=== PATIENT | male | born 1975 | race Two or more races ===

== ENCOUNTER 2023-08-28 14:52 | Outpatient (AMB) | payer OTHER, SELFPAY ==
--- NOTE | 2023-08-28 15:01 | A.OFFVIS_ITS ---
Vital Signs 08/28/23 15:02 Height 6 ft 1 in Weight 285 lb BMI 37.6 BP 130/88 Blood Pressure Location Rt brachial Position Sitting Pulse 82 Pulse Source Pulse Oximeter Pulse Oximetry (%) 99 Oxygen Delivery Method Room Air Intake Visit Reasons: ENP-Tremor upper extremity-CONF Intake Note: Patient presents for tremors of upper extremities. Patient states he has upper and lower extremity tremors Allergies No Known Allergies Allergy (Verified 08/28/23 15:11) Medication List - Last Reconciled 08/28/23 by REGIS Vargas amlodipine 10 mg PO DAILY gabapentin 300 mg PO BEDTIME naproxen 500 mg PO BID sildenafil 100 mg PO DAILY PRN HPI Comments Details: 48- yr-old male presents for new pt evaluation of movement disorder, specifically: tremor. PMH: lower back pain and osteoarthritis. Left knee pain. H/o BUE CTR (approx 5 yrs ago). HTN, HLD, prediabetes, ED, headache, nephrolithiasis, positive RENETTA- previously not felt to be clinically significant [facility], Alopecia. Pt is concerned about BLE tremor which started about 1.5 years- when sitting, standing. He also has BLE L > R tingling, which is more bothersome at night. Gabapentin has helped with the tingling and sleep, and initially helped w/ the tremor but not as much now. Then he started noticing intermittent LUE tremor about 6 months ago- that comes and goes- can occur at rest or with activity such as typing but not with pouring. He is hesitant to start additional medications- notes a few years ago, was seeing neurology in [place], and addition of 2 medications (does not recall which) caused tremor and speech changes. Endorses: Radiating lower back pain w/ shooting pain down into toes. Has had back injections by [facility] and tried PT but this made him worse. Left knee swelling. Some intermittent tingling in left 4th and 5th fingers. Denies usual neck pain, swelling, h/o CVA, h/o pedersen's palsy. States his last lumbar spine imaging was in 2020, Last BUE EMG/NCS was > 5 yrs ago before the CTR repair. Denies h/o c-spine imaging, BLE EMG/NCS. Pt is right handed. ADL status: Ind but slow in the morning. Sits in a chair to put on his socks. IADL status: Ind Fine-motor skills: Ind Micrographia: Writing used to be better. Vision changes: deneis recent changes. wears glasses Hypophonia: Denies Hyposmia: Denies Dysphagia: Denies Drooling: Denies Orthostatic lightheadedness: If squats for a while, but just briefly. GI: Denies. Denies Constipation. : No issues Slowness: Feels overall slower and stiffer Cramps: Occasional left calf nocturnal cramps. Freezing episodes: Denies Tremor: as above Involuntary movements: Denies Dyskinesia: Denies Paresthesias: just the BLE Gait changes: No issues when typically walking. However, if he walks for long periods or walks on inclines, will have LLE tingling, warmth. Sleep difficulty: Sleeps well w/ his CPAP machine- states his ELDON severity fluctuates w/ his weight. If he sleeps 2 nights w/o his CPAP, his Uvula becomes swollen. Parasomnias: He has been told he talks in his sleep. Memory impairment: Not as good as it used to be- but not that bad- says normal. Hallucinations: Denies Usual exercise: Takes walks. Does some weight lifting at home. 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 History of concussion/head injury? denies History of neuroleptic (metoclopramide/antipsychotics) use? denies History of psychiatric hospitalizations? denies History of occupational chemical exposures? 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 Family history of movement disorders? His mother has tremor and low back pain, sciatica, and neuropathy- f/b [facility] neurosurgery. Family history of mood disorder or suicide? denies [facility] Surgical History History of carpal tunnel release Hx laparoscopic cholecystectomy H/O circumcision Family History Mother Arthritis Hypercholesteremia HTN (hypertension) Diabetes Maternal Grandmother HTN (hypertension) Diabetes Father Liver cancer Social History Alcohol intake: current Patient Tobacco Use Status: Former Tobacco user Review of Systems Const All systems reviewed & are unremarkable except as noted in HPI and below Physical Exam Vital Signs: Last Vital Signs Pulse 82 08/28/23 15:02 BP 130/88 08/28/23 15:02 Pulse Ox 99 08/28/23 15:02 Oxygen Delivery Method Room Air 08/28/23 15:02 BMI result Body Mass Index 37.6 Const General: cooperative and no acute distress HEENT Face and sinus: Yes other (Decreased expression and blink) Resp Effort & Inspection: normal respiratory effort and able to speak in complete sentences Cardio Rate: regular rate Rhythm: regular rhythm Neuro Other: General: A&O's 3. Asymmetric palpabrel fissure, L > R. Left lower eyelid does not close as tightly on eye closure. Expression: Intact Voice: Intact Tremor: Mild lingual tremor on protrusion. Very mild LUE postural tremor during pronator drift. Writing sample: Bilateral archimede's spiral- legible w/o tremor. Sentence- mildly poor handwriting w/o micrographia. MS: LLE hip flexor 5-/5, otherwise 5/5 Tone: BUE tone Dyskinesia: None FFM: Ok BUE BHARAT: intact Foot taps: Decreased heel taps on left, left foot taps better than heel taps Cervical ROM: Very mildly limited cervical ROM. Negative Spurling exams. Sensation: BLE light touch sensation intact. Gait: Able to stand slowly w/o arms, slight decreased right arm swing, good stride, steady gait. Psych: Pleasant affect Deep tendon reflexes (DTR's): Right triceps reflex intensity grade: 2+, Left triceps reflex intensity grade: 3+, Rt Biceps (C5, C6): 2+, Left biceps reflex intensity grade: 2+, Right brachioradialis reflex intensity grade: 2+, Left brachioradialis reflex intensity grade: 2+, Right patellar reflex intensity grade: 2+, Left patellar reflex intensity grade: 2+, Right ankle reflex intensity grade: 2+ and Left ankle reflex intensity grade: 2+ Psych Appearance: grossly normal Mental Status: mental status grossly normal Speech and movement: Clear speech present Affect: normal affect Attitude: cooperative Thought process: Normal thought process present Results Reviewed Results Reviewed: 09/20/2020, RESULT: MRI Lumbar Spine W/O Contrast [facility] VISIT NUMBER :[id number] Patient Name: Luc Fontaine Date of : 1975 Date of Exam: 09-20-2020 Referring Physician: Xavier Sandoval [facility] [address] [place] [address] Exam: MR Lumbar Spine (C-) CPT 12258 Room Description: [place] [address] 1.5 INDICATION: Low back pain. Failed conservative therapy. COMPARISON: None. FINDINGS: The vertebral bodies are normal in height and sagittal alignment. Moderate type I degenerative endplate marrow signal changes are noted at the L3- L4 and L4-L5 levels. There is disc desiccation and mild loss of intervertebral disc height at L3-L4 and L4-L5 as well as subtle disc desiccation without height loss at L2-L3. Remaining intervertebral discs are preserved. The visualized distal spinal cord and conus medullaris are normal. The conus medullaris terminates at L1. The paraspinal and prevertebral soft tissues are unremarkable. There is a T2 hyperintense lesion in the lower pole of the right kidney seen on the localizer images which probably reflects a small renal cyst. At T12-L1, there is no spinal canal or neural foraminal stenosis. At L1-L2, there is no spinal canal or neural foraminal stenosis. At L2-L3, there is a subtle disc bulge causing no significant narrowing of the spinal canal though there is mild bilateral neural foraminal narrowing. At L3-L4, there is a diffuse disc bulge and subtle facet arthropathy. There is no significant narrowing of the spinal canal. There is mild left and mild to moderate right neural foraminal narrowing. At L4-L5, there is a diffuse disc bulge with minimal central protrusion component and mild facet arthropathy. Disc material abuts the traversing right L5 nerve roots without displacement or compression. There is no significant narrowing of the spinal canal. There is mild bilateral neural foraminal narrowing. At L5-S1, there is mild facet arthropathy but there is no spinal canal or neural foraminal stenosis. IMPRESSION: Degenerative changes of the lumbar spine as described above. No definite evidence of nerve root impingement. Assessment & Plan Assessment & Plan (1) Hyperreflexia: Code(s): R29.2 - Abnormal reflex Category: Medical (2) Tremor: Code(s): R25.1 - Tremor, unspecified Category: Medical (3) Osteoarthritis: Code(s): M19.90 - Unspecified osteoarthritis, unspecified site Category: Medical (4) Paresthesia of left lower extremity: Code(s): R20.2 - Paresthesia of skin Category: Medical (5) Lumbar degenerative disc disease: Code(s): M51.36 - Other intervertebral disc degeneration, lumbar region Category: Medical Plan Continue Gabapentin 300mg qhs. Continue Naproxen 500mg bid prn. Offered pt to trial OTC Nervive/alpha-lipoic acid, however pt would like to wait for additional work-up to be completed 1st. Will request recent labs from - ceruloplasmin, TSH, etc. Pt advised to undergo: XR c-spine Brain MRI and C-spine MRI w/wo to assess for central secondary/inflammatory et iologies of eye flutter, lingual tremor, asymmetric tremor, Lt tricep hyperreflexia. L-spine mRI w/o- to assess for etiologies of LLE tremor, radicular back pain, LLE weakness. BUE and BLE EMG/NCS. Case discussed w/ Dr Karen Mondragon. Orders: Orders MR cervical spine wo/w con 08/28/23 R20.2 - Paresthesia of skin, R25.1 - Tremor, unspecified, R29.2 - Abnormal reflex, R29.898 - Other symptoms and signs involving the musculoskeletal system XR cervical spine w flex/ext 08/28/23 M54.2 - Cervicalgia NE electromyogram (EMG) 08/28/23 M51.36 - Other intervertebral disc degeneration, lumbar region, R20.2 - Paresthesia of skin, R25.1 - Tremor, unspecified, R29.898 - Other symptoms and signs involving the musculoskeletal system NE nerve conduction velocity 08/28/23 M51.36 - Other intervertebral disc degeneration, lumbar region, R20.2 - Paresthesia of skin, R25.1 - Tremor, unspecified, R29.898 - Other symptoms and signs involving the musculoskeletal system MR head/brain wo/w con 08/28/23 G51.4 - Facial myokymia, I10 - Essential (primary) hypertension, R25.1 - Tremor, unspecified, R29.2 - Abnormal reflex MR lumbar spine wo con 08/28/23 M51.36 - Other intervertebral disc degeneration, lumbar region, R20.2 - Paresthesia of skin, R25.1 - Tremor, unspecified, R29.898 - Other symptoms and signs involving the musculoskeletal system Coding Level of Care Code New Pt Level 4 (37728) Diagnoses Hyperreflexia R29.2 Tremor R25.1 Osteoarthritis M19.90 Paresthesia of left lower extremity R20.2 Lumbar degenerative disc disease M51.36
[2023-08-28 15:02] VITALS: BP 130/88; PULSE 82; O2SAT 99; BMI 37.6
== END 2023-08-28 16:27 | disposition home or self-care (01) ==
PROVIDERS: PCP Family Medicine; Visit Provider Nurse Practitioner Family
DX: R29.2 Abnormal reflex (principal); R25.1 Tremor, unspecified; M19.90 Unspecified osteoarthritis, unspecified site; R20.2 Paresthesia of skin; M51.36 Other intervertebral disc degeneration, lumbar region
CPT/HCPCS: 99204

== ENCOUNTER → 2023-08-28 14:52 | Outpatient (BNVA) | payer OTHER, SELFPAY | PROVIDERS: PCP Family Medicine; Visit Provider Nurse Practitioner Family ==

== ENCOUNTER 2023-09-19 09:52 | Outpatient (REF) | payer OTHER, SELFPAY ==
--- NOTE | 2023-09-19 09:55 | EMG_ITS ---
Bilateral tibial and peroneal motor studies were performed. Bilateral superficial peroneal, sural, and median and lateral plantar studies were performed. Tibial H reflexes were obtained, and paraspinal muscles were tested with a needle. IMPRESSION: Mild to moderate axonal sensory motor peripheral neuropathy, more so in feet than legs. MD BELKYS Fallon/ENE / [id number]
== END 2023-09-19 09:53 | disposition home or self-care (01) ==
LOC: HO.NEURO 09:52
PROVIDERS: Visit Provider Nurse Practitioner Family
DX: R20.2 Paresthesia of skin (principal); R29.898 Other symptoms and signs involving the musculoskeletal system; M51.36 Other intervertebral disc degeneration, lumbar region; R25.1 Tremor, unspecified
CPT/HCPCS: 95886; 95913

== ENCOUNTER 2023-10-09 16:30 | Outpatient (REF) | payer OTHER, SELFPAY ==
--- NOTE | ~2023-10-09 | MR_ITS ---
EXAMINATION: MR LUMBAR SPINE WITHOUT CONTRAST CLINICAL INFORMATION: Intervertebral disc degeneration of the lumbar spine. Left lower extremity numbness. COMPARISON: No relevant prior imaging. TECHNIQUE: MRI of the lumbar spine was obtained using routine sequences without contrast. FINDINGS: Alignment is normal. Vertebral body heights are preserved. No acute bone marrow signal changes. There are mixed degenerative endplate changes at L3-L4 and L4-L5. Slight loss of the intervertebral disc height and signal intensity at multiple levels related to disc degeneration. The tip of the conus medullaris is located at L1. No mass effect on the conus. Visualized distal cord signal intensity is normal. At L1-L2 the annular contour is normal. No canal stenosis. No mass effect on the traversing or foraminal nerve roots. At L2-L3. There is a right foraminal annular fissure associated with a bulging disc. Bilateral facet degenerative changes. No canal stenosis. No mass effect on the traversing or foraminal nerve roots. At L3-L4 there is a bulging disc. Bilateral facet degenerative change. No canal stenosis. Mild compression of the right L3 foraminal nerve root. At L4-L5 there is a bulging disc. Bilateral facet degenerative change. No canal stenosis. Moderate compression of the left L4 foraminal nerve root. At L5-S1 there is a slightly bulging disc. Bilateral facet degenerative change. No canal stenosis. Partial effacement of the perineural fat with minimal to mild mass effect on both L5 foraminal nerve roots. Limited visualization of the retroperitoneal anatomy reveals no abnormal finding. Psoas and paraspinal muscle groups are symmetric. MR/MR lumbar spine wo con IMPRESSION: There is multilevel degenerative spondylosis of the lumbar spine. No canal stenosis. There is moderate compression of the left L4 foraminal nerve root related to degenerative changes at L4-L5. There is also mild mass effect on the right L3 and both L5 foraminal nerve roots related to degenerative changes at L3-L4 and L5-S1 respectively. Electronically signed by: Shady Torres MD 10/26/2023 05:00 PM EDT
== END 2023-10-09 16:31 | disposition home or self-care (01) ==
LOC: HO.MRI 16:30
PROVIDERS: Visit Provider Nurse Practitioner Family
DX: M51.36 Other intervertebral disc degeneration, lumbar region (principal); R25.1 Tremor, unspecified; R20.2 Paresthesia of skin; R29.898 Other symptoms and signs involving the musculoskeletal system
CPT/HCPCS: 72148

== ENCOUNTER 2023-11-03 08:31 | Outpatient (REF) | payer OTHER, SELFPAY ==
--- NOTE | ~2023-11-03 | MR_ITS ---
EXAMINATION: MR BRAIN WITHOUT AND WITH CONTRAST MR CERVICAL SPINE WITHOUT AND WITH CONTRAST CLINICAL INFORMATION: Facial myokymia. Abnormal reflexes. COMPARISON: None available. TECHNIQUE: MRI of the brain and cervical spine was obtained using routine sequences without and following the administration of 10 mL of Gadavist intravenous contrast. FINDINGS: Head: No focal restricted diffusion is demonstrated to suggest acute or subacute cerebral ischemia. No evidence of acute or chronic hemorrhagic products on heme-sensitive imaging. Few nonspecific foci of T2 FLAIR hyperintensity in the periventricular and deep white matter of the anterior frontal lobes bilaterally. No additional parenchymal signal abnormalities. The ventricles are normal in morphology and size. No abnormal mass effect. No midline shift. Normal appearance of the pituitary gland. Normal positioning of the cerebellar tonsils. Normal arterial and venous vascular flow voids are present. No abnormal contrast enhancement. Normal, homogeneous marrow signal. Mild mucosal thickening of the paranasal sinuses. No signal abnormalities within the mastoids. Cervical Spine: Normal anatomic alignment. Normal, homogeneous marrow signal throughout. The vertebral body heights are maintained. Moderate degenerative disc disease at C3-C4 and T3-T4. Mild degenerative disc disease from C4-T1. No demonstrated spinal cord signal abnormalities. No abnormal contrast enhancement. Limited evaluation of the soft tissues of the neck without demonstrated abnormalities. The flow voids of the major cervical vessels are maintained. Normal appearance of the cervicomedullary junction and visualized posterior fossa. SPINAL LEVELS: C2-C3: Minimal disc-osteophyte complex. There is mild left and no right uncovertebral joint arthropathy. There is mild bilateral facet joint arthropathy. There is mild left and no right neural foraminal stenosis. There is no spinal canal stenosis. C3-C4: Mild disc-osteophyte complex. There is moderate left and mild right uncovertebral joint arthropathy. There is moderate left and mild right facet joint arthropathy. There is mild left and no right neural foraminal stenosis. There is mild spinal canal stenosis. C4-C5: Mild disc-osteophyte complex. There is moderate left and mild right uncovertebral joint arthropathy. There is moderate bilateral facet joint arthropathy. There is moderate left and mild right neural foraminal stenosis. There is mild to moderate spinal canal stenosis. C5-C6: Mild disc-osteophyte complex. There is moderate left and mild right uncovertebral joint arthropathy. There is mild to moderate bilateral facet joint arthropathy. There is moderate left and mild right neural foraminal stenosis. There is mild to moderate spinal canal stenosis. C6-C7: Mild disc-osteophyte complex. There is moderate right and mild left uncovertebral joint arthropathy. There is mild bilateral facet joint arthropathy. There is moderate right and mild left neural foraminal stenosis. There is mild spinal canal stenosis. C7-T1: Mild disc-osteophyte complex. There is moderate left and mild right uncovertebral joint arthropathy. There is mild bilateral facet joint arthropathy. There is mild left and no right neural foraminal stenosis. There is no spinal canal stenosis. MR/MR cervical spine wo/w con IMPRESSION: 1. No acute intracranial abnormalities. No abnormal intracranial enhancement. Minimal nonspecific white matter changes. 2. Mild to moderate multilevel degenerative spondyloarthropathy of the cervical spine as described in detail above. Most notably, there are mild to moderate spinal canal stenoses from C3-C7. Moderate neural foraminal stenoses from C4-C7. 3. No demonstrated cervical spinal cord signal abnormalities. No abnormal enhancement of the cervical spine. Electronically signed by: Александр Swanson DO 11/24/2023 11:10 PM EDT
[2023-11-03] MEDS: gadobutroL 10 ML VIAL IVPUSH (10:12)
== END 2023-11-03 08:32 | disposition home or self-care (01) ==
LOC: HO.MRI 08:31
PROVIDERS: Visit Provider Nurse Practitioner Family
DX: R29.2 Abnormal reflex (principal); R25.1 Tremor, unspecified; R29.898 Other symptoms and signs involving the musculoskeletal system; R20.2 Paresthesia of skin; G51.4 Facial myokymia; I10 Essential (primary) hypertension
CPT/HCPCS: 70553; 72156; A9585

== ENCOUNTER 2023-11-06 12:47 | Outpatient (AMB) | payer OTHER, SELFPAY ==
--- NOTE | 2023-11-06 13:06 | A.SPINEOV_ITS ---
Intake Visit Reasons: Back pain Intake Note: Mr. Mccall is here today c/o low back pain. [place] done @ [facility] [place]. 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 Mondragon, Thank you for referring Luc to our office today. He is a pleasant 48-year-old male who comes in today with a chief complaint of low back pain and shooting pain into his left lower extremity. He reports that has been ongoing for the past 4 years, and has gradually worsened in intensity since onset. He denies any known inciting incident. When describing his radicular pain he states it travels over his left anterior thigh over his left knee down the anterior tibialis to the top of his foot near the big toe. He reports some numbness/tingling as well predominantly in the left thigh and left foot. He reports that bending seems to exacerbate his pain, but denies any other positional changes that worsen his pain. He denies any issues with prolonged ambulation. He has tried going to physical therapy for this issue however found it only worsened his pain and was not helpful. He has been to [facility] and had a series of injections which he reports provided complete relief of his symptoms for a few weeks after each set of injections. He has tried [id number] medications such as Tylenol/ibuprofen/naproxen in addition to this he has utilized prescription medications such as gabapentin and muscle relaxers. Unfortunately he feels these medications only provide temporary modest relief. PMH: Hypertension, sleep apnea, erectile dysfunction, hyperlipidemia, nephrolithiasis. Social hx: Patient does not smoke, reports no substance use. Medications: Truvada, sildenafil, gabapentin, naproxen, amlodipine. Allergies: NKDA. Physical exam: The patient has 5/5 strength in his upper and lower extremities. He does report some sensational deficits to light touch over his anterior left thigh and left foot. His reflexes are 1+ hypoactive diffusely. He has to engage a Valsalva maneuver in order to elicit patellar reflex bilaterally. He is able to ambulate well and rises from a seated position without difficulty. (-) bilateral straight leg raise, (-) clonus, (-) Squires's. Imaging review: MRI of the lumbar spine completed here at [facility] shows bilateral moderate foraminal stenosis at L3-4, worse on the right. There is also bilateral moderate foraminal stenosis at L4-5, also worse on the right. Impression: Luc is a pleasant 48-year-old male who comes in today with a chief complaint of low back pain & intermittent shooting pains into his left lower extremity. His clinical picture is most consistent with lumbar radiculopathy as a result of foraminal stenosis. His primary concerns/complaint is pain in both his low back in his left leg. He denies mobility restrictions. We may be able to treat this with a simple decompression surgery, however I would like to obtain his records from [facility] to see what injections he had that reportedly provide him with temporary but complete relief of his low back pain and radicular pain. I will follow up with him after we obtain his records. Thank you for allowing us to care for your patient. The total time spent with this visit with this patient was 45 minutes reviewing history, physical exam, MRI imaging review, and implementation of treatment plan or further diagnostic testing Dalton Handley MD,PhD [facility] Coding Level of Care Code Global (81634) Diagnoses Lumbar radiculopathy M54.16
== END 2023-11-06 13:47 | disposition home or self-care (01) ==
PROVIDERS: Referring Provider Nurse Practitioner Family; Visit Provider Physician Assistant
DX: M54.16 Radiculopathy, lumbar region (principal)
CPT/HCPCS: 99204

== ENCOUNTER → 2023-11-06 12:47 | Outpatient (BNVA) | payer OTHER, SELFPAY | PROVIDERS: Visit Provider Physician Assistant ==

== ENCOUNTER 2023-11-22 13:57 | Outpatient (AMB) | payer OTHER, SELFPAY ==
--- NOTE | 2023-11-22 13:59 | A.OFFVIS_ITS ---
Vital Signs 11/22/23 14:08 Height 6 ft 1 in Weight 296 lb BMI 39.0 BP 153/86 H Blood Pressure Location Lt brachial Position Sitting Respiration 16 Pulse 88 Pulse Source Palpation Pulse Oximetry (%) 96 Oxygen Delivery Method Room Air Intake Visit Reasons: Lumbar Radiculopathy Intake Note: Patient comes in for initial visit was referred by [facility] [place] [place] spine center. Reports 7- 8. Allergies No Known Allergies Allergy (Verified 11/22/23 14:06) HPI Comments Details: Arian is very pleasant 48 years old gentleman who was referred to my office by Dr. Handley and associates. He reports severe pain in the lower back with radiation to the right lower extremity sensation of pins and needles as well as burning sensation in the left lower extremity. He reported that this pain started 2-3 years ago. He relates this problem to the age. He reports that he can not sleep normally because of his pain can not do activities of daily living he can take care of himself and he can function normally. He reports that he is working full-time and his job is very physical he performs multiple times during the daytime climbing up and down stairs and heavy lifting. He reports that he is self mobile, weather changes in movements aggravate his pain and oral medications make his pain better. In terms of tissue damage he reports his pain as pulsing, throbbing, pounding, pinching, cramping, crushing, hot burning, scalding, searing, tingling, stinging, tiring, exhausting, tight, squeezing, tearing. He had an MRI of the lumbar spine results of which dictated as below. He had physical therapy 3-1/2 years ago with [facility] he went to 5-6 sessions and he reported severe pain exacerbation with physical therapy. He refused to consider physical therapy. He in the past received 1 transforaminal epidural steroid injection L3-L4 L4-5 in the past which he reports made him significantly better. Past medical history is for kidney stones history of gout arthritis and history of sexual dysfunction, surgical history call patellar release on both hands 2 years ago and gallbladder surgery 4 years ago. Social history full-time working admits vaping nicotine, drinks 3 drinks a week of cocktail drinks denies recreational drugs and denies being addicted to drugs. [facility] Surgical History History of carpal tunnel release Hx laparoscopic cholecystectomy H/O circumcision Family History Mother Arthritis Hypercholesteremia HTN (hypertension) Diabetes Maternal Grandmother HTN (hypertension) Diabetes Father Liver cancer Social History Alcohol intake: current Patient Tobacco Use Status: Former Tobacco user Review of Systems Const All systems reviewed & are unremarkable except as noted in HPI and below ENT Reports Normal hearing present Card Reports no additional complaints Resp Reports no additional complaints GI Reports no additional complaints Reports no additional complaints Musc Reports as per HPI Neuro Reports no additional complaints, Reports Normal hearing present, Denies Abnormal speech present and Denies Sensory deficit (Neuro) Psych Reports no additional complaints Physical Exam Vital Signs: Last Vital Signs Pulse 88 11/22/23 14:08 Resp 16 11/22/23 14:08 BP 153/86 H 11/22/23 14:08 Pulse Ox 96 11/22/23 14:08 Oxygen Delivery Method Room Air 11/22/23 14:08 BMI result Body Mass Index 39.0 Const General: no acute distress Nutritional Appearance: obese (Trivial obesity) Orientation/consciousness: patient oriented x3 Eyes General: appearance normal, both eyes and all related structures Pupils: Equal, round and reactive pupils present EOM: EOMs intact bilaterally Neck Neck: Yes full ROM Chest Chest palpation & inspection: normal inspection of the chest Resp Effort & Inspection: normal respiratory effort, able to speak in complete sentences, normal respiratory pattern, no audible wheezes and no cough Cardio Jugular venous distension: no JVD GI Inspection: Yes normal to inspection Neuro General: patient oriented x3 and gait normal Cranial nerves: Yes CN's II-XII intact bilaterally, Yes Equal, round and reactive pupils present, Yes Normal hearing present and Yes Ability to bilaterally elevate shoulders present Speech: No Abnormal speech present Gait exam (Neuro): Normal gait present Motor exam (neuro): 5/5 motor strength present throughout Sensory Exam: No Sensory deficit (Neuro) Extrem General: No pedal edema Psych Speech and movement: Normal speech and movement present Affect: normal affect Attitude: cooperative Thought process: Normal thought process present Thought content: Normal thought content present Insight: Good insight present (Psych) Judgement: Good judgement present (Psych) Results Reviewed Results Reviewed: MR LUMBAR SPINE WITHOUT CONTRAST CLINICAL INFORMATION: Intervertebral disc degeneration of the lumbar spine. Left lower extremity numbness. COMPARISON: No relevant prior imaging. TECHNIQUE: MRI of the lumbar spine was obtained using routine sequences without contrast. FINDINGS: Alignment is normal. Vertebral body heights are preserved. No acute bone marrow signal changes. There are mixed degenerative endplate changes at L3-L4 and L4-L5. Slight loss of the intervertebral disc height and signal intensity at multiple levels related to disc degeneration. The tip of the conus medullaris is located at L1. No mass effect on the conus. Visualized distal cord signal intensity is normal. At L1-L2 the annular contour is normal. No canal stenosis. No mass effect on the traversing or foraminal nerve roots. At L2-L3. There is a right foraminal annular fissure associated with a bulging disc. Bilateral facet degenerative changes. No canal stenosis. No mass effect on the traversing or foraminal nerve roots. At L3-L4 there is a bulging disc. Bilateral facet degenerative change. No canal stenosis. Mild compression of the right L3 foraminal nerve root. At L4-L5 there is a bulging disc. Bilateral facet degenerative change. No canal stenosis. Moderate compression of the left L4 foraminal nerve root. At L5-S1 there is a slightly bulging disc. Bilateral facet degenerative change. No canal stenosis. Partial effacement of the perineural fat with minimal to mild mass effect on both L5 foraminal nerve roots. Limited visualization of the retroperitoneal anatomy reveals no abnormal finding. Psoas and paraspinal muscle groups are symmetric. MR/MR lumbar spine wo con IMPRESSION: There is multilevel degenerative spondylosis of the lumbar spine. No canal stenosis. There is moderate compression of the left L4 foraminal nerve root related to degenerative changes at L4-L5. There is also mild mass effect on the right L3 and both L5 foraminal nerve roots related to degenerative changes at L3-L4 and L5-S1 respectively. Assessment & Plan Assessment & Plan (1) Lumbar radiculopathy: Code(s): M54.16 - Radiculopathy, lumbar region Category: Medical (2) Spinal stenosis: Code(s): M48.00 - Spinal stenosis, site unspecified Category: Medical (3) Osteoarthritis: Code(s): M19.90 - Unspecified osteoarthritis, unspecified site Category: Medical (4) Gout: Code(s): M10.9 - Gout, unspecified Category: Medical (5) Spondylosis, lumbar, with myelopathy: Code(s): M47.16 - Other spondylosis with myelopathy, lumbar region Category: Medical (6) Vertebrogenic low back pain: Code(s): M54.51 - Vertebrogenic low back pain Category: Medical Plan 1. I will schedule this patient for transforaminal L3-L4 L4-5 epidural steroid injection on the right. 2. I will do the follow-up of this patient in about amounts after the procedure. 3. The radiculopathy pain might be alleviated by the transforaminal epidural steroid injection however patient is axial back pain might be related to the discogenic changes I discovered today in his lumbar spine at L3-L4 and L5 vertebra. Intercept procedure could be offered to the patient if axial low back pain remains after the TFESI. 4. He was diagnose with gout in the past and I recommended him to speak about gout with primary care physician. It would be good if he will take the allopurinol or other medications for his condition. 5. I also offered him to prescribe him gabapentin 600 mg t.i.d. to help his pain. Told him if gabapentin make him drowsy or sleepy he can not take 2 medications at night and 1 during the daytime. Medications: New gabapentin 600 mg PO TID 30 days 90 tabs 4RF Patient Instructions: I here by testify that I spent 45 minutes in conversation with this patient as well as evaluating this patient's MRI and MRI report as well as planning his care and organizing this note. Coding Level of Care Code New Pt Level 4 (66201) Diagnoses Lumbar radiculopathy M54.16 Spinal stenosis M48.00 Osteoarthritis M19.90 Gout M10.9 Spondylosis, lumbar, with myelopathy M47.16 Vertebrogenic low back pain M54.51
[2023-11-22 14:08] VITALS: BP 153/86; PULSE 88; RESP 16; O2SAT 96; BMI 39.0
== END 2023-11-22 14:17 | disposition home or self-care (01) ==
PROVIDERS: Referring Provider Physician Assistant; Visit Provider Anesthesiology
DX: M54.16 Radiculopathy, lumbar region (principal); M48.00 Spinal stenosis, site unspecified; M19.90 Unspecified osteoarthritis, unspecified site; M10.9 Gout, unspecified; M47.16 Other spondylosis with myelopathy, lumbar region; M54.51 Vertebrogenic low back pain
CPT/HCPCS: 99204

== ENCOUNTER → 2023-11-22 13:57 | Outpatient (BNVA) | payer OTHER, SELFPAY | PROVIDERS: Referring Provider Physician Assistant; Visit Provider Anesthesiology ==

== ENCOUNTER 2023-12-05 13:29 | Outpatient (AMB) | payer OTHER, SELFPAY ==
[2023-12-05 13:32] VITALS: BP 148/100; PULSE 83; O2SAT 98; BMI 39.6
--- NOTE | 2023-12-05 13:32 | A.OFFPC_ITS ---
Vital Signs 12/05/23 13:32 Height 6 ft 1 in Weight 300 lb 0.4 oz BMI 39.6 BP 148/100 H Blood Pressure Location Lt brachial Position Sitting Pulse 83 Pulse Source Pulse Oximeter Pulse Oximetry (%) 98 Oxygen Delivery Method Room Air Intake Visit Reasons: Establish Care Allergies No Known Allergies Allergy (Verified 12/05/23 13:47) Medication List - Last Reconciled 12/05/23 by Alexandra Aguilar PA-C amlodipine 10 mg PO DAILY emtricitabine-tenofovir (TDF) 200-300 mg 1 tab PO DAILY gabapentin 600 mg PO TID 30 days naproxen 500 mg PO BID sildenafil 100 mg PO DAILY PRN Tobacco use date assessed: 12/05/23 Dental Screening Dental Screen Date: 12/05/23 Did you have a dental visit in the last 12 months?: No Did you have a dental problem in the last 6 months where you did not have access to dental care?: No Was dental information given to patient?: Patient has dentist HPI Establish Care HPI Details 48 year old male coming to the office fo r the first time. In review of the notes, patient was seen by Neurology for tremors and was sent for MRI of the brain, C spine and lumbar spine. Patient was referred to the spine center due to lumbar and cervical spine degenerative disease, seen by spine center October 2023 and recommend series of injections for lumbar pain. Patient saw pain management 11/22/2023 and scheduled for steroid injections and recommended possible allopurinol for management of gout and given gabapentin for back pain.? Patient was seen at [facility] previously in [place] for his PCP left. He sees [facility] in [place] for prep prescription. Blood pressure is consistently high at home and also mentions he has been gaining weight. He had a colonoscopy last year with repeat in 10 years. Falls with [facility] for regular eye exams. [facility] Surgical History History of carpal tunnel release Hx laparoscopic cholecystectomy H/O circumcision Family History Mother Arthritis Hypercholesteremia HTN (hypertension) Diabetes Maternal Grandmother HTN (hypertension) Diabetes Father Liver cancer Social History Housing: House Alcohol intake: current Patient Tobacco Use Status: Former Tobacco user e-Cigarette/Vaping Use: Currently Using service: No Current occupational status: employed Cognitive needs: No Hearing needs: No Vision needs: No Questionnaire PHQ-9 Over the last 2 weeks, how often have you been bothered by any of the following problems? 1. Little interest or pleasure in doing things: more than half the days 2. Feeling down, depressed, or hopeless: more than half the days 3. Trouble falling or staying asleep, or sleeping too much: nearly every day 4. Feeling tired or having little energy: more than half the days 5. Poor appetite or overeating: more than half the days 6. Feeling bad about yourself - or that you are a failure or have let yourself or your family down: not at all 7. Trouble concentrating on things, such as reading the newspaper or watching television: not at all 8. Moving or speaking so slowly that other people could have noticed. Or the opposite - being so fidgety or restless that you have been moving around a lot more than usual: more than half the days 9. Thoughts that you would be better off or of hurting yourself in some way: not at all Total score: 13 Depression Screening Interpretation: Positive Depression Screening Follow-up: Declines treatment Depression Screening Done: Yes 38561 - PHQ-9 Billing: Yes Source: Developed by Drs. Shady Gutierrez, Dayna Mckeon, Shane Matias and colleagues, with an educational cristel from [employer]. Thrive Questionnaire I am a: Patient What is your living situation today?: I have a steady place to live Within the past 12 months, did the food you bought not last and you didn't have the money to get more?: Often true Within the past 12 months, did you worry whether your food would run out before you got money to buy more?: Often true Do you have trouble paying for medicines?: No Do you have trouble getting transportation to medical appointments?: No Do you have trouble paying your heating and electricity bill?: Yes Do you have trouble taking care of your child, family member or friend?: No Do you have trouble with day-to-day activities such as bathing, preparing meals, shopping, managing finances, etc.?: Yes Are you currently unemployed and looking for a job?: No Are you interested in more education?: I choose not to answer this question Please select the resources that you would like help with: Food and Utilities Currently or been in a relationship where the following occur: No concerns reported THRIVE Score: 3 AUDIT C Alcohol Use Questionnaire (AUDIT-C) 1. How often do you have a drink containing alcohol?: 2-4 times a month 2. How many drinks containing alcohol do you have on a typical day when you are drinking?: 3 or 4 3. How often do you have six or more drinks on one occasion?: Never Total Score: 3 DARIELA-7 AMB Questionnaire DARIELA-7 Date DARIELA - 7 assessed: 12/05/23 Feeling nervous, anxious, or on edge: 1 = Several days Not being able to stop or control worryin = More than half the days Worrying too much about different things: 2 = More than half the days Trouble relaxin = More than half the days Being so restless that it is hard to sit still: 2 = More than half the days Becoming easily annoyed or irritable: 2 = More than half the days Feeling afraid as if something awful might happen: 1 = Several days Total DARIELA-7 score (0-4 normal; 5-9 mild; 10-14 moderate; 15-21 severe): 12 Source: Developed by Drs. Shady Gutierrez, Dayna Mckeon, Shane Matias and colleagues, with an educational cristel from [employer]. DARIELA-7 Assessment Billing DARIELA-7 Assessment Tool: DARIELA-7 Assessment 14195 Review of Systems Const Denies body aches, Denies fatigue, Denies fever(s), Denies frequent falls, Reports headache(s) and Denies weakness Eyes Reports no additional complaints and Denies change in vision ENT Denies dysphagia, Denies dizziness, Denies facial pain, Reports headache(s) and Denies odynophagia Card Denies chest pain, Denies syncope, Denies irregular heart rhythm, Denies leg edema, Denies lightheadedness and Denies dyspnea Resp Denies cough and Denies dyspnea GI Denies abdominal pain, Denies constipation, Denies dysphagia, Denies dyspepsia, Denies diarrhea, Denies nausea, Denies odynophagia and Denies vomiting Denies dysuria, Denies urinary frequency, Denies urinary hesitancy and Denies urinary urgency Musc Reports back pain and Denies myalgias Skin/Breast Reports system reviewed and no additional complaints, except as documented Neuro Denies dizziness, Denies syncope, Denies frequent falls, Reports headache(s) and Denies weakness Psych Reports no additional complaints Endo Denies fatigue Physical exam (Primary Care) Vital Signs: Last Vital Signs Pulse 83 12/05/23 13:32 BP 148/100 H 12/05/23 13:32 Pulse Ox 98 12/05/23 13:32 Oxygen Delivery Method Room Air 12/05/23 13:32 BMI result Body Mass Index 39.6 Tobacco/Smoking Status: Tobacco use Status Tobacco use date assessed 12/05/23 12/05/23 13:36 Patient Tobacco Use Status Former Tobacco user 12/05/23 13:33 e-Cigarette/Vaping Use Currently Using 12/05/23 13:36 PHQ-9: PHQ-9 Score PHQ-9: Total score 13 12/05/23 16:11 Depression Screening Interpretation: Positive Depression Screening Follow-up: Declines treatment Currently or been in a relationship where the following occur: No concerns reported Const General: cooperative, healthy appearing, comfortable and no acute distress Orientation/consciousness: patient oriented x3 HENMT Head: Yes normocephalic Ears: hearing grossly normal bilaterally General nose exam: Normal external nose present Eyes General: appearance normal, both eyes and all related structures Conjunctivae: conjunctivae normal Neck Neck: Yes full ROM and Yes no lymphadenopathy Resp Effort & Inspection: normal respiratory effort Auscultation: clear to auscultation bilaterally, no crackles, no rales, no rhonchi and no wheezes Cardio Rate: regular rate Rhythm: regular rhythm Skin General skin exam: no rashes or lesions noted Neuro General: patient oriented x3 Gait exam (Neuro): Normal gait present Extrem General: Yes normal to inspection, Yes full ROM and No edema Psych Affect: normal affect Attitude: cooperative Insight: Good insight present (Psych) Judgement: Good judgement present (Psych) Coding Level of Care Code New Pt Level 4 (53286) Diagnoses Vertebrogenic low back pain M54.51 Gout M10.9 Fatty liver K76.0 Erectile dysfunction N52.9 HLD (hyperlipidemia) E78.5 HTN (hypertension) I10 Obesity (BMI 30.0-34.9) E66.811 Additional Codes DARIELA-7 Assessment Billing - DARIELA-7 Assessment Tool: DARIELA-7 Assessment 46089 ([id number]) Assessment & Plan Assessment & Plan (1) Vertebrogenic low back pain: Code(s): M54.51 - Vertebrogenic low back pain Category: Medical Plan: Continue to follow with spine clinic and pain management. Scheduled for back injections. (2) Gout: Code(s): M10.9 - Gout, unspecified Category: Medical Plan: Patient had 1 isolated attack no indication for maintenance therapy with allopurinol at this time. Ordered for uric acid level and continue to avoid high purine foods. (3) Fatty liver: Code(s): K76.0 - Fatty (change of) liver, not elsewhere classified Category: Medical Plan: Healthy diet and regular exercise is encouraged. Continue to monitor liver function testing. (4) Erectile dysfunction: Code(s): N52.9 - Male erectile dysfunction, unspecified Category: Medical Plan: Continue on current medication. (5) HLD (hyperlipidemia): Code(s): E78.5 - Hyperlipidemia, unspecified Category: Medical Plan: Avoid foods that are high in cholesterol such as red meat, fried foods, eggs and baked goods. Triglyceride goal of less than 150 and LDL goal of less than 130. Ordered for updated blood work. (6) HTN (hypertension): Code(s): I10 - Essential (primary) hypertension Category: Medical Plan: Blood pressure elevated today and continues to be elevated at home. We will add lisinopril 2 medication management at this time. Avoid salt intake and encourage healthy diet and regular exercise. (7) Obesity (BMI 30.0-34.9): Code(s): E66.811 - Obesity, class 1 Category: Medical Plan: Healthy diet and regular exercise is encouraged. Plan This note was constructed using voice recognition software. While every effort has been made to ensure accuracy and director safety council, still areas may have been included sometimes these areas may affect the content or meeting of the given symptoms. Total time spent caring for the patient today was 30 minutes. This includes time spent before the visit reviewing the chart, time spent during the visit, and time spent after the visit and documentation. Orders: Orders Comprehensive Met. Panel Today Z00.00 - Encounter for general adult medical examination without abnormal findings Lipid Panel Today Z00.00 - Encounter for general adult medical examination without abnormal findings TSH reflex Free T4 Today Z00.00 - Encounter for general adult medical examination without abnormal findings Vitamin B12 and Folate Today Z00.00 - Encounter for general adult medical examination without abnormal findings Vitamin D 25-OH (D2 and D3) Today Z00.00 - Encounter for general adult medical examination without abnormal findings PSA, Ultra Sensitive Today Z00.00 - Encounter for general adult medical examination without abnormal findings Hemoglobin A1c Today Z00.00 - Encounter for general adult medical examination without abnormal findings Uric Acid Today M10.9 - Gout, unspecified Complete Blood Count Auto Diff Today Z00.00 - Encounter for general adult medical examination without abnormal findings Free T4 (Free Thyroxine) Today Z00.00 - Encounter for general adult medical examination without abnormal findings Referrals Medical Weight Management Referral E66.811 - Obesity, class 1 Medications: New sildenafil administer 30 minutes to 4 hours before activity 100 mg PO DAILY PRN 20 tabs 1RF sexual activity nicotine (polacrilex) 2 mg buccal Q2H 40 ea 0RF lisinopril 10 mg PO DAILY 30 tabs 1RF
== END 2023-12-05 14:13 | disposition home or self-care (01) ==
DX: M54.51 Vertebrogenic low back pain (principal); M10.9 Gout, unspecified; E66.811 Obesity, class 1; Z68.39 Body mass index [BMI] 39.0-39.9, adult; K76.0 Fatty (change of) liver, not elsewhere classified; E78.5 Hyperlipidemia, unspecified; N52.9 Male erectile dysfunction, unspecified; I10 Essential (primary) hypertension

== ENCOUNTER → 2023-12-05 13:29 | Outpatient (BNVA) | payer OTHER, SELFPAY | DX: M54.51 Vertebrogenic low back pain (principal); M10.9 Gout, unspecified; K76.0 Fatty (change of) liver, not elsewhere classified; N52.9 Male erectile dysfunction, unspecified; E78.5 Hyperlipidemia, unspecified; I10 Essential (primary) hypertension; E66.811 Obesity, class 1; Z68.39 Body mass index [BMI] 39.0-39.9, adult | CPT/HCPCS: 96127 ==

== ENCOUNTER 2023-12-06 10:27 | Outpatient (REF) | payer OTHER, SELFPAY ==
[2023-12-06 14:30] LABS: MANUAL DIFF FLAG NO
[2023-12-06 14:33] LABS: Basophils Percent Auto 0.4 % (0-2); Eosinophils Percent Auto 0.7 % (0-4); Hematocrit 47.5 % (42.0-52.0); Hemoglobin 15.5 g/dl (14.0-18.0); Imm Gran Abs Auto 0.06 X10*3/uL (0.00-0.03); Imm Gran Pct Auto 1.1 % (0.0-0.4); Lymphocytes Absolute Auto 1.9 X10*3/uL (1.2-4.9); Lymphocytes Percent Auto 33.7 % (20-40); Mean Corpuscular HGB Conc 32.6 g/dl (31.0-36.0); Mean Corpuscular Hemoglobin 28.9 pg (27.0-33.0); Mean Corpuscular Volume 88.6 fL (80.0-98.0); Mean Platelet Volume 11.3 fL (9.4-12.4); Monocytes Absolute Auto 0.4 X10*3/uL (0.1-1.2); Monocytes Percent Auto 6.7 % (2-11); Neutrophils Absolute Auto 3.3 x10*3/uL (2.0-8.3); Neutrophils Percent Auto 57.4 % (45-73); Platelet Count 211 X10*3/uL (160-400); Red Blood Count 5.36 X10*6/uL (4.60-5.80); White Blood Count 5.7 X10*3/uL (4.8-10.8)
[2023-12-06 14:41] LABS: Estimated Average Glucose 103 mg/dL; Hemoglobin A1C 123.4609 umol/L; Hemoglobin A1c % 5.2 % (<6.0); Total Hemoglobin (HGBA1C) 3673.8835 umol/L
[2023-12-06 15:01] LABS: Alanine Aminotransferase 88 U/L (0-40); Albumin Level 4.4 g/dL (3.5-5.0); Alkaline Phosphatase 84 U/L (39-117); Anion Gap 13 (12-20); Aspartate Amino Transferase 46 U/L (5-37); Bilirubin Total 0.5 mg/dL (0.0-1.0); Blood Urea Nitrogen 11 mg/dL (9-16); Calcium 9.9 mg/dL (8.4-10.2); Carbon Dioxide 26 mmol/L (22-29); Chloride 107 mmol/L (96-108); Cholesterol 142 mg/dL (<200); Estimated Glomerular Filt Rate > 60; Glucose Random 89 mg/dL (60-115); HDL Cholesterol 39 mg/dL (>40); LDL Cholesterol Calculated 93 mg/dL (<100); Potassium 4.6 mmol/L (3.3-5.1); Sodium 141 mmol/L (135-145); Total Protein 7.7 g/dL (6.5-8.0); Triglycerides 50 mg/dL (<150); Uric Acid 8.3 mg/dL (3.4-7.0)
[2023-12-06 15:09] LABS: Free T4 (Free Thyroxine) 1.16 ng/dL (0.71-1.85); TSH reflex Free T4 1.54 uIU/mL (0.32-4.0)
[2023-12-06 15:19] LABS: Folate 7.1 ng/mL (> or = 4.0); Vitamin B12 338 pg/mL (200-900)
[2023-12-12 14:33] LABS: Vitamin D 25-OH, D2 <4 ng/mL; Vitamin D 25-OH, D3 22 ng/mL; Vitamin D 25-OH, Total 22 ng/mL (30-100)
== END 2023-12-06 10:28 | disposition home or self-care (01) ==
LOC: HO.CHCLDS 10:27
DX: Z00.00 Encounter for general adult medical examination without abnormal findings (principal); M10.9 Gout, unspecified; Z12.5 Encounter for screening for malignant neoplasm of prostate; Z13.1 Encounter for screening for diabetes mellitus; Z13.89 Encounter for screening for other disorder
CPT/HCPCS: 36415; 80053; 80061; 82306; 82607; 82746; 83036; 84153; 84439; 84443; 84550; 85025

== ENCOUNTER → 2023-12-12 14:26 | Outpatient (BNVA) | payer OTHER, SELFPAY | PROVIDERS: Visit Provider Physician Assistant Surgical ==

== ENCOUNTER 2024-02-20 06:18 | Outpatient (REF) | payer OTHER, SELFPAY ==
--- NOTE | ~2024-02-20 | FL_ITS ---
EXAMINATION: FLUOROSCOPY GUIDANCE FOR NEEDLE PLACEMENT CLINICAL INFORMATION: M54.16 - Radiculopathy, lumbar region COMPARISON: None available. TECHNIQUE: Intraoperative fluoroscopy guidance in the lumbar region. Patient positioning prone. Physician present. FINDINGS: Intraoperative fluoroscopy guidance and lumbar region on the right side of the lumbar spine. FLUOROSCOPY TIME: 0.6 minutes. DOSE AREA PRODUCT: 0.6 uGy-m2 (microgray-meter squared) FL/FL guidance in treatment room IMPRESSION: Intraoperative fluoroscopy guidance for a lumbar procedure. Electronically signed by: Jose R Ward MD 02/28/2024 02:53 PM [facility] VAZQUE[facility]
== END 2024-02-20 06:19 | disposition home or self-care (01) ==
LOC: CF 06:18
PROVIDERS: Visit Provider Anesthesiology
DX: M54.16 Radiculopathy, lumbar region (principal)
CPT/HCPCS: 64483; 64484; J3301; Q9967

== ENCOUNTER 2024-02-20 08:31 | Outpatient (AMB) | payer OTHER, SELFPAY ==
[2024-02-20 08:44] VITALS: BP 104/69; PULSE 76; O2SAT 98
--- NOTE | 2024-02-20 08:44 | A.OFFVIS_ITS ---
Vital Signs 02/20/24 08:44 02/20/24 09:20 BP 104/69 102/70 Blood Pressure Location Lt brachial Lt brachial Position Sitting Sitting Pulse 76 76 Pulse Source Pulse Oximeter Pulse Oximeter Pulse Oximetry (%) 98 98 Oxygen Delivery Method Room Air Room Air Comment Pre Procedure Post Procedure Intake Visit Reasons: RIGHT L3, L4 AND L4, L5 TFESI Allergies No Known Allergies Allergy (Verified 12/12/23 14:57) PFSH Surgical History History of carpal tunnel release Hx laparoscopic cholecystectomy H/O circumcision Family History Mother Arthritis Hypercholesteremia HTN (hypertension) Diabetes Maternal Grandmother HTN (hypertension) Diabetes Father Liver cancer Social History (Updated 12/12/23 @ 15:01 by Misty Wagner CMA) Housing: House Alcohol intake: current Alcohol intake frequency: a few times a week Patient Tobacco Use Status: Former Tobacco user e-Cigarette/Vaping Use: Currently Using service: No Current occupational status: employed Cognitive needs: No Hearing needs: No Vision needs: No Physical Exam Vital Signs: Last Vital Signs Pulse 76 02/20/24 09:20 BP 102/70 02/20/24 09:20 Pulse Ox 98 02/20/24 09:20 Oxygen Delivery Method Room Air 02/20/24 09:20 Assessment & Plan Assessment & Plan (1) Lumbar radiculopathy: Code(s): M54.16 - Radiculopathy, lumbar region Category: Medical Plan Transforaminal right L3-L4 and L4-5 epidural steroid injection . Informed consent was thoroughly explained to the patient before the procedure.? The patient came to the operating room.? He was positioned prone on operating table with a pillow under his abdomen.? Time-out was performed delineating correct site and side of the procedure, nature of the injection, name and date of of the patient. The lower back of the patient was prepped with ChloraPrep and draped with sterile utility towels.? C-arm was brought over the operating field and sq picture of L3 was demonstrated on the screen.? The right side was chosen as the side of the injection.? Tilting machine ipsilateral to the right at the level of L3 1st the most prominent picture of the right pedicle was obtained on the screen.? 3 mm below the level of the lowest point of the pedicle projection to the skin small amount of lidocaine 1% 3-4 cc was injected to anesthetize the skin.? After that 5 in 22 gauge Quincke point needle was inserted through the skin wheal and was advanced toward the L3-L4 foramina on anterior posterior , lateral and oblique views intermittently.? When needle reached appropriate positioned injection of the contrast was performed delineating epidural and perineural spread of the contrast. No intravascular no intra neuro and no intrathecal spread of the contrast was noted. After that injection of the 3 cc of lidocaine 1% mixed with Kenalog 40 mg was performed into the needle. After that procedure was repeated at L4-5 on the right in the similar fashion as above. Upon completion of the procedure the needle was withdrawn sterile Band- Aid was applied. The patient tolerated the procedure well. Orders: Orders FL guidance in treatment room Today M54.16 - Radiculopathy, lumbar region Coding Level of Care Code Procedure Only Diagnoses Lumbar radiculopathy M54.16
[2024-02-20 09:20] VITALS: BP 102/70; PULSE 76; O2SAT 98
== END 2024-02-20 09:22 | disposition home or self-care (01) ==
LOC: HO.PMCPRC 08:31
PROVIDERS: Visit Provider Anesthesiology
DX: M54.16 Radiculopathy, lumbar region (principal)
CPT/HCPCS: 64483; 64484

== ENCOUNTER 2024-03-11 08:47 | Outpatient (REF) | payer OTHER, SELFPAY ==
--- NOTE | ~2024-03-11 | XR_ITS ---
CLINICAL HISTORY: M43.16 - Spondylolisthesis, lumbar region 4 views lumbar spine Comparison: MR/SR - MR LUMBAR SPINE WO CON - 10/09/23 16:43 EDT Findings: Normal vertebral body alignment. No instability throughout limited range of motion. No acute fractures or dislocation. Multilevel disc space narrowing and endplate osteophyte formation, as well as facet hypertrophy. IMPRESSION: No acute findings. This document has been electronically signed by: Binta Charles MD on 03/11/2024 14:50:50
--- OUTSIDE RECORDS SUMMARY | 2024-03-11 13:32 | XMS_ITS | Clinical Summary ---
Author Organization [email or web address] [facility] ity Address [address] [place] [address] Care Team Providers Care Suction Worker Name Role Phone Gayla Hagen MD Primary Care Provider [phone] Surgical History Surgery Date Site/Laterality Comments CHOLECYSTECTOMY [...] age to complete this topic Care Teams Suction Worker Relationship Specialty Start Date End Date Gayla Hagen MD [address] [place] [address] PCP - General 04/23/21
--- OUTSIDE RECORDS SUMMARY | 2024-03-11 13:33 | XMS_ITS | Encounter Summary ---
Author Organization [facility] Address [address] [place] [address] Care Team Providers Care Bread Icer Name Role Phone Clark Oliveira MD Primary Care Provider Unavail able Gayla Hagen MD Primary Care Provider Gabo gonzales Reason for Visit * Reason Onset Date Comments Faxed Refill 12/02/2019 Encounter Details Date Type Department Care Team Description 12/02/2019 Refill Adult Medicine [address] [address] Clark Oliveira MD Faxed Refill Social History Tobacco Use Types Packs/Day Years Used Date Smoking Tobacco: Former Cigarettes 20 Q uit: 03/31/2016 Smokeless Tobacco: Never Comments:once, twice a week Alcohol Use Standard Drinks/Week Comments Yes 0 (1 standard drink = 0.6 oz pur e alcohol) rare, not much when drinks Sex Assigned at Date Recorded Male 04/21/2021 7:[address] Job Start Date Occupation Industry Not on file Not on file Not on file documented as of this encounter Miscellaneous Notes * Telephone Encounter - Jerri Collazo M.A. - 12/02/2019 4:13 PM EDT [id number] Lab Results Component Value Date NA 143 12/11/2017 K 4.3 12/11/2017 CO2 27.5 12/11/2017 CL 103 12/11/2017 BUN 13 12/11/2017 CREAT 1.0 12/11/2017 CA 9.6 12/11/2017 GFR > 60 12/11/2017 * Telephone Encounter - Konstantinmonica Tootie - 12/02/2019 4:12 PM EDT Patient would like script to be: E-PRESCRIBED/FAXED TO PHARMACY WHEN WAS THE PATIENT'S LAST APPOINTMENT IN ADULT MEDICINE? 05/20/19 WHEN WAS THE LAST TIME THE PATIENT SAW THEIR PCP? Same as above Does patient have an upcoming appointment? no (THE MEDICATION REQUESTED IS ON THE MED LIST ABOVE) All of the medications requested were on the CURRENT MEDS list Did you check the Pharmacy information above?: YES Patient wants: 30 -day supply Is this a mail order prescription request ? NO If the refill is from a FAXED refill request what is the RX # listed on the fax? N/A Patients current insurance carrier is: Payor: [facility] / Plan: PPO $30 WIDEMAN [id number] / Product Type: PPO [id number] documented in this encounter Plan of Treatment Not on file documented as of this encounter Visit Diagnoses Not on filedocumented in this encounter Care Teams Bread Icer Relationship Specialty Start Date End Date Clark Oliveira MD PCP - General Internal Medicine 05/16/13 04/22/21 Gayla Hagen MD PCP - General Family Practice 04/23/21 documented as of this encounter
--- OUTSIDE RECORDS SUMMARY | 2024-03-11 13:33 | XMS_ITS | Encounter Summary ---
Author Organization [facility] Address [address] [place] [address] Care Team Providers Care Precision Honer Name Role Phone Gayla Hagen MD Primary Care Provider Gabo gonzales Reason for Visit * Reason Onset Date Comments Prior Authorization 08/23/2022 Encounter Details Date Type Department Care Team Description 08/23/2022 Telephone Medicine/Pediatrics - [address] [phone] Gayla Hagen MD Prior Authorization Social History Tobacco Use Types Packs/Day Years Used Date Smoking Tobacco: Former Cigarettes 1 22 1 995 - 03/31/2016 Smokeless Tobacco: Never Alcohol Use Standard Drinks/Week Comments Yes 0 (1 standard drink = 0.6 oz pur e alcohol) rare, not much when drinks Sex Assigned at Date Recorded Male 04/21/2021 7:[address] Job Start Date Occupation Industry Not on file Not on file Not on file COVID-19 Exposure Response Date Recorded In the last 10 days, have yo u been in contact with someone who was confirmed or suspected to have Coronavirus/COVID-19? No / Unsure 08/22/2022 3:44 PM EDT documented as of this encounter Miscellaneous Notes * Telephone Encounter - Kathia Lindsey M.A. - 08/25/2022 11:45 AM EDT Prior authorization for the sildenafil was approved ( 10 per month) ? Approved from 08/24/22 until 08/24/23 ? Prior authorization case approval number # [id number] ? Approval faxed to [facility] Mala Meyer at [phone] * Telephone Encounter - Kathia Lindsey M.A. - 08/23/2022 11:42 AM EDT Barney code does not work for this pt. Must call [employer] [facility] to do this p.a. over the phone. Prior authorization was done over the phone with Serena at [facility] Pt does have dx of hypertension and prediabetes. Continuation of therapy Case # [id number] . * Telephone Encounter - Malika Burns - 08/23/2022 10:58 AM EDT Prior Authorization for Medication-do not complete and send this encounter unless you have the fax from the pharmacy. Is this a Cover My Meds request: Yes -- Barney Code [id number] Name of Medication sildenafil (VIAGRA) 100 MG tablet Dose of Medication 100 MG What is the RX # from the faxed refill? How does patient take this med? TAKE 1 TABLET 1 HOUR PRIOR TO INTERCOURSE NEEDED What Pharmacy did the fax come from: [facility] fax #: [phone] documented in this encounter Plan of Treatment Not on file documented as of this encounter Visit Diagnoses Not on filedocumented in this encounter Care Teams Precision Honer Relationship Specialty Start Date End Date Gayla Hagen MD PCP - General Family Practice 04/23/21 documented as of this encounter
--- OUTSIDE RECORDS SUMMARY | 2024-03-11 13:33 | XMS_ITS | Encounter Summary ---
Author Organization [facility] Address [address] [place] [address] Care Team Providers Care Commercial Engineer Name Role Phone Clark Oliveira MD Primary Care Provider Unavail able Gayla Hagen MD Primary Care Provider Gabo gonzales Encounter Details Date Type Department Care Team Description 01/30/2018 Low Pressure Firer Report Medical Records [address] [place] [address] Pa Monaco MD Social History Tobacco Use Types Packs/Day Years Used Date Smoking Tobacco: Some Days Cigarettes 20 Last attempted to quit: 03/31/2016 Smokeless Tobacco: Never Comments:once, twice a week Alcohol Use Standard Drinks/Week Comments Yes 0 (1 standard drink = 0.6 oz pur e alcohol) rare, not much when drinks Sex Assigned at Date Recorded Male 04/21/2021 7:[address] Job Start Date Occupation Industry Not on file Not on file Not on file documented as of this encounter Plan of Treatment Not on file documented as of this encounter Visit Diagnoses Not on filedocumented in this encounter Care Teams Commercial Engineer Relationship Specialty Start Date End Date Clark Oliveira MD PCP - General Internal Medicine 05/16/13 04/22/21 Gayla Hagen MD PCP - General Family Practice 04/23/21 documented as of this encounter
--- OUTSIDE RECORDS SUMMARY | 2024-03-11 13:33 | XMS_ITS | Encounter Summary ---
Author Organization [facility] Address [address] [place] [address] Care Team Providers Care Custodial Foreman Name Role Phone Clark Olvieira MD Primary Care Provider Unavail able Gayla Hagen MD Primary Care Provider Gabo gonzales Encounter Details Date Type Department Care Team Description 06/15/2018 Orders Only Medical Records [address] [place] [address] Clark Oliveira MD Social History Tobacco Use Types Packs/Day [...] on file documented as of this encounter Procedures Procedure Name Priority Date/Time Associated Diagnosis Comments OUTSIDE SLEEP STUDY Routine 06/11/2018 documented in this encounter Results * OUTSIDE SLEEP STUDY (06/11/2018) Clark Oliveira MD PULMONOLOGY documented in this encounter Visit Diagnoses Not on filedocumented in this encounter Care Teams Custodial Foreman Relationship Specialty Start Date End Date Clark Oliveira MD PCP - General Internal Medicine 05/16/13 04/22/21 Gayla Hagen MD PCP - General Family Practice 04/23/21 documented as of this encounter
--- OUTSIDE RECORDS SUMMARY | 2024-03-11 13:33 | XMS_ITS | Encounter Summary ---
Author Organization [employer] [facility] Address [address] [place] [address] Care Team Providers Care Skoog Machine Operator Name Role Phone Gayla Hagen MD Primary Care Provider Gabo gonzales Encounter Details Date Type Department Care Team Description 02/27/2023 Orders Only Medical Records [address] [place], [place] [phone] [place] [address] Social History Tobacco Use Types Packs/Day Years Used Date Smoking Tobacco: Former Cigarettes - 03/31/2016 Smokeless Tobacco: Never Alcohol Use Standard Drinks/Week Comments Yes 10 (1 standard drink = 0.6 oz pu re alcohol) rare, not much when drinks Sex Assigned at Date Recorded Male 04/21/2021 7:[address] Job Start Date Occupation Industry Not on file Not on file Not on file documented as of this encounter Plan of Treatment Not on file documented as of this encounter Procedures Procedure Name Priority Date/Time Associated Diagnosis Comments OUTSIDE VASCULAR STUDY Routine 02/25/2023 OUTSIDE PLAIN FILM Routine 02/25/2023 documented in this encounter Results * OUTSIDE PLAIN FILM (02/25/2023) [facility] RADIOLOGY * OUTSIDE VASCULAR STUDY (02/25/2023) [facility] CARDIOLOGY documented in this encounter Visit Diagnoses Not on filedocumented in this encounter Care Teams Skoog Machine Operator Relationship Specialty Start Date End Date Gayla Hagen MD PCP - General Family Practice 04/23/21 documented as of this encounter
--- OUTSIDE RECORDS SUMMARY | 2024-03-11 13:33 | XMS_ITS | Encounter Summary ---
Author Organization [facility] Address [address] [place] [address] Care Team Providers Care Sas Administrator Name Role Phone Gayla Hagen MD Primary Care Provider Gabo gonzales Encounter Details Date Type Department Care Team Description 06/28/2023 Pt. Non Urgent Medical Question INFECTIOUS DISEASE [facility] [address], [address] [place] [address] Kristina Patel MD [address] [place] [phone] Social History Tobacco Use Types Packs/Day Years Used Date Smoking Tobacco: Former Cigarettes 1 22 995 - 03/31/2016 Passive Smoke Exposure: Never Smokeless Tobacco: Never Alcohol Use Standard Drinks/Week [...] on filedocumented in this encounter Care Teams Sas Administrator Relationship Specialty Start Date End Date Gayla Hagen MD PCP - General Family Practice 04/23/21 documented as of this encounter
--- OUTSIDE RECORDS SUMMARY | 2024-03-11 13:33 | XMS_ITS | Encounter Summary ---
Author Organization [facility] Address [address] [place] [address] Care Team Providers Care Sewer Pipe Press Operator Name Role Phone Gayla Hagen MD Primary Care Provider Gabo gonzales Reason for Visit * Reason Comments E-prescribe Rx Request Encounter Details Date Type Department Care Team Description 07/09/2023 Refill Medicine/Pediatrics - [address] [phone] Gayla Hagen MD E-prescribe Rx Request Social History Tobacco Use Types Packs/Day Years Used Date Smoking Tobacco: Former Cigarettes 1 06 03 995 - 03/31/2016 Passive Smoke Exposure: Never [...] encounter Miscellaneous Notes * Telephone Encounter - Gayla Hagen MD - 07/11/2023 10:53 AM EDT noted * Telephone Encounter - Sunita Ugarte - 07/11/2023 10:36 AM EDT Pt stated that he is aware of kidney damage with both meds still have some naproxen left and he will disscuss alternatives on 07/25/23 with you. * Telephone Encounter - Gayla Hagen MD - 07/11/2023 10:03 AM EDT Need to review continued use of this with patient. Can cause kidney damage if used long-term in conjunction with Truvada. * Telephone Encounter - Harika Richardson M.A. - 07/11/2023 10:00 AM EDT Date of last office visit was 03/07/23. Pended appt for 07/25/23 Lab Results Component Value Date NA 140 06/14/2023 K 4.3 06/14/2023 CO2 24 06/14/2023 CL 109 06/14/2023 BUN 16 06/14/2023 CREAT 0.84 06/14/2023 GLU 94 06/14/2023 CA 9.4 06/14/2023 GFR 108 06/14/2023 Lab Results Component Value Date WBC 9.3 03/07/2023 HGB 15.2 03/07/2023 HCT 45.7 03/07/2023 MCV 89.1 03/07/2023 PLTCT 246 03/07/2023 * Telephone Encounter - Marie Lozoya - 07/09/2023 5:05 PM EDT Patient would like script to be: E-PRESCRIBED/FAXED TO PHARMACY WHEN WAS THE PATIENT'S LAST APPOINTMENT IN ADULT MEDICINE? 03-07-23 WHEN WAS THE LAST TIME THE PATIENT SAW THEIR PCP? 08-22-22 Does patient have an upcoming appointment? Yes 07-25-23 (THE MEDICATION REQUESTED IS ON THE MED [...] N/A Patients current insurance carrier is: Payor: [employer] / Plan: [employer] $15 [id number] / Product Type: PPO [id number] documented in this encounter Plan of Treatment Not on file documented as of this encounter Visit Diagnoses Not on filedocumented in this encounter Care Teams Sewer Pipe Press Operator Relationship Specialty Start Date End Date Gayla Hagen MD PCP - General Family Practice 04/23/21 documented as of this encounter
--- OUTSIDE RECORDS SUMMARY | 2024-03-11 13:33 | XMS_ITS | Encounter Summary ---
Author Organization [facility] Address [address] [place] [address] Care Team Providers Care Transition Assistant Name Role Phone Clark Oliveira MD Primary Care Provider Unavail able Gayla Hagen MD Primary Care Provider Gabo gonzales Encounter Details Date Type Department Care Team Description 06/06/2013 Transfer Records Medical Records [address] [place] [address] Abstract, Provider Social History Tobacco Use Types Packs/Day Years Used Date Smoking Tobacco: Every Day Smokeless Tobacco: Never Alcohol Use Standard Drinks/Week Comments Yes 0 (1 standard drink = 0.6 oz pur e alcohol) socially Sex Assigned at Date Recorded Male 04/21/2021 7:[address] Job Start Date Occupation Industry Not on file Not on file Not on file documented as of this encounter Plan of Treatment Not on file documented as of this encounter Visit Diagnoses Not on filedocumented in this encounter Care Teams Transition Assistant Relationship Specialty Start Date End Date Clark Oliveira MD PCP - General Internal Medicine 05/16/13 04/22/21 Gayla Hagen MD PCP - General Family Practice 04/23/21 documented as of this encounter
--- OUTSIDE RECORDS SUMMARY | 2024-03-11 13:33 | XMS_ITS | Encounter Summary ---
Author Organization [facility] Address [address] [place] [address] Care Team Providers Care Oracle Fusion Consultant Name Role Phone Clark Oliveira MD Primary Care Provider Unavail able Gayla Hagen MD Primary Care Provider Gabo gonzales Encounter Details Date Type Department Care Team Description 06/22/2020 Locomotive Repairer Diesel Report Medical Records [address] [place] [address] Xavier Sandoval Social History Tobacco Use Types Packs/Day Years [...] on filedocumented in this encounter Care Teams Oracle Fusion Consultant Relationship Specialty Start Date End Date Clark Oliveira MD PCP - General Internal Medicine 05/16/13 04/22/21 Gayla Hagen MD PCP - General Family Practice 04/23/21 documented as of this encounter
--- OUTSIDE RECORDS SUMMARY | 2024-03-11 13:33 | XMS_ITS | Encounter Summary ---
Author Organization [facility] Address [address] [place] [address] Care Team Providers Care Dedicated Regional Driver Name Role Phone Gayla Hagen MD Primary Care Provider Gabo gonzales Reason for Referral * INTERNAL (Routine) - Authorized/Booked Specialty Diagnoses / Procedures Referred By Jenny johnson Referred To Contact Infectious Disease Procedures REFERRAL TO INFECTIOUS DISEASE aGyla Hagen MD [address] [place] [address] Kristina Patel MD [address] [place] [phone] Referral ID Status Reason Start Date Expiration Date V isits Requested Visits Authorized [id number] Authorized/B ooked 04/25/2023 04/23/2024 1 1 Reason for Visit * Reason Onset Date Comments refill request 04/20/2023 Encounter Details Date Type Department Care Team Description 04/20/2023 Refill Medicine/Pediatrics - [address] [address] Israel Hernandez PA-C [address] [place] [address] refill request Social History Tobacco Use Types Packs/Day Years Used Date Smoking Tobacco: Former Cigarettes 1 22 1 995 - 03/31/2016 Passive Smoke Exposure: Never [...] Telephone Encounter - Gayla Hagen MD - 04/25/2023 4:32 PM EDT Referral placed. Last rx for truvada still has refill * Telephone Encounter - Sunita Ugarte - 04/25/2023 4:29 PM EDT Spoke with pt and he agreed to see ID .please place referral * Telephone Encounter - Denny Schneider M.A. - 04/21/2023 12:33 PM EST Left message to call back. Please put to [phone] or re-message to MED/PEDS side * Telephone Encounter - Gayla Hagen MD - 04/21/2023 12:30 PM EST PrEP rx (truvada) is with ID. I can refer him there if he would like * Telephone Encounter - Harika Richardson M.A. - 04/20/2023 4:58 PM EST Date of last office visit was 03/07/23. Pended appt for 07/25/23 Lab Results Component Value Date NA 139 01/23/2023 K 4.0 01/23/2023 CO2 28 01/23/2023 CL 104 01/23/2023 BUN 12 01/23/2023 CREAT 1.01 01/23/2023 GLU 74 01/23/2023 ALB 4.3 03/07/2023 SGOT 27 03/07/2023 SGPT UNABLE TO REPORT 03/07/2023 TBILI 0.4 03/07/2023 ALKPHOS 112 03/07/2023 TP 7.8 03/07/2023 CA 9.2 01/23/2023 GFR 93 01/23/2023 documented in this encounter Plan of Treatment Not on file documented as of this encounter Visit Diagnoses Diagnosis Erectile dysfunction, unspecified erectile dysfunction type documented in this encounter Care Teams Dedicated Regional Driver Relationship Specialty Start Date End Date Gayla Hagen MD PCP - General Family Practice 04/23/21 documented as of this encounter
--- OUTSIDE RECORDS SUMMARY | 2024-03-11 13:33 | XMS_ITS | Encounter Summary ---
Author Organization [facility] Address [address] [place] [address] Care Team Providers Care Ophthalmic Nurse Name Role Phone Clark Oliveira MD Primary Care Provider Unavail able Gayla Hagen MD Primary Care Provider Gabo gonzales Encounter Details Date Type Department Care Team Description 04/16/2020 Old Medical Records Medical Records [address] [place] [address] Abstract, Provider Social History Tobacco Use Types [...] on filedocumented in this encounter Care Teams Ophthalmic Nurse Relationship Specialty Start Date End Date Clark Oliveira MD PCP - General Internal Medicine 05/16/13 04/22/21 Gayla Hagen MD PCP - General Family Practice 04/23/21 documented as of this encounter
--- OUTSIDE RECORDS SUMMARY | 2024-03-11 13:33 | XMS_ITS | Encounter Summary ---
Author Organization [facility] Address [address] [place] [address] Care Team Providers Care Case Manager Specialist Name Role Phone Gayla Hagen MD Primary Care Provider Gabo gonzales Reason for Visit * Reason Onset Date Comments medication problems 08/23/2022 Encounter Details Date Type Department Care Team Description 08/23/2022 Telephone Adult Medicine [address] [address] Gayla Hagen MD medication problems Social History Tobacco Use Types Packs/Day Years [...] Encounter - Kathia Lindsey M.A. - 08/23/2022 2:51 PM EDT This is a triplacet request from today. See other open encounters. * Telephone Encounter - Bianca Wagner - 08/23/2022 2:43 PM EDT Who is calling? The patient Name of the medication sildenafil (VIAGRA) 100 MG tablet What is the specific problem or interaction? Pt needs prior auth on medication for insurance to cover If the patient is having a problem with taking the med - how long has the problem been going on? N/A documented in this encounter Plan of Treatment Not on file documented as of this encounter Visit Diagnoses Not on filedocumented in this encounter Care Teams Case Manager Specialist Relationship Specialty Start Date End Date Gayla Hagen MD PCP - General Family Practice 04/23/21 documented as of this encounter
--- OUTSIDE RECORDS SUMMARY | 2024-03-11 13:33 | XMS_ITS | Encounter Summary ---
Author Organization [facility] Address [address] [place] [address] Care Team Providers Care Telegraphic Typewriter Operator Chief Name Role Phone Clark Oliveira MD Primary Care Provider Unavail able Gayla Hagne MD Primary Care Provider Gabo gonzales Encounter Details Date Type Department Care Team Description 06/12/2018 It Systems Analyst Consultant Report Medical Records [address] [place] [address] Abstract, Provider Social History Tobacco Use Types [...] on filedocumented in this encounter Care Teams Telegraphic Typewriter Operator Chief Relationship Specialty Start Date End Date Clark Oliveira MD PCP - General Internal Medicine 05/16/13 04/22/21 Gayla Hagen MD PCP - General Family Practice 04/23/21 documented as of this encounter
--- OUTSIDE RECORDS SUMMARY | 2024-03-11 13:33 | XMS_ITS | Encounter Summary ---
Author Organization [facility] Address [address] [place] [address] Care Team Providers Care Improvement Lead Name Role Phone Gayla Hagen MD Primary Care Provider Gabo gonzales Reason for Referral * EXTERNAL (Routine) - Authorized/Booked Specialty Diagnoses / Procedures Referred By Contchidi t Referred To Contact Neurology Procedures REFERRAL TO NEUROLOGY Israel Hernandez PA-C [address] [place] [address] Karen Mondragon MD [address] [facility] [address] [place] [address] Referral ID Status Reason Start Date Expiration Date V isits Requested Visits Authorized [id number] Authorized/B ooked 03/08/2023 03/07/2024 1 1 Encounter Details Date Type Department Care Team Description 03/08/2023 Orders Only Medicine/Pediatrics - [address] [phone] Israel Hernandez PA-C [address] [place], [place] [id number] Social History Tobacco Use Types Packs/Day Years [...] on filedocumented in this encounter Care Teams Improvement Lead Relationship Specialty Start Date End Date Gayla Hagen MD PCP - General Family Practice 04/23/21 documented as of this encounter
--- OUTSIDE RECORDS SUMMARY | 2024-03-11 13:34 | XMS_ITS | Encounter Summary ---
Author Organization [facility] Address [address] [place] [address] Care Team Providers Care Upholstery Technician Name Role Phone Clark Oliveira MD Primary Care Provider Unavail able Gayla Hagen MD Primary Care Provider Gabo gonzales Encounter Details Date Type Department Care Team Description 10/26/2016 Tray Delivery Aide Report Medical Records [address] [place] [address] Xavier Sandoval Social History Tobacco Use Types [...] on filedocumented in this encounter Care Teams Upholstery Technician Relationship Specialty Start Date End Date Clark Oliveira MD PCP - General Internal Medicine 05/16/13 04/22/21 Gayla Hagen MD PCP - General Family Practice 04/23/21 documented as of this encounter
--- OUTSIDE RECORDS SUMMARY | 2024-03-11 13:34 | XMS_ITS | Encounter Summary ---
Author Organization [facility] Address [address] [place] [address] Care Team Providers Care Body Hanger Name Role Phone Gayla Hagen MD Primary Care Provider Gabo gonzales Encounter Details Date Type Department Care Team Description 05/17/2021 Boiling Off Winder Report Medical Records [address] [place] [address] Fabiana [place] PA-C Social History Tobacco Use Types Packs/Day Years Used Date Smoking Tobacco: Former Cigarettes 1 - 03/31/2016 Smokeless Tobacco: Never Alcohol Use [...] suspected to have Coronavirus/COVID-19? No / Unsure 05/17/2021 7:33 AM EDT documented as of this encounter Plan of Treatment Not on file documented as of this encounter Visit Diagnoses Not on filedocumented in this encounter Care Teams Body Hanger Relationship Specialty Start Date End Date Gayla Hagen MD PCP - General Family Practice 04/23/21 documented as of this encounter
--- OUTSIDE RECORDS SUMMARY | 2024-03-11 13:34 | XMS_ITS | Encounter Summary ---
Author Organization [facility] Address [address] [place] [address] Care Team Providers Care Accounting Consultant Name Role Phone Gayla Hagen MD Primary Care Provider Gabo gonzales Reason for Visit * Reason Onset Date Comments Prior Authorization 05/24/2022 Encounter Details Date Type Department Care Team Description 05/24/2022 Telephone Adult Medicine [address] [address] Gayla Hagen MD Prior Authorization Social History [...] Encounter - Kathia Lindsey M.A. - 08/25/2022 11:35 AM EDT Prior authorization for the sildenafil was approved ( 10 per month) Approved from 08/24/22 until 08/24/23 Prior authorization case approval number # [id number] Approval faxed to [facility] at [phone] * Telephone Encounter - Kathia Lindsey M.A. - 05/24/2022 4:11 PM EDT Prior authorization for the silfenafil completed on cover my meds today Dx code N52.9 Erectile dysfunction Continuation of therapy * Telephone Encounter - Ludwig Rendon - 05/24/2022 10:23 AM EDT Prior Authorization for Medication-do not complete and send this encounter unless you have the fax from the pharmacy. Is this a Cover My Meds request: Yes -- Barney Code [id number] Name of Medication sildenafil (VIAGRA) 100 MG tablet Dose of Medication 100MG What is the RX # from the faxed refill? ? How does patient take this med? TAKE 1 TABLET 1 HOUR PRIOR TO INTERCOURSE NEEDED What Pharmacy did the fax come from: [facility] Pharmacy fax #: [phone] [employer] Information from fax: What Prescription Plan does the patient have? BIN/PCN if applicable: Cardholder ID:[id number] Person Code: 01 Relationship Code: SELF Help desk phone: [phone] documented in this encounter Plan of Treatment Not on file documented as of this encounter Visit Diagnoses Not on filedocumented in this encounter Care Teams Accounting Consultant Relationship Specialty Start Date End Date Gayla Hagen MD PCP - General Family Practice 04/23/21 documented as of this encounter
--- OUTSIDE RECORDS SUMMARY | 2024-03-11 13:34 | XMS_ITS | Encounter Summary ---
Author Organization [facility] Address [address] [place] [address] Care Team Providers Care Machined Parts Metal Sprayer Name Role Phone Clark Oliveira MD Primary Care Provider Unavail able Gayla Hagen MD Primary Care Provider Gabo gonzales Encounter Details Date Type Department Care Team Description 12/13/2017 Fuller Brush Man Report Medical Records [address] [place] [address] Xavier Sandoval Social History Tobacco Use Types [...] on filedocumented in this encounter Care Teams Machined Parts Metal Sprayer Relationship Specialty Start Date End Date Clark Oliveira MD PCP - General Internal Medicine 05/16/13 04/22/21 Gayla Hagen MD PCP - General Family Practice 04/23/21 documented as of this encounter
--- OUTSIDE RECORDS SUMMARY | 2024-03-11 13:34 | XMS_ITS | Encounter Summary ---
Author Organization [facility] Address [address] [place] [address] Care Team Providers Care House Steward/Stewardess Name Role Phone Clark Oliveira MD Primary Care Provider Unavail able Gayla Hagen MD Primary Care Provider Gabo gonzales Encounter Details Date Type Department Care Team Description 10/06/2020 Cutting Department Supervisor Report Medical Records [address] [place] [address] Xavier Sandoval Social History Tobacco Use Types [...] on filedocumented in this encounter Care Teams House Steward/Stewardess Relationship Specialty Start Date End Date Clark Oliveira MD PCP - General Internal Medicine 05/16/13 04/22/21 Gayla Hagen MD PCP - General Family Practice 04/23/21 documented as of this encounter
--- OUTSIDE RECORDS SUMMARY | 2024-03-11 13:34 | XMS_ITS | Encounter Summary ---
Author Organization [facility] Address [address] [place] [address] Care Team Providers Care Turner Off Name Role Phone Gayla Hagen MD Primary Care Provider Gabo gonzales Encounter Details Date Type Department Care Team Description 04/07/2022 Refill Gastroenterology - [address] [place] [address] Viri Cortez DScPAS Social History Tobacco Use Types Packs/Day Years [...] suspected to have Coronavirus/COVID-19? No / Unsure 03/31/2022 2:26 PM EST documented as of this encounter Plan of Treatment Not on file documented as of this encounter Visit Diagnoses Not on filedocumented in this encounter Care Teams Turner Off Relationship Specialty Start Date End Date Gayla Hagen MD PCP - General Family Practice 04/23/21 documented as of this encounter
--- OUTSIDE RECORDS SUMMARY | 2024-03-11 13:34 | XMS_ITS | Encounter Summary ---
Author Organization [facility] Address [address] [place] [address] Care Team Providers Care Assignment Clerk Name Role Phone Clark Oliveira MD Primary Care Provider Unavail able Gayla Hagen MD Primary Care Provider Gabo gonzales Encounter Details Date Type Department Care Team Description 07/23/2020 Hot Header Operator Report Medical Records [address] [place] [address] Xavier Sandoval Social History Tobacco Use Types [...] Exposure Response Date Recorded In the last month, have you been in contact with someone who was confirmed or suspected to have Coronavirus / COVID-19? No / Unsure 07/24/2020 3:55 PM EDT documented as of this encounter Plan of Treatment Not on file documented as of this encounter Visit Diagnoses Not on filedocumented in this encounter Care Teams Assignment Clerk Relationship Specialty Start Date End Date Clark Oliveira MD PCP - General Internal Medicine 05/16/13 04/22/21 Gayla Hagen MD PCP - General Family Practice 04/23/21 documented as of this encounter
--- OUTSIDE RECORDS SUMMARY | 2024-03-11 13:34 | XMS_ITS | Encounter Summary ---
Author Organization [email or web address] [facility] Address [address] [place] [address] Care Team Providers Care Reflesher Name Role Phone Gayla Hagen MD Primary Care Provider Gabo gonzales Reason for Visit * Reason Onset Date Comments Medication 03/31/2022 Encounter Details Date Type Department Care Team Description 03/31/2022 Refill Gastroenterology - [place] [address] [facility] [address] [place] [address] Marty Montgomery MD [address] [facility] [address] [place] [address] Medication Social History Tobacco Use Types Packs/Day Years Used Date Smoking Tobacco: Former Cigarettes 1 1 995 - 03/31/2016 Smokeless Tobacco: Never [...] on filedocumented in this encounter Care Teams Reflesher Relationship Specialty Start Date End Date Gayla Hagen MD PCP - General Family Practice 04/23/21 documented as of this encounter
--- OUTSIDE RECORDS SUMMARY | 2024-03-11 13:34 | XMS_ITS | Encounter Summary ---
Author Organization [facility] Address [address] [place] [address] Care Team Providers Care Charge Master Analyst Name Role Phone Clark Oliveira MD Primary Care Provider Unavail able Gayla Hagen MD Primary Care Provider Gabo gonzales Encounter Details Date Type Department Care Team Description 04/26/2017 Process Worker Report Medical Records [address] [place] [address] Abstract, Provider Social History Tobacco Use Types [...] on filedocumented in this encounter Care Teams Charge Master Analyst Relationship Specialty Start Date End Date Clark Oliveira MD PCP - General Internal Medicine 05/16/13 04/22/21 Gayla Hagen MD PCP - General Family Practice 04/23/21 documented as of this encounter
--- OUTSIDE RECORDS SUMMARY | 2024-03-11 13:35 | XMS_ITS | Encounter Summary ---
Author Organization [facility] Address [address] [place] [address] Care Team Providers Care Real Estate Clerk Name Role Phone Gayla Hagen MD Primary Care Provider Gabo gonzales Reason for Visit * Reason Onset Date Comments Prior Authorization 10/15/2021 Encounter Details Date Type Department Care Team Description 10/15/2021 Telephone Gastroenterology - [place] [address] [facility] [address] [place] [id number] Marty Montgomery MD [address] [facility] [address] [place] [address] Prior Authorization Social History Tobacco Use Types [...] encounter Miscellaneous Notes * Telephone Encounter - Shelbie Zavaleta - 10/15/2021 11:35 AM EDT Prior auth request sent thru staff message documented in this encounter Plan of Treatment Not on file documented as of this encounter Visit Diagnoses Not on filedocumented in this encounter Care Teams Real Estate Clerk Relationship Specialty Start Date End Date Gayla Hagen MD PCP - General Family Practice 04/23/21 documented as of this encounter
--- OUTSIDE RECORDS SUMMARY | 2024-03-11 13:35 | XMS_ITS | Encounter Summary ---
Author Organization [facility] Address [address] [place] [address] Care Team Providers Care Tar Heater Name Role Phone Gayla Hagen MD Primary Care Provider Gabo gonzales Reason for Visit * Reason Onset Date Comments Prior Authorization 03/03/2022 gastro Encounter Details Date Type Department Care Team Description 03/03/2022 Telephone Adult Medicine - [place] [address] [place] [address] Marty Montgomery MD [address] [facility] [address] [place] [address] Prior Authorization (gastro) Social History Tobacco Use Types Packs/Day Years [...] suspected to have Coronavirus/COVID-19? No / Unsure 02/22/2022 3:47 PM EST documented as of this encounter Miscellaneous Notes * Telephone Encounter - Kay Tran - 03/17/2022 3:[address] [facility] auth [id number] Valid 04/14/22-07/13/22 [facility] * Telephone Encounter - Kay Tran - 03/03/2022 9:25 AM EST Auth pending with [facility] # [id number]. * Telephone Encounter - Kathy Joseph - 03/03/2022 7:10 AM EST Images from the original note were not included. Shelbie Rendon Diagnostic PA & External surgeon [place] pre-op pool Pre-auth needed Patient is scheduled for an colonoscopy on 04/14/22 Diagnosis screening Patients insurance: [facility] Appointment is with Marty Montgomery MD Code to process pre-auth for: [id number] Location of procedure: [facility] documented in this encounter Plan of Treatment Not on file documented as of this encounter Visit Diagnoses Not on filedocumented in this encounter Care Teams Tar Heater Relationship Specialty Start Date End Date Gayla Hagen MD PCP - General Family Practice 04/23/21 documented as of this encounter
--- OUTSIDE RECORDS SUMMARY | 2024-03-11 13:35 | XMS_ITS | Encounter Summary ---
Author Organization [facility] Address [address] [place] [address] Care Team Providers Care Parlor Maid Name Role Phone Gayla Hagen MD Primary Care Provider Gabo gonzales Reason for Visit * Reason Onset Date Comments Medication 10/08/2021 Encounter Details Date Type Department Care Team Description 10/08/2021 Refill Gastroenterology - [place] [address] [facility] [address] [place] [address] Marty Montgomery MD [address] [facility] [address] [place] [address] Medication Social History Tobacco Use Types Packs/Day Years Used Date Smoking Tobacco: Former Cigarettes 1 06 03 995 - 03/31/2016 Smokeless Tobacco: Never Alcohol [...] on filedocumented in this encounter Care Teams Parlor Maid Relationship Specialty Start Date End Date Gayla Hagen MD PCP - General Family Practice 04/23/21 documented as of this encounter
--- OUTSIDE RECORDS SUMMARY | 2024-03-11 13:35 | XMS_ITS | Encounter Summary ---
Author Organization [facility] Address [address] [place] [address] Care Team Providers Care Testing And Regulating Technician Name Role Phone Clark Oliveira MD Primary Care Provider Gayla Mac MD Primary Care Provider Gabo gonzales Reason for Visit * Reason Onset Date Comments APPOINTMENT 04/21/2021 Encounter Details Date Type Department Care Team Description 04/21/2021 Telephone Adult Medicine [address] [address] Clark Oliveira MD APPOINTMENT Social History Tobacco Use Types Packs/Day Years [...] have Coronavirus / COVID-19? No / Unsure 04/23/2021 3:35 PM EST documented as of this encounter Miscellaneous Notes * Telephone Encounter - Donna Mororw - 04/21/2021 11:55 AM EST Symptoms patient is presenting: looking for appt for medication that he was prescribed in [facility] appt. His insurance requires the rx come from his pcp office: [place] For ALL patients calling to schedule any appointment (routine, sick visit, follow up, consult, etc.) in the outpatient setting please ask the following questions: ?? Do you have fever of higher than 101, sore throat with difficulty swallowing or severe shortnessof breath? NO If YES to any of these above symptoms, send a message to triage and do not book. Red dot. If no, an audio or video visit should be booked. ?? Have you had close contact with someone with Coronavirus in the last 14 days? NO ?? Have you traveled abroad? NO ?? Have you traveled recently to another state outside of [place], [place], [place], [place], [place], [place], [place]? NO o If yes, did you quarantine for 14 days or have a negative covid test? NO If yes to any of the above, patient is not to be scheduled in office until after 14 day quarantine or negative covid test. If pain or injury related was it due to an accident at work or from a motor vehicle accident? NO If yes, gather 3rd alliance party insurance information Date of accident/Injury: How long has patient had these symptoms?: PCP: Clark Oliveira Payor: [facility] / Plan: PPO $15 [place] [id number] / Product Type: PPO [id number] documented in this encounter Plan of Treatment Not on file documented as of this encounter Visit Diagnoses Not on filedocumented in this encounter Care Teams Testing And Regulating Technician Relationship Specialty Start Date End Date Clark Oliveira MD PCP - General Internal Medicine 05/16/13 04/22/21 Gayla Hagen MD PCP - General Family Practice 04/23/21 documented as of this encounter
--- OUTSIDE RECORDS SUMMARY | 2024-03-11 13:35 | XMS_ITS | Encounter Summary ---
Author Organization [facility] Address [address] [place] [address] Care Team Providers Care Wind Technician Name Role Phone Clark Oliveira MD Primary Care Provider Unavail able Gayla Hagen MD Primary Care Provider Gabo gonzales Encounter Details Date Type Department Care Team Description 02/25/2016 Newspaper Vendor Report Medical Records [address] [place] [address] Xavier Sandoval Social History Tobacco Use Types Packs/Day Years Used Date Smoking Tobacco: Light Smoker Cigarettes 20 Smokeless Tobacco: Never Comments:1 cigarettes every other day Alcohol Use Standard Drinks/Week Comments Yes 0 [...] on filedocumented in this encounter Care Teams Wind Technician Relationship Specialty Start Date End Date Clark Oliveira MD PCP - General Internal Medicine 05/16/13 04/22/21 Gayla Hagen MD PCP - General Family Practice 04/23/21 documented as of this encounter
--- OUTSIDE RECORDS SUMMARY | 2024-03-11 13:35 | XMS_ITS | Encounter Summary ---
Author Organization [facility] Address [address] [place] [address] Care Team Providers Care Ship Surveyor Name Role Phone Clark Oliveira MD Primary Care Provider Unavail able Gayla Hagen MD Primary Care Provider Gabo gonzales Encounter Details Date Type Department Care Team Description 10/21/2020 Paper Mill Superintendent Report Medical Records [address] [place] [address] Jenna Jay NP Social History Tobacco Use Types Packs/Day Years [...] on filedocumented in this encounter Care Teams Ship Surveyor Relationship Specialty Start Date End Date Clark Oliveira MD PCP - General Internal Medicine 05/16/13 04/22/21 Gayla Hagen MD PCP - General Family Practice 04/23/21 documented as of this encounter
== END 2024-03-11 08:48 | disposition home or self-care (01) ==
LOC: HO.XRAY 08:47
PROVIDERS: Visit Provider Anesthesiology
DX: M43.16 Spondylolisthesis, lumbar region (principal)
CPT/HCPCS: 72120

== ENCOUNTER 2024-03-11 08:47 | Outpatient (AMB) | payer OTHER, SELFPAY ==
--- NOTE | 2024-03-11 08:49 | MHC.OFFVIS ---
Vital Signs 03/11/24 08:50 Height 6 ft 1 in Weight 285 lb BMI 37.6 BP 132/90 H Blood Pressure Location Lt brachial Position Sitting Respiration 16 Pulse 108 H Pulse Source Pulse Oximeter Pulse Oximetry (%) 98 Oxygen Delivery Method Room Air Intake Visit Reasons: RIGHT L3, L4 AND L4, L5 TFESI Forensic Science Examiner Required: No Allergies No Known Allergies Allergy (Verified 03/11/24 08:51) Medication List - Last Reconciled 03/11/24 by Rochelle Peck LPN amlodipine 10 mg PO DAILY emtricitabine-tenofovir (TDF) 200-300 mg 1 tab PO DAILY gabapentin 600 mg PO TID 30 days lisinopril 10 mg PO DAILY naproxen 500 mg PO BID nicotine (polacrilex) 2 mg buccal Q2H sildenafil 100 mg PO DAILY PRN HPI Comments Details: Luc is back in my in my office after the transforaminal epidural steroid injection L3-L4 and L4-5 on the right. The injection was performed on recommendation of the office of neurosurgery. He reports no pain improvement after the injection. On top of that he reported that a week after the injection he experienced weakness of the left lower extremity, that his left leg gave in under him while he was walking. I will send him for the x-ray of the lumbar spine bending only to rule out possible spondylolisthesis. I will see him in 1 week. Prior: is very pleasant 48 years old gentleman who was referred to my office by Dr. Handley and associates. He reports severe pain in the lower back with radiation to the right lower extremity sensation of pins and needles as well as burning sensation in the left lower extremity. He reported that this pain started 2-3 years ago. He relates this problem to the age. He reports that he can not sleep normally because of his pain can not do activities of daily living he can take care of himself and he can function normally. He reports that he is working full-time and his job is very physical he performs multiple times during the daytime climbing up and down stairs and heavy lifting. He had physical therapy 3-1/2 years ago with [facility] he went to 5-6 sessions and he reported severe pain exacerbation with physical therapy. He refused to consider physical therapy. He in the past received 1 transforaminal epidural steroid injection L3-L4 L4-5 in the past which he reports made him significantly better. [facility] Surgical History History of carpal tunnel release Hx laparoscopic cholecystectomy H/O circumcision Family History Mother Arthritis Hypercholesteremia HTN (hypertension) Diabetes Maternal Grandmother HTN (hypertension) Diabetes Father Liver cancer Social History (Updated 12/12/23 @ 15:01 by Misty Wagner CMA) Housing: House Alcohol intake: current Alcohol intake frequency: a few times a week Patient Tobacco Use Status: Former Tobacco user e-Cigarette/Vaping Use: Currently Using service: No Current occupational status: employed Cognitive needs: No Hearing needs: No Vision needs: No Review of Systems Const All systems reviewed & are unremarkable except as noted in HPI and below ENT Reports Normal hearing present Neuro Reports Normal hearing present, Denies Abnormal speech present and Denies Sensory deficit (Neuro) Physical Exam Vital Signs: Last Vital Signs Pulse 108 H 03/11/24 08:50 Resp 16 03/11/24 08:50 BP 132/90 H 03/11/24 08:50 Pulse Ox 98 03/11/24 08:50 Oxygen Delivery Method Room Air 03/11/24 08:50 BMI result Body Mass Index 37.6 Const General: no acute distress Nutritional Appearance: obese (Trivial obesity) Orientation/consciousness: patient oriented x3 Eyes General: appearance normal, both eyes and all related structures Pupils: Equal, round and reactive pupils present EOM: EOMs intact bilaterally Neck Neck: Yes full ROM Chest Chest palpation & inspection: normal inspection of the chest Resp Effort & Inspection: normal respiratory effort, able to speak in complete sentences, normal respiratory pattern, no audible wheezes and no cough Cardio Jugular venous distension: no JVD GI Inspection: Yes normal to inspection Neuro General: patient oriented x3 and gait normal Cranial nerves: Yes CN's II-XII intact bilaterally, Yes Equal, round and reactive pupils present, Yes Normal hearing present and Yes Ability to bilaterally elevate shoulders present Speech: No Abnormal speech present Gait exam (Neuro): Normal gait present Motor exam (neuro): 5/5 motor strength present throughout Sensory Exam: No Sensory deficit (Neuro) Extrem General: No pedal edema Psych Speech and movement: Normal speech and movement present Affect: normal affect Attitude: cooperative Thought process: Normal thought process present Thought content: Normal thought content present Insight: Good insight present (Psych) Judgement: Good judgement present (Psych) Assessment & Plan Assessment & Plan (1) Lumbar radiculopathy: Code(s): M54.16 - Radiculopathy, lumbar region Category: Medical (2) Spinal stenosis: Code(s): M48.00 - Spinal stenosis, site unspecified Category: Medical (3) Osteoarthritis: Code(s): M19.90 - Unspecified osteoarthritis, unspecified site Category: Medical (4) Gout: Code(s): M10.9 - Gout, unspecified Category: Medical (5) Spondylosis, lumbar, with myelopathy: Code(s): M47.16 - Other spondylosis with myelopathy, lumbar region Category: Medical (6) Vertebrogenic low back pain: Code(s): M54.51 - Vertebrogenic low back pain Category: Medical (7) Spondylolisthesis, lumbar region: Code(s): M43.16 - Spondylolisthesis, lumbar region Category: Medical Plan On the recommendation of neurosurgery office I performed transforaminal L3-L4 L4-5 epidural steroid injection on the right. Unfortunately this did not result in pain improvement, overall condition became worse, a week after injection patient felt weakness in the left lower extremity and fell on the ground. I sent him for x-ray of the lumbar spine to rule out spondylolisthesis, such a intermittent and abrupt numbness could be resulted from the abrupt change of the anatomy secondary to spondylolisthesis. If there is no spondylolisthesis on his x-rays, the only thing I can offer to him at this moment is diagnostic medial branch block to rule out possibility of his pain is coming from the facet joints. I also can offer him intercept procedure since he has Modic type changes in the lumbar spine. Those changes are at L3-L4 and L5 vertebra. I will see him in 1 week. Orders: Orders XR lumbar spine bending only Today M43.16 - Spondylolisthesis, lumbar region Patient Instructions: I here by testify that I spent 32 minutes in conversation with this patient as well as planning his care, evaluating his prior records and diagnostic images as well as organizing this note. Coding Level of Care Code Est Pt Level 4 (60451) Diagnoses Lumbar radiculopathy M54.16 Spinal stenosis M48.00 Osteoarthritis M19.90 Gout M10.9 Spondylosis, lumbar, with myelopathy M47.16 Vertebrogenic low back pain M54.51 Spondylolisthesis, lumbar region M43.16
[2024-03-11 08:50] VITALS: BP 132/90; PULSE 108; RESP 16; O2SAT 98; BMI 37.6
--- OUTSIDE RECORDS SUMMARY | 2024-03-11 12:57 | XMS_ITS | Patient Health Record ---
Author Organization [facility] Address [address] [id number] Care Team Providers Care Spinner Tender Name Role Phone WAYNE SIN Unavailable [phone] SMILEY MACHADO Unavailable [phone] Allergies No Known Allergies Results Component Value Reference Range Notes Creatinine-[id number] Reviewed date:10/02/2023 11:46:00 AM Interpretation:Cr 0.87, eCrCl 148ml/min Performing Lab:[facility], [address] [place] [address], Phone - [phone], Director - Juan Notes/Report: Clinical Information:SRC:urine Creatinine 0.87 0.76-1.27 mg/dL eGFR 107 >59 mL/min/1.73 HBsAg Screen-[id number] Reviewed date:10/02/2023 11:41:37 AM Interpretation:Negative Performing Lab:[facility], [address] [facility]formerly [facility] [address] [employer], [place], Phone - [phone], [facility] Notes/Report: Clinical Information:SRC:urine HBsAg Screen Negative Negative Hepatitis B Surf Ab Quant-[id number] Reviewed date:09/29/2023 03:39:16 PM Interpretation:Not Immune Performing Lab:[facility], [address], [address], [place], Phone - [phone], Director - [facility] Notes/Report: Clinical Information:SRC:urine Hepatitis B Surf Ab Quant <3.5 Immunity>10 mIU /mL Status of Immunity Anti-HBs Level Inconsistent with Immunity 0.0 - 10.0 Consistent with Immunity >10.0 T pallidum Screening [place] -[id number] Reviewed date:10/03/2023 11:48:41 AM Interpretation:RPR 1:2, After Treatment Performing Lab:[facility] [place], [address] [place] [address], Phone - [phone], Director - Juan Notes/Report: Clinical Information:SRC:urine Clinical Information:SRC:urine Clinical Information:SRC:urine T pallidum Antibodies Reactive Non Reactive RPR Reactive Non Reactive RPR, Quant 1:2 NonRea<1:1 titer HIV Ab/p24 Ag with Reflex-[id number] Reviewed date:10/02/2023 11:46:10 AM Interpretation:Non-reactive Performing Lab:[facility], [address], [address], [facility], Phone - [phone], Director - [facility] Notes/Report: Clinical Information:SRC:urine HIV Ab/p24 Ag Screen Non Reactive Non Reactive HIV-1/HIV-2 antibodies and HIV-1 p24 antigen were NOT detected. There is no laboratory evidence of HIV infection. HIV Negative Chlamydia/GC Amplification-[id number] Reviewed date:10/02/2023 11:41:45 AM Interpretation:Negative Performing Lab:[facility], [address], [address], [facility], Phone - [phone], Director - [facility] Notes/Report: Clinical Information:SRC:urine Chlamydia trachomatis, SURESH Negative Negative Neisseria gonorrhoeae, SURESH Negative Negative Trich vag by SURESH-[id number] Reviewed date:10/02/2023 11:46:36 AM Interpretation:Negative Performing Lab:[facility], [address], [facility], Phone - [phone], Director - [facility] Notes/Report: Clinical Information:SRC:urine Trich vag by SURESH Negative Negative Ct/GC SURESH, Pharyngeal-[id number] Reviewed date:10/02/2023 11:46:18 AM Interpretation:Negative Performing Lab:[facility] [place], [address], [address], [facility], Phone - [phone], Director - [facility] Notes/Report: Clinical Information:SRC:urine C. trachomatis, SURESH, Pharyn Negative Negative N. gonorrhoeae, SURESH, Pharyn Negative Negative HCV Antibody-[id number] Reviewed date:10/02/2023 11:46:27 AM Interpretation:Non-reactive Performing Lab:[facility], [address], [address], [place], Phone - [phone], Director - [facility] Notes/Report: Clinical Information:SRC:urine Hep C Virus Ab Non Reactive Non Reactive HCV antibody alone does not differentiate between previously resolved infection and active infection. Equivocal and Reactive HCV antibody results should be followed up with an HCV RNA test to support the diagnosis of active HCV infection. Lipid Panel-[id number] Reviewed date:12/06/2023 09:06:05 AM Interpretation:Normal Performing Lab:[facility], [address] [place] [address], Phone - [phone], Director - Juan Notes/Report: Clinical Information:PHARYNGEAL SRC: ORAL Cholesterol, Total 155 100-199 mg/dL Triglycerides 83 0-149 mg/dL HDL Cholesterol 42 >39 mg/dL VLDL Cholesterol Ananth 16 5-40 mg/dL LDL Chol Calc ([facility]) 97 0-99 mg/dL Ct/GC SURESH, Pharyngeal-[id number] Reviewed date:12/07/2023 09:44:15 AM Interpretation:Negative Performing Lab:[facility], [address], [address], [facility], Phone - [phone], Director - [facility] Notes/Report: Clinical Information:PHARYNGEAL SRC: ORAL C. trachomatis, SURESH, Pharyn Negative Negative N. gonorrhoeae, SURESH, Pharyn Negative Negative Ct, Ng, Trich vag by SURESH-[id number] Reviewed date:12/07/2023 09:46:35 AM Interpretation:Negative Performing Lab:[facility], [address], [address], [place], Phone - [phone], Director - [facility] Notes/Report: Clinical Information:PHARYNGEAL SRC: ORAL Chlamydia by SURESH Negative Negative Gonococcus by SURESH Negative Negative Trich vag by SURESH Negative Negative HIV Ab/p24 Ag with Reflex-[id number] Reviewed date:12/06/2023 11:15:54 AM Interpretation:Negative Performing Lab:[facility], [address], [address], [facility], Phone - [phone], Director - [facility] Notes/Report: Clinical Information:PHARYNGEAL SRC: ORAL HIV Ab/p24 Ag Screen Non Reactive Non Reactive HIV-1/HIV-2 antibodies and HIV-1 p24 antigen were NOT detected. There is no laboratory evidence of HIV infection. HIV Negative T pallidum Screening [place] -[id number] Reviewed date:12/07/2023 09:46:23 AM Interpretation:RPR 1:2 Performing Lab:[facility] [place], [address] [place] [address], Phone - [phone], Director - [facility] Notes/Report: Clinical Information:PHARYNGEAL SRC: ORAL Clinical Information:PHARYNGEAL SRC: ORAL Clinical Information:PHARYNGEAL SRC: ORAL T pallidum Antibodies Reactive Non Reactive RPR Reactive Non Reactive RPR, Quant 1:2 NonRea<1:1 titer Creatinine-[id number] Reviewed date:12/06/2023 11:45:29 AM Interpretation:Creatinine 1.0/CrCl 131 ml/min Performing Lab:[facility] [place], [address] [place] [address], [place], Phone - [phone], Director - [facility] Notes/Report: Clinical Information:PHARYNGEAL SRC: ORAL Creatinine 1.00 0.76-1.27 mg/dL eGFR 93 >59 mL/min/1.73 Ct/GC SURESH, Pharyngeal-[id number] Reviewed date:07/03/2023 03:54:34 PM Interpretation:Negative Performing Lab:[facility], [address], [place], Phone - [phone], Director - [facility] Notes/Report: Clinical Information:SRC:oral N. gonorrhoeae, SURESH, Pharyn was developed and its performance characteristics determined by [facility]. It has not been cleared or approved by the Food and Drug Administration. C. trachomatis, SURESH, Pharyn Negative Negative N. gonorrhoeae, SURESH, Pharyn Negative Negative Reason For Referral No Information Medications Medication SIG (Take, Route, Frequency, Duration) Notes Start Date End Date Status Descovy 200-25 MG 1 tablet Orally Once a day for 90 days 12/05/2023 Not-Taking Truvada Active Doxycycline Monohydrate 100 MG 2 tablet Orally Taken as soon as possible after sex, ideally within 24 hours and no later than 72 hours after sex. No more than 200 mg should be taken within a 24-hour period. for 15 days 12/05/2023 Active amLODIPine Benzoate Active Naproxen Active Gabapentin Active Social History Sex Assigned At : Social History Observation Description Sex Assigned At Male Vital Signs Blood pressure diastolic 80 mm Hg 12/05/2023 Height 6'1 in 12/05/2023 Blood pressure systolic 138 mm Hg 12/05/2023 Weight 294.6 lbs 12/05/2023 BMI 38.86 kg/m2 12/05/2023 Encounters Encounter Location Date Provider Diagnosis [facility] [address] [place], [place] [id number] 06/27/2023 WAYNE GABAI Encounter for screen ing for infections with a predominantly sexual mode of transmission Z11.3 ; Syphilis, unspecified A53.9 and Counseling, unspecified Z71.9 [facility] [address] [place], [place] [id number] 09/28/2023 SMILEY MACHADO Encounter for screen ing for infections with a predominantly sexual mode of transmission Z11.3 ; Counseling, unspecified Z71.9 ; Other problems related to lifestyle Z72.89 ; Encounter for screening for human immunodeficiency virus [HIV] Z11.4 ; Other fpc (current) drug therapy Z79.899 ; Encounter for screening for other viral diseases Z11.59 and Encounter for HIV pre-exposure prophylaxis Z29.81 [facility] [address] [place], [place] [id number] 12/05/2023 WAYNE GABAI Other buttermaker helper (current) drug therapy Z79.899 ; Contact with and (suspected) exposure to other viral communicable diseases Z20.828 ; Encounter for screening for human immunodeficiency virus [HIV] Z11.4 ; Encounter for HIV pre-exposure prophylaxis Z29.81 and Encounter for screening for infections with a predominantly sexual mode of transmission Z11.3 [place] [facility] [address] [place], [place] [id number] 06/27/2023 [facility] [address] [id number] 09/28/2023 SMILEY MACHADO [place] [address] [place], [place] [id number] 12/05/2023 [facility] [address] [id number] 03/06/2024 WAYNE GABAI Contact with and (suspected) exposure to other viral communicable diseases Z20.828 Assessments Encounter Date Diagnosis (ICD Code) Assessment Notes Treatment Notes Treatment Clinical Notes Section Notes 06/27/2023 Syphilis, unspecified (ICD-10 - A53.9) Clt interviewed by CHRISTINE, field director of global marketing Syl over the phone prior to this appt. Clt is not experiencing signs and symptoms that indicate neurosyphilis or ophthalmic involvement Patient warned about flu like symptoms from Jarisch-Herxheime r reaction, and pain at the injection site(s). Advised Tylenol or Ibuprofen as needed. A fourfold decline in the nontreponemal titer, equivalent to a change of two dilutions (eg, from 1:16 to 1:4 or from 1:32 to 1:8), is considered an adequate response to syphilis therapy. The duration of time it takes to achieve this is depends on the stage of disease. Advised early syphilis, serologic repeat testing should be performed 6 and 12 months following treatment and at any time if clinical symptoms recur. In general, such patients should experience an adequate response by 12 months Patient was treated today with Bicillin L-A, 2.4 million units IM (gluteal), administered in divided dose. Patient was observed for 30mins following injection and tolerated procedure well. Advised patient to follow up for retest in 6 and 12 months. Advised no sex for 7 days after treatment. Advised no sex with previous partners who may have been exposed until they receive testing and/or treatment d/t risk of reexposure and re-infection. Spent ___ minutes doing the following: Chart Prep Obtaining/revie wing history Performing medically necessary exam Counseling/Coor dination of Care Documenting the visit Educating the patient Ordering medication/test /procedures Communication with other providers Interpretation of test performed by others Communication of test results New Patient: [id number] 30 Minutes 06/27/2023 Encounter for screening for infections with a predominantly sexual mode of transmission (ICD-10 - Z11.3) Spent ___ minutes doing the following: Chart Prep Obtaining/revie wing history Performing medically necessary exam Counseling/Coor dination of Care Documenting the visit Educating the patient Ordering medication/test /procedures Communication with other providers Interpretation of test performed by others Communication of test results New Patient: [id number] 30 Minutes 09/28/2023 Encounter for screening for infections with a predominantly sexual mode of transmission (ICD-10 - Z11.3) Discussed STI risks, screenings that are available through [facility] and safe sex. For Hep B and C screening today. Clt aware of lab processing times and how to view results on portal and how positive results will be communicated Reviewed syphilis (RPR) monitoring and would expect to see it decreasing. Will call with any concerns Need 2 out of 3 Sections from A-C Section A) Problems (only need one from below) One acute or uncomplicated illness/injury Section B) Data (at least one of the following categories in this section) Category 1: (Choose 2 of the following): Order unique tests Section C) Risk Document low risk of morbidity/morta lity 09/28/2023 Counseling, unspecified (ICD-10 - Z71.9) Need 2 out of 3 Sections from A-C Section A) Problems (only need one from below) One acute or uncomplicated illness/injury Section B) Data (at least one of the following categories in this section) Category 1: (Choose 2 of the following): Order unique tests Section C) Risk Document low risk of morbidity/morta lity 12/05/2023 Other fpc (current) drug therapy (ICD-10 - Z79.899) Need 2 out of 3 Sections from A-C Section A) Problems (only need one from below) Two or more self-limited or minor programs Section B) Data (at least one of the following categories in this section) Category 1: (Choose 2 of the following): Order unique tests Review test results (each unique test counts as one) Category 2: Assessment requiring an independent historian Section C) Risk Document low risk of morbidity/morta lity 03/06/2024 Contact with and (suspected) exposure to other viral communicable diseases (ICD-10 - Z20.828) 12/05/2023 Contact with and (suspected) exposure to other viral communicable diseases (ICD-10 - Z20.828) Discussed effectiveness, benefits, and risks of Doxy-PEP, as well as other options available to prevent STIs. Reviewed full spectrum of prevention options available to clt, including alternatives to Doxy-PEP (e.g., condom use), STI testing and treatment, HIV pre-exposure prophylaxis (PrEP) and emergency post-exposure prophylaxis (PEP), HIV testing, HIV treatment for people with HIV, and STI vaccines (e.g., human papillomavirus, hepatitis A, hepatitis B, and Mpox vaccines Doxy-PEP has been shown in studies to reduce the incidence of syphilis, chlamydia, and gonorrhea among cisgender men who have sex with men (MSM) and transgender women with a recent history of these infections. Reductions of 87% for syphilis, 88% for chlamydia, and 55% for gonorrhea among people taking HIV PrEP, and reductions of 77% for syphilis, 74% for chlamydia, and 57% for gonorrhea among people with HIV. Doxy-PEP for bacterial STI prevention consists of 200 mg of doxycycline taken ideally within 24 hours, but no later than 72 hours, after condomless oral, anal, or vaginal/front whole sex. Doxycycline can be taken as often as every day, depending on frequency of condomless sexual exposure, but no more than 200 mg should be taken within a 24-hour period. It should be taken at least 1 hour before or 2 hours after antacids, calcium, or iron-containing products. Studies are needed on the potential long-term effects of Doxy-PEP on individual and population health. Side effects include: microbiome changes and antibiotic resistance Need 2 out of 3 Sections from A-C Section A) Problems (only need one from below) Two or more self-limited or minor programs Section B) Data (at least one of the following categories in this section) Category 1: (Choose 2 of the following): Order unique tests Review test results (each unique test counts as one) Category 2: Assessment requiring an independent historian Section C) Risk Document low risk of morbidity/morta lity 09/28/2023 Other problems related to lifestyle (ICD-10 - Z72.89) Need 2 out of 3 Sections from A-C Section A) Problems (only need one from below) One acute or uncomplicated illness/injury Section B) Data (at least one of the following categories in this section) Category 1: (Choose 2 of the following): Order unique tests Section C) Risk Document low risk of morbidity/morta lity 06/27/2023 Counseling, unspecified (ICD-10 - Z71.9) Reviewed STI screening recommendations and available testing through [facility]. Testing ordered as noted per patient risks and preference. Encouraged safe sex practices. Advised to call for evaluation if any symptoms arise. Reviewed method of communicating results to patient. Spent ___ minutes doing the following: Chart Prep Obtaining/revie wing history Performing medically necessary exam Counseling/Coor dination of Care Documenting the visit Educating the patient Ordering medication/test /procedures Communication with other providers Interpretation of test performed by others Communication of test results New Patient: [id number] 30 Minutes 09/28/2023 Encounter for screening for human immunodeficiency virus [HIV] (ICD-10 - Z11.4) Need 2 out of 3 Sections from A-C Section A) Problems (only need one from below) One acute or uncomplicated illness/injury Section B) Data (at least one of the following categories in this section) Category 1: (Choose 2 of the following): Order unique tests Section C) Risk Document low risk of morbidity/morta lity 12/05/2023 Encounter for screening for human immunodeficiency virus [HIV] (ICD-10 - Z11.4) Need 2 out of 3 Sections from A-C Section A) Problems (only need one from below) Two or more self-limited or minor programs Section B) Data (at least one of the following categories in this section) Category 1: (Choose 2 of the following): Order unique tests Review test results (each unique test counts as one) Category 2: Assessment requiring an independent historian Section C) Risk Document low risk of morbidity/morta lity 12/05/2023 Encounter for HIV pre-exposure prophylaxis (ICD-10 - Z29.81) PrEP reduces the risk of getting HIV from sex by about 99% when taken as prescribed. Among people who inject drugs, it reduces the risk by at least 74% when taken as prescribed. Once you start PrEP, you will need to take PrEP every day. PrEP is much less effective when it is not taken every day. Continue to use condoms while taking PrEP. Even though daily PrEP can greatly reduce your risk of HIV, it does not protect against other STDs, such as gonorrhea, chlamydia, or syphilis. Combining condom use with PrEP will further reduce your risk of HIV, as well as protect you from other STDs. You must also take an HIV test every 3 months while taking PrEP, so you will have regular follow-up visits prior to refill authorizations. Advised clt to follow up if having trouble taking PrEP every day or if clt wants to stop taking PrEP. PrEP is safe, but some people experience side effects like diarrhea, nausea, headache, fatigue, and stomach pain. These side effects usually go away over time within 4-8 weeks after starting medication. Reviewed resources if clt is uninsured or needs co-pay assistance to help lower the cost of PrEP medication: The Ready, Set, PrEP program and [place] HIV Drug Assistance Program (HDAP) which makes PrEP available at no cost to those who qualify. [employer] offers a program to help patients pay for PrEP shots. Need 2 out of 3 Sections from A-C Section A) Problems (only need one from below) Two or more self-limited or minor programs Section B) Data (at least one of the following categories in this section) Category 1: (Choose 2 of the following): Order unique tests Review test results (each unique test counts as one) Category 2: Assessment requiring an independent historian Section C) Risk Document low risk of morbidity/morta lity 09/28/2023 Other buttermaker helper (current) drug therapy (ICD-10 - Z79.899) Need 2 out of 3 Sections from A-C Section A) Problems (only need one from below) One acute or uncomplicated illness/injury Section B) Data (at least one of the following categories in this section) Category 1: (Choose 2 of the following): Order unique tests Section C) Risk Document low risk of morbidity/morta lity 12/05/2023 Encounter for screening for infections with a predominantly sexual mode of transmission (ICD-10 - Z11.3) Reviewed routine screening, safe sex and condom use. Aware of window period for testing and testing options. Discussed symptoms that would warrant further evaluation and follow-up care Need 2 out of 3 Sections from A-C Section A) Problems (only need one from below) Two or more self-limited or minor programs Section B) Data (at least one of the following categories in this section) Category 1: (Choose 2 of the following): Order unique tests Review test results (each unique test counts as one) Category 2: Assessment requiring an independent historian Section C) Risk Document low risk of morbidity/morta lity 09/28/2023 Encounter for screening for other viral diseases (ICD-10 - Z11.59) Need 2 out of 3 Sections from A-C Section A) Problems (only need one from below) One acute or uncomplicated illness/injury Section B) Data (at least one of the following categories in this section) Category 1: (Choose 2 of the following): Order unique tests Section C) Risk Document low risk of morbidity/morta lity 09/28/2023 Encounter for HIV pre-exposure prophylaxis (ICD-10 - Z29.81) Reviewed transfer of PrEP care. Will do labs today. No Rx's needed. Reviewed clt's concerns for longer renal function concerns with concurrent use of Naproxen. Will check Cr level today. Reviewed potential options of monitor renal function more closely such as every 3 months. If any renal impairment then can submit PA for Descovy approval. Clt can also look into Apretude as no renal concerns with that medication. Apretude provider list provided. Can also consider PrEPDAP for Descovy if unable to get it approved by insurance and feel that it is needed Will keep clt in PrEP fu and plan for revisit in 2 months Need 2 out of 3 Sections from A-C Section A) Problems (only need one from below) One acute or uncomplicated illness/injury Section B) Data (at least one of the following categories in this section) Category 1: (Choose 2 of the following): Order unique tests Section C) Risk Document low risk of morbidity/morta lity 12/05/2023 Other Will try to get Descovy covered d/t daily Naproxen use. Clt has enough Truvada to continue taking while PA approval process is underway. Will call either way to review results and follow up plan regarding Descovy coverage Need 2 out of 3 Sections from A-C Section A) Problems (only need one from below) Two or more self-limited or minor programs Section B) Data (at least one of the following categories in this section) Category 1: (Choose 2 of the following): Order unique tests Review test results (each unique test counts as one) Category 2: Assessment requiring an independent historian Section C) Risk Document low risk of morbidity/morta lity Plan Of Treatment Next Appt Details Provider Name:WAYNE SIN , 03/18/2024 04:00:00 PM, [address] [place] [address], [address], [place], [place], [phone], Insurance Providers Payer Name Payer Address Payer Phone Subscriber Number Group Number Insured Name Patient Relationship to Insured Coverage Start Date Coverage End Date [facility] [address] [place], [place] [id number] Luc Mathew Self - patient is the insured Medications Administered Medication Instructions Date of Administration Dosage Notes Bicillin 06/27/2023 Bicillin 06/27/2023 Medical (General) History Medical History History ICD Code Weight concerns Syphilis RPR 1:256 06/2023, treated High blood pressure Osteoarthritis arthritis in lower back, on naproxen nnamdi ly smoker Surgical History Surgery Date(Month/Year) gall bladder removal 2018 double carpal tunnel release 2019 circumcison 2020
--- OUTSIDE RECORDS SUMMARY | 2024-03-11 12:57 | XMS_ITS | Clinical Summary ---
Author Organization [employer] [facility] ity Address [address] [place] [address] Care Team Providers Care Cushion Filler Name Role Phone Gayla Hagen MD Primary Care Provider [phone] Surgical History Surgery Date Site/Laterality Comments CHOLECYSTECTOMY PROCEDURE: LAPAROSCOPIC CHOLECYSTECT CIRCUMCISION, PRIMARY 02/20/2018 PROCEDURE: HISTORICAL CIRCUMCISION CARPAL TUNNEL RELEASE Bilateral PROCEDURE: HISTORICAL CARPAL TUNNEL REL Medical History Medical History Date Comments HTN (hypertension) DX:HTN (hyper tension) Family History Medical History Relation Name Comments Other cancer Aunt uncertain type; ?breast; ?colon Liver cancer Father alcoholic Breast cancer Maternal Grandmother Diabetes Maternal Grandmother Hypertension Maternal Grandmother Diabetes Mother Hyperlipidemia Mother Hypertension Mother Rheum arthritis Mother Alcohol/Drug Paternal Grandmother Hypertension Sister 1 Coronary artery disease Neg Hx Relation Name Status Comments Aunt Father Maternal Grandmother Mother Alive Paternal Grandmother Sister 1 Sister 2 Alive Social History Tobacco Use Types Packs/Day Years Used Date Smoking Tobacco: Former Cigarettes 1 22.1 0 02/13/1994 - 03/31/2016 Smokeless Tobacco: Never Alcohol Use Standard Drinks/Week Comments Yes 10 (1 standard drink = 0.6 oz pu re alcohol) Sex and Gender Information Value Date Recorded Sex Assigned at Not on file Gender Identity Not on file Sexual Orientation Not on file Obstetrics History Last Filed Vital Signs Vital Sign Reading Time Taken Comments Blood Pressure 131/85 09/12/2023 12:58 PM EDT Pulse 98 09/12/2023 12:58 PM EDT Temperature - - Respiratory Rate - - Oxygen Saturation - - Inhaled Oxygen Concentration - - Weight 130 kg (286 lb) 09/12/2023 12:58 PM EDT Height 185.4 cm (6' 1 ) 09/05/2023 2:17 PM EDT Body Mass Index 37.73 09/05/2023 2:17 PM EDT Plan of Treatment Health Maintenance Due Date Last Done Comments Hepatitis A Vaccines (1 of 2 - Risk 2-dose series) 02/16/1995 Hepatitis B Vaccines (1 of 3 - 19+ 3-dose series) 02/16/1995 Cholesterol Screening (Lipid Panel) 01/22/2022 Colorectal Cancer Screening: Colonoscopy 01/22/2022 Depression Screening 01/22/2022 Hepatitis C Screening 01/22/2022 Social Influencers of Health Screening 01/22/2022 COVID-19 Vaccine ( season) 2024 11/09/2023, 02/15/2021, 06/16/2020, Additional history exists Hypertension/CHF/CAD Annual BMP Blood Test 06/13/2024 06/14/2023 DTaP,Tdap,and Td Vaccines (3 - Td or Tdap) 01/07/2031 01/07/2021, 08/07/2013 Pneumococcal Vaccine: Pediatrics (0 to 5 Years) and At-Risk Patients (6 to 64 Years) Aged Out 04/09/2015 No longer eligible based on patient's age to complete this topic HIV Screening Completed 06/14/2023 Influenza Vaccine Completed 11/09/2023, , 12/13/2021, Additional history exists HIB Vaccines Aged Out No longer eligi ble based on patient's age to complete this topic HPV Vaccines Aged Out No longer eligi ble based on patient's age to complete this topic IPV Vaccines Aged Out No longer eligi ble based on patient's age to complete this topic MMR Vaccines Aged Out No longer eligi ble based on patient's age to complete this topic Meningococcal ACWY Vaccine Aged Out N o longer eligible based on patient's age to complete this topic RSV Immunization Patients Under 20 months Aged Out No longer eligible based on patient's age to complete this topic Varicella Vaccines Aged Out No longer eligible based on patient's age to complete this topic Care Teams Cushion Filler Relationship Specialty Start Date End Date Gayla Hagen MD [address] [place] [address] PCP - General 04/23/21
--- OUTSIDE RECORDS SUMMARY | 2024-03-11 12:57 | XMS_ITS ---
Author Organization [facility] Address [address] [place] [phone] Care Team Providers Care Environmental Compliance Manager Name Role Phone HAILY ENGEL [phone] REASON FOR VISIT PrEP F/U Social History Sex Assigned At : Social History Observation Description Sex Assigned At Male Encounters Encounter Location Date Provider Diagnosis [address] [place] [phone] 03/05/2024 HAILY ENGEL Plan Of Treatment Next Appt Details Provider Name:HAILY ENGEL , 03/18/2024 04:00:00 PM, [address] [place] [address], [address], [place], [place], [phone], Progress Notes * Zana MATHEWOB:[birth year] (49 yo M)Acc No.[id number]:03/05/2024 Progress Notes Patient:?Luc MATHEW Provider:?Haily Engel NP :1975???Age:49 Y???Sex:Male Otilio e:03/05/2024 Address:[address] [place] [id number] Subjective: * Chief Complaints: * ???1. PrEP F/U. * Medical History:? Objective: * Vitals:? Assessment: Plan: * Treatment: * Billing Information: * Visit Code:? * Procedure Codes:? * Electronic signature of CARMEN ENGEL NP on 03/11/2024 at 12:57 PM EST Sign off status: Pending * Provider:?Haily Engel NP Date:? 025 Generated for Marlin mancia/Sean/Diane on:?03/11/2024 12:57 PM EST
--- OUTSIDE RECORDS SUMMARY | 2024-03-11 12:57 | XMS_ITS ---
Author Organization [facility] Address [address] [place] [phone] Care Team Providers Care Supply Chain Technician Name Role Phone SHIRAZGisele WAYNE Mcdonald [phone] REASON FOR VISIT PrEP labs and rx Medications Medication SIG (Take, Route, Fr equency, Duration) Notes Start Date End Date Status Descovy 200-25 MG 1 tablet Orally Once a day for 90 days 01/18/2024 Active Social History Sex Assigned At : Social History Observation Description Sex Assigned At Male Encounters Encounter Location Date Provider Diagnosis [address] [place], [place] [phone] 12/05/2023 WAYNE SIN Plan Of Treatment Medication Medication Name Sig Start Date Stop Date Notes Descovy 200-25 MG 1 tablet Orally Once a day for 90 days 1 03/20/2023 Next Appt Details Provider Name:WAYNE SIN , 03/18/2024 04:00:00 PM, [address] [place] [address], [facility], [place], [place], [phone], Progress Notes * Zana MATHEWOB:[birth year] (48 yo M)Acc No.[id number]:12/05/2023 Patient:?Luc MATHEW :1975???Age:48 Y???Sex:Male Address:[address] [place] [address], [phone] * Refills? Start Descovy Tablet, 200-25 MG, Orally, 90 Tablet, 1 tablet, Once a day, 90 days, Refills=0 Subjective: * Chief Complaints: * ???PrEP labs and rx * Medical History:? * Surgical History:? * Hospitalization/Major Diagno stic Procedure:? * Medications:? * Allergies:?no[Allergies Veri fied] Objective: * Vitals:? * Physical Examination:? Assessment: Plan: * Treatment: * Procedure Codes:? * true * Date:? Generated for Marlin mancia/Sean/eTradhasmdanielito on:?03/11/2024 12:56 PM EST
--- OUTSIDE RECORDS SUMMARY | 2024-03-11 12:57 | XMS_ITS ---
Author Organization [facility] Address [address] [place] [phone] Care Team Providers Care Hide Spreader Name Role Phone SHIRAZEULALIA JaquezWAYNE Unavailable [phone] Allergies No Known Allergies REASON FOR VISIT Pep refill Medications Medication SIG (Take, Route, Frequency, Duration) Notes Start Date End Date Status Descovy 200-25 MG 1 tablet Orally Once a day for 90 days 12/05/2023 Not-Taking Truvada Active amLODIPine Benzoate Active Naproxen Active Gabapentin Active Doxycycline Monohydrate 100 MG 2 tablet Orally Taken as soon as possible after sex, ideally within 24 hours and no later than 72 hours after sex. No more than 200 mg should be taken within a 24-hour period. for 15 days 12/05/2023 Active Social History Sex Assigned At : Social History Observation Description Sex Assigned At Male Encounters Encounter Location Date Provider Diagnosis [address] [phone] 03/06/2024 WAYNE SIN Contact with and (suspected) exposure to other viral communicable diseases Z20.828 Assessments Encounter Date Diagnosis (ICD Code) Assessment Notes Treatment Notes Treatment Clinical Notes Section Notes 03/06/2024 Contact with and (suspected) exposure to other viral communicable diseases (ICD-10 - Z20.828) Plan Of Treatment Medication Medication Name Sig Start Date Stop Date Notes Doxycycline Monohydrate 100 MG 2 tablet Orally Taken as soon as possible after sex, ideally within 24 hours and no later than 72 hours after sex. No more than 200 mg should be taken within a 24-hour period. for 15 days 12/05/2023 Next Appt Details Provider Name:WAYNE SIN , 03/18/2024 04:00:00 PM, [address] [place] [address], [address], [place], [place], [phone], Progress Notes * Zana MATHEWOB:[birth year] (49 yo M)Acc No.[id number]:03/06/2024 Patient:?Luc MATHEW :1975???Age:49 Y???Sex:Male Address:[address] [place] [address], [phone] * Refills? Continue Doxycycline Monohydrate Tablet, 100 MG, Orally, 30, 2 tablet, Taken as soon as possible after sex, ideally within 24 hours and no later than 72 hours after sex. No more than 200 mg should be taken within a 24-hour period., 15 days, Refills=1 Subjective: * Chief Complaints: * ???Pep refill * Medical History:? * Surgical History:? * Hospitalization/Major Diagno stic Procedure:? * Medications:?TakingDoxycycli ne Monohydrate 100 MG Tablet 2 tablet Orally Taken as soon as possible after sex, ideally within 24 hours and no later than 72 hours after sex. No more than 200 mg should be taken within a 24-hour period. Truvada Gabapentin Naproxen amLODIPine Benzoate Taking Doxycycline Monohydrate 100 MG Tablet 2 tablet Orally Taken as soon as possible after sex, ideally within 24 hours and no later than 72 hours after sex. No more than 200 mg should be taken within a 24-hour period. Taking Truvada Taking Gabapentin Taking Naproxen Taking amLODIPine Benzoate Not-Taking/PRNDescovy 200-25 MG Tablet 1 tablet Orally Once a day Not-Taking/PRN Descovy 200-25 MG Tablet 1 tablet Orally Once a day DiscontinuedDescovy 200-25 MG Tablet 1 tablet Orally Once a day Medication List reviewed and reconciled with the patientDiscontinued Descovy 200-25 MG Tablet 1 tablet Orally Once a day Medication List reviewed and reconciled with the patient * Allergies:?N.K.D.A.no[Allerg ies Verified] Objective: * Vitals:? * Physical Examination:? Assessment: * Assessment: 1.?Contact with and (suspect ed) exposure to other viral communicable diseases - Z20.828??? Plan: * Treatment: * Procedure Codes:? * true * Date:? Generated for Marlin mancia/Sean/Diane on:?03/11/2024 12:57 PM EST
== END 2024-03-11 09:09 | disposition home or self-care (01) ==
PROVIDERS: Visit Provider Anesthesiology
DX: M54.16 Radiculopathy, lumbar region (principal); M48.00 Spinal stenosis, site unspecified; M19.90 Unspecified osteoarthritis, unspecified site; M10.9 Gout, unspecified; M47.16 Other spondylosis with myelopathy, lumbar region; M54.51 Vertebrogenic low back pain; M43.16 Spondylolisthesis, lumbar region
CPT/HCPCS: 99214

== ENCOUNTER → 2024-03-11 09:16 | Outpatient (BNV) | payer OTHER, SELFPAY | PROVIDERS: Visit Provider Radiology Diagnostic Radiology | DX: M43.16 Spondylolisthesis, lumbar region (principal) | CPT/HCPCS: 72120 ==

== ENCOUNTER 2024-03-12 15:18 | Outpatient (AMB) | payer OTHER, SELFPAY ==
--- NOTE | 2024-03-12 15:21 | MHC.OFFVIS ---
Vital Signs 03/12/24 15:22 Height 6 ft 1 in Weight 285 lb BMI 37.6 Intake Visit Reasons: Follow Up Intake Note: Patient presents for follow up Allergies No Known Allergies Allergy (Verified 03/12/24 15:23) Medication List - Last Reconciled 03/12/24 by Karen Mondragon MD amlodipine 10 mg PO DAILY emtricitabine-tenofovir (TDF) 200-300 mg 1 tab PO DAILY gabapentin 600 mg PO TID 30 days lisinopril 10 mg PO DAILY naproxen 500 mg PO BID nicotine (polacrilex) 2 mg buccal Q2H sildenafil 100 mg PO DAILY PRN HPI Comments Details: 48- yr-old male comes for f/u left upper extremity tremors and rober LE tremors which has resolved . He was seen at [facility] . He did not respond to epidural steroid injection at L3-4 L4-5 to the right and scheduled for follow up. His tremors are less now. He also reports left hand numbness and tingling . He reports h/o carpal tunnel and surgery many years ago. His C spine MRI showed spinal stenosis C3-7 without cord compression . [facility] Medical History Obstructive sleep apnea Numbness of right hand Surgical History History of carpal tunnel release Hx laparoscopic cholecystectomy H/O circumcision Family History Mother Arthritis Hypercholesteremia HTN (hypertension) Diabetes Maternal Grandmother HTN (hypertension) Diabetes Father Liver cancer Social History Housing: House Alcohol intake: current Alcohol intake frequency: a few times a week Patient Tobacco Use Status: Former Tobacco user e-Cigarette/Vaping Use: Currently Using service: No Current occupational status: employed Cognitive needs: No Hearing needs: No Vision needs: No Review of Systems ENT Reports Normal hearing present Neuro Reports Normal hearing present, Denies Abnormal speech present and Denies Sensory deficit (Neuro) Physical Exam Vital Signs: BMI result Body Mass Index 37.6 Const General: no acute distress Nutritional Appearance: obese (Trivial obesity) Orientation/consciousness: patient oriented x3 Neuro Other: No tremors noted today No extrapyramidal symptoms General: patient oriented x3, tone normal and moves all extremities Cranial nerves: Yes CN's II-XII intact bilaterally, Yes Normal hearing present and Yes Ability to bilaterally elevate shoulders present Speech: No Abnormal speech present Gait exam (Neuro): Antalgic gait present Motor exam (neuro): 5/5 motor strength present throughout Sensory Exam: No Sensory deficit (Neuro) Deep tendon reflexes (DTR's): Right triceps reflex intensity grade: 0, Left triceps reflex intensity grade: 0, Rt Biceps (C5, C6): 0, Left biceps reflex intensity grade: 0, Right brachioradialis reflex intensity grade: 0, Left brachioradialis reflex intensity grade: 0, Right patellar reflex intensity grade: 0 and Left patellar reflex intensity grade: 0 Psych Appearance: grossly normal Mental Status: mental status grossly normal Speech and movement: Normal speech and movement present Affect: normal affect Attitude: cooperative Thought process: Normal thought process present Assessment & Plan Assessment & Plan (1) Tremor: Comment: related to weakness ? carpal tunnel - no tremors seen on todays visit Code(s): R25.1 - Tremor, unspecified Category: Medical (2) Spinal stenosis: Code(s): M48.00 - Spinal stenosis, site unspecified Category: Medical Qualifiers: Spinal region: cervical Qualified Code(s): M48.02 - Spinal stenosis, cervical region (3) Numbness of right hand: Code(s): R20.0 - Anesthesia of skin Category: Medical (4) Lumbar degenerative disc disease: Code(s): M51.36 - Other intervertebral disc degeneration, lumbar region Category: Medical Qualifiers: Disc-related pain type: discogenic back pain and lower extremity pain Qualified Code(s): M51.362 - Other intervertebral disc degeneration, lumbar region with discogenic back pain and lower extremity pain Plan Continue Gabapentin 600mg qhs. Continue Naproxen 500mg bid prn. EMG left UE to r/o Carpal tunnel F/u Neurospine [facility] pain management Medications: Changed From gabapentin 600 mg PO TID 30 days 90 tabs 4RF To gabapentin 600 mg PO .qhs 30 days 30 tabs 4RF Coding Level of Care Code Est Pt Level 4 (30285) Diagnoses Tremor R25.1 Spinal stenosis of cervical region M48.02 Spinal region: cervical Numbness of right hand R20.0 Degeneration of intervertebral disc of lumbar region with discogenic back pain and lower extremity pain M51.362 Disc-related pain type: discogenic back pain and lower extremity pain
[2024-03-12 15:22] VITALS: BMI 37.6
--- OUTSIDE RECORDS SUMMARY | 2024-03-12 16:13 | XMS_ITS | Encounter Summary ---
Author Organization [facility] Address [address] [place] [address] Care Team Providers Care Adjunct Instructor Of Women'S Studies Name Role Phone Clark Lim MD Primary Care Provider Gayla Mac MD Primary Care Provider Gabo gonzales Reason for Visit * Reason Onset Date Comments Call-returning From Provider 12/04/2018 RET URNING A CALL FROM DR LIM Encounter Details Date Type Department Care Team Description 12/04/2018 Telephone Adult Medicine - [address] [address] Clark Lim MD Call-returning From Provider (RETURNING A CALL FROM DR LIM) Social History Tobacco Use Types Packs/Day Years [...] encounter Miscellaneous Notes * Telephone Encounter - Annie Rees - 12/04/2018 9:54 AM EDT Caller requesting call back from provider:Dr Lim Is the caller the patient? YES If caller is not the patient, what is the callers name? N/A Callers relationship to patient? N/A If person calling is not the patient themselves, is there a verbal release in FYI or permanent comments for this person: NO Reason for call back: Patient calling back in response to a voicemail from Dr Lim Caller offered to speak with the nurse for assistance: YES Response: Patient offered to speak with nurse for assistance and patient agreed. Message forwarded to nurse. documented in this encounter Plan of Treatment Not on file documented as of this encounter Visit Diagnoses Not on filedocumented in this encounter Care Teams Adjunct Instructor Of Women'S Studies Relationship Specialty Start Date End Date Clark Lim MD PCP - General Internal Medicine 05/16/13 04/22/21 Gayla Hagen MD PCP - General Family Practice 04/23/21 documented as of this encounter
--- OUTSIDE RECORDS SUMMARY | 2024-03-12 16:13 | XMS_ITS | Encounter Summary ---
Author Organization [facility] Address [address] [place] [address] Care Team Providers Care Skip Hoist Operator Name Role Phone Clark Oliveira MD Primary Care Provider Unavail able Gayla Hagen MD Primary Care Provider Gabo gonzales Encounter Details Date Type Department Care Team Description 08/11/2016 Housekeeping And Laundry Team Leader Report Medical Records [address] [place] [address] Choco Jose Social History Tobacco Use Types Packs/Day Years [...] on filedocumented in this encounter Care Teams Skip Hoist Operator Relationship Specialty Start Date End Date Clark Oliveira MD PCP - General Internal Medicine 05/16/13 04/22/21 Gayla Hagen MD PCP - General Family Practice 04/23/21 documented as of this encounter
--- OUTSIDE RECORDS SUMMARY | 2024-03-12 16:13 | XMS_ITS | Encounter Summary ---
Author Organization [facility] Address [address] [place] [address] Care Team Providers Care Honeycomb Decapper Name Role Phone Clark Oliveira MD Primary Care Provider Unavail able Gayla Hagen MD Primary Care Provider Gabo gonzales Reason for Visit * Reason Onset Date Comments Faxed Refill 12/02/2019 Encounter Details Date Type Department Care Team Description 12/02/2019 Refill Adult Medicine [address] [address] Clark Oliveira MD Faxed Refill Social History [...] N/A Patients current insurance carrier is: Payor: [facility] / Plan: PPO $30 [place] [id number] / Product Type: PPO [id number] documented in this encounter Plan of Treatment Not on file documented as of this encounter Visit Diagnoses Not on filedocumented in this encounter Care Teams Honeycomb Decapper Relationship Specialty Start Date End Date Clark Oliveira MD PCP - General Internal Medicine 05/16/13 04/22/21 Gayla Hagen MD PCP - General Family Practice 04/23/21 documented as of this encounter
--- OUTSIDE RECORDS SUMMARY | 2024-03-12 16:13 | XMS_ITS | Encounter Summary ---
Author Organization [facility] Address [address] [place] [address] Care Team Providers Care Slip Maker Name Role Phone Gayla Hagen MD Primary Care Provider Gabo gonzales Encounter Details Date Type Department Care Team Description 04/11/2022 Telephone Gastroenterology - [place] [address] [facility] [address] [place] [phone] Marty Montgomery MD [address] [facility] [address] [place] [address] Social History Tobacco Use Types Packs/Day Years [...] encounter Miscellaneous Notes * Telephone Encounter - Lucia Manley M.A. - 04/11/2022 2:19 PM EST Stefany Almanza JrLuc Date: 04/14/2022 Status: [facility] Appt Time: 12:00 PM Length: 30 Visit Type: PROCEDURE [] Provider: TOBY CENTENO Patient confired 04/11 DM documented in this encounter Plan of Treatment Not on file documented as of this encounter Visit Diagnoses Not on filedocumented in this encounter Care Teams Slip Maker Relationship Specialty Start Date End Date Gayla Hagen MD PCP - General Family Practice 04/23/21 documented as of this encounter
--- OUTSIDE RECORDS SUMMARY | 2024-03-12 16:13 | XMS_ITS | Encounter Summary ---
Author Organization [facility] Address [address] [place] [address] Care Team Providers Care Generation Manager Name Role Phone Gayla Hagen MD Primary Care Provider Gabo gonzales Encounter Details Date Type Department Care Team Description 06/14/2022 Refill Medicine/Pediatrics - [address] [phone] Gayla Hagen MD Social History Tobacco Use Types Packs/Day [...] type documented in this encounter Care Teams Generation Manager Relationship Specialty Start Date End Date Gayla Hagen MD PCP - General Family Practice 04/23/21 documented as of this encounter
--- OUTSIDE RECORDS SUMMARY | 2024-03-12 16:13 | XMS_ITS | Encounter Summary ---
Author Organization [facility] Address [address] [place] [address] Care Team Providers Care Warehouse Delivery Driver Name Role Phone Gayla Hagen MD Primary Care Provider Gabo gonzales Encounter Details Date Type Department Care Team Description 01/24/2023 Orders Only Medicine/Pediatrics - [address] [phone] Israel Hernandez PA-C [address] [place] [address] Elevated PSA (Primary Dx) Social History Tobacco Use Types Packs/Day Years [...] on file documented as of this encounter Results * PROSTATE SPEC AG, DIAGNOSTIC (03/07/2023 2:37 PM EST) PROSTATIC SPECIFIC ANTIGEN DX 2.4 0.0 - 4.0 ng/mL 03/07/2023 7:01 PM EST [facility] Comment: The Siemens Advia Centaur Chemiluminescent Immunoassay is used. Results obtained with different assay methods or kits cannot be used interchangeably. Results cannot be interpreted as absolute evidence of the presence or absence of malignant disease 03/07/2023 2:37 PM EST 03/07/2023 2:37 PM EST Narrative DIOGENES WOMACK - 03/07/2023 7:01 PM EST Release to patient->Immediate Israel Hernandez PA-C LAB [facility] documented in this encounter Visit Diagnoses Diagnosis Elevated PSA- Primary Elevated prostate specific antigen (PSA) Resting tremor Abnormal involuntary movements Chronic pain of left knee Pain in joint, lower leg Elevated PSA Elevated prostate specific antigen (PSA) documented in this encounter Care Teams Warehouse Delivery Driver Relationship Specialty Start Date End Date Gayla Hagen MD PCP - General Family Practice 04/23/21 documented as of this encounter
--- OUTSIDE RECORDS SUMMARY | 2024-03-12 16:13 | XMS_ITS | Encounter Summary ---
Author Organization [facility] Address [address] [place] [address] Care Team Providers Care Cop Examiner Name Role Phone Gayla Hagen MD Primary Care Provider Gabo gonzales Encounter Details Date Type Department Care Team Description 04/07/2022 Refill Gastroenterology - [address] [place] [address] Viri Cortez DScPAS Social History [...] on filedocumented in this encounter Care Teams Cop Examiner Relationship Specialty Start Date End Date Gayla Hagen MD PCP - General Family Practice 04/23/21 documented as of this encounter
--- OUTSIDE RECORDS SUMMARY | 2024-03-12 16:13 | XMS_ITS | Encounter Summary ---
Author Organization [facility] Address [address] [place] [address] Care Team Providers Care Metal Base Blocker Name Role Phone Clark Oliveira MD Primary Care Provider Unavail able Gayla Hagen MD Primary Care Provider Gabo gonzales Encounter Details Date Type Department Care Team Description 02/19/2018 Transfer Records Medical Records [address] [place] [address] Abstract, Provider Social History Tobacco Use Types [...] on filedocumented in this encounter Care Teams Metal Base Blocker Relationship Specialty Start Date End Date Clark Oliveira MD PCP - General Internal Medicine 05/16/13 04/22/21 Gayla Hagen MD PCP - General Family Practice 04/23/21 documented as of this encounter
--- OUTSIDE RECORDS SUMMARY | 2024-03-12 16:13 | XMS_ITS | Encounter Summary ---
Author Organization [facility] Address [address] [place] [address] Care Team Providers Care Freight Breaker Name Role Phone Clark Oliveira MD Primary Care Provider Unavail able Gayla Hagen MD Primary Care Provider Gabo gonzales Encounter Details Date Type Department Care Team Description 04/03/2019 Rattling Machine Tender Report Medical Records [address] [place] [address] Xavier Sandoval Social History Tobacco Use Types [...] on filedocumented in this encounter Care Teams Freight Breaker Relationship Specialty Start Date End Date Clark Oliveira MD PCP - General Internal Medicine 05/16/13 04/22/21 Gayla Hagen MD PCP - General Family Practice 04/23/21 documented as of this encounter
--- OUTSIDE RECORDS SUMMARY | 2024-03-12 16:13 | XMS_ITS | Encounter Summary ---
Author Organization [facility] Address [address] [place] [address] Care Team Providers Care Upward Bound Director Name Role Phone Clark Oliveira MD Primary Care Provider Unavail able Gayla Hagen MD Primary Care Provider Gabo gonzales Encounter Details Date Type Department Care Team Description 11/13/2019 Compensation Programs Manager Report Medical Records [address] [place] [address] Sebastian Bell MD Social History Tobacco Use Types Packs/Day [...] on filedocumented in this encounter Care Teams Upward Bound Director Relationship Specialty Start Date End Date Clark Oliveira MD PCP - General Internal Medicine 05/16/13 04/22/21 Gayla Hagen MD PCP - General Family Practice 04/23/21 documented as of this encounter
--- OUTSIDE RECORDS SUMMARY | 2024-03-12 16:13 | XMS_ITS | Encounter Summary ---
Author Organization [facility] Address [address] [place] [address] Care Team Providers Care Creative Services Writer Name Role Phone Gayla Hagen MD Primary Care Provider Gabo gonzales Reason for Visit * Reason Onset Date Comments medication problems 08/23/2022 Encounter Details Date Type Department Care Team Description 08/23/2022 Telephone Adult Medicine [address] [address] Gayla Hagen MD medication problems Social History [...] on filedocumented in this encounter Care Teams Creative Services Writer Relationship Specialty Start Date End Date Gayla Hagen MD PCP - General Family Practice 04/23/21 documented as of this encounter
--- OUTSIDE RECORDS SUMMARY | 2024-03-12 16:13 | XMS_ITS | Encounter Summary ---
Author Organization [facility] Address [address] [place] [address] Care Team Providers Care Offset Lithographic Press Setter Name Role Phone Clark Oliveira MD Primary Care Provider Unavail able Gayla Hagen MD Primary Care Provider Gabo gonzales Encounter Details Date Type Department Care Team Description 12/13/2017 Paper Sealer Report Medical Records [address] [place] [address] Xavier Sandoval Social History Tobacco Use Types [...] on filedocumented in this encounter Care Teams Offset Lithographic Press Setter Relationship Specialty Start Date End Date Clark Oliveira MD PCP - General Internal Medicine 05/16/13 04/22/21 Gayla Hagen MD PCP - General Family Practice 04/23/21 documented as of this encounter
--- OUTSIDE RECORDS SUMMARY | 2024-03-12 16:13 | XMS_ITS | Encounter Summary ---
Author Organization [facility] Address [address] [place] [address] Care Team Providers Care Settlement Technician Name Role Phone Clark Oliveira MD Primary Care Provider Unavail able Gayla Hagen MD Primary Care Provider Gabo gonzales Encounter Details Date Type Department Care Team Description 12/15/2018 Release of Information Medical Records [address] [place] [address] Abstract, Provider Social History Tobacco Use Types [...] on filedocumented in this encounter Care Teams Settlement Technician Relationship Specialty Start Date End Date Clark Oliveira MD PCP - General Internal Medicine 05/16/13 04/22/21 Gayla Hagen MD PCP - General Family Practice 04/23/21 documented as of this encounter
--- OUTSIDE RECORDS SUMMARY | 2024-03-12 16:13 | XMS_ITS | Encounter Summary ---
Author Organization [facility] Address [address] [place] [address] Care Team Providers Care Complaint Investigator Name Role Phone Clark Oliveira MD Primary Care Provider Unavail able Gayla Hagen MD Primary Care Provider Gabo gonzales Encounter Details Date Type Department Care Team Description 10/26/2016 Network Associate Report Medical Records [address] [place] [address] Xavier Sandoval Social History Tobacco Use Types [...] on filedocumented in this encounter Care Teams Complaint Investigator Relationship Specialty Start Date End Date Clark Oliveira MD PCP - General Internal Medicine 05/16/13 04/22/21 Gayla Hagen MD PCP - General Family Practice 04/23/21 documented as of this encounter
--- OUTSIDE RECORDS SUMMARY | 2024-03-12 16:13 | XMS_ITS | Encounter Summary ---
Author Organization [facility] Address [address] [place] [address] Care Team Providers Care Metal Filer Name Role Phone Clark Oliveira MD Primary Care Provider Unavail able Gayla Hagen MD Primary Care Provider Gabo gonzales Encounter Details Date Type Department Care Team Description 06/15/2018 Orders Only Medical Records [address] [place] [address] Clark Oliveira MD Social History Tobacco Use [...] filedocumented in this encounter Care Teams Metal Filer Relationship Specialty Start Date End Date Clark Oliveira MD PCP - General Internal Medicine 05/16/13 04/22/21 Gayla aHgen MD PCP - General Family Practice 04/23/21 documented as of this encounter
--- OUTSIDE RECORDS SUMMARY | 2024-03-12 16:13 | XMS_ITS ---
Author Organization [facility] Address [address] [place] [phone] Care Team Providers Care Heel Cementer Name Role Phone HAILY ENGEL [phone] REASON FOR VISIT PrEP F/U Social History Sex Assigned At : Social History Observation Description Sex Assigned At Male Encounters Encounter Location Date Provider Diagnosis [address] [place], [place] [phone] 03/05/2024 HAILY EGNEL Plan Of Treatment Next Appt Details Provider Name:HAILY ENGEL , 03/18/2024 04:00:00 PM, [address] [place] [address], [address], [place], [place], [phone], Progress Notes * Zana MATHEWOB:[birth year] (49 yo M)Acc No.[id number]:03/05/2024 Progress Notes Patient:?Luc MATHEW Provider:?Haily Engel NP :1975???Age:49 Y???Sex:Male Otilio e:03/05/2024 Address:[address] [place] [id number] Subjective: * Chief Complaints: * ???1. PrEP F/U. * Medical History:? Objective: * Vitals:? Assessment: Plan: * Treatment: * Billing Information: * Visit Code:? * Procedure Codes:? * Electronic signature of CARMEN ENGEL NP on 03/12/2024 at 04:13 PM EST Sign off status: Pending * Provider:?Haily Engel NP Date:? 025 Generated for Marlin mancia/Sean/Diane on:?03/12/2024 04:13 PM EST
--- OUTSIDE RECORDS SUMMARY | 2024-03-12 16:13 | XMS_ITS | Clinical Summary ---
Author Organization [facility] Address [address] [place] [address] Care Team Providers Care Field Service Engineer Name Role Phone Gayla Hagen MD Primary Care Provider [phone] Surgical History Surgery Date Site/Laterality Comments CHOLECYSTECTOMY [...] age to complete this topic Care Teams Field Service Engineer Relationship Specialty Start Date End Date Gayla Hagen MD [address] [place] [address] PCP - General 04/23/21
--- OUTSIDE RECORDS SUMMARY | 2024-03-12 16:13 | XMS_ITS | Patient Health Record ---
Author Organization [facility] Address [address] [phone] Care Team Providers Care Coordinate Measuring Machine Operator Name Role Phone WAYNE SIN Unavailable [phone] SMILEY MACHADO Unavailable [phone] Allergies No Known Allergies Results Component Value Reference Range Notes Creatinine-[id number] Reviewed date:12/06/2023 11:45:29 AM Interpretation:Creatinine 1.0/CrCl 131 ml/min Performing Lab:[facility] [place], [address] [facility], Phone - [phone], Director - Juan Notes/Report: Clinical Information:PHARYNGEAL SRC: ORAL Creatinine 1.00 0.76-1.27 mg/dL eGFR 93 >59 mL/min/1.73 T pallidum Screening [place] -[id number] Reviewed date:12/07/2023 09:46:23 AM Interpretation:RPR 1:2 Performing Lab:[facility] [place], [address] [facility], Phone - [phone], Director - Juan Notes/Report: Clinical Information:PHARYNGEAL SRC: ORAL Clinical Information:PHARYNGEAL SRC: ORAL Clinical Information:PHARYNGEAL SRC: ORAL T pallidum Antibodies Reactive Non Reactive RPR Reactive Non Reactive RPR, Quant 1:2 NonRea<1:1 titer HIV Ab/p24 Ag with Reflex-[id number] Reviewed date:12/06/2023 11:15:54 AM Interpretation:Negative Performing Lab:[facility] [place], [address], [address], [place], Phone - [phone], Director - Johanne Notes/Report: Clinical Information:PHARYNGEAL SRC: ORAL HIV Ab/p24 Ag Screen Non Reactive Non Reactive HIV-1/HIV-2 antibodies and HIV-1 p24 antigen were NOT detected. There is no laboratory evidence of HIV infection. HIV Negative Ct, Ng, Trich vag by SURESH-183 160 Reviewed date:12/07/2023 09:46:35 AM Interpretation:Negative Performing Lab:[facility] [place], [address], [address], [place], Phone - [phone], Director - [facility] Notes/Report: Clinical Information:PHARYNGEAL SRC: ORAL Chlamydia by SURESH Negative Negative Gonococcus by SURESH Negative Negative Trich vag by SURESH Negative Negative Ct/GC SURESH, Pharyngeal-[id number] Reviewed date:12/07/2023 09:44:15 AM Interpretation:Negative Performing Lab:[facility] [place], [address], [address], [place], Phone - [phone], Director - [facility] Notes/Report: Clinical Information:PHARYNGEAL SRC: ORAL C. trachomatis, SURESH, Pharyn Negative Negative N. gonorrhoeae, SURESH, Pharyn Negative Negative Lipid Panel-[id number] Reviewed date:12/06/2023 09:06:05 AM Interpretation:Normal Performing Lab:[facility] [place], [address] [place] [address], Phone - [phone], Director - Juan Notes/Report: Clinical Information:PHARYNGEAL SRC: ORAL Cholesterol, Total 155 100-199 mg/dL Triglycerides 83 0-149 mg/dL HDL Cholesterol 42 >39 mg/dL VLDL Cholesterol Ananth 16 5-40 mg/dL LDL Chol Calc ([facility]) 97 0-99 mg/dL Ct/GC SURESH, Pharyngeal-[id number] Reviewed date:07/03/2023 03:54:34 PM Interpretation:Negative Performing Lab:[facility] [place], [address], [address], [place], Phone - [phone], Director - [facility] Notes/Report: Clinical Information:SRC:oral N. gonorrhoeae, SURESH, Pharyn was developed and its performance characteristics determined by [facility] It has not been cleared or approved by the Food and Drug Administration. C. trachomatis, SURESH, Pharyn Negative Negative N. gonorrhoeae, SURESH, Pharyn Negative Negative Creatinine-[id number] Reviewed date:10/02/2023 11:46:00 AM Interpretation:Cr 0.87, eCrCl 148ml/min Performing Lab:[facility] [place], [address] [facility], Phone - [phone], Director - Juan Notes/Report: Clinical Information:SRC:urine Creatinine 0.87 0.76-1.27 mg/dL eGFR 107 >59 mL/min/1.73 HBsAg Screen-[id number] Reviewed date:10/02/2023 11:41:37 AM Interpretation:Negative Performing Lab:[facility] [place], [address], [address], [place], Phone - [phone], Director - [facility] Notes/Report: Clinical Information:SRC:urine HBsAg Screen Negative Negative Hepatitis B Surf Ab Quant-00 6530 Reviewed date:09/29/2023 03:39:16 PM Interpretation:Not Immune Performing Lab:[facility] [place], [address], [address], [place], Phone - [phone], Director - [facility] Notes/Report: Clinical Information:SRC:urine Hepatitis B Surf Ab Quant <3.5 Immunity>10 mIU /mL Status of Immunity Anti-HBs Level Inconsistent with Immunity 0.0 - 10.0 Consistent with Immunity >10.0 T pallidum Screening [place] -[id number] Reviewed date:10/03/2023 11:48:41 AM Interpretation:RPR 1:2, After Treatment Performing Lab:[facility] [place], [address] [facility], Phone - [phone], Director - Juan Notes/Report: Clinical Information:SRC:urine Clinical Information:SRC:urine Clinical Information:SRC:urine T pallidum Antibodies Reactive Non Reactive RPR Reactive Non Reactive RPR, Quant 1:2 NonRea<1:1 titer HIV Ab/p24 Ag with Reflex-08 [id number] Reviewed date:10/02/2023 11:46:10 AM Interpretation:Non-reactive Performing Lab:[facility] [place], [address], [address], [place], Phone - [phone], Director - [facility] Notes/Report: Clinical Information:SRC:urine HIV Ab/p24 Ag Screen Non Reactive Non Reactive HIV-1/HIV-2 antibodies and HIV-1 p24 antigen were NOT detected. There is no laboratory evidence of HIV infection. HIV Negative Chlamydia/GC Amplification-1 75944 Reviewed date:10/02/2023 11:41:45 AM Interpretation:Negative Performing Lab:[facility] [place], [address], [address], [place], Phone - [phone], Director - [facility] Notes/Report: Clinical Information:SRC:urine Chlamydia trachomatis, SURESH Negative Negative Neisseria gonorrhoeae, SURESH Negative Negative Trich vag by SURESH-[id number] Reviewed date:10/02/2023 11:46:36 AM Interpretation:Negative Performing Lab:[facility] [place], [address], [address], [place], Phone - [phone], Director - [facility] Notes/Report: Clinical Information:SRC:urine Trich vag by SURESH Negative Negative Ct/GC SURESH, Pharyngeal-[id number] Reviewed date:10/02/2023 11:46:18 AM Interpretation:Negative Performing Lab:[facility] [place], [address], [address], [place], Phone - [phone], Director - [facility] Notes/Report: Clinical Information:SRC:urine C. trachomatis, SURESH, Pharyn Negative Negative N. gonorrhoeae, SURESH, Pharyn Negative Negative HCV Antibody-[id number] Reviewed date:10/02/2023 11:46:27 AM Interpretation:Non-reactive Performing Lab:[facility] [place], [address], [address], [place], Phone - [phone], Director - [facility] Notes/Report: Clinical Information:SRC:urine Hep C Virus Ab Non Reactive Non Reactive HCV antibody alone does not differentiate between previously resolved infection and active infection. Equivocal and Reactive HCV antibody results should be followed up with an HCV RNA test to support the diagnosis of active HCV infection. Reason For Referral No Information Medications Medication [...] 12/05/2023 Encounters Encounter Location Date Provider Diagnosis [facility] [address] [place], [place] [phone] 06/27/2023 WAYNE GABAI Encounter for screen ing for infections with a predominantly sexual mode of transmission Z11.3 ; Syphilis, unspecified A53.9 and Counseling, unspecified Z71.9 [facility] [address] [place], [place] [phone] 09/28/2023 SMILEY MACHADO Encounter for screen ing for infections with a predominantly sexual mode of transmission Z11.3 ; Counseling, unspecified Z71.9 ; Other problems related to lifestyle Z72.89 ; Encounter for screening for human immunodeficiency virus [HIV] Z11.4 ; Other assisted (current) drug therapy Z79.899 ; Encounter for screening for other viral diseases Z11.59 and Encounter for HIV pre-exposure prophylaxis Z29.81 [facility] [address] [place], [place] [phone] 12/05/2023 WAYNE GABAI Other exterminator helper termite (current) drug therapy Z79.899 ; Contact with and (suspected) exposure to other viral communicable diseases Z20.828 ; Encounter for screening for human immunodeficiency virus [HIV] Z11.4 ; Encounter for HIV pre-exposure prophylaxis Z29.81 and Encounter for screening for infections with a predominantly sexual mode of transmission Z11.3 [facility] [address] [place], [place] [phone] 06/27/2023 [facility] [address] [id number] 09/28/2023 SMILEY MACHADO [facility] [address] [place], [place] [phone] 12/05/2023 WAY[facility]ABAI [facility] [address] [phone] 03/06/2024 WAYNE GABAI Contact with and (suspected) exposure to other viral communicable diseases Z20.828 Assessments Encounter Date Diagnosis (ICD Code) Assessment Notes Treatment Notes Treatment Clinical Notes Section Notes 06/27/2023 Syphilis, unspecified (ICD-10 - A53.9) Clt interviewed by CHRISTINE, field ortho assistant Syl over the phone prior to this [...] others Communication of test results New Patient: 80808 30 Minutes 06/27/2023 Encounter for screening for infections with a predominantly sexual mode of transmission (ICD-10 - Z11.3) Spent ___ minutes doing the following: Chart Prep Obtaining/revie wing history Performing medically necessary exam Counseling/Coor dination of Care Documenting the visit Educating the patient Ordering medication/test /procedures Communication with other providers Interpretation of test performed by others Communication of test results New Patient: 74234 30 Minutes 09/28/2023 Encounter for screening for [...] low risk of morbidity/morta lity 12/05/2023 Other assisted (current) drug therapy (ICD-10 - Z79.899) Need [...] STI screening recommendations and available testing through [facility]. Testing ordered as noted per patient risks [...] others Communication of test results New Patient: 14978 30 Minutes 09/28/2023 Encounter for screening for [...] medication: The Ready, Set, PrEP program and [place] HIV Drug Assistance Program (HDAP) which makes PrEP available at no cost to those who qualify. [employer] offers a program to help patients pay [...] low risk of morbidity/morta lity 09/28/2023 Other exterminator helper termite (current) drug therapy (ICD-10 - Z79.899) Need [...] Provider Name:WAYNE SIN , 03/18/2024 04:00:00 PM, [address] [place] [address], [address], [place], [place], [phone], Insurance Providers Payer Name Payer Address Payer Phone Subscriber Number Group Number Insured Name Patient Relationship to Insured Coverage Start Date Coverage End Date [facility] [address] [place], [place] [id number] Luc Mathew Self - patient is the [...]
--- OUTSIDE RECORDS SUMMARY | 2024-03-12 16:13 | XMS_ITS | Encounter Summary ---
Author Organization [facility] Address [address] [place] [address] Care Team Providers Care Etl Analyst Name Role Phone Clark Oliveira MD Primary Care Provider Unavail able Gayla Hagen MD Primary Care Provider Gabo gonzales Encounter Details Date Type Department Care Team Description 12/13/2018 Paradi Tender Report Medical Records [address] [place] [address] Noemy Limon MD Social History Tobacco Use Types Packs/Day [...] on filedocumented in this encounter Care Teams Etl Analyst Relationship Specialty Start Date End Date Clark Oliveira MD PCP - General Internal Medicine 05/16/13 04/22/21 Gayla Hagen MD PCP - General Family Practice 04/23/21 documented as of this encounter
--- OUTSIDE RECORDS SUMMARY | 2024-03-12 16:13 | XMS_ITS | Encounter Summary ---
Author Organization [facility] Address [address] [place] [address] Care Team Providers Care Cop Breaker Name Role Phone Clark Oliveira MD Primary Care Provider Unavail able Gayla Hagen MD Primary Care Provider Gabo gonzales Encounter Details Date Type Department Care Team Description 06/12/2018 Orthopaedic General Report Medical Records [address] [place] [address] Abstract, Provider Social History Tobacco Use Types [...] filedocumented in this encounter Care Teams Cop Breaker Relationship Specialty Start Date End Date Clark Oliveira MD PCP - General Internal Medicine 05/16/13 04/22/21 Gayla Hagen MD PCP - General Family Practice 04/23/21 documented as of this encounter
--- OUTSIDE RECORDS SUMMARY | 2024-03-12 16:13 | XMS_ITS | Encounter Summary ---
Author Organization [facility] Address [address] [place] [address] Care Team Providers Care Net Sql Developer Name Role Phone Clark Oliveira MD Primary Care Provider Unavail able Gayla Hagen MD Primary Care Provider Gabo gonzales Encounter Details Date Type Department Care Team Description 04/26/2017 Control Cabinet Assembler Report Medical Records [address] [place] [address] Abstract, Provider Social History Tobacco Use Types [...] on filedocumented in this encounter Care Teams Net Sql Developer Relationship Specialty Start Date End Date Clark Oliveira MD PCP - General Internal Medicine 05/16/13 04/22/21 Gayla Hagen MD PCP - General Family Practice 04/23/21 documented as of this encounter
--- OUTSIDE RECORDS SUMMARY | 2024-03-12 16:13 | XMS_ITS ---
Author Organization [facility] Address [address] [place] [phone] Care Team Providers Care Coremaker Helper Name Role Phone SHIRAZGisele WAYNE Unavailable [phone] Allergies No Known Allergies REASON FOR VISIT [...] Male Encounters Encounter Location Date Provider Diagnosis [address] [phone] 03/06/2024 WAYNE SIN Contact with and (suspected) [...] Provider Name:WAYNE SIN , 03/18/2024 04:00:00 PM, [address] [place] [address], [address], [place], [place], [phone], Progress Notes * Zana MATHEWOB:[birth year] (49 yo M)Acc No.[id number]:03/06/2024 Patient:?Luc MATHEW :1975???Age:49 Y???Sex:Male Address:[address] [place] [address], [phone] * Refills? Continue Doxycycline Monohydrate Tablet, 100 [...] true * Date:? Generated for Marlin mancia/Sean/Diane on:?03/12/2024 04:13 PM EST
--- OUTSIDE RECORDS SUMMARY | 2024-03-12 16:13 | XMS_ITS | Encounter Summary ---
Author Organization [facility] Address [address] [place] [address] Care Team Providers Care Grease Machine Worker Name Role Phone Clark Oliveira MD Primary Care Provider Unavail able Gayla Hagen MD Primary Care Provider Gabo gonzales Reason for Visit * Reason Onset Date Comments APPOINTMENT 05/15/2019 Change Private S lot Encounter Details Date Type Department Care Team Description 05/15/2019 Telephone Adult Medicine [address] [address] Clark Oliveira MD APPOINTMENT (Change Private Slot) Social History Tobacco Use Types Packs/Day Years [...] encounter Miscellaneous Notes * Telephone Encounter - Ad Joiner - 05/15/2019 2:25 PM EDT Pt was contacted to change appt to audio visit. BSR unable to make the change since appt is booked in private slot. Nurse: please change appt to audio visit from in-office f/u. documented in this encounter Plan of Treatment Not on file documented as of this encounter Visit Diagnoses Not on filedocumented in this encounter Care Teams Grease Machine Worker Relationship Specialty Start Date End Date Clark Oliveira MD PCP - General Internal Medicine 05/16/13 04/22/21 Gayla Hagen MD PCP - General Family Practice 04/23/21 documented as of this encounter
--- OUTSIDE RECORDS SUMMARY | 2024-03-12 16:13 | XMS_ITS | Encounter Summary ---
Author Organization [facility] Address [address] [place] [address] Care Team Providers Care Aircraft Steel Fabricator Name Role Phone Gayla Hagen MD Primary Care Provider Gabo gonzales Encounter Details Date Type Department Care Team Description 08/22/2022 Telephone Medicine/Pediatrics - [address] [phone] Gayla Hagen MD Social History Tobacco Use [...] Encounter - Kathia Lindsey M.A. - 08/23/2022 11:39 AM EDT This is not a proper prior authorization message. Prior authorizations come from the pharmacy with the information of medication and insurance neededto do the prior authorization. Please do not forward mychart messages. Pts can be told to contact their pharmacy about sending the prior authorization to the office. Thank you There is another prior authorization request for this pt on 08/23/22 that came from the pharmacy. * Telephone Encounter - Gayla Hagen MD - 08/22/2022 4:53 PM EDT Forward to prior auth team. New rx was sent today * Telephone Encounter - Sunita Ugarte - 08/22/2022 4:32 PM EDT Spoke with pt pharmacist and they stated that he received 4 viagra in february and 10 in March but insurance is rejecting it now needs a new prior auth.. documented in this encounter Plan of Treatment Not on file documented as of this encounter Visit Diagnoses Not on filedocumented in this encounter Care Teams Aircraft Steel Fabricator Relationship Specialty Start Date End Date Gayla Hagen MD PCP - General Family Practice 04/23/21 documented as of this encounter
--- OUTSIDE RECORDS SUMMARY | 2024-03-12 16:13 | XMS_ITS | Encounter Summary ---
Author Organization [facility] Address [address] [place] [address] Care Team Providers Care Banking Attorney Name Role Phone Clark Oliveira MD Primary Care Provider Unavail able Gayla Hagen MD Primary Care Provider Gabo gonzales Encounter Details Date Type Department Care Team Description 06/07/2016 Revenue Accountant Report Medical Records [address] [place] [address] Xavier Sandoval Social History Tobacco Use Types Packs/Day Years Used Date Smoking Tobacco: Former Cigarettes 20 Q uit: 03/31/2016 Smokeless Tobacco: Never Alcohol Use Standard [...] on filedocumented in this encounter Care Teams Banking Attorney Relationship Specialty Start Date End Date Clark Oliveira MD PCP - General Internal Medicine 05/16/13 04/22/21 Gayla Hagen MD PCP - General Family Practice 04/23/21 documented as of this encounter
--- OUTSIDE RECORDS SUMMARY | 2024-03-12 16:13 | XMS_ITS | Encounter Summary ---
Author Organization [facility] Address [address] [place] [address] Care Team Providers Care Can Carrier Name Role Phone Gayla Hagen MD Primary Care Provider Gabo gonzales Reason for Visit * Reason Onset Date Comments Prior Authorization 05/24/2022 Encounter Details Date Type Department Care Team Description 05/24/2022 Telephone Adult Medicine [address] [address] Gayla Hagen MD Prior Authorization Social History [...] 08/24/23 Prior authorization case approval number # [id number] Approval faxed to [facility] at [phone] * Telephone Encounter - Kathia Lindsey M.A. [...] My Meds request: Yes -- Barney Code [id number] Name of Medication sildenafil (VIAGRA) 100 MG tablet Dose of Medication 100MG What is the RX # from the faxed refill? ? How does patient take this med? TAKE 1 TABLET 1 HOUR PRIOR TO INTERCOURSE NEEDED What Pharmacy did the fax come from: [facility] Pharmacy fax #: [phone] [employer] Party Information from fax: What Prescription Plan does the patient have? BIN/PCN if applicable: Cardholder ID:[id number] Person Code: 01 Relationship Code: SELF Help desk phone: [phone] documented in this encounter Plan of Treatment Not on file documented as of this encounter Visit Diagnoses Not on filedocumented in this encounter Care Teams Can Carrier Relationship Specialty Start Date End Date Gayla Hagen MD PCP - General Family Practice 04/23/21 documented as of this encounter
--- OUTSIDE RECORDS SUMMARY | 2024-03-12 16:13 | XMS_ITS ---
Author Organization [facility] Address [address] [place] [id number] Care Team Providers Care Ski Lift Operator Name Role Phone SHIRAZGisele WAYNE Mcdonald [phone] REASON FOR VISIT PrEP labs and rx Medications Medication SIG (Take, Route, Fr equency, Duration) Notes Start Date End Date Status Descovy 200-25 MG 1 tablet Orally Once a day for 90 days 01/18/2024 Active Social History Sex Assigned At : Social History Observation Description Sex Assigned At Male Encounters Encounter Location Date Provider Diagnosis [address] [place] [phone] 12/05/2023 WAYNE SIN Plan Of Treatment Medication Medication Name Sig Start Date Stop Date Notes Descovy 200-25 MG 1 tablet Orally Once a day for 90 days 1 03/20/2023 Next Appt Details Provider Name:WAYNE SIN , 03/18/2024 04:00:00 PM, [address] [place] [address], [facility] I, [place], [place], [phone], Progress Notes * Zana MATHEWOB:[birth year] (48 yo M)Acc No.[id number]:12/05/2023 Patient:?Luc MATHEW :1975???Age:48 Y???Sex:Male Address:[address] [place] [address], [phone] * Refills? Start Descovy Tablet, 200-25 MG, [...] * true * Date:? Generated for Marlin mancia/Sean/Brendasmdanielito on:?03/12/2024 04:13 PM EST
--- OUTSIDE RECORDS SUMMARY | 2024-03-12 16:13 | XMS_ITS | Encounter Summary ---
Author Organization [facility] Address [address] [place] [address] Care Team Providers Care Triage Licensed Practical Nurse Name Role Phone Clark Oliveira MD Primary Care Provider Unavail able Gayla Hagen MD Primary Care Provider Gabo gonzales Encounter Details Date Type Department Care Team Description 06/06/2013 Transfer Records Medical Records [address] [place] [address] Abstract, Provider Social History Tobacco Use Types [...] on filedocumented in this encounter Care Teams Triage Licensed Practical Nurse Relationship Specialty Start Date End Date Clark Oliveira MD PCP - General Internal Medicine 05/16/13 04/22/21 Gayla Hagen MD PCP - General Family Practice 04/23/21 documented as of this encounter
--- OUTSIDE RECORDS SUMMARY | 2024-03-12 16:14 | XMS_ITS | Encounter Summary ---
Author Organization [facility] Address [address] [place] [address] Care Team Providers Care Flag Signaler Name Role Phone Clark Oliveira MD Primary Care Provider Gayla Mac MD Primary Care Provider Gabo gonzales Reason for Visit * Reason Onset Date Comments APPOINTMENT 04/21/2021 Encounter Details Date Type Department Care Team Description 04/21/2021 Telephone Adult Medicine [address] [address] Clark Oliveira MD APPOINTMENT Social History Tobacco [...] Miscellaneous Notes * Telephone Encounter - Donna Morrow - 04/21/2021 11:55 AM EST Symptoms patient is presenting: looking for appt for medication that he was prescribed in [facility] appt. His insurance requires the rx come from his pcp office: [facility] For ALL patients calling to schedule any [...] traveled recently to another state outside of [place], [place], [place], [place], [place], [place], [place]? NO o If yes, did you quarantine [...] vehicle accident? NO If yes, gather 3rd constitution party insurance information Date of accident/Injury: How long has patient had these symptoms?: PCP: Clark Oliveira Payor: [facility] / Plan: PPO $15 [id number] / Product Type: PPO [id number] documented in this encounter Plan of Treatment Not on file documented as of this encounter Visit Diagnoses Not on filedocumented in this encounter Care Teams Flag Signaler Relationship Specialty Start Date End Date Clark Oliveira MD PCP - General Internal Medicine 05/16/13 04/22/21 Gayla Hagen MD PCP - General Family Practice 04/23/21 documented as of this encounter
--- OUTSIDE RECORDS SUMMARY | 2024-03-12 16:14 | XMS_ITS | Encounter Summary ---
Author Organization [facility] Address [address] [place] [address] Care Team Providers Care Case Monitor Name Role Phone Gayla Hagen MD Primary Care Provider Gabo gonzales Reason for Visit * Reason Onset Date Comments Prior Authorization 04/23/2021 Encounter Details Date Type Department Care Team Description 04/23/2021 Telephone Adult Medicine [address] [address] Gayla Hagen MD Prior Authorization Social History [...] Telephone Encounter - Kathia Lindsey M.A. - 04/28/2021 8:57 AM EDT Prior authorization for the sildenafil was approved Approved from 04/26/21 until 04/21/22 Prior authorization approval number # [id number] Approval faxed to [facility] at [phone] * Telephone Encounter - Kathia Lindsey M.A. - 04/26/2021 12:24 PM EDT Prior authorization for the sildenafil was completed on cover my meds was unable to locate pt. Called [facility] and did the prior authorization over the phone with Peri. ( she stated pt has two profiles that is why cover my meds cant find them. ) Prior auth completed. Case number [id number] Dx code N52.9 Erectile dysfunction, unspecified erectile dysfunction type * Telephone Encounter - Harika Richardson M.A. - 04/26/2021 12:16 PM EDT Pt needs a PA for viagra. Will forward to the PA brandy. Thank you * Telephone Encounter - Karly Goel - 04/26/2021 9:28 AM EDT Pt states he called his ins and requested that his provider has to call his insurance * Telephone Encounter - Karly Goel - 04/23/2021 4:33 PM EST Who is calling? The patient Name of the medication sildenafil (VIAGRA) 50 MG tablet What is the specific problem or interaction? Requesting PA If the patient is having a problem with taking the med - how long has the problem been going on? N/A documented in this encounter Plan of Treatment Not on file documented as of this encounter Visit Diagnoses Not on filedocumented in this encounter Care Teams Case Monitor Relationship Specialty Start Date End Date Gayla Hagen MD PCP - General Family Practice 04/23/21 documented as of this encounter
--- OUTSIDE RECORDS SUMMARY | 2024-03-12 16:14 | XMS_ITS | Encounter Summary ---
Author Organization [facility] Address [address] [place] [address] Care Team Providers Care Fashion Illustrator Name Role Phone Clark Oliveira MD Primary Care Provider Unavail able Gayla Hagen MD Primary Care Provider Gabo gonzales Encounter Details Date Type Department Care Team Description 10/06/2020 Gravity Flow Irrigator Report Medical Records [address] [place] [address] Xavier Sandoval Social History Tobacco Use Types [...] on filedocumented in this encounter Care Teams Fashion Illustrator Relationship Specialty Start Date End Date Clark Oliveira MD PCP - General Internal Medicine 05/16/13 04/22/21 Gayla Hagen MD PCP - General Family Practice 04/23/21 documented as of this encounter
--- OUTSIDE RECORDS SUMMARY | 2024-03-12 16:14 | XMS_ITS | Encounter Summary ---
Author Organization [facility] Address [address] [place] [address] Care Team Providers Care Shrimp Peeling Machine Operator Name Role Phone Gayla Hagen MD Primary Care Provider Gabo gonzales Encounter Details Date Type Department Care Team Description 05/17/2021 Conservator Artifacts Report Medical Records [address] [place] [address] Fabiana Knox PA-C Social History Tobacco Use [...] on filedocumented in this encounter Care Teams Shrimp Peeling Machine Operator Relationship Specialty Start Date End Date Gayla Hagen MD PCP - General Family Practice 04/23/21 documented as of this encounter
--- OUTSIDE RECORDS SUMMARY | 2024-03-12 16:14 | XMS_ITS | Encounter Summary ---
Author Organization [facility] Address [address] [place] [address] Care Team Providers Care Network Operations Specialist Name Role Phone Clark Oliveira MD Primary Care Provider Unavail able Gayla Hagen MD Primary Care Provider Gabo gonzales Encounter Details Date Type Department Care Team Description 02/03/2015 Orders Only Medical Records [address] [place] [address] Clark Oliveira MD Social History Tobacco Use Types Packs/Day Years Used Date Smoking Tobacco: Every Day Cigarettes 0.2 20 Smokeless Tobacco: Never Comments:1 pack per week Alcohol Use Standard Drinks/Week Comments Yes [...] Associated Diagnosis Comments OUTSIDE SLEEP STUDY Routine 01/28/2015 documented in this encounter Results * OUTSIDE SLEEP STUDY (01/28/2015) Clark Oliveira MD PULMONOLOGY documented in this encounter Visit Diagnoses Not on filedocumented in this encounter Care Teams Network Operations Specialist Relationship Specialty Start Date End Date Clark Oliveira MD PCP - General Internal Medicine 05/16/13 04/22/21 Gayla Hagen MD PCP - General Family Practice 04/23/21 documented as of this encounter
--- OUTSIDE RECORDS SUMMARY | 2024-03-12 16:14 | XMS_ITS | Encounter Summary ---
Author Organization [facility] Address [address] [place] [address] Care Team Providers Care Laminating Press Operator Name Role Phone Clark Oliveira MD Primary Care Provider Unavail able Gayla Hagen MD Primary Care Provider Gabo gonzales Encounter Details Date Type Department Care Team Description 12/15/2020 Medical Illustrator Report Medical Records [address] [place] [address] Fabiana Knox PA-C Social History Tobacco Use [...] on filedocumented in this encounter Care Teams Laminating Press Operator Relationship Specialty Start Date End Date Clark Oliveira MD PCP - General Internal Medicine 05/16/13 04/22/21 Gayla Hagen MD PCP - General Family Practice 04/23/21 documented as of this encounter
--- OUTSIDE RECORDS SUMMARY | 2024-03-12 16:14 | XMS_ITS | Encounter Summary ---
Author Organization [facility] Address [address] [place] [address] Care Team Providers Care Icu Manager Name Role Phone Gayla Hagen MD Primary Care Provider Gabo gonzales Reason for Visit * Reason Onset Date Comments Prior Authorization 10/15/2021 Encounter Details Date Type Department Care Team Description 10/15/2021 Telephone Gastroenterology - [place] [address] [facility] [address] [place] [phone] Marty Montgomery MD [address] [facility] [address] [place] [address] Prior Authorization Social History Tobacco Use Types [...] on filedocumented in this encounter Care Teams Icu Manager Relationship Specialty Start Date End Date Gayla Hagen MD PCP - General Family Practice 04/23/21 documented as of this encounter
--- OUTSIDE RECORDS SUMMARY | 2024-03-12 16:14 | XMS_ITS | Encounter Summary ---
Author Organization [facility] Address [address] [place] [address] Care Team Providers Care Bilingual Hr Generalist Name Role Phone Clark Oliveira MD Primary Care Provider Gayla Mac MD Primary Care Provider Gabo gonzales Reason for Visit * Reason Comments other Encounter Details Date Type Department Care Team Description 10/03/2016 Telephone Medicine/Pediatrics [address] [phone] Clark Oliveira MD other Social History Tobacco Use Types Packs/Day Years [...] encounter Miscellaneous Notes * Telephone Encounter - Ifeoma Blakely M.A. - 10/05/2016 1:45 PM EDT Called [facility], they informed me they just received the paperwork on 09/29/2016.. It is being prceesedi will check back on next week * Telephone Encounter - Clark Oliveira MD - 10/03/2016 5:07 PM EDT I find this explanation difficult to believe based on my discussion with the patient today. Please check on this next week. Thanks * Telephone Encounter - Kim Beasley M.A. - 10/03/2016 4:45 PM EDT Called back they answered they just received all paper work its in the working * Telephone Encounter - Kim Beasley M.A. - 10/03/2016 4:38 PM EDT Called was no answer then retried and was closed * Telephone Encounter - Clark Oliveira MD - 10/03/2016 10:26 AM EDT Please contact [employer]: The patient is still without his CPAP machine. Per patient, they apparently were requestion ? [facility] face [facility] , where [facility] had the [facility]. There areno such notes, as I am the ordering provider to the initial study. They certainly can receive my notes from 12/2014 (as they have in the past - refax if necessary). I can't figure out what the holdupis here - Thanks documented in this encounter Plan of Treatment Not on file documented as of this encounter Visit Diagnoses Not on filedocumented in this encounter Care Teams Bilingual Hr Generalist Relationship Specialty Start Date End Date Clark Oliveira MD PCP - General Internal Medicine 05/16/13 04/22/21 Gayla Hagen MD PCP - General Family Practice 04/23/21 documented as of this encounter
--- OUTSIDE RECORDS SUMMARY | 2024-03-12 16:14 | XMS_ITS | Encounter Summary ---
Author Organization [facility] Address [address] [place] [address] Care Team Providers Care Freezer Laboratory Technician Name Role Phone Clark Oliveira MD Primary Care Provider Unavail able Gayla Hagen MD Primary Care Provider Gabo gonzales Encounter Details Date Type Department Care Team Description 11/26/2015 Program Engagement Director Report Medical Records [address] [place] [address] Pa Monaco MD Social History Tobacco Use [...] on filedocumented in this encounter Care Teams Freezer Laboratory Technician Relationship Specialty Start Date End Date Clark Oliveira MD PCP - General Internal Medicine 05/16/13 04/22/21 Gayla Hagen MD PCP - General Family Practice 04/23/21 documented as of this encounter
== END 2024-03-12 15:51 | disposition home or self-care (01) ==
PROVIDERS: Visit Provider Psychiatry & Neurology Neurology
DX: R25.1 Tremor, unspecified (principal); M48.02 Spinal stenosis, cervical region; R20.0 Anesthesia of skin; M51.362 Other intervertebral disc degeneration, lumbar region with discogenic back pain and lower extremity pain
CPT/HCPCS: 99214

== ENCOUNTER 2024-03-15 15:07 | Outpatient (AMB) | payer OTHER, SELFPAY ==
--- OUTSIDE RECORDS SUMMARY | 2024-03-15 15:10 | XMS_ITS | Encounter Summary ---
Author Organization [facility] Address [address] [place] [address] Care Team Providers Care Studio Coordinator Name Role Phone Clark Oliveira MD Primary Care Provider Unavail able Gayla Hagen MD Primary Care Provider Gabo gonzales Encounter Details Date Type Department Care Team Description 06/12/2018 Abrasives Sales Representative Report Medical Records [address] [place] [address] Abstract, Provider Social History Tobacco Use Types [...] on filedocumented in this encounter Care Teams Studio Coordinator Relationship Specialty Start Date End Date Clark Oliveira MD PCP - General Internal Medicine 05/16/13 04/22/21 Gayla Hagen MD PCP - General Family Practice 04/23/21 documented as of this encounter
--- OUTSIDE RECORDS SUMMARY | 2024-03-15 15:10 | XMS_ITS | Encounter Summary ---
Author Organization [facility] Address [address] [place] [address] Care Team Providers Care Web Applications Administrator Name Role Phone Clark Oliveira MD Primary Care Provider Unavail able Gayla Hagen MD Primary Care Provider Gabo gonzales Encounter Details Date Type Department Care Team Description 06/06/2013 Transfer Records Medical Records [address] [place] [address] Abstract, Provider Social History Tobacco Use Types [...] on filedocumented in this encounter Care Teams Web Applications Administrator Relationship Specialty Start Date End Date Clark Oliveira MD PCP - General Internal Medicine 05/16/13 04/22/21 Gayla Hagen MD PCP - General Family Practice 04/23/21 documented as of this encounter
--- OUTSIDE RECORDS SUMMARY | 2024-03-15 15:10 | XMS_ITS | Clinical Summary ---
Author Organization [facility] Address [address] [place] [address] Care Team Providers Care Electric Motor Tester Assembler Name Role Phone Gayla Hagen MD Primary Care Provider [phone] Surgical History Surgery Date Site/Laterality Comments CHOLECYSTECTOMY [...] age to complete this topic Care Teams Electric Motor Tester Assembler Relationship Specialty Start Date End Date Gayla Hagen MD [address] [place] [address] PCP - General 04/23/21
--- OUTSIDE RECORDS SUMMARY | 2024-03-15 15:10 | XMS_ITS | Encounter Summary ---
Author Organization [facility] Address [address] [place] [address] Care Team Providers Care Seed Mill Superintendent Name Role Phone Gayla Hagen MD Primary Care Provider Gabo gonzales Encounter Details Date Type Department Care Team Description 06/28/2023 Pt. Non Urgent Medical Question INFECTIOUS DISEASE [facility] [address], [address] [place] [address] Kristina Patel MD [address] [place] [phone] Social History Tobacco Use Types Packs/Day Years [...] on filedocumented in this encounter Care Teams Seed Mill Superintendent Relationship Specialty Start Date End Date Gayla Hagen MD PCP - General Family Practice 04/23/21 documented as of this encounter
--- OUTSIDE RECORDS SUMMARY | 2024-03-15 15:10 | XMS_ITS | Encounter Summary ---
Author Organization [facility] Address [address] [place] [address] Care Team Providers Care Family Support Worker Name Role Phone Clark Oliveira MD Primary Care Provider Unavail able Gayla Hagen MD Primary Care Provider Gabo gonzales Encounter Details Date Type Department Care Team Description 03/02/2018 Head Gauge Unit Operator Report Medical Records [address] [place] [address] Pa Monaco MD Social History Tobacco Use [...] on filedocumented in this encounter Care Teams Family Support Worker Relationship Specialty Start Date End Date Clark Oliveira MD PCP - General Internal Medicine 05/16/13 04/22/21 Gayla Hagen MD PCP - General Family Practice 04/23/21 documented as of this encounter
--- OUTSIDE RECORDS SUMMARY | 2024-03-15 15:10 | XMS_ITS | Encounter Summary ---
Author Organization [facility] Address [address] [place] [address] Care Team Providers Care Bridge Tender Name Role Phone Clark Oliveira MD Primary Care Provider Unavail able Gayla Hagen MD Primary Care Provider Gabo gonzales Encounter Details Date Type Department Care Team Description 06/22/2020 Sawsmith Report Medical Records [address] [place] [address] Xavier Sandoval Social History Tobacco Use Types [...] on filedocumented in this encounter Care Teams Bridge Tender Relationship Specialty Start Date End Date Clark Oliveira MD PCP - General Internal Medicine 05/16/13 04/22/21 Gayla Hagen MD PCP - General Family Practice 04/23/21 documented as of this encounter
--- OUTSIDE RECORDS SUMMARY | 2024-03-15 15:10 | XMS_ITS | Encounter Summary ---
Author Organization [facility] Address [address] [place] [address] Care Team Providers Care Director Hair Name Role Phone Gayla Hagen MD Primary Care Provider Gabo gonzales Reason for Visit * Reason Comments E-prescribe Rx Request Encounter Details Date Type Department Care Team Description 07/09/2023 Refill Medicine/Pediatrics - [address] [phone] Gayla Hagen MD E-prescribe Rx Request Social History Tobacco Use Types Packs/Day Years Used Date Smoking Tobacco: Former Cigarettes 1 1 995 - 03/31/2016 Passive Smoke Exposure: [...] N/A Patients current insurance carrier is: Payor: [employer] / Plan: [employer] $15 [id number] / Product Type: PPO [id number] documented in this encounter Plan of Treatment Not on file documented as of this encounter Visit Diagnoses Not on filedocumented in this encounter Care Teams Director Hair Relationship Specialty Start Date End Date Gayla Hagen MD PCP - General Family Practice 04/23/21 documented as of this encounter
--- OUTSIDE RECORDS SUMMARY | 2024-03-15 15:10 | XMS_ITS | Encounter Summary ---
Author Organization [facility] Address [address] [place] [address] Care Team Providers Care Elementary School Teacher'S Aide Name Role Phone Clark Oliveira MD Primary Care Provider Unavail able Gayla Hagen MD Primary Care Provider Gabo gonzales Encounter Details Date Type Department Care Team Description 08/07/2013 DOT Physical Forms Medical Records [address] [place] [address] Abstract, Provider Social History Tobacco Use Types Packs/Day Years Used Date Smoking Tobacco: Every Day Cigarettes 0.2 20 Smokeless Tobacco: Never Alcohol Use Standard Drinks/Week [...] on filedocumented in this encounter Care Teams Elementary School Teacher'S Aide Relationship Specialty Start Date End Date Clark Oliveira MD PCP - General Internal Medicine 05/16/13 04/22/21 Gayla Hagen MD PCP - General Family Practice 04/23/21 documented as of this encounter
--- OUTSIDE RECORDS SUMMARY | 2024-03-15 15:10 | XMS_ITS | Encounter Summary ---
Author Organization [facility] Address [address] [place] [address] Care Team Providers Care Dinkey Skinner Name Role Phone Clark Oliveira MD Primary Care Provider Gayla Mac MD Primary Care Provider Gabo gonzales Reason for Visit * Reason Onset Date Comments REFERRAL 05/18/2018 Encounter Details Date Type Department Care Team Description 05/18/2018 Telephone Adult Medicine [address] [address] Clark Oliveira MD REFERRAL Social History Tobacco Use Types Packs/Day Years [...] encounter Miscellaneous Notes * Telephone Encounter - Kathy Joseph - 05/18/2018 9:47 AM EDT Called [facility]- still pending * Telephone Encounter - Marisa La L.P.N. - 05/18/2018 9:36 AM EDT Pt is calling to check on referral for sleep study ordered on 05/08/18. * Telephone Encounter - Jazmín Ricobryantrakesh - 05/18/2018 9:31 AM EDT Caller requesting call back from provider: Is the caller the patient? YES If caller is not the patient, what is the callers name? N/A Callers relationship to patient? N/A If person calling is not the patient themselves, is there a verbal release in FYI or permanent comments for this person: NO Reason for call back: The patient saw 05/08 and was told he was putting in a referral to recheck his sleep apnea (to see if he still has it). The patient hasn't heard anything, and I don't see a referral request in the chart Caller offered to speak with the nurse for assistance: YES Response: Patient offered to speak with nurse for assistance and patient agreed. Message forwarded to nurse. documented in this encounter Plan of Treatment Not on file documented as of this encounter Visit Diagnoses Not on filedocumented in this encounter Care Teams Dinkey Skinner Relationship Specialty Start Date End Date Clark Oliveira MD PCP - General Internal Medicine 05/16/13 04/22/21 Gayla Hagen MD PCP - General Family Practice 04/23/21 documented as of this encounter
--- OUTSIDE RECORDS SUMMARY | 2024-03-15 15:10 | XMS_ITS | Encounter Summary ---
Author Organization [facility] Address [address] [place] [address] Care Team Providers Care Contracts Representative Name Role Phone Gayla Hagen MD Primary Care Provider Gabo gonzales Reason for Referral * INTERNAL (Routine) - Authorized/Booked Specialty Diagnoses / Procedures Referred By Jenny johnson Referred To Contact Infectious Disease Procedures REFERRAL TO INFECTIOUS DISEASE Gayla Hagen MD [address] [place] [address] Kristina Patel MD [address] [place] [phone] Referral ID Status Reason Start Date Expiration Date V isits Requested Visits Authorized [id number] Authorized/B ooked 04/25/2023 04/23/2024 1 1 Reason for Visit * Reason Onset Date Comments refill request 04/20/2023 Encounter Details Date Type Department Care Team Description 04/20/2023 Refill Medicine/Pediatrics - [address] [phone] Israel Hernandez PA-C [address] [place] [address] refill request Social History Tobacco Use Types [...] message to call back. Please put to [phone] or re-message to MED/PEDS side * Telephone [...] type documented in this encounter Care Teams Contracts Representative Relationship Specialty Start Date End Date Gayla Hagen MD PCP - General Family Practice 04/23/21 documented as of this encounter
--- OUTSIDE RECORDS SUMMARY | 2024-03-15 15:11 | XMS_ITS | Clinical Summary ---
Author Organization [facility] Address [address] [place] [address] Care Team Providers Care Director Of Special Events Name Role Phone Gayla Hagen MD Primary Care Provider Gabo gonzales Allergies No known active allergies Medications Medication Sig Dispensed Refills Start Date End Date Status gabapentin (NEURONTIN) 300 MG capsule TAKE 1 CAPSULE BY MOUTH EVERYDAY AT BEDTIME 90 Capsule 1 04/21/2023 Active sildenafil (VIAGRA) 100 MG tabletIndications:E rectile dysfunction, unspecified erectile dysfunction type TAKE 1 TABLET 1 HOUR PRIOR TO INTERCOURSE NEEDED 10 Tablet 5 04/21/2023 Active naproxen (NAPROSYN) 500 MG tablet Take 1 Tablet by mouth 2 times daily as needed for Pain (TAKE WITH FOOD). 60 Tablet 0 06/09/2023 Active amlodipine (NORVASC) 10 MG tabletIndications:H ypertension, unspecified type Take 1 Tablet by mouth daily. 90 Tablet 1 09/05/2023 Active emtricitabine-tenof ovir (TRUVADA) 200-300 MG per tablet TAKE 1 TABLET BY MOUTH EVERY DAY 90 Tablet 2 09/19/2023 Active Active Problems Problem Noted Date Hyperlipidemia 02/24/2022 Erectile dysfunction 05/17/2021 Back pain 12/17/2020 Overview: PSSP Obesity 07/26/2020 Headache 03/04/2019 Overview: Seeing neurology Elevated liver function tests 10/31/2016 Nephrolithiasis 11/20/2015 Fatty liver 11/20/2015 Osteoarthritis 01/30/2015 Overview: RENETTA positivity not felt to be clinically significant; [facility] Alopecia areata 07/17/2013 Hypertension 05/17/2013 Resolved Problems Problem Noted Date Resolved Date Prediabetes 02/24/2022 09/06/2023 Tobacco use disorder 08/24/2017 05/08/2018 Obstructive sleep apnea AHI 7 03/24/2015 Overview: 06/2018 Home Sleep Study did not reveal sleep apnea. ELDON (obstructive sleep apnea) 02/04/2015 Tobacco use disorder 06/25/2013 06/01/2016 Immunizations Name Administration Dates Next Due COVID-19 (Moderna) 02/15/2021,06/16/2020, 021 COVID-19 (Moderna) PT Reported 05/19/2020 COVID-19 (Pfizer) 11/09/2023 Flu Vaccine 3 Yrs> Im 12/22/2015,11/07/2013 Influenza (> 6 Months) 11/09/2023,12/22/2015, Influenza Vaccine-preservati ve Free-quadrivalent 4 Years 01/23/2023,12/13/2021,12/11/2017 Influenza Vaccine-quadrivalent 4 Years Plus 10/14 Pneumoccoccal(Adult) Polysaccharide PPSV23 04/09 Tdap 01/07/2021,08/07/2013 Family History Medical History Relation Name Comments Cancer, Other Aunt uncertain type ; ?breast; ?colon CA Liver Father alcoholic CA Breast Maternal Grandmother Diabetes Maternal Grandmother Hypertension Maternal Grandmother Diabetes Mother Hypercholesterolemia Mother Hypertension Mother Rheumatoid Arthritis Mother Alcohol and Other Drug Abuse Paternal Grandmother Hypertension Sister 2 CAD Negative Hx Relation Name Status Comments Aunt Father Maternal Grandmother Mother Alive Paternal Grandmother Sister 1 Alive Sister 2 Social History Tobacco Use Types Packs/Day Years Used Date Smoking Tobacco: Former Cigarettes 1 22 1 995 - 03/31/2016 Passive Smoke Exposure: Never Smokeless Tobacco: Never Tobacco Cessation:Counseling Given: Not Answered Alcohol Use Standard Drinks/Week Comments Yes 10 (1 standard drink = 0.6 oz pu re alcohol) rare, not much when drinks Sex Assigned at Date Recorded Male 04/21/2021 7:[address] Job Start Date Occupation Industry Not on file Not on file Not on file Last Filed Vital Signs Vital Sign Reading Time Taken Comments Blood Pressure 131/85 09/12/2023 12:58 PM EDT Pulse 98 09/12/2023 12:58 PM EDT Temperature 36.4 ??C (97.6 ??F) 09/12/2023 12:58 PM E DT Respiratory Rate 14 03/15/2023 1:56 PM EST Oxygen Saturation 100% 09/12/2023 12:58 PM EDT Inhaled Oxygen Concentration - - Weight 129.7 kg (286 lb) 09/12/2023 12:58 PM EDT Height 185.4 cm (6' 1 ) 09/05/2023 2:17 PM EDT Body Mass Index 37.73 09/05/2023 2:17 PM EDT Plan of Treatment Health Maintenance Due Date Last Done Comments Covid-19 Vaccine (2022-03 4 season) 2024 11/09/2023, 02/15/2021, 06/16/2020, Additional history exists BMI CHECK/ADVISE 02/14/2024 03/07/2023, 12/2022, 02/22/2022 (Completed), Additional history exists BASELINE HEALTH EXAM 40-64 01/23/202501/23, 01/23/2023, 07/24/2020, Additional history exists CHOLESTEROL SCREENING 01/24/2028 01/23/2023 , 02/22/2022, 12/11/2017, Additional history exists DTAP/TDAP/TD (3 - Td or Tdap) 01/07/2031 01/07/2021, 08/07/2013 PNEUMOCOCCAL VACCINE FOR HIG H RISK PATIENTS (#1) 02/16/2041 04/09/2015 INFLUENZA Completed 11/09/2023, 01/13, 12/13/2021, Additional history exists Care Teams Director Of Special Events Relationship Specialty Start Date End Date Gayla Hagen MD PCP - General Family Practice 04/23/21
--- OUTSIDE RECORDS SUMMARY | 2024-03-15 15:11 | XMS_ITS | Encounter Summary ---
Author Organization [facility] Address [address] [place] [address] Care Team Providers Care Film Processing Supervisor Name Role Phone Clark Oliveira MD Primary Care Provider Unavail able Gayla Hagen MD Primary Care Provider Gabo gonzales Encounter Details Date Type Department Care Team Description 07/23/2020 Insect Control Aide Report Medical Records [address] [place] [address] Xavier Sandoval Social History Tobacco Use Types [...] on filedocumented in this encounter Care Teams Film Processing Supervisor Relationship Specialty Start Date End Date Clark Oliveira MD PCP - General Internal Medicine 05/16/13 04/22/21 Gayla Hagen MD PCP - General Family Practice 04/23/21 documented as of this encounter
--- OUTSIDE RECORDS SUMMARY | 2024-03-15 15:11 | XMS_ITS | Encounter Summary ---
Author Organization [facility] Address [address] [place] [address] Care Team Providers Care Supervisor Rubber Covering Name Role Phone Clark Oliveira MD Primary Care Provider Unavail able Gayla Hagen MD Primary Care Provider Gabo gonzales Encounter Details Date Type Department Care Team Description 04/16/2020 Old Medical Records Medical Records [address] [place] [address] Abstract, Provider Social History Tobacco Use Types [...] on filedocumented in this encounter Care Teams Supervisor Rubber Covering Relationship Specialty Start Date End Date Clark Oliveira MD PCP - General Internal Medicine 05/16/13 04/22/21 Gayla Hagen MD PCP - General Family Practice 04/23/21 documented as of this encounter
--- OUTSIDE RECORDS SUMMARY | 2024-03-15 15:11 | XMS_ITS | Encounter Summary ---
Author Organization [facility] Address [address] [place] [address] Care Team Providers Care Convenience Store Clerk Name Role Phone Gayla Hagen MD Primary Care Provider Gabo gonzales Encounter Details Date Type Department Care Team Description 01/24/2023 Orders Only Medicine/Pediatrics - [address] [phone] Israel Hernandez PA-C [address] [place] [address] Elevated PSA (Primary Dx) Social History Tobacco [...] (PSA) documented in this encounter Care Teams Convenience Store Clerk Relationship Specialty Start Date End Date Gayla Hagen MD PCP - General Family Practice 04/23/21 documented as of this encounter
--- OUTSIDE RECORDS SUMMARY | 2024-03-15 15:11 | XMS_ITS | Encounter Summary ---
Author Organization [facility] Address [address] [place] [address] Care Team Providers Care Managing Partner Name Role Phone Clark Oliveira MD Primary Care Provider Gayla Mac MD Primary Care Provider Gabo gonzales Encounter Details Date Type Department Care Team Description 03/03/2020 Pt. Non Urgent Medical Question Medicine/Pediatrics - [address] [phone] Clark Oliveira MD Social History Tobacco Use [...] on file documented as of this encounter Progress Notes * Mariella Patel M.A. - 03/04/2020 8:19 AM ESTFrom: Luc Almanza Jr To: Clark Oliveira MD Sent: 03/03/2020 6:14 PM EST Subject: Physical Exam Delfina Oliveira, I will like to schedule a physical exam but everytime I call I can get to anyone in your office. I get out on hold and nobody answers the phone. Can someone give me a call tonseg up an appointment. My number is [phone]. Thank you very much Latrice Fritz 1975 documented in this encounter Plan of Treatment Not on file documented as of this encounter Visit Diagnoses Not on filedocumented in this encounter Care Teams Managing Partner Relationship Specialty Start Date End Date Clark Oliveira MD PCP - General Internal Medicine 05/16/13 04/22/21 Gayla Hagen MD PCP - General Family Practice 04/23/21 documented as of this encounter
--- OUTSIDE RECORDS SUMMARY | 2024-03-15 15:11 | XMS_ITS | Encounter Summary ---
Author Organization [facility] Address [address] [place] [address] Care Team Providers Care Blunger Loader Name Role Phone Clark Oliveira MD Primary Care Provider Unavail able Gayla Hagen MD Primary Care Provider Gabo gonzales Encounter Details Date Type Department Care Team Description 10/26/2016 Numerical Control Nesting Operator Report Medical Records [address] [place] [address] Xavier Sandoval Social History Tobacco Use Types [...] on filedocumented in this encounter Care Teams Blunger Loader Relationship Specialty Start Date End Date Clark Oliveira MD PCP - General Internal Medicine 05/16/13 04/22/21 Gayla Hagen MD PCP - General Family Practice 04/23/21 documented as of this encounter
--- OUTSIDE RECORDS SUMMARY | 2024-03-15 15:11 | XMS_ITS | Encounter Summary ---
Author Organization [facility] Address [address] [place] [address] Care Team Providers Care Prn Physical Therapist Name Role Phone Clark Lim MD Primary Care Provider Gayla Mac MD Primary Care Provider Gabo gonzales Reason for Visit * Reason Onset Date Comments Call-returning From Provider 12/04/2018 RET URNING A CALL FROM DR LIM Encounter Details Date Type Department Care Team Description 12/04/2018 Telephone Adult Medicine - [address] [address] Clark Lim MD Call-returning From Provider (RETURNING [...] on filedocumented in this encounter Care Teams Prn Physical Therapist Relationship Specialty Start Date End Date Clark Lim MD PCP - General Internal Medicine 05/16/13 04/22/21 Gayla Hagen MD PCP - General Family Practice 04/23/21 documented as of this encounter
--- OUTSIDE RECORDS SUMMARY | 2024-03-15 15:11 | XMS_ITS | Encounter Summary ---
Author Organization [facility] Address [address] [place] [address] Care Team Providers Care Apartment Leasing Manager Name Role Phone Clark Oliveira MD Primary Care Provider Gayla Mac MD Primary Care Provider Gabo gonzales Reason for Visit * Reason Comments other Encounter Details Date Type Department Care Team Description 10/03/2016 Telephone Medicine/Pediatrics [address] [phone] Clark Oliveira MD other Social History Tobacco [...] on filedocumented in this encounter Care Teams Apartment Leasing Manager Relationship Specialty Start Date End Date Clark Oliveira MD PCP - General Internal Medicine 05/16/13 04/22/21 Gayla Hagen MD PCP - General Family Practice 04/23/21 documented as of this encounter
--- OUTSIDE RECORDS SUMMARY | 2024-03-15 15:11 | XMS_ITS | Encounter Summary ---
Author Organization [facility] Address [address] [place] [address] Care Team Providers Care Roundsman Name Role Phone Gayla Hagen MD Primary Care Provider Gabo gonzales Encounter Details Date Type Department Care Team Description 02/27/2023 Orders Only Medical Records [address] [place], [place] [phone] [place] [address] Social History Tobacco Use Types Packs/Day Years [...] encounter Results * OUTSIDE PLAIN FILM (02/25/2023) [facility] RADIOLOGY * OUTSIDE VASCULAR STUDY (02/25/2023) [facility] CARDIOLOGY documented in this encounter Visit Diagnoses Not on filedocumented in this encounter Care Teams Roundsman Relationship Specialty Start Date End Date Gayla Hagen MD PCP - General Family Practice 04/23/21 documented as of this encounter
--- OUTSIDE RECORDS SUMMARY | 2024-03-15 15:11 | XMS_ITS | Encounter Summary ---
Author Organization [facility] Address [address] [place] [address] Care Team Providers Care Master Hearth Technician Name Role Phone Clark Oliveira MD Primary Care Provider Unavail able Gayla Hagen MD Primary Care Provider Gabo gonzales Encounter Details Date Type Department Care Team Description 12/13/2017 Carpenter Mold Report Medical Records [address] [place] [address] Xavier Sandoval Social History Tobacco Use Types [...] on filedocumented in this encounter Care Teams Master Hearth Technician Relationship Specialty Start Date End Date Clark Oliveira MD PCP - General Internal Medicine 05/16/13 04/22/21 Gayla Hagen MD PCP - General Family Practice 04/23/21 documented as of this encounter
--- OUTSIDE RECORDS SUMMARY | 2024-03-15 15:11 | XMS_ITS | Encounter Summary ---
Author Organization [facility] Address [address] [place] [address] Care Team Providers Care Platen Drier Operator Name Role Phone Clark Oliveira MD Primary Care Provider Unavail able Gayla Hagen MD Primary Care Provider Gabo gonzales Encounter Details Date Type Department Care Team Description 10/06/2020 Vine Pruner Report Medical Records [address] [place] [address] Xavier Sandoval Social History Tobacco Use Types [...] on filedocumented in this encounter Care Teams Platen Drier Operator Relationship Specialty Start Date End Date Clark Oliveira MD PCP - General Internal Medicine 05/16/13 04/22/21 Gayla Hagen MD PCP - General Family Practice 04/23/21 documented as of this encounter
--- OUTSIDE RECORDS SUMMARY | 2024-03-15 15:11 | XMS_ITS | Encounter Summary ---
Author Organization [facility] Address [address] [place] [address] Care Team Providers Care Rand Sewer Name Role Phone Gayla Hagen MD Primary Care Provider Gabo gonzales Reason for Visit * Reason Onset Date Comments Medication 03/31/2022 Encounter Details Date Type Department Care Team Description 03/31/2022 Refill Gastroenterology - [place] [address] [facility] [address] [place] [phone] Marty Montgomery MD [address] [facility] [address] [place] [address] Medication Social History Tobacco Use Types Packs/Day [...] on filedocumented in this encounter Care Teams Rand Sewer Relationship Specialty Start Date End Date Gayla Hagen MD PCP - General Family Practice 04/23/21 documented as of this encounter
--- OUTSIDE RECORDS SUMMARY | 2024-03-15 15:11 | XMS_ITS | Encounter Summary ---
Author Organization [facility] Address [address] [place] [address] Care Team Providers Care Loan Supervisor Name Role Phone Gayla Hagen MD Primary Care Provider Gabo gonzales Reason for Visit * Reason Onset Date Comments Medication 04/07/2022 Encounter Details Date Type Department Care Team Description 04/07/2022 Refill Gastroenterology - [place] [address] [facility] [address] [place] [phone] Marty Montgomery MD [address] [facility] [address] [place] [address] Medication Social History Tobacco Use Types Packs/Day [...] on filedocumented in this encounter Care Teams Loan Supervisor Relationship Specialty Start Date End Date Gayla Hagen MD PCP - General Family Practice 04/23/21 documented as of this encounter
--- OUTSIDE RECORDS SUMMARY | 2024-03-15 15:11 | XMS_ITS | Encounter Summary ---
Author Organization [facility] Address [address] [place] [address] Care Team Providers Care Senior Electronics Technician Name Role Phone Gayla Hagen MD Primary Care Provider Gabo gonzales Reason for Visit * Reason Onset Date Comments Prior Authorization 08/23/2022 Encounter Details Date Type Department Care Team Description 08/23/2022 Telephone Medicine/Pediatrics - [address] [phone] Gayla Hagen MD Prior Authorization Social History [...] ? Prior authorization case approval number # [id number] ? Approval faxed to [facility] Meyer at [phone] * Telephone Encounter - Kathia Lindsey M.A. - 08/23/2022 11:42 AM EDT Barney code does not work for this pt. Must call [facility] rx to do this p.a. over the phone. Prior authorization was done over the phone with Serena at [facility] Pt does have dx of hypertension and prediabetes. Continuation of therapy Case # [id number] . * Telephone Encounter - Malika Burns - 08/23/2022 10:58 AM EDT Prior Authorization for Medication-do not complete and send this encounter unless you have the fax from the pharmacy. Is this a Cover My Meds request: Yes -- Barney Code [id number] Name of Medication sildenafil (VIAGRA) 100 MG tablet Dose of Medication 100 MG What is the RX # from the faxed refill? How does patient take this med? TAKE 1 TABLET 1 HOUR PRIOR TO INTERCOURSE NEEDED What Pharmacy did the fax come from: [facility] fax #: [phone] documented in this encounter Plan of Treatment Not on file documented as of this encounter Visit Diagnoses Not on filedocumented in this encounter Care Teams Senior Electronics Technician Relationship Specialty Start Date End Date Gayla Hagen MD PCP - General Family Practice 04/23/21 documented as of this encounter
--- OUTSIDE RECORDS SUMMARY | 2024-03-15 15:11 | XMS_ITS | Encounter Summary ---
Author Organization [facility] Address [address] [place] [address] Care Team Providers Care Sign Painter Name Role Phone Clark Oliveira MD Primary Care Provider Unavail able Gayla Hagen MD Primary Care Provider Gabo gonzales Encounter Details Date Type Department Care Team Description 06/07/2016 Winch Runner Report Medical Records [address] [place] [address] Xavier Sandoval Social History Tobacco Use Types [...] on filedocumented in this encounter Care Teams Sign Painter Relationship Specialty Start Date End Date Clark Oliveira MD PCP - General Internal Medicine 05/16/13 04/22/21 Gayla Hagen MD PCP - General Family Practice 04/23/21 documented as of this encounter
--- OUTSIDE RECORDS SUMMARY | 2024-03-15 15:11 | XMS_ITS | Encounter Summary ---
Author Organization [facility] Address [address] [place] [address] Care Team Providers Care Cadworx Piping Designer Name Role Phone Clark Oliveira MD Primary Care Provider Unavail able Gayla Hagen MD Primary Care Provider Gabo gonzales Encounter Details Date Type Department Care Team Description 12/13/2018 School Photographer Report Medical Records [address] [place] [address] Noemy Limon MD Social History Tobacco Use [...] on filedocumented in this encounter Care Teams Cadworx Piping Designer Relationship Specialty Start Date End Date Clark Oliveira MD PCP - General Internal Medicine 05/16/13 04/22/21 Gayla Hagen MD PCP - General Family Practice 04/23/21 documented as of this encounter
--- OUTSIDE RECORDS SUMMARY | 2024-03-15 15:11 | XMS_ITS | Encounter Summary ---
Author Organization [facility] Address [address] [place] [address] Care Team Providers Care Drug Coordinator Name Role Phone Clark Oliveira MD Primary Care Provider Unavail able Gayla Hagen MD Primary Care Provider Gabo gonzales Encounter Details Date Type Department Care Team Description 12/15/2020 Rigging Foreman Report Medical Records [address] [place] [address] Fabiana Knox PA-C Social History Tobacco Use [...] on filedocumented in this encounter Care Teams Drug Coordinator Relationship Specialty Start Date End Date Clark Oliveira MD PCP - General Internal Medicine 05/16/13 04/22/21 Gayla Hagen MD PCP - General Family Practice 04/23/21 documented as of this encounter
--- OUTSIDE RECORDS SUMMARY | 2024-03-15 15:11 | XMS_ITS | Encounter Summary ---
Author Organization [facility] Address [address] [place] [address] Care Team Providers Care Biostatistics Director Name Role Phone Gayla Hagen MD Primary Care Provider Gabo gonzales Reason for Visit * Reason Onset Date Comments Prior Authorization 04/23/2021 Encounter Details Date Type Department Care Team Description 04/23/2021 Telephone Adult Medicine [address] [address] Gayla Hagen MD Prior Authorization Social History [...] until 04/21/22 Prior authorization approval number # [id number] Approval faxed to [facility] at [phone] * Telephone Encounter - Kathia Lindsey M.A. [...] ) Prior auth completed. Case number [id number] Dx code N52.9 Erectile dysfunction, unspecified erectile [...] on filedocumented in this encounter Care Teams Biostatistics Director Relationship Specialty Start Date End Date Gayla Hagen MD PCP - General Family Practice 04/23/21 documented as of this encounter
--- OUTSIDE RECORDS SUMMARY | 2024-03-15 15:11 | XMS_ITS | Encounter Summary ---
Author Organization [facility] Address [address] [place] [address] Care Team Providers Care Greenhouse Superintendent Name Role Phone Clark Oliveira MD Primary Care Provider Unavail able Gayla Hagen MD Primary Care Provider Gabo gonzales Encounter Details Date Type Department Care Team Description 11/26/2015 Tire Manager Report Medical Records [address] [place] [address] Pa Monaco MD Social History Tobacco Use [...] on filedocumented in this encounter Care Teams Greenhouse Superintendent Relationship Specialty Start Date End Date Clark Oliveira MD PCP - General Internal Medicine 05/16/13 04/22/21 Gayla Hagen MD PCP - General Family Practice 04/23/21 documented as of this encounter
--- OUTSIDE RECORDS SUMMARY | 2024-03-15 15:11 | XMS_ITS | Encounter Summary ---
Author Organization [facility] Address [address] [place] [address] Care Team Providers Care Continuous Process Machine Operator Name Role Phone Community, Pcp Primary Care Provider UnavailElliot Bonner Primary Care Provider Cy Cabrera MD Primary Care Provider Unavailab Clark Murphy MD Primary Care Provider Unavail able Gayla Hagen MD Primary Care Provider Gabo gonzales Reason for Visit * Reason Comments other LETTER Encounter Details Date Type Department Care Team Description 03/01/2001 Telephone Adult Medicine [address] [phone] Elliot Chang [address] [place] [phone] other (LETTER ) Social History Tobacco Use Types Packs/Day Years Used Date Smoking Tobacco: Never Assessed Sex Assigned at Date Recorded Male 04/21/2021 7:[address] Job Start Date Occupation Industry Not on file Not on file Not on file documented as of this encounter Miscellaneous Notes * Telephone Encounter - 03/01/2001 9:47 AM ESTper copy of work note in chart, 'out of work' not checked off, will refer to dr chang for review. * Telephone Encounter - 03/01/2001 9:38 AM ESTneed chart * Telephone Encounter - 03/01/2001 9:26 AM ESTCALL RECEIVED. Contact: SELF - [phone]-IKER JAUREGUI'S OFFICE BUT ASK FOR PT PT RECEIVED A LETTER TO EXCUSE HIS ABSENCE AT WORK, BUT PT WAS TOLD BY EMPLOYER THAT THEY WILL NOT E XCUSE HIM BECAUSE [employer] DID NOT DEVONTE THE OUT OF WORK PART OF IT, AND NEEDS A NEW ONE SO THEY WILL EXCUSE THAT ABSENCE. PLEASE CALL THE NUMBER ABOVE AND LET PT KNOW YES OR NO. documented in this encounter Plan of Treatment Not on file documented as of this encounter Visit Diagnoses Not on filedocumented in this encounter Care Teams Continuous Process Machine Operator Relationship Specialty Start Date End Date Community, Pcp PCP - General 03/04/06 05/12/13 Elliot Chang [address] [place], [place] [phone] PCP - General 02/27/01 03/03/06 Cy Cabrera MD [address] [place] [address] PCP - General Internal Medicine 05/13/13 05/15/13 Clark Oliveira MD [address] [place] [id number] PCP - General Internal Medicine 05/16/13 04/22/21 Gayla Hagen MD [address] [place] [address] PCP - General Family Practice 04/23/21 documented as of this encounter
--- OUTSIDE RECORDS SUMMARY | 2024-03-15 15:11 | XMS_ITS | Encounter Summary ---
Author Organization [facility] Address [address] [place] [address] Care Team Providers Care First Aid Trainer Name Role Phone Clark Oliveira MD Primary Care Provider Unavail able Gayla Hagen MD Primary Care Provider Gabo gonzales Encounter Details Date Type Department Care Team Description 12/15/2018 Release of Information Medical Records [address] [place] [id number] Abstract, Provider Social History Tobacco Use Types [...] on filedocumented in this encounter Care Teams First Aid Trainer Relationship Specialty Start Date End Date Clark Oliveira MD PCP - General Internal Medicine 05/16/13 04/22/21 Gayla Hagen MD PCP - General Family Practice 04/23/21 documented as of this encounter
--- OUTSIDE RECORDS SUMMARY | 2024-03-15 15:11 | XMS_ITS | Encounter Summary ---
Author Organization [facility] Address [address] [place] [address] Care Team Providers Care Campaign Director Name Role Phone Gayla Hagen MD Primary Care Provider Gabo gonzales Reason for Visit * Reason Onset Date Comments Prior Authorization 05/24/2022 Encounter Details Date Type Department Care Team Description 05/24/2022 Telephone Adult Medicine [address] [address] Gayla Hagen MD Prior Authorization Social History [...] 08/24/23 Prior authorization case approval number # [id number] Approval faxed to [facility] at [phone] * Telephone Encounter - Kathia Lindsey M.A. [...] My Meds request: Yes -- Barney Code [id number] Name of Medication sildenafil (VIAGRA) 100 MG tablet Dose of Medication 100MG What is the RX # from the faxed refill? ? How does patient take this med? TAKE 1 TABLET 1 HOUR PRIOR TO INTERCOURSE NEEDED What Pharmacy did the fax come from: [facility] Pharmacy fax #: [phone] Third Libertarian Information from fax: What Prescription Plan does the patient have? BIN/PCN if applicable: Cardholder ID:[id number] Person Code: 01 Relationship Code: SELF Help desk phone: [phone] documented in this encounter Plan of Treatment Not on file documented as of this encounter Visit Diagnoses Not on filedocumented in this encounter Care Teams Campaign Director Relationship Specialty Start Date End Date Gayla Hagen MD PCP - General Family Practice 04/23/21 documented as of this encounter
--- OUTSIDE RECORDS SUMMARY | 2024-03-15 15:11 | XMS_ITS | Encounter Summary ---
Author Organization [facility] Address [address] [place] [address] Care Team Providers Care Animation Camera Operator Name Role Phone Clark Oliveira MD Primary Care Provider Unavail able Gayla Hagen MD Primary Care Provider Gabo gonzales Encounter Details Date Type Department Care Team Description 02/03/2015 Orders Only Medical Records [address] [place] [address] Clark Oliveira MD Social History Tobacco Use [...] on filedocumented in this encounter Care Teams Animation Camera Operator Relationship Specialty Start Date End Date Clark Oliveira MD PCP - General Internal Medicine 05/16/13 04/22/21 Gayla Hagen MD PCP - General Family Practice 04/23/21 documented as of this encounter
[2024-03-15 15:16] VITALS: BP 132/82; PULSE 104; TEMP 36.6; O2SAT 96; BMI 37.8
--- NOTE | 2024-03-15 15:16 | A.OFFPC_ITS ---
Vital Signs 03/15/24 15:16 Height 6 ft 1 in Weight 286 lb 4 oz BMI 37.8 BP 132/82 Blood Pressure Location Lt brachial Position Sitting Pulse 104 H Pulse Source Pulse Oximeter Temp 97.8 F Temp Source Temporal Artery Scan Pulse Oximetry (%) 96 Oxygen Delivery Method Room Air Intake Visit Reasons: CPE Cost Controller Required: No Accompanied by: Self / Same As Patient Allergies No Known Allergies Allergy (Verified 03/15/24 15:22) Medication List - Last Reconciled 03/15/24 by Alexandra Aguilar PA-C amlodipine 10 mg PO DAILY emtricitabine-tenofovir (TDF) 200-300 mg 1 tab PO DAILY gabapentin 600 mg PO .qhs 30 days lisinopril 10 mg PO DAILY naproxen 500 mg PO BID nicotine (polacrilex) 2 mg buccal Q2H sildenafil 100 mg PO DAILY PRN Tobacco use date assessed: 03/15/24 Dental Screening Dental Screen Date: 03/15/24 Did you have a dental visit in the last 12 months?: Yes Did you have a dental problem in the last 6 months where you did not have access to dental care?: No Was dental information given to patient?: Patient has dentist HPI CPE HPI Details 49-year-old male with past medical histo ry of hypertension, lumbar degenerative disc disease, nephrolithiasis, hyperlipidemia, fatty liver disease, obesity, obstructive sleep apnea last seen 11/2023 coming in for annual exam.? In review of the notes, patient was seen by Neurology 03/12/2024 for spinal stenosis and tremor continued on gabapentin and naproxen and ordered for EMG advised to follow up with neuro spine and pain management.? Patient has also been following with pain management for low back pain. Colonoscopy was com pleted 3 years ago advised that time to repeat in 10 years. Patient states the cortisone injections from pain management have not been helpful and he is seeing them next week for re-evaluation. He continues to have low back pain and occasional left leg weakness. Patient does have 1 concern today he has been gaining weight and is interested in GLP 1 injections for weight loss. He was referred to the weight management clinic at his last visit but states the waiting list for these injections are longer and would like to try and have them approved the primary care office. He recently enrolled himself in a weight loss program through his work and has been working on eating habits as well. [facility] Medical History Obstructive sleep apnea Numbness of right hand Surgical History History of carpal tunnel release Hx laparoscopic cholecystectomy H/O circumcision Family History Mother Arthritis Hypercholesteremia HTN (hypertension) Diabetes Maternal Grandmother HTN (hypertension) Diabetes Father Liver cancer Social History Housing: House Alcohol intake: current Alcohol intake frequency: a few times a week Patient Tobacco Use Status: Former Tobacco user e-Cigarette/Vaping Use: Currently Using service: No Current occupational status: employed Cognitive needs: No Hearing needs: No Vision needs: No Questionnaire PHQ-9 Over the last 2 weeks, how often have you been bothered by any of the following problems? 1. Little interest or pleasure in doing things: not at all 2. Feeling down, depressed, or hopeless: not at all 3. Trouble falling or staying asleep, or sleeping too much: not at all 4. Feeling tired or having little energy: not at all 5. Poor appetite or overeating: not at all 6. Feeling bad about yourself - or that you are a failure or have let yourself or your family down: not at all 7. Trouble concentrating on things, such as reading the newspaper or watching television: not at all 8. Moving or speaking so slowly that other people could have noticed. Or the opposite - being so fidgety or restless that you have been moving around a lot more than usual: not at all 9. Thoughts that you would be better off or of hurting yourself in some way: not at all Total score: 0 Depression Screening Interpretation: Negative Depression Screening Done: Yes 79211 - PHQ-9 Billing: Yes Source: Developed by Drs. Shady Gutierrez, Dayna Mckeon, Shane Matias and colleagues, with an educational cristel from [employer]. Thrive Questionnaire Date Thrive assessed: 03/15/24 I am a: Patient What is your living situation today?: I have a steady place to live Within the past 12 months, did the food you bought not last and you didn't have the money to get more?: Often true Within the past 12 months, did you worry whether your food would run out before you got money to buy more?: Often true Do you have trouble paying for medicines?: No Do you have trouble getting transportation to medical appointments?: No Do you have trouble paying your heating and electricity bill?: Yes Do you have trouble taking care of your child, family member or friend?: No Do you have trouble with day-to-day activities such as bathing, preparing meals, shopping, managing finances, etc.?: Yes Are you currently unemployed and looking for a job?: No Are you interested in more education?: I choose not to answer this question Currently or been in a relationship where the following occur: No concerns reported THRIVE Score: 3 AUDIT C Alcohol Use Questionnaire (AUDIT-C) 1. How often do you have a drink containing alcohol?: Monthly or less 2. How many drinks containing alcohol do you have on a typical day when you are drinking?: 1 or 2 3. How often do you have six or more drinks on one occasion?: Never Total Score: 1 DARIELA-7 AMB Questionnaire DARIELA-7 Date DARIELA - 7 assessed: 03/15/24 Feeling nervous, anxious, or on edge: 0 = Not at all Not being able to stop or control worryin = Not at all Worrying too much about different things: 0 = Not at all Trouble relaxin = Not at all Being so restless that it is hard to sit still: 0 = Not at all Becoming easily annoyed or irritable: 0 = Not at all Feeling afraid as if something awful might happen: 0 = Not at all Total DARIELA-7 score (0-4 normal; 5-9 mild; 10-14 moderate; 15-21 severe): 0 Source: Developed by Drs. Shady Gutierrez, Dayna Mckeon, Shane Matias and colleagues, with an educational cristel from [employer]. DARIELA-7 Assessment Billing DARIELA-7 Assessment Tool: DARIELA-7 Assessment 90001 Review of Systems Const Denies body aches, Denies chills, Denies fever(s), Denies headache(s) and Denies poor appetite Eyes Reports no additional complaints and Reports requires corrective lenses ENT Denies dysphagia, Denies dizziness, Denies headache(s) and Denies odynophagia Card Denies chest pain, Denies syncope, Denies edema, Denies irregular heart rhythm, Denies lightheadedness and Denies dyspnea Resp Denies cough and Denies dyspnea GI Denies abdominal pain, Denies constipation, Denies dysphagia, Denies diarrhea, Denies nausea, Denies odynophagia and Denies vomiting Reports no additional complaints Musc Reports abnormal gait and Reports back pain Skin/Breast Reports system reviewed and no additional complaints, except as documented Neuro Reports abnormal gait, Denies dizziness, Denies syncope and Denies headache(s) Psych Reports no additional complaints Physical exam (Primary Care) Vital Signs: Last Vital Signs Temp 97.8 F 03/15/24 15:16 Pulse 104 H 03/15/24 15:16 BP 132/82 03/15/24 15:16 Pulse Ox 96 03/15/24 15:16 Oxygen Delivery Method Room Air 03/15/24 15:16 BMI result Body Mass Index 37.8 Tobacco/Smoking Status: Tobacco use Status Tobacco use date assessed 03/15/24 03/15/24 15:20 Patient Tobacco Use Status Former Tobacco user 03/15/24 15:20 e-Cigarette/Vaping Use Currently Using 03/15/24 15:20 PHQ-9: PHQ-9 Score PHQ-9: Total score 0 03/15/24 15:22 Depression Screening Interpretation: Negative Thrive Assessment: Date of Thrive Assessment Date Thrive assessed 03/15/24 03/15/24 15:20 Currently or been in a relationship where the following occur: No concerns reported Const General: cooperative, healthy appearing, comfortable and no acute distress Orientation/consciousness: patient oriented x3 HENMT Head: Yes normocephalic Ears: hearing grossly normal bilaterally General nose exam: Normal external nose present Eyes General: appearance normal, both eyes and all related structures Conjunctivae: conjunctivae normal Neck Neck: Yes full ROM and Yes no lymphadenopathy Resp Effort & Inspection: normal respiratory effort Auscultation: clear to auscultation bilaterally, no crackles, no rales, no rhonchi and no wheezes Cardio Rate: regular rate Rhythm: regular rhythm Skin General skin exam: no rashes or lesions noted Neuro General: patient oriented x3 Gait exam (Neuro): Normal gait present Extrem General: Yes normal to inspection, Yes full ROM and No edema Psych Affect: normal affect Attitude: cooperative Insight: Good insight present (Psych) Judgement: Good judgement present (Psych) Coding Level of Care Code Est Pt Prev Care 40-64y(09348) Diagnoses Tremor R25.1 HTN (hypertension) I10 Hyperreflexia R29.2 Degeneration of intervertebral disc of lumbar region with discogenic back pain and lower extremity pain M51.362 Disc-related pain type: discogenic back pain and lower extremity pain HLD (hyperlipidemia) E78.5 Erectile dysfunction N52.9 Fatty liver K76.0 Spinal stenosis of cervical region M48.02 Spinal region: cervical Obesity (BMI 30.0-34.9) E66.811 Obstructive sleep apnea G47.33 Annual physical exam Z00.00 Elevated LFTs R79.89 Additional Codes DARIELA-7 Assessment Billing - DARIELA-7 Assessment Tool: DARIELA-7 Assessment 22913 ([id number]) PHQ-9 - 70916 - PHQ-9 Billing: Yes ([id number]) Assessment & Plan Assessment & Plan (1) Tremor: Comment: related to weakness ? carpal tunnel - no tremors seen on todays visit Code(s): R25.1 - Tremor, unspecified Category: Medical Plan: Currently following with Neurology for this concern. No tremors when is on exam today advised to have EMG completed at recommendation of Neurology (2) HTN (hypertension): Code(s): I10 - Essential (primary) hypertension Category: Medical Plan: Continue on current blood pressure medication. Avoid salt intake and encourage healthy diet and regular exercise. (3) Hyperreflexia: Comment: related to spinal stenosis Code(s): R29.2 - Abnormal reflex Category: Medical Plan: Hyperreflexia as results of spinal stenosis currently following with pain management and Neurology for this concern. (4) Lumbar degenerative disc disease: Code(s): M51.36 - Other intervertebral disc degeneration, lumbar region Category: Medical Qualifiers: Disc-related pain type: discogenic back pain and lower extremity pain Qualified Code(s): M51.362 - Other intervertebral disc degeneration, lumbar region with discogenic back pain and lower extremity pain Plan: Currently following with pain management and receiving cortisone injections. He has a repeat follow up with them next week (5) HLD (hyperlipidemia): Code(s): E78.5 - Hyperlipidemia, unspecified Category: Medical Plan: Avoid foods that are high in cholesterol such as red meat, fried foods, eggs and baked goods. Triglyceride goal of less than 150 and LDL goal of less than 130. Not currently on medical management (6) Erectile dysfunction: Code(s): N52.9 - Male erectile dysfunction, unspecified Category: Medical Plan: Continue on sildenafil as needed (7) Fatty liver: Code(s): K76.0 - Fatty (change of) liver, not elsewhere classified Category: Medical Plan: Patient has a previous diagnosis of fatty liver disease. His LFTs are elevated however he has never had an abdominal ultrasound. Ordered for abdominal ultrasound as well as hepatitis panel for further evaluation (8) Spinal stenosis: Code(s): M48.00 - Spinal stenosis, site unspecified Category: Medical Qualifiers: Spinal region: cervical Qualified Code(s): M48.02 - Spinal stenosis, cervical region Plan: Currently following with Neurology and pain management for this concern. (9) Obesity (BMI 30.0-34.9): Code(s): E66.811 - Obesity, class 1 Category: Medical Plan: Healthy diet and regular exercise is encouraged. Patient would like to try DLP 1 injection for weight loss. I discussed with patient at length the risks and benefits of this medication and also advised it may not be covered by insurance. Prescription sent for Wegovy 0.25 mg and advised to follow up with weight management as well. (10) Obstructive sleep apnea: Code(s): G47.33 - Obstructive sleep apnea (adult) (pediatric) Category: Medical Plan: Uses CPAP faithfully at least 4 hours a night and benefits from this therapy. (11) Annual physical exam: Code(s): Z00.00 - Encounter for general adult medical examination without abnormal findings Category: Medical Plan: Patient is up-to-date on all recommended routine screenings and vaccinations for his age. Blood work is up-to-date and did remind patient about repeat CMP. Healthy diet and regular exercise is encouraged. (12) Elevated LFTs: Code(s): R79.89 - Other specified abnormal findings of blood chemistry Category: Medical Plan: His LFTs are elevated however he has never had an abdominal ultrasound. Ordered for abdominal ultrasound as well as hepatitis panel for further evaluation Plan This note was constructed using voice recognition software. While every effort has been made to ensure accuracy and slime plant operator helper, still areas may have been included sometimes these areas may affect the content or meeting of the given symptoms. Total time spent caring for the patient today was 30 minutes. This includes time spent before the visit reviewing the chart, time spent during the visit, and time spent after the visit and documentation. Orders: Orders 2 US abdomen complete Today R79.89 - Other specified abnormal findings of blood chemistry Hepatitis B,C Profile Today R79.89 - Other specified abnormal findings of blood chemistry Referrals Optometry Referral Z00.00 - Encounter for general adult medical examination without abnormal findings Medications: New semaglutide (weight loss) (Wegovy) administer weeks 1 through 4 of therapy 0.25 mg (0.5 mL) subcut QWEEK 2 mL 0RF Discontinued nicotine (polacrilex) Discontinued Reason: Patient no longer taking 2 mg buccal Q2H 40 ea 0RF
== END 2024-03-15 15:51 | disposition home or self-care (01) ==
DX: Z00.00 Encounter for general adult medical examination without abnormal findings (principal); R25.1 Tremor, unspecified; I10 Essential (primary) hypertension; R29.2 Abnormal reflex; M51.362 Other intervertebral disc degeneration, lumbar region with discogenic back pain and lower extremity pain; E78.5 Hyperlipidemia, unspecified; N52.9 Male erectile dysfunction, unspecified; K76.0 Fatty (change of) liver, not elsewhere classified; M48.02 Spinal stenosis, cervical region; E66.811 Obesity, class 1; G47.33 Obstructive sleep apnea (adult) (pediatric); R79.89 Other specified abnormal findings of blood chemistry

== ENCOUNTER 2024-03-15 15:07 | Outpatient (REF) | payer OTHER, SELFPAY ==
--- OUTSIDE RECORDS SUMMARY | 2024-03-15 15:56 | XMS_ITS | Encounter Summary ---
Author Organization [facility] Address [address] [place] [address] Care Team Providers Care Frame Fixer Name Role Phone Clark Oliveira MD Primary Care Provider Unavail able Gayla Hagen MD Primary Care Provider Gabo gonzales Encounter Details Date Type Department Care Team Description 06/12/2018 Selector Packer Report Medical Records [address] [place] [address] Abstract, Provider Social History Tobacco Use Types [...] on filedocumented in this encounter Care Teams Frame Fixer Relationship Specialty Start Date End Date Clark Oliveira MD PCP - General Internal Medicine 05/16/13 04/22/21 Gayla Hagen MD PCP - General Family Practice 04/23/21 documented as of this encounter
--- OUTSIDE RECORDS SUMMARY | 2024-03-15 15:56 | XMS_ITS | Clinical Summary ---
Author Organization [facility] Address [address] [place] [address] Care Team Providers Care Director Of Informatics Name Role Phone Gayla Hagen MD Primary Care Provider [phone] Surgical History Surgery Date Site/Laterality Comments CHOLECYSTECTOMY [...] age to complete this topic Care Teams Director Of Informatics Relationship Specialty Start Date End Date Gayla Hagen MD [address] [place] [address] PCP - General 04/23/21
--- OUTSIDE RECORDS SUMMARY | 2024-03-15 15:56 | XMS_ITS | Encounter Summary ---
Author Organization [facility] Address [address] [place] [address] Care Team Providers Care Oracle Technical Architect Name Role Phone Clark Oliveira MD Primary Care Provider Unavail able Gayla Hagen MD Primary Care Provider Gabo gonzales Encounter Details Date Type Department Care Team Description 06/15/2018 Orders Only Medical Records [address] [place] [address] Clark Oliveira MD Social History Tobacco Use [...] filedocumented in this encounter Care Teams Oracle Technical Architect Relationship Specialty Start Date End Date Clark Oliveira MD PCP - General Internal Medicine 05/16/13 04/22/21 Gayla Hagen MD PCP - General Family Practice 04/23/21 documented as of this encounter
--- OUTSIDE RECORDS SUMMARY | 2024-03-15 15:57 | XMS_ITS | Encounter Summary ---
Author Organization [facility] Address [address] [place] [address] Care Team Providers Care Inspector Boiler Name Role Phone Clark Oliveira MD Primary Care Provider Unavail able Gayla Hagen MD Primary Care Provider Gabo gonzales Encounter Details Date Type Department Care Team Description 11/13/2019 Shredding Machine Tender Report Medical Records [address] [place] [address] Sebastian Bell MD Social History Tobacco Use [...] on filedocumented in this encounter Care Teams Inspector Boiler Relationship Specialty Start Date End Date Clark Oliveira MD PCP - General Internal Medicine 05/16/13 04/22/21 Gayla Hagen MD PCP - General Family Practice 04/23/21 documented as of this encounter
--- OUTSIDE RECORDS SUMMARY | 2024-03-15 15:57 | XMS_ITS | Encounter Summary ---
Author Organization [facility] Address [address] [place] [address] Care Team Providers Care Director Inpatient Headache Program Name Role Phone Clark Oilveira MD Primary Care Provider Unavail able Gayla Hagen MD Primary Care Provider Gabo gonzales Encounter Details Date Type Department Care Team Description 02/20/2018 Hospital Medical Records [address] [place] [address] Pa Monaco MD Social History Tobacco Use [...] filedocumented in this encounter Care Teams Director Inpatient Headache Program Relationship Specialty Start Date End Date Clark Oliveira MD PCP - General Internal Medicine 05/16/13 04/22/21 Gayla Hagen MD PCP - General Family Practice 04/23/21 documented as of this encounter
--- OUTSIDE RECORDS SUMMARY | 2024-03-15 15:57 | XMS_ITS | Encounter Summary ---
Author Organization [facility] Address [address] [place] [address] Care Team Providers Care Vacuum Cleaner Mechanic Name Role Phone Clark Oliveira MD Primary Care Provider Unavail able Gayla Hagen MD Primary Care Provider Gabo gonzales Encounter Details Date Type Department Care Team Description 06/06/2013 Transfer Records Medical Records [address] [place] [address] Abstract, Provider Social History Tobacco Use Types [...] on filedocumented in this encounter Care Teams Vacuum Cleaner Mechanic Relationship Specialty Start Date End Date Clark Oliveira MD PCP - General Internal Medicine 05/16/13 04/22/21 Gayla Hagen MD PCP - General Family Practice 04/23/21 documented as of this encounter
--- OUTSIDE RECORDS SUMMARY | 2024-03-15 15:57 | XMS_ITS | Encounter Summary ---
[facility] Organization [facility] Address [address] [place] [address] Care Team Providers Care Noc Analyst Name Role Phone Gayla Hagen MD Primary Care Provider Gabo gonzales Encounter Details Date Type Department Care Team Description 01/24/2023 Orders Only Medicine/Pediatrics - [address] [phone] Israel Hernandez PA-C [address] [place] [address] Elevated PSA (Primary Dx) Social History Tobacco [...] (PSA) documented in this encounter Care Teams Noc Analyst Relationship Specialty Start Date End Date Gayla Hagen MD PCP - General Family Practice 04/23/21 documented as of this encounter
--- OUTSIDE RECORDS SUMMARY | 2024-03-15 15:57 | XMS_ITS | Encounter Summary ---
Author Organization [facility] Address [address] [place] [address] Care Team Providers Care White Work Cleaner Name Role Phone Clark Oliveira MD Primary Care Provider Gayla Mac MD Primary Care Provider Gabo gonzales Reason for Visit * Reason Comments other Encounter Details Date Type Department Care Team Description 10/03/2016 Telephone Medicine/Pediatrics [address] [id number] Clark Oliveira MD other Social History Tobacco [...] Miscellaneous Notes * Telephone Encounter - Ifeoma lBakely M.A. - 10/05/2016 1:45 PM EDT Called [...] on filedocumented in this encounter Care Teams White Work Cleaner Relationship Specialty Start Date End Date Clark Oliveira MD PCP - General Internal Medicine 05/16/13 04/22/21 Gayla Hagen MD PCP - General Family Practice 04/23/21 documented as of this encounter
--- OUTSIDE RECORDS SUMMARY | 2024-03-15 15:57 | XMS_ITS | Encounter Summary ---
[facility] Address [address] [place] [address] Care Team Providers Care Specimen Collector Name Role Phone Gayla Hagen MD Primary Care Provider Gabo gonzales Reason for Visit * Reason Onset Date Comments medication problems 08/23/2022 Encounter Details Date Type Department Care Team Description 08/23/2022 Telephone Adult Medicine [address] [address] Gayla Hagen MD medication problems Social History [...] on filedocumented in this encounter Care Teams Specimen Collector Relationship Specialty Start Date End Date Gayla Hagen MD PCP - General Family Practice 04/23/21 documented as of this encounter
--- OUTSIDE RECORDS SUMMARY | 2024-03-15 15:57 | XMS_ITS | Encounter Summary ---
Author Organization [facility] Address [address] [place] [address] Care Team Providers Care Lumber Handler Name Role Phone Clark Oliveira MD Primary Care Provider Unavail able Gayla Hagen MD Primary Care Provider aGbo gonzales Encounter Details Date Type Department Care Team Description 04/03/2019 Roll Hauler Report Medical Records [address] [place] [address] Xavier Sandoval Social History Tobacco Use Types [...] on filedocumented in this encounter Care Teams Lumber Handler Relationship Specialty Start Date End Date Clark Oliveira MD PCP - General Internal Medicine 05/16/13 04/22/21 Gayla Hagen MD PCP - General Family Practice 04/23/21 documented as of this encounter
--- OUTSIDE RECORDS SUMMARY | 2024-03-15 15:57 | XMS_ITS | Encounter Summary ---
Author Organization [facility] Address [address] [place] [address] Care Team Providers Care Poured Pipe Maker Name Role Phone Clark Oliveira MD Primary Care Provider Unavail able Gayla Hagen MD Primary Care Provider Gabo gonzales Encounter Details Date Type Department Care Team Description 04/16/2020 Old Medical Records Medical Records [address] [place] [address] Abstract, Provider Social History Tobacco Use Types [...] on filedocumented in this encounter Care Teams Poured Pipe Maker Relationship Specialty Start Date End Date Clark Oliveira MD PCP - General Internal Medicine 05/16/13 04/22/21 Gayla Hagen MD PCP - General Family Practice 04/23/21 documented as of this encounter
--- OUTSIDE RECORDS SUMMARY | 2024-03-15 15:57 | XMS_ITS | Encounter Summary ---
Author Organization [facility] Address [address] [place] [address] Care Team Providers Care Auto Mechanics Teacher Name Role Phone Clark Oliveira MD Primary Care Provider Unavail able Gayla Hagen MD Primary Care Provider Gabo gonzales Encounter Details Date Type Department Care Team Description 10/21/2020 Tourist Home Keeper Report Medical Records [address] [place] [address] Jenna Jay NP Social History Tobacco Use [...] on filedocumented in this encounter Care Teams Auto Mechanics Teacher Relationship Specialty Start Date End Date Clark Oliveira MD PCP - General Internal Medicine 05/16/13 04/22/21 Gayla Hagen MD PCP - General Family Practice 04/23/21 documented as of this encounter
--- OUTSIDE RECORDS SUMMARY | 2024-03-15 15:57 | XMS_ITS | Encounter Summary ---
Author Organization [facility] Address [address] [place] [address] Care Team Providers Care Film Technician Name Role Phone Clark Oliveira MD Primary Care Provider Gayla Mac MD Primary Care Provider Gabo gonzales Reason for Visit * Reason Onset Date Comments APPOINTMENT 04/21/2021 Encounter Details Date Type Department Care Team Description 04/21/2021 Telephone Adult Medicine [address] [address] Clark Oliveira MD APPOINTMENT Social History Tobacco [...] for medication that he was prescribed [facility]. His insurance requires the rx come from his pcp office: [facility] patients calling to schedule any [...] traveled recently to another state outside of [place], [place], [place], [place], [place], [place], [place]? NO o If yes, did you quarantine [...] vehicle accident? NO If yes, gather 3rd democrat insurance information Date of accident/Injury: How long has patient had these symptoms?: PCP: Clark Oliveira Payor: [facility] / Plan: PPO $15 [place] [id number] / Product Type: PPO [id number] documented in this encounter Plan of Treatment Not on file documented as of this encounter Visit Diagnoses Not on filedocumented in this encounter Care Teams Film Technician Relationship Specialty Start Date End Date Clark Oliveira MD PCP - General Internal Medicine 05/16/13 04/22/21 Gayla Hagen MD PCP - General Family Practice 04/23/21 documented as of this encounter
--- OUTSIDE RECORDS SUMMARY | 2024-03-15 15:57 | XMS_ITS | Encounter Summary ---
Author Organization [facility] Address [address] [place] [address] Care Team Providers Care Special Needs Child Caregiver Name Role Phone Gayla Hagen MD Primary Care Provider Gabo gonzales Reason for Visit * Reason Onset Date Comments medication problems 04/26/2021 Encounter Details Date Type Department Care Team Description 04/26/2021 Telephone Adult Medicine [address] [address] Gayla Hagen MD medication problems Social History [...] Encounter - Kathia Lindsey M.A. - 04/26/2021 2:26 PM EDT The prior authorization for this was completed today with the insurance company. See other encounter. Thank you * Telephone Encounter - Harika Richardson M.A. - 04/26/2021 2:19 PM EDT Was the PA approved for the pt's Viagra? * Telephone Encounter - Jong Salinas - 04/26/2021 2:14 PM EDT Who is calling? The patient Name of the medication sildenafil (VIAGRA) 50 MG tablet What is the specific problem or interaction? Pt calling asking to know status of medication being filled If the patient is having a problem with taking the med - how long has the problem been going on? N/A documented in this encounter Plan of Treatment Not on file documented as of this encounter Visit Diagnoses Not on filedocumented in this encounter Care Teams Special Needs Child Caregiver Relationship Specialty Start Date End Date Gayla Hagen MD PCP - General Family Practice 04/23/21 documented as of this encounter
--- OUTSIDE RECORDS SUMMARY | 2024-03-15 15:57 | XMS_ITS | Encounter Summary ---
Author Organization [facility] Address [address] [place] [address] Care Team Providers Care Pointer Helper Name Role Phone Clark Oliveira MD Primary Care Provider Unavail able Gayla Hagen MD Primary Care Provider Gbao gonzales Encounter Details Date Type Department Care Team Description 12/13/2018 Director Pharmacy Services Report Medical Records [address] [place] [address] Noemy Limon MD Social History Tobacco Use [...] on filedocumented in this encounter Care Teams Pointer Helper Relationship Specialty Start Date End Date Clark Oliveira MD PCP - General Internal Medicine 05/16/13 04/22/21 Gayla Hagen MD PCP - General Family Practice 04/23/21 documented as of this encounter
--- OUTSIDE RECORDS SUMMARY | 2024-03-15 15:57 | XMS_ITS | Encounter Summary ---
Author Organization [facility] Address [address] [place] [address] Care Team Providers Care Physicians Assistant Name Role Phone Clark Oliveira MD Primary Care Provider Unavail able Gayla Hagen MD Primary Care Provider Gabo gonzales Encounter Details Date Type Department Care Team Description 06/22/2020 Gum Machine Filler Report Medical Records [address] [place] [address] Xavier Sandoval Social History Tobacco Use Types [...] on filedocumented in this encounter Care Teams Physicians Assistant Relationship Specialty Start Date End Date Clark Oliveira MD PCP - General Internal Medicine 05/16/13 04/22/21 Gayla Hagen MD PCP - General Family Practice 04/23/21 documented as of this encounter
--- OUTSIDE RECORDS SUMMARY | 2024-03-15 15:57 | XMS_ITS | Encounter Summary ---
[facility] Organization [facility] Address [address] [place] [address] Care Team Providers Care Customer Care Coordinator Name Role Phone Gayla Hagen MD Primary Care Provider Gabo gonzales Reason for Visit * Reason Onset Date Comments Prior Authorization 03/03/2022 gastro Encounter Details Date Type Department Care Team Description 03/03/2022 Telephone Adult Medicine - [place] [address] [place] [address] Marty Montgomery MD [address] [facility] [address] [place] [address] Prior Authorization (gastro) Social History Tobacco Use [...] Kay Tran - 03/17/2022 3:00 PM EST [facility] auth [id number] Valid 04/14/22-07/13/22 [facility] * Telephone Encounter - Kay Tran - 03/03/2022 9:25 AM EST Auth pending with [facility] # [id number]. * Telephone Encounter - Kathy Joseph - 03/03/2022 7:10 AM EST Images from the original note were not included. Shelbie Rendon Diagnostic PA & External surgeon [place] pre-op pool Pre-auth needed Patient is scheduled for an colonoscopy on 04/14/22 Diagnosis screening Patients insurance: [facility] Appointment is with Marty Montgomery MD Code to process pre-auth for: [id number] Location of procedure: [facility] documented in this encounter Plan of Treatment Not on file documented as of this encounter Visit Diagnoses Not on filedocumented in this encounter Care Teams Customer Care Coordinator Relationship Specialty Start Date End Date Gayla Hagen MD PCP - General Family Practice 04/23/21 documented as of this encounter
--- OUTSIDE RECORDS SUMMARY | 2024-03-15 15:57 | XMS_ITS | Encounter Summary ---
Author Organization [facility] Address [address] [place] [address] Care Team Providers Care Independent Contractor Name Role Phone Clark Oliveira MD Primary Care Provider Unavail able Gayla Hagen MD Primary Care Provider Gabo gonzales Encounter Details Date Type Department Care Team Description 06/07/2016 Talent Analyst Report Medical Records [address] [place] [address] Xavier Sandoval Social History Tobacco Use Types [...] on filedocumented in this encounter Care Teams Independent Contractor Relationship Specialty Start Date End Date Clark Oliveira MD PCP - General Internal Medicine 05/16/13 04/22/21 Gayla Hagen MD PCP - General Family Practice 04/23/21 documented as of this encounter
--- OUTSIDE RECORDS SUMMARY | 2024-03-15 15:57 | XMS_ITS | Encounter Summary ---
Author Organization [facility] Address [address] [place] [address] Care Team Providers Care Agronomy Teacher Name Role Phone Clark Oliveira MD Primary Care Provider Gayla Mac MD Primary Care Provider Gabo gonzales Reason for Visit * Reason Onset Date Comments REFERRAL 05/18/2018 Encounter Details Date Type Department Care Team Description 05/18/2018 Telephone Adult Medicine [address] [address] Clark Oliveira MD REFERRAL Social History Tobacco [...] Joseph - 05/18/2018 9:47 AM EDT Called [facility]- still pending * Telephone Encounter - [...] on filedocumented in this encounter Care Teams Agronomy Teacher Relationship Specialty Start Date End Date Clark Oliveira MD PCP - General Internal Medicine 05/16/13 04/22/21 Gayla Hagen MD PCP - General Family Practice 04/23/21 documented as of this encounter
--- OUTSIDE RECORDS SUMMARY | 2024-03-15 15:57 | XMS_ITS | Encounter Summary ---
Author Organization [facility] Address [address] [place] [address] Care Team Providers Care High Lift Mule Operator Name Role Phone Gayla Hagen MD Primary Care Provider Gabo gonzales Encounter Details Date Type Department Care Team Description 06/14/2022 Refill Medicine/Pediatrics - [address] [address] Gayla Hagen MD Social History Tobacco Use [...] type documented in this encounter Care Teams High Lift Mule Operator Relationship Specialty Start Date End Date Gayla Hagen MD PCP - General Family Practice 04/23/21 documented as of this encounter
--- OUTSIDE RECORDS SUMMARY | 2024-03-15 15:57 | XMS_ITS | Encounter Summary ---
Author Organization [facility] Address [address] [place] [address] Care Team Providers Care Roller Skater Name Role Phone Gayla Hagen MD Primary Care Provider Gabo gonzales Reason for Visit * Reason Onset Date Comments Medication 04/07/2022 Encounter Details Date Type Department Care Team Description 04/07/2022 Refill Gastroenterology - [place] [address] [facility] [address] [place] [phone] Marty Montgomery MD [address] [facility] [address] [place] [address] Medication Social History Tobacco Use Types Packs/Day [...] on filedocumented in this encounter Care Teams Roller Skater Relationship Specialty Start Date End Date Gayla Hagen MD PCP - General Family Practice 04/23/21 documented as of this encounter
--- OUTSIDE RECORDS SUMMARY | 2024-03-15 15:57 | XMS_ITS | Encounter Summary ---
Author Organization [facility] Address [address] [place] [address] Care Team Providers Care Site Acquisition Specialist Name Role Phone Gayla Hagen MD Primary Care Provider Gabo gonzales Reason for Visit * Reason Onset Date Comments Prior Authorization 10/15/2021 Encounter Details Date Type Department Care Team Description 10/15/2021 Telephone Gastroenterology - [place] [address] [facility] [address] [place] [phone] Marty Montgomery MD [address] [facility] [address] [place] [address] Prior Authorization Social History Tobacco Use Types [...] on filedocumented in this encounter Care Teams Site Acquisition Specialist Relationship Specialty Start Date End Date Gayla Hagen MD PCP - General Family Practice 04/23/21 documented as of this encounter
--- OUTSIDE RECORDS SUMMARY | 2024-03-15 15:57 | XMS_ITS | Encounter Summary ---
Author Organization [facility] Address [address] [place] [address] Care Team Providers Care Cruller Maker Machine Name Role Phone Community, Pcp Primary Care Provider UnavailElliot Bonner Primary Care Provider [phone] Cy Cabrera MD Primary Care Provider Unavailab Clark Murphy MD Primary Care Provider Unavail able Gayla Hagen MD Primary Care Provider Gabo gonzales Reason for Visit * Reason Comments other LETTER Encounter Details Date Type Department Care Team Description 03/01/2001 Telephone Adult Medicine [address] [phone] Elliot Chang [address] [place] [phone] other (LETTER ) Social History Tobacco Use [...] 9:26 AM ESTCALL RECEIVED. Contact: SELF - [phone]-IKER JAUREGUI'S OFFICE BUT ASK FOR PT PT RECEIVED A LETTER TO EXCUSE HIS ABSENCE AT WORK, BUT PT WAS TOLD BY EMPLOYER THAT THEY WILL NOT E XCUSE HIM BECAUSE [employer] DID NOT DEVONTE THE OUT OF WORK PART OF IT, AND NEEDS A NEW ONE SO THEY WILL EXCUSE THAT ABSENCE. PLEASE CALL THE NUMBER ABOVE AND LET PT KNOW YES OR NO. documented in this encounter Plan of Treatment Not on file documented as of this encounter Visit Diagnoses Not on filedocumented in this encounter Care Teams Cruller Maker Machine Relationship Specialty Start Date End Date Community, Pcp PCP - General 03/04/06 05/12/13 Elliot Chang [address] [place], [place] [id number] PCP - General 02/27/01 03/03/06 Cy Cabrera MD [address] [place] [address] PCP - General Internal Medicine 05/13/13 05/15/13 Clark Oliveira MD [address] [place] [address] PCP - General Internal Medicine 05/16/13 04/22/21 Gayla Hagen MD [address] [place] [address] PCP - General Family Practice 04/23/21 documented as of this encounter
--- OUTSIDE RECORDS SUMMARY | 2024-03-15 15:57 | XMS_ITS | Encounter Summary ---
Author Organization [facility] Address [address] [place] [address] Care Team Providers Care Security Software Engineer Name Role Phone Clark Oliveira MD Primary Care Provider Unavail able Gayla Hagen MD Primary Care Provider Gabo gonzales Encounter Details Date Type Department Care Team Description 02/19/2018 Transfer Records Medical Records [address] [place] [address] Abstract, Provider Social History Tobacco Use Types [...] on filedocumented in this encounter Care Teams Security Software Engineer Relationship Specialty Start Date End Date Clark Oliveira MD PCP - General Internal Medicine 05/16/13 04/22/21 Gayla Hagen MD PCP - General Family Practice 04/23/21 documented as of this encounter
--- OUTSIDE RECORDS SUMMARY | 2024-03-15 15:57 | XMS_ITS | Encounter Summary ---
Author Organization [facility] Address [address] [place] [address] Care Team Providers Care Electrical Instrumentation Technician Name Role Phone Clark Oliveira MD Primary Care Provider Unavail able Gayla Hagen MD Primary Care Provider Gabo gonzales Encounter Details Date Type Department Care Team Description 11/26/2015 Dopster Report Medical Records [address] [place] [address] Pa Monaco MD Social History Tobacco Use [...] on filedocumented in this encounter Care Teams Electrical Instrumentation Technician Relationship Specialty Start Date End Date Clark Oliveira MD PCP - General Internal Medicine 05/16/13 04/22/21 Gayla Hagen MD PCP - General Family Practice 04/23/21 documented as of this encounter
--- OUTSIDE RECORDS SUMMARY | 2024-03-15 15:57 | XMS_ITS | Encounter Summary ---
Author Organization [facility] Address [address] [place] [address] Care Team Providers Care Trade Show Manager Name Role Phone Gayla Hagen MD Primary Care Provider Gabo gonzales Reason for Visit * Reason Onset Date Comments Prior Authorization 05/24/2022 Encounter Details Date Type Department Care Team Description 05/24/2022 Telephone Adult Medicine [address] [address] Gayla Hagen MD Prior Authorization Social History [...] 08/24/23 Prior authorization case approval number # [id number] Approval faxed to [facility] at [phone] * Telephone Encounter - Kathia Lindsey M.A. [...] My Meds request: Yes -- Barney Code [id number] Name of Medication sildenafil (VIAGRA) 100 MG tablet Dose of Medication 100MG What is the RX # from the faxed refill? ? How does patient take this med? TAKE 1 TABLET 1 HOUR PRIOR TO INTERCOURSE NEEDED What Pharmacy did the fax come from: [facility] Pharmacy fax #: [phone] Third [employer] Party Information from fax: What Prescription Plan does the patient have? BIN/PCN if applicable: Cardholder ID:[id number] Person Code: 01 Relationship Code: SELF Help desk phone: [phone] documented in this encounter Plan of Treatment Not on file documented as of this encounter Visit Diagnoses Not on filedocumented in this encounter Care Teams Trade Show Manager Relationship Specialty Start Date End Date Gayla Hagen MD PCP - General Family Practice 04/23/21 documented as of this encounter
--- OUTSIDE RECORDS SUMMARY | 2024-03-15 15:57 | XMS_ITS | Encounter Summary ---
Author Organization [facility] Address [address] [place] [address] Care Team Providers Care Professional Nursing Tutor Name Role Phone Clark Oliveira MD Primary Care Provider Unavail able Gayla Hagen MD Primary Care Provider Gabo gonzales Encounter Details Date Type Department Care Team Description 10/06/2020 Pharmacy Intern Report Medical Records [address] [place] [address] Xavier Sandoval Social History Tobacco Use Types [...] on filedocumented in this encounter Care Teams Professional Nursing Tutor Relationship Specialty Start Date End Date Clark Oliveira MD PCP - General Internal Medicine 05/16/13 04/22/21 Gayla Hagen MD PCP - General Family Practice 04/23/21 documented as of this encounter
--- OUTSIDE RECORDS SUMMARY | 2024-03-15 15:57 | XMS_ITS | Encounter Summary ---
Author Organization [facility] Address [address] [place] [address] Care Team Providers Care Maintenance Of Way Superintendent Name Role Phone Gayla Hagen MD Primary Care Provider Gabo gonzales Encounter Details Date Type Department Care Team Description 05/17/2021 Saturator Tender Report Medical Records [address] [place] [address] Fabiana Knox PA-C Social History Tobacco Use [...] on filedocumented in this encounter Care Teams Maintenance Of Way Superintendent Relationship Specialty Start Date End Date Gayla Hagen MD PCP - General Family Practice 04/23/21 documented as of this encounter
--- OUTSIDE RECORDS SUMMARY | 2024-03-15 15:57 | XMS_ITS | Encounter Summary ---
Author Organization [facility] Address [address] [place] [address] Care Team Providers Care Laboratory Veterinarian Name Role Phone Clark Oliveira MD Primary Care Provider Unavail able Gayla Hagen MD Primary Care Provider Gabo gonzales Reason for Visit * Reason Onset Date Comments Faxed Refill 12/02/2019 Encounter Details Date Type Department Care Team Description 12/02/2019 Refill Adult Medicine [address] [address] Clark Oliveira MD Faxed Refill Social History [...] is: Payor: [facility] / Plan: PPO $30 [place] [id number] / Product Type: PPO [id number] documented in this encounter Plan of Treatment Not on file documented as of this encounter Visit Diagnoses Not on filedocumented in this encounter Care Teams Laboratory Veterinarian Relationship Specialty Start Date End Date Clark Oliveira MD PCP - General Internal Medicine 05/16/13 04/22/21 Gayla Hagen MD PCP - General Family Practice 04/23/21 documented as of this encounter
--- OUTSIDE RECORDS SUMMARY | 2024-03-15 15:57 | XMS_ITS | Encounter Summary ---
Author Organization [facility] [facility] Address [address] [place] [address] Care Team Providers Care Environment Friendly Landscape Designer Name Role Phone Gayla Hagen MD Primary Care Provider Gabo gonzales Reason for Visit * Reason Onset Date Comments Medication 03/31/2022 Encounter Details Date Type Department Care Team Description 03/31/2022 Refill Gastroenterology - [place] [address] [facility] [address] [place] [address] Marty Montgomery MD [address] [facility] [address] [place] [address] Medication Social History Tobacco Use Types Packs/Day [...] on filedocumented in this encounter Care Teams Environment Friendly Landscape Designer Relationship Specialty Start Date End Date Gayla Hagen MD PCP - General Family Practice 04/23/21 documented as of this encounter
--- OUTSIDE RECORDS SUMMARY | 2024-03-15 15:57 | XMS_ITS | Encounter Summary ---
Author Organization [facility] Address [address] [place] [address] Care Team Providers Care Professor Of Mathematics Name Role Phone Gayla Hagen MD Primary Care Provider Gabo gonzales Reason for Visit * Reason Onset Date Comments Medication 10/08/2021 Encounter Details Date Type Department Care Team Description 10/08/2021 Refill Gastroenterology - [place] [address] [facility] [address] [place] [address] Marty Montgomery MD [address] [facility] [address] [place] [address] Medication Social History Tobacco Use Types Packs/Day [...] on filedocumented in this encounter Care Teams Professor Of Mathematics Relationship Specialty Start Date End Date Gayla Hagen MD PCP - General Family Practice 04/23/21 documented as of this encounter
--- OUTSIDE RECORDS SUMMARY | 2024-03-15 15:57 | XMS_ITS | Encounter Summary ---
Author Organization [facility] Address [address] [place] [address] Care Team Providers Care Regional Project Manager Name Role Phone Clark Oliveira MD Primary Care Provider Unavail able Gayla Hagen MD Primary Care Provider Gabo gonzales Encounter Details Date Type Department Care Team Description 03/23/2017 Bee Robber Report Medical Records [address] [place] [address] Carlyle Fine MD Social History Tobacco Use Types Packs/Day [...] on filedocumented in this encounter Care Teams Regional Project Manager Relationship Specialty Start Date End Date Clark Oliveira MD PCP - General Internal Medicine 05/16/13 04/22/21 Gayla Hagen MD PCP - General Family Practice 04/23/21 documented as of this encounter
--- OUTSIDE RECORDS SUMMARY | 2024-03-15 15:57 | XMS_ITS | Encounter Summary ---
Author Organization [facility] Address [address] [place] [address] Care Team Providers Care Cnc Operator Machinist Name Role Phone Clark Oliveira MD Primary Care Provider Unavail able Gayla Hagen MD Primary Care Provider Gabo gonzales Encounter Details Date Type Department Care Team Description 02/03/2015 Orders Only Medical Records [address] [place] [address] Clark Oliveira MD Social History Tobacco Use [...] on filedocumented in this encounter Care Teams Cnc Operator Machinist Relationship Specialty Start Date End Date Clark Oliveira MD PCP - General Internal Medicine 05/16/13 04/22/21 Gayla Hagen MD PCP - General Family Practice 04/23/21 documented as of this encounter
[2024-03-15 16:27] LABS: Alanine Aminotransferase 46 U/L (0-40); Albumin Level 4.4 g/dL (3.5-5.0); Alkaline Phosphatase 89 U/L (39-117); Anion Gap 12 (12-20); Aspartate Amino Transferase 25 U/L (5-37); Bilirubin Total 0.4 mg/dL (0.0-1.0); Blood Urea Nitrogen 14 mg/dL (9-16); Calcium 9.8 mg/dL (8.4-10.2); Carbon Dioxide 27 mmol/L (22-29); Chloride 107 mmol/L (96-108); Estimated Glomerular Filt Rate > 60; Glucose Random 81 mg/dL (60-115); Potassium 4.2 mmol/L (3.3-5.1); Sodium 142 mmol/L (135-145); Total Protein 8.1 g/dL (6.5-8.0)
== END 2024-03-15 15:08 | disposition home or self-care (01) ==
LOC: HO.LAB 15:07
DX: Z00.00 Encounter for general adult medical examination without abnormal findings (principal); R25.1 Tremor, unspecified; I10 Essential (primary) hypertension; R29.2 Abnormal reflex; M51.362 Other intervertebral disc degeneration, lumbar region with discogenic back pain and lower extremity pain; E78.5 Hyperlipidemia, unspecified; N52.9 Male erectile dysfunction, unspecified; K76.0 Fatty (change of) liver, not elsewhere classified; M48.02 Spinal stenosis, cervical region; E66.811 Obesity, class 1; Z68.37 Body mass index [BMI] 37.0-37.9, adult; G47.33 Obstructive sleep apnea (adult) (pediatric); R79.89 Other specified abnormal findings of blood chemistry; Z99.89 Dependence on other enabling machines and devices
CPT/HCPCS: 36415; 80053; 96127

== ENCOUNTER 2024-03-25 15:00 | Outpatient (AMB) | payer OTHER, SELFPAY ==
--- NOTE | 2024-03-25 15:06 | HO.SPINEOV ---
Intake Visit Reasons: re-evaluation/after injection Intake Note: Mr. Mccall is here today to Re evaluation after injections. Environmental Educator Required: No Allergies No Known Allergies Allergy (Verified 03/25/24 15:09) Assessment & Plan Assessment & Plan (1) Spondylosis, lumbar, with myelopathy: Code(s): M47.16 - Other spondylosis with myelopathy, lumbar region Category: Medical Plan Mr Mccall returned to the office today see us. He has been dealing with a centralized to the right side low back pain which radiates up his spine and occasionally down into his left leg. 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 He has been through conservative treatment including around of injections done by Dr. Jay which unfortunately did not give him any significant relief. I went back and reviewed his MRI again and he has bvss-cn-[id number] degeneration at L3-4 and L4-5. There is some slight narrowing in the foramen but nothing severe. I am not sure how to explain all this pain based on the imaging. I am going to review with Dr. Handley to see if he has any other thoughts. note was talking about neuromodulation if he was not a surgical candidate. That maybe something to consider depending on what Dr. Handley thinks about his imaging. I will follow up with the patient once I have a chance review everything. Total amount of time spent in this visit was 20 minutes in discussion of symptoms, lumbar imaging results and subsequent plan of care Sebastian Handley MD,PhD [facility] Coding Level of Care Code Est Pt Level 3 (25516) Diagnoses Spondylosis, lumbar, with myelopathy M47.16
== END 2024-03-25 15:47 | disposition home or self-care (01) ==
PROVIDERS: Visit Provider Physician Assistant
DX: M47.16 Other spondylosis with myelopathy, lumbar region (principal)
CPT/HCPCS: 99213

== ENCOUNTER 2024-04-08 10:51 | Outpatient (AMB) | payer OTHER, SELFPAY ==
--- NOTE | 2024-04-08 11:31 | A.OFFVIS_ITS ---
Vital Signs 04/08/24 11:33 Height 6 ft 1 in Weight 296 lb BMI 39.0 BP 164/97 H Blood Pressure Location Lt brachial Position Sitting Pulse 83 Pulse Source Pulse Oximeter Pulse Oximetry (%) 97 Oxygen Delivery Method Room Air Intake Visit Reasons: Intracept procedure review/ref by Dr Rosa Inspector Type Required: No Allergies No Known Allergies Allergy (Verified 04/08/24 11:32) Medication List - Last Reconciled 04/08/24 by Jess Harmon, [employer] amlodipine 10 mg PO DAILY emtricitabine-tenofovir (TDF) 200-300 mg 1 tab PO DAILY gabapentin 600 mg PO .qhs 30 days lisinopril 10 mg PO DAILY naproxen 500 mg PO BID semaglutide (weight loss) (Wegovy) 0.25 mg (0.5 mL) subcut QWEEK HPI HPI Intracept procedure review/ref by Dr Rosa: Details: History of Present Illness The patient is a 49-year-old male presenting with persistent and progressive low back pain, initially managed with physical therapy, epidural injections, and gabapentin without significant effect. 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 Current pain intervention discussions aim to address these limitations. Pain Description - Onset: Gradual onset over several years. - Quality and character: Persistent low back pain with a squeezing sensation. - Primary location: Lumbar spine region. - Areas of radiation: Radiates to the left leg with reported numbness in specific toes. - Severity: Consistently rated as 7 on a 1 to 10 scale. 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 - Relieving factors: Mild improvement with activity throughout the day, although notable residual pain persists. Physical Exam - Musculoskeletal- Limited lumbar extension noted. - Range of Motion- Forward flexion reproduces squeezing sensation; lumbar extension induces tightness. Results - Imaging: MRI shows mixed Modic changes changes at L3-L4 and L4-L5 and L5-S1. Slight loss of the intervertebral disc height and signal intensity at multiple levels related to disc degeneration. Moderate left L4 foraminals stenosis. The tip of the conus medullaris is located at L1. No mass effect on the conus. Visualized distal cord signal intensity is normal. Pain Management - Affect: The patient's physical activity and daily functioning are significantly impaired by pain. - Analgesia: Reports pain level at a 7; current attempted interventions include gabapentin and unsuccessful corticosteroid injections. - Adverse Effects: No noted directly related adverse effects discussed. - Activities of Daily Living: Significant impact on daily life and work; limitations noted, particularly in chores and bending activities. - Aberrant Drug Related Behaviors: None reported or indicated. [facility] Medical History Obstructive sleep apnea Numbness of right hand Surgical History History of carpal tunnel release Hx laparoscopic cholecystectomy H/O circumcision Family History Mother Arthritis Hypercholesteremia HTN (hypertension) Diabetes Maternal Grandmother HTN (hypertension) Diabetes Father Liver cancer Social History Housing: House Alcohol intake: current Alcohol intake frequency: a few times a week Patient Tobacco Use Status: Former Tobacco user e-Cigarette/Vaping Use: Currently Using service: No Current occupational status: employed Cognitive needs: No Hearing needs: No Vision needs: No Physical Exam Vital Signs: Last Vital Signs Pulse 83 04/08/24 11:33 BP 164/97 H 04/08/24 11:33 Pulse Ox 97 04/08/24 11:33 Oxygen Delivery Method Room Air 04/08/24 11:33 BMI result Body Mass Index 39.0 Assessment & Plan Assessment & Plan (1) Vertebrogenic low back pain: Code(s): M54.51 - Vertebrogenic low back pain Category: Medical Plan Plan I will proceed with the pre-authorization process for basivertebral nerve ablation to manage the patient's refractory vertebrogenic low back pain secondary to endplate Modic changes. This intervention is intended to reduce p ain and improve patient function, thus enabling engagement in physical activities to bolster core strength and minimize further spinal degeneration. Post-procedurally, the patient will be advised on exercises and routines to maintain spinal health and deter the progression toward potential surgical interventions. Patient was informed and verbally consented to the use of an ambient scribe for clinic note documentation during this visit. Discussion Notes I discussed with the patient the condition of vertebrogenic low back pain, secondary to Modic changes, and the option of basal vertebral nerve ablation, including the risks, benefits, and improvement rate of 70-80%. The patient understands this treatment will control symptoms rather than cure the condition, necessitating ongoing personal management through physical therapy and exercise to slow deterioration. Agreement was obtained for moving forward with insurance authorization and scheduling. The potential for surgical intervention in the future was also covered if symptoms continue to deteriorate without appropriate management. We reviewed follow-up procedures post-intervention and ensured that patient queries and concerns were addressed appropriately. Patient Instructions - Plan for basivertebral nerve ablation as an outpatient procedure. - Arrange for time off work post-procedure (approximately two days). - Engage in recommended physical activities once cleared to prevent progression. - Maintain posture and avoid straining activities; practice core strengthening exercises. - Report any new or increasing symptoms or concerns promptly. - Follow up once the procedure is authorized and scheduled. Coding Level of Care Code Est Pt Level 4 (92374) Diagnoses Vertebrogenic low back pain M54.51
[2024-04-08 11:33] VITALS: BP 164/97; PULSE 83; O2SAT 97; BMI 39.0
--- OUTSIDE RECORDS SUMMARY | 2024-04-08 12:21 | XMS_ITS ---
Author Organization [facility] Address [address] 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 Name Role Phone HAILY ENGEL Unavailable [phone] Allergies No Known Allergies Results Component Value Reference Range Notes Creatinine-[id number] Reviewed date:03/19/2024 10:20:42 AM Interpretation:Normal Performing Lab:[facility], [address] [place] [address], Phone - [phone], Director - [facility] Notes/Report: Creatinine 1.04 0.76-1.27 mg/dL eGFR 89 >59 mL/min/1.73 T pallidum Screening [place] -[id number] Reviewed date:03/23/2024 12:41:47 PM Interpretation:RPR 1:4 Performing Lab:[facility], [email or web address], [address], [place], Phone - [phone], Director - [facility] Notes/Report: T pallidum Antibodies Reactive Non Reactive RPR Reactive Non Reactive RPR, Quant 1:4 NonRea<1:1 titer HIV Ab/p24 Ag with Reflex-[id number] Reviewed date:03/19/2024 01:58:50 PM Interpretation:Negative Performing Lab:[facility], [address], [address], [place], Phone - [phone], Director - [facility] Notes/Report: HIV Ab/p24 Ag Screen Non Reactive Non Reactive HIV-1/HIV-2 antibodies and HIV-1 p24 antigen were NOT detected. There is no laboratory evidence of HIV infection. HIV Negative Chlamydia/GC Amplification-[id number] Reviewed date:03/19/2024 07:31:07 PM Interpretation:Negative Performing Lab:[facility] [place], [address], [address], [place], Phone - [phone], Director - [facility] Notes/Report: Chlamydia trachomatis, SURESH Negative Negative Neisseria gonorrhoeae, SURESH Negative Negative Ct/GC SURESH, Pharyngeal-[id number] Reviewed date:03/19/2024 07:31:01 PM Interpretation:Negative Performing Lab:[facility] [place], [address], [address], [place], Phone - [phone], Director - [facility] Notes/Report: C. trachomatis, SURESH, Pharyn Negative Negative N. gonorrhoeae, SURESH, Pharyn Negative Negative HCV Antibody-[id number] Reviewed date:03/19/2024 01:59:14 PM Interpretation:Negative Performing Lab:[facility] [place], [address], [address], [place], Phone - [phone], Director - [facility] Notes/Report: Hep C Virus Ab Non Reactive Non Reactive HCV antibody alone does not differentiate between previously resolved infection and active infection. Equivocal and Reactive HCV antibody results should be followed up with an HCV RNA test to support the diagnosis of active HCV infection. REASON FOR VISIT PrEP Follow-up Visit Medications Medication SIG (Take, Route, Frequency, Duration) Notes Start Date End Date Status Naproxen Not-Taking Doxycycline Monohydrate 100 MG 2 tablet Orally Taken as soon as possible after sex, ideally within 24 hours and no later than 72 hours after sex. No more than 200 mg should be taken within a 24-hour period. for 15 days 12/05/2023 Not-Taking amLODIPine Benzoate Active Truvada 200-300 MG 1 tablet Orally Once a day for 90 days Active Gabapentin Active Social History Sex Assigned At : Social History Observation Description Sex Assigned At Male Vital Signs Blood pressure systolic 114 mm Hg 03/18/19 25 Blood pressure diastolic 78 mm Hg 025 Height 6'1 in 03/18/2024 Weight 287.8 lbs 03/18/2024 BMI 37.97 kg/m2 03/18/2024 Encounters Encounter Location Date Provider Diagnosis [place] [facility] [place], [place] [id number] 03/18/2024 HAILY ENGEL Encounter for screen ing for human immunodeficiency virus [HIV] Z11.4 ; Encounter for HIV pre-exposure prophylaxis Z29.81 ; Encounter for screening for infections with a predominantly sexual mode of transmission Z11.3 ; Other problems related to lifestyle Z72.89 ; Other jail (current) drug therapy Z79.899 and Encounter for screening for other viral diseases Z11.59 Assessments Encounter Date Diagnosis (ICD Code) Assessment Notes Treatment Notes Treatment Clinical Notes Section Notes 03/18/2024 Encounter for screening for human immunodeficiency virus [...] Section C) Risk Document low risk of morbidity/mortal ity 03/18/2024 Encounter for HIV pre-exposure prophylaxis (ICD-10 - [...] well as protect you from other STDs. Reviewed resources if clt is uninsured or needs co-pay assistance to help lower the cost of PrEP medication. Will reach out to [facility] again since clt has completed all forms for coverage of Descovy Need 2 out of 3 Sections from [...] Section C) Risk Document low risk of morbidity/mortal ity 03/18/2024 Encounter for screening for infections with a predominantly sexual mode of transmission (ICD-10 - Z11.3) Reviewed routine screening, safe sex and consistent barrier protection. Aware of window period for testing and testing options. Discussed symptoms that would warrant further evaluation and follow-up care Encouraged Hep B vaccine through [facility] or local pharmacy Need 2 out of 3 Sections from [...] Section C) Risk Document low risk of morbidity/mortal ity 03/18/2024 Other problems related to lifestyle (ICD-10 - [...] Section C) Risk Document low risk of morbidity/mortal ity 03/18/2024 Other intermission coordinator (current) drug therapy (ICD-10 - Z79.899) Need [...] Section C) Risk Document low risk of morbidity/mortal ity 03/18/2024 Encounter for screening for other viral diseases [...] Section C) Risk Document low risk of morbidity/mortal ity Plan Of Treatment Medication Medication Name Sig Start Date Stop Date Notes Truvada 200-300 MG 1 tablet Orally Once a day for 90 days Treatment Notes Assessment Notes Encounter for HIV pre-exposure prophylax is PrEP reduces the risk of getting HIV [...] well as protect you from other STDs. Reviewed resources if clt is uninsured or needs co-pay assistance to help lower the cost of PrEP medication. Will reach out to [facility] again since clt has completed all forms for coverage of Descovy Encounter for screening for infections with a predominantly sexual mode of transmission Reviewed routine screening, safe sex and consistent barrier protection. Aware of window period for testing and testing options. Discussed symptoms that would warrant further evaluation and follow-up care Encouraged Hep B vaccine through [facility] or local pharmacy Next Appt Details Follow Up: 3 Months, Reason: PrEP F/U Provider Name:HAILY ENGEL , 06/10/2024 04:15:00 PM, [address] [place] [address], [address], [place], [place], [phone], Progress Notes * Zana MATHEWOB:[birth year] (49 yo M)Acc No.[id number]:03/18/2024 Progress Notes Patient:?Luc MATHEW Provider:?Haily Engel NP :1975???Age:49 Y???Sex:Male Otilio e:03/18/2024 Address:[address] [place], [place] [id number] Subjective: * Chief Complaints: * ???PrEP Follow-up Visit * HPI: ???Visit Narrative:?Clt presenting for routine PrEP visit. Denies change in partner since last STI screen, but does have multiple partners and would like routine screen today. Denies issue with side effects or daily compliance of meds. Denies symptoms of acute HIV infection, liver disease or lactic acidosis. Clt has recently stopped taking Naproxen as per PCP advice, will start other tx for chronic back pain. Would still like and try to get Descovy covered by insurance of [employer]. ?Reason for the visit:?PrEP F/U.?Last date of UPI:?03/16.? * ROS:?Hepatology:?Jaundice?Denies.?Dark Urine?Denies.?Light Colored Stools?Denies.?Upper Abdominal Pain?Denies.?General/Constitutional:?Denies?Chills.?Denies?Fatigue.?Denies?Fever.?Denies?Headache.?Denies?Light headedness.?Denies?Night sweats.?Denies?Weight loss.?Allergy/Immunology:?Denies?Enlarged Lymph Nodes.?Gastrointestinal:?Denies?Decreased appetite.?Denies?Diarrhea.?Denies?Nausea.?Denies?Stomach problems.?Denies?Vomiting.?Denies?Weight loss.?Musculoskeletal:?Denies?Muscle aches.?Denies?Painful joints.?Denies?Weakness.?Skin:?Denies?Rash.?Neurologic:?Denies?Dizziness.?Psychiatric:?Denies?Malaise.? * Medical History:? * Surgical History:?gall bladd er removal 2018double carpal tunnel release 2018circum2020 * Hospitalization/Major Diagno stic Procedure:?Denies Past Hospitalization * Family History:?Father: hype rtension, prostate cancer, diabetes mellitus.?Paternal Grand Mother: breast cancer and/or BRCA gene, diabetes mellitus.?Paternal uncle: prostate cancer.? * Social History:?Food Access:?Food Access?The Client's current access to food is?Secure Food Access ???Housing:?Housing?The client's current living situation is:?stable housing ???Reproductive Life Plan:?Reproductive Life Plan?Do you want to have children??No, I don't want to have children ?How sure are you that you will be able to use your control method without any problems??Very sure ?People's plans change. Is it possible you or your partner could ever decide to become ??No ???Sexual History:?Sexual History?Sexual History Reviewed:?Partners, Practices, Protection/Past STIs, Prevention of ?Currently sexually active??Yes ?Sexually active with:?Men ?Number of male partners?4 ?Your sexual activities include:?anal intercourse, oral intercourse insertive ?Reviewed types of EC??No ?Do you use condoms??Yes ?Condoms are used:?occasionally condom use w/ non-casual partners ?Number of partners in past 3 months:?4 ?Number of partners in past year:?20 ?What is the client's primary method to prevent at the end of their visit??Condoms - Male ?Does your partner(s) currently have any STIs??No ???HIV Risk Assessment:?Additional Questions?Is an HIV Risk Assessment being conducted??No ???PrEP for HIV:?PrEP for HIV?Is the client interested in beginning/continuing PrEP for HIV??Yes ?Do you currently have any HIV+ partners??No ?In the past 6 months, have you had any HIV+ partners??No ?Are you a commercial sex worker??No ???Relationships:?Relationships?Has the client experienced any of the following:?Client has never experienced harmful relationships ???Human Trafficking:?Human Trafficking?Experienced:?No ???Tobacco Use:?Tobacco Use?Do you/have you used tobacco??Yes, currently vape use ?Tobacco Smoking Status?Current every day smoker ???Drugs/Alcohol:?Drug/Alcohol Use?Do you or have you used drugs??No ?Do you or have you used alcohol??Yes, currently weekly use ???Counseling Provided:?Counseling Provided?Please indicate the length of time, in minutes, that counseling was provided.?6 ?Counseling Was Provided By:?naoriv * Medications:?TakingTruvada G abapentin amLODIPine Benzoate Taking Truvada Taking Gabapentin Taking amLODIPine Benzoate Not-Taking/PRNDoxycycline Monohydrate 100 MG Tablet 2 tablet Orally Taken as soon as possible after sex, ideally within 24 hours and no later than 72 hours after sex. No more than 200 mg should be taken within a 24-hour period. Naproxen Not-Taking/PRN Doxycycline Monohydrate 100 MG Tablet 2 tablet Orally Taken as soon as possible after sex, ideally within 24 hours and no later than 72 hours after sex. No more than 200 mg should be taken within a 24- hour period. Not-Taking/PRN Naproxen DiscontinuedDescovy 200-25 MG Tablet 1 tablet Orally Once a day Medication List reviewed and reconciled with the patientDiscontinued Descovy 200-25 MG Tablet 1 tablet Orally Once a day Medication List reviewed and reconciled with the patient * Allergies:?N.K.D.A.no[Allerg ies Verified] Objective: * Vitals:?BP:114/78mm Hg, Ht: 6'1 , Wt:287.8lbs, BMI:37.97Index, Ht-cm: 185.42, Wt-k.55. * Examination: ???General Examination: ?GENERAL APPEARANCE:?pleasant, in no acute distress.? Assessment: * Assessment: 1.?Encounter for HIV pre-exp osure prophylaxis - Z29.81 (Primary)???2.?Encounter for screening for human immunodeficiency virus [HIV] - Z11.4???3.?Encounter for screening for infections with a predominantly sexual mode of transmission - Z11.3?? 4.?Other problems related to lifestyle - Z72.89???5.?Other intermission coordinator (current) drug therapy - Z79.899???6.?Encounter for screening for other viral diseases - Z11.59??? Need 2 out of 3 Sections fro m A-C Section A) Problems (only need one from below) One acute or uncomplicated illness/injury Section B) Data (at least one of the following categories in this section) Category 1: (Choose 2 of the following): Order unique tests Review test results (each unique test counts as one) Category 2: Assessment requiring an independent historian Section C) Risk Document low risk of morbidity/mortality Plan: * Treatment: 2.?Encounter for screening f or human immunodeficiency virus [HIV]?LAB: HIV Ab/p24 Ag with Reflex-[id number] (Collection Date & Time - 03/18/2024 04:41 PM) 3.?Encounter for screening f or infections with a predominantly sexual mode of transmission?LAB: T pallidum Screening [place]-[id number] (Collection Date & Time - 03/18/2024 04:41 PM) ?LAB: Chlamydia/GC Amplification-[id number] (Collection Date & Time - 03/18/2024 04:41 PM) ?LAB: Ct/GC SURESH, Pharyngeal-[id number] (Collection Date & Time - 03/18/2024 04:41 PM) Notes: Reviewed routine screening, safe sex and consistent barrier protection. Aware of window period for testing and testing options. Discussed symptoms that would warrant further evaluation and follow-up care Encouraged Hep B vaccine through [facility] or local pharmacy?? 4.?Other intermission coordinator (current) drug therapy?LAB: Creatinine-[id number] (Collection Date & Time - 03/18/2024 04:41 PM) 5.?Encounter for screening f or other viral diseases?LAB: HCV Antibody-[id number] (Collection Date & Time - 03/18/2024 04:41 PM) * Procedure Codes:? * Follow Up:?3 Months (Reason: PrEP F/U) * Billing Information: * Visit Code:? 37330 Existing - Low Complexity (IN USE). * Procedure Codes:? * Sign off status: Completed true * Provider:?Haily Engel NP Date:? 025 Generated for Darreni blanche/Sean/eTransmitting on:?04/08/2024 12:20 PM EST History and Physical Notes * HPI (History of Present Illness) Category Sub-Category Detail Notes Category Not es Visit Narrative Reason for the visit: PrEP F/U Last date of UPI: 03/16 Examination Category Sub-Category Detail Notes Category Not es General Examination GENERAL APPEARANCE: pleasant, in n o acute distress
--- OUTSIDE RECORDS SUMMARY | 2024-04-08 12:21 | XMS_ITS | Patient Health Record ---
Author Organization [facility] Address [address] [id number] Care Team Providers Care Aviation Safety Officer Name Role Phone WAYNE SIN Unavailable [phone] JEANNETTESMILEY Lopez Unavailable [phone] Allergies No Known Allergies Results Component Value Reference Range Notes HCV Antibody-[id number] Reviewed date:10/02/2023 11:46:27 AM Interpretation:Non-reactive Performing Lab:[facility] [place], [address], [address], [place], Phone - [phone], Director - [facility] Notes/Report: Clinical Information:SRC:urine Hep C Virus Ab Non Reactive Non Reactive HCV antibody alone does not differentiate between previously resolved infection and active infection. Equivocal and Reactive HCV antibody results should be followed up with an HCV RNA test to support the diagnosis of active HCV infection. Ct/GC SURESH, Pharyngeal-[id number] Reviewed date:10/02/2023 11:46:18 AM Interpretation:Negative Performing Lab:[facility] [place], [address], [address], [place], Phone - [phone], Director - [facility] Notes/Report: Clinical Information:SRC:urine C. trachomatis, SURESH, Pharyn Negative Negative N. gonorrhoeae, SURESH, Pharyn Negative Negative Trich vag by SURESH-[id number] Reviewed date:10/02/2023 11:46:36 AM Interpretation:Negative Performing Lab:[facility] [place], [address], [address], [place], Phone - [phone], Director - [facility] Notes/Report: Clinical Information:SRC:urine Trich vag by SURESH Negative Negative Chlamydia/GC Amplification-1 [id number] Reviewed date:10/02/2023 11:41:45 AM Interpretation:Negative Performing Lab:[facility] [place], [address], [address], [place], Phone - [phone], Director - [facility] Notes/Report: Clinical Information:SRC:urine Chlamydia trachomatis, SURESH Negative Negative Neisseria gonorrhoeae, SURESH Negative Negative HIV Ab/p24 Ag with Reflex-[id number] Reviewed date:10/02/2023 11:46:10 AM Interpretation:Non-reactive Performing Lab:[facility] [place], [address], [address], [place], Phone - [phone], Director - [facility] Notes/Report: Clinical Information:SRC:urine HIV Ab/p24 Ag Screen Non Reactive Non Reactive HIV-1/HIV-2 antibodies and HIV-1 p24 antigen were NOT detected. There is no laboratory evidence of HIV infection. HIV Negative T pallidum Screening Tornado -[id number] Reviewed date:10/03/2023 11:48:41 AM Interpretation:RPR 1:2, After Treatment Performing Lab:[facility] [place], [address] [place] [address], Phone - [phone], Director - Juan Notes/Report: Clinical Information:SRC:urine Clinical Information:SRC:urine Clinical Information:SRC:urine T pallidum Antibodies Reactive Non Reactive RPR Reactive Non Reactive RPR, Quant 1:2 NonRea<1:1 titer Hepatitis B Surf Ab Quant-00 [id number] Reviewed date:09/29/2023 03:39:16 PM Interpretation:Not Immune Performing Lab:[facility] [place], [address], [address], [place], Phone - [phone], Director - [facility] Notes/Report: Clinical Information:SRC:urine Hepatitis B Surf Ab Quant <3.5 Immunity>10 mIU /mL Status of Immunity Anti-HBs Level Inconsistent with Immunity 0.0 - 10.0 Consistent with Immunity >10.0 HBsAg Screen-[id number] Reviewed date:10/02/2023 11:41:37 AM Interpretation:Negative Performing Lab:[facility] [place], [address], [address], [place], Phone - [phone], Director - [facility] Notes/Report: Clinical Information:SRC:urine HBsAg Screen Negative Negative Creatinine-[id number] Reviewed date:10/02/2023 11:46:00 AM Interpretation:Cr 0.87, eCrCl 148ml/min Performing Lab:[facility] [place], [address] [facility], [place], Phone - [phone], Director - [facility] Notes/Report: Clinical Information:SRC:urine Creatinine 0.87 0.76-1.27 mg/dL eGFR 107 >59 mL/min/1.73 HCV Antibody-[id number] Reviewed date:03/19/2024 01:59:14 PM Interpretation:Negative Performing Lab:[facility] [place], [address], [address], [place], Phone - [phone], Director - [facility] Notes/Report: Hep C Virus Ab Non Reactive Non Reactive HCV antibody alone does not differentiate between previously resolved infection and active infection. Equivocal and Reactive HCV antibody results should be followed up with an HCV RNA test to support the diagnosis of active HCV infection. Ct/GC SURESH, Pharyngeal-[id number] Reviewed date:03/19/2024 07:31:01 PM Interpretation:Negative Performing Lab:[facility] [place], [address], [address], [place], Phone - [phone], Director - [facility] Notes/Report: C. trachomatis, SURESH, Pharyn Negative Negative N. gonorrhoeae, SURESH, Pharyn Negative Negative Chlamydia/GC Amplification-1 [id number] Reviewed date:03/19/2024 07:31:07 PM Interpretation:Negative Performing Lab:[facility] [place], [address], [address], [place], Phone - [phone], Director - [facility] Notes/Report: Chlamydia trachomatis, SURESH Negative Negative Neisseria gonorrhoeae, SURESH Negative Negative HIV Ab/p24 Ag with Reflex-[id number] Reviewed date:03/19/2024 01:58:50 PM Interpretation:Negative Performing Lab:[facility] [place], [address], [address], [place], Phone - [phone], Director - [facility] Notes/Report: HIV Ab/p24 Ag Screen Non Reactive Non Reactive HIV-1/HIV-2 antibodies and HIV-1 p24 antigen were NOT detected. There is no laboratory evidence of HIV infection. HIV Negative T pallidum Screening Tornado -[id number] Reviewed date:03/23/2024 12:41:47 PM Interpretation:RPR 1:4 Performing Lab:[facility] [place], [address], [address], [place], Phone - [phone], Director - [facility] Notes/Report: T pallidum Antibodies Reactive Non Reactive RPR Reactive Non Reactive RPR, Quant 1:4 NonRea<1:1 titer Creatinine-[id number] Reviewed date:03/19/2024 10:20:42 AM Interpretation:Normal Performing Lab:[facility] [place], [address] [facility], Phone - [phone], Director - [facility] Notes/Report: Creatinine 1.04 0.76-1.27 mg/dL eGFR 89 >59 mL/min/1.73 Lipid Panel-[id number] Reviewed date:12/06/2023 09:06:05 AM Interpretation:Normal Performing Lab:[facility] [place], [address] [facility], Phone - [phone], Director - [facility] Notes/Report: Clinical Information:PHARYNGEAL SRC: ORAL Cholesterol, Total 155 100-199 mg/dL Triglycerides 83 0-149 mg/dL HDL Cholesterol 42 >39 mg/dL VLDL Cholesterol Ananth 16 5-40 mg/dL LDL Chol Calc ([facility]) 97 0-99 mg/dL Ct/GC SURESH, Pharyngeal-[id number] Reviewed date:12/07/2023 09:44:15 AM Interpretation:Negative Performing Lab:[facility] [place], [address], [address], [place], Phone - [phone], Director - [facility] Notes/Report: Clinical Information:PHARYNGEAL SRC: ORAL C. trachomatis, SURESH, Pharyn Negative Negative N. gonorrhoeae, SURESH, Pharyn Negative Negative Ct, Ng, Trich vag by SURESH-[id number] Reviewed date:12/07/2023 09:46:35 AM Interpretation:Negative Performing Lab:[facility] [place], [address], [address], [place], Phone - [phone], Director - [facility] Notes/Report: Clinical Information:PHARYNGEAL SRC: ORAL Chlamydia by SURESH Negative Negative Gonococcus by SURSEH Negative Negative Trich vag by SURESH Negative Negative HIV Ab/p24 Ag with Reflex-[id number] Reviewed date:12/06/2023 11:15:54 AM Interpretation:Negative Performing Lab:[facility] [address], [address], [place], Phone - [phone], Director - [facility] Notes/Report: Clinical Information:PHARYNGEAL SRC: ORAL HIV Ab/p24 Ag Screen Non Reactive Non Reactive HIV-1/HIV-2 antibodies and HIV-1 p24 antigen were NOT detected. There is no laboratory evidence of HIV infection. HIV Negative T pallidum Screening Tornado -[id number] Reviewed date:12/07/2023 09:46:23 AM Interpretation:RPR 1:2 Performing Lab:[facility], [facility], Phone - [phone], Director - [facility] Notes/Report: Clinical Information:PHARYNGEAL SRC: ORAL Clinical Information:PHARYNGEAL SRC: ORAL Clinical Information:PHARYNGEAL SRC: ORAL T pallidum Antibodies Reactive Non Reactive RPR Reactive Non Reactive RPR, Quant 1:2 NonRea<1:1 titer Creatinine-[id number] Reviewed date:12/06/2023 11:45:29 AM Interpretation:Creatinine 1.0/CrCl 131 ml/min Performing Lab:[facility], [address] [facility], [place], Phone - [phone], Director - [facility] Notes/Report: Clinical Information:PHARYNGEAL SRC: ORAL Creatinine 1.00 0.76-1.27 mg/dL eGFR 93 >59 mL/min/1.73 Ct/GC SURESH, Pharyngeal-[id number] Reviewed date:07/03/2023 03:54:34 PM Interpretation:Negative Performing Lab:[facility] [address], [address], [place], Phone - [phone], Director - [facility] Notes/Report: Clinical Information:SRC:oral N. gonorrhoeae, SURESH, Pharyn was developed and its performance characteristics determined by [facility]. It has not been cleared or approved [...] 24-hour period. for 15 days 12/05/2023 Not-Taking Descovy 200-25 MG 1 tablet Orally Once a day for 90 days 03/19/2024 Active Gabapentin Active amLODIPine Benzoate Active Social History Sex Assigned At : Social History Observation Description Sex Assigned At Male Vital Signs Blood pressure diastolic 78 mm Hg 03/18/2024 Height 6'1 in 03/18/2024 Blood pressure systolic 114 mm Hg 03/18/2024 Weight 287.8 lbs 03/18/2024 BMI 37.97 kg/m2 03/18/2024 Encounters Encounter Location Date Provider Diagnosis [address] [phone] 06/27/2023 WAYNE GABAI Encounter for screen ing for infections with a predominantly sexual mode of transmission Z11.3 ; Syphilis, unspecified A53.9 and Counseling, unspecified Z71.[address] [id number] 09/28/2023 SMILEY MACHADO Encounter for screen ing for infections with a predominantly sexual mode of transmission Z11.3 ; Counseling, unspecified Z71.9 ; Other problems related to lifestyle Z72.89 ; Encounter for screening for human immunodeficiency virus [HIV] Z11.4 ; Other hot plate press operator (current) drug therapy Z79.899 ; Encounter for screening for other viral diseases Z11.59 and Encounter for HIV pre-exposure prophylaxis Z29.[address] [id number] 12/05/2023 WAYNE GABAI Other hot plate press operator (current) drug therapy Z79.899 ; Contact with and (suspected) exposure to other viral communicable diseases Z20.828 ; Encounter for screening for human immunodeficiency virus [HIV] Z11.4 ; Encounter for HIV pre-exposure prophylaxis Z29.81 and Encounter for screening for infections with a predominantly sexual mode of transmission Z11.[address] [id number] 03/18/2024 AWYNE GABAI Encounter for screen ing for human immunodeficiency virus [HIV] Z11.4 ; Encounter for HIV pre-exposure prophylaxis Z29.81 ; Encounter for screening for infections with a predominantly sexual mode of transmission Z11.3 ; Other problems related to lifestyle Z72.89 ; Other intermediate (current) drug therapy Z79.899 and Encounter for screening for other viral diseases Z11.59 [facility] [address] [place] [id number] 04/05/2024 WAYNE GABAI Encounter for screen ing for infections with a predominantly sexual mode of transmission Z11.3 [facility] [address] [place], [place] [phone] 03/18/2024 WAYNE GABAI [facility] [address] [place] [id number] 06/27/2023 WAYNE GABAI [facility] [address] [place] [id number] 09/28/2023 SMILEY MACHADO [facility] [address] [place], [place] [phone] 12/05/2023 WAYNE GABAI [facility] [address] [place] [phone] 03/06/2024 WAYNE GABAI Contact with and (suspected) exposure to other viral communicable diseases Z20.828 Assessments Encounter Date Diagnosis (ICD Code) Assessment Notes Treatment Notes Treatment Clinical Notes Section Notes 06/27/2023 Syphilis, unspecified (ICD-10 - A53.9) Clt interviewed by GILLIAN, field manager integrated Syl over the phone prior to this [...] others Communication of test results New Patient: 34069 30 Minutes 06/27/2023 Encounter for screening for infections with a predominantly sexual mode of transmission (ICD-10 - Z11.3) Spent ___ minutes doing the following: Chart Prep Obtaining/revie wing history Performing medically necessary exam Counseling/Coor dination of Care Documenting the visit Educating the patient Ordering medication/test /procedures Communication with other providers Interpretation of test performed by others Communication of test results New Patient: 94390 30 Minutes 09/28/2023 Encounter for screening for [...] low risk of morbidity/morta lity 12/05/2023 Other intermediate (current) drug therapy (ICD-10 - Z79.899) Need [...] other viral communicable diseases (ICD-10 - Z20.828) 03/18/2024 Encounter for screening for human immunodeficiency [...] Risk Document low risk of morbidity/morta lity 04/05/2024 Encounter for screening for infections with a predominantly sexual mode of transmission (ICD-10 - Z11.3) 12/05/2023 Contact with and (suspected) exposure to [...] Risk Document low risk of morbidity/morta lity 03/18/2024 Encounter for HIV pre-exposure prophylaxis (ICD-10 [...] of PrEP medication. Will reach out to [facility] again since clt has completed all [...] STI screening recommendations and available testing through [facility]. Testing ordered as noted per patient risks [...] others Communication of test results New Patient: 34365 30 Minutes 09/28/2023 Encounter for screening for [...] Risk Document low risk of morbidity/morta lity 03/18/2024 Encounter for screening for infections with [...] medication: The Ready, Set, PrEP program and [place] HIV Drug Assistance Program (HDAP) which makes PrEP available at no cost to those who qualify. 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 therapy (ICD-10 - Z79.899) Need [...] Risk Document low risk of morbidity/morta lity 03/18/2024 Other intermediate (current) drug therapy (ICD-10 - Z79.899) Need [...] Risk Document low risk of morbidity/morta lity 03/18/2024 Encounter for screening for other viral [...] risk of morbidity/morta lity Plan Of Treatment Pending Test Test Name Order Date T pallidum Screening [place]ornado-[id number] 03/17 Next Appt Details Provider Name:WAYNE SIN , 06/10/2024 04:15:00 PM, [address] [place] [address], [facility], [place], [place], [phone], Insurance Providers Payer Name Payer Address Payer Phone Subscriber Number Group Number Insured Name Patient Relationship to Insured Coverage Start Date Coverage End Date [facility] [address] [place], [place] [id number] Luc Mathew Self - patient is the insured Medications Administered Medication Instructions Date of Administration Dosage Notes Bicillin 06/27/2023 Bicillin 06/27/2023 Medical (General) History Medical History History ICD Code Weight concerns Syphilis RPR 1:256 06/2023, treated High blood pressure Osteoarthritis arthritis in lower back, on naproxen nnamdi ly smoker Hep B, not immune Surgical History Surgery Date(Month/Year) gall bladder removal 2018 double carpal tunnel release 2019 circumcison 2020
--- OUTSIDE RECORDS SUMMARY | 2024-04-08 12:21 | XMS_ITS ---
Author Organization [facility] Address [address] [place] [phone] Care Team Providers Care Rn Child Name Role Phone SHIRAZGisele WAYNE Mcdonald [phone] REASON FOR VISIT PrEP labs and follow up Medications Medication SIG (Take, Route, Fr equency, Duration) Notes Start Date End Date Status Descovy 200-25 MG 1 tablet Orally Once a day for 90 days 03/19/2024 Active Social History Sex Assigned At : Social History Observation Description Sex Assigned At Male Encounters Encounter Location Date Provider Diagnosis [address] [place] [phone] 03/18/2024 WAYNE SIN Plan Of Treatment Medication Medication Name Sig Start Date Stop Date Notes Descovy 200-25 MG 1 tablet Orally Once a day for 90 days 0 03/19/2024 Next Appt Details Provider Name:WAYNE SIN , 06/10/2024 04:15:00 PM, [address] [place] [address], [address], [place], [place], [phone], Progress Notes * Zana MATHEWOB:[birth year] (49 yo M)Acc No.[id number]:03/18/2024 Patient:?Luc MATHEW :1975???Age:49 Y???Sex:Male Address:[address] [place] [address], [phone] * Refills? Start Descovy Tablet, 200-25 MG, Orally, 90 Tablet, 1 tablet, Once a day, 90 days, Refills=0 Subjective: * Chief Complaints: * ???PrEP labs and follow up * Medical History:? * Surgical History:? * Hospitalization/Major Diagno stic Procedure:? * Medications:? * Allergies:?no[Allergies Veri fied] Objective: * Vitals:? * Physical Examination:? Assessment: Plan: * Treatment: * Procedure Codes:? * * Date:?
--- OUTSIDE RECORDS SUMMARY | 2024-04-08 12:21 | XMS_ITS | Clinical Summary ---
Author Organization [facility] Address [address] [place] [address] Care Team Providers Care Low Pressure Boiler Operator Name Role Phone Gayla Hagen MD Primary Care Provider [phone] Surgical History Surgery Date Site/Laterality Comments CHOLECYSTECTOMY [...] Recorded Sex Assigned at Not on file Legal Sex Male 10:21 AM EST Gender Identity Not on file Sexual Orientation [...] patient's age to complete this topic Meningococcal B Vacine Aged Out No lo nger eligible based on patient's age to complete this topic RSV Immunization Patients Under 20 months Aged Out No longer eligible based on patient's age to complete this topic Varicella Vaccines Aged Out No longer eligible based on patient's age to complete this topic Care Teams Low Pressure Boiler Operator Relationship Specialty Start Date End Date Gayla Hagen MD [address] [place] [address] [place] [address] PCP - General 04/23/21
--- OUTSIDE RECORDS SUMMARY | 2024-04-08 12:21 | XMS_ITS ---
Author Organization [facility] Address [address] [place] [phone] Care Team Providers Care Dna Sequencing Associate Name Role Phone SHIRAZGisele HAILY Unavailable [phone] REASON FOR VISIT rpr Medications Medication SIG (Take, Route, Frequency, Duration) [...] Male Encounters Encounter Location Date Provider Diagnosis [address] [phone] 04/05/2024 HAILY ENGEL Encounter for screening for infections with a predominantly sexual mode of transmission Z11.3 Assessments Encounter Date Diagnosis (ICD Code) Assessment Notes Treatment Notes Treatment Clinical Notes Section Notes 04/05/2024 Encounter for screening for infections with a predominantly sexual mode of transmission (ICD-10 - Z11.3) Plan Of Treatment Pending Test Test Name Order Date T pallidum Screening [place]-[id number] 03/17 Next Appt Details Provider Name:HAILY ENGEL , 06/10/2024 04:15:00 PM, [address] [place] [address], [phone], Progress Notes * Latrice MATHEWanDOB:[birth year] (49 yo M)Acc No.[id number]:04/05/2024 LAB Patient:?Luc MATHEW Provider:?Haily Engel NP :1975???Age:49 Y???Sex:Male Otilio e:04/05/2024 Address:[address] [place] [address] JANA STEARNS [id number] Subjective: * Chief Complaints: * ???Rpr * HPI: ???Visit Narrative:? lab collected. * Medical History:? * Surgical History:? * Hospitalization/Major Diagno stic Procedure:? * Medications:?TakingGabapenti n amLODIPine Benzoate Descovy 200-25 MG Tablet 1 tablet Orally Once a day Taking Gabapentin Taking amLODIPine Benzoate Taking Descovy 200-25 MG Tablet 1 tablet Orally Once a day Not-Taking/PRNDoxycycline Monohydrate 100 MG Tablet 2 tablet [...] within a 24- hour period. Not-Taking/PRN Naproxen Objective: * Vitals:? Assessment: * Assessment: 1.?Encounter for screening f or infections with a predominantly sexual mode of transmission - Z11.3??? Plan: * Treatment: * Procedure Codes:? * Billing Information: * Visit Code:? * Procedure Codes:? * Sign off status: Completed true * Provider:?Haily Engel NP Date:? 025 Generated for Darreni ng/Sean/eTransmitting on:?04/08/2024 12:21 PM EST
== END 2024-04-08 12:27 | disposition home or self-care (01) ==
PROVIDERS: Referring Provider Physician Assistant; Visit Provider Internal Medicine
DX: M54.51 Vertebrogenic low back pain (principal)
CPT/HCPCS: 99214

== ENCOUNTER 2024-04-17 09:05 | Outpatient (REF) | payer OTHER, SELFPAY ==
--- NOTE | ~2024-04-17 | US_ITS ---
CLINICAL HISTORY: R79.89 - Other specified abnormal findings of blood chemistry Ultrasound of the abdomen Comparison: None Findings: The liver is the upper limits of normal size, measuring 17.4cm. Increased echogenicity without focal lesions. Normal flow is visualized within the portal vein. No intrahepatic biliary ductal dilatation. Status post cholecystectomy. No abnormality in the gallbladder fossa. The common bile duct is normal, measuring 0.6cm. Unremarkable limited evaluation of the pancreas. The right kidney is normal in echogenicity and size, measuring 12.2cm. No nephrolithiasis or hydronephrosis. There is a simple cysts in the lower pole measuring 1.7 x 1.4 x 1.4 cm. The left kidney is normal echogenicity and size, measuring 12.2cm. No nephrolithiasis or hydronephrosis. The spleen is without focal lesions and the upper limits of normal size, measuring 13.8cm. The aorta and IVC are unremarkable. No ascites. Impression: Hepatic steatosis. This document has been electronically signed by: Anna Desir MD on 04/17/2024 21:29:48
--- OUTSIDE RECORDS SUMMARY | 2024-04-17 09:58 | XMS_ITS | Encounter Summary ---
Author Organization [facility] Address [address] [place] [address] Care Team Providers Care Poiser Balance Name Role Phone Clark Oliveira MD Primary Care Provider Gayla Mac MD Primary Care Provider Gabo gonzales Reason for Visit * Reason Onset Date Comments APPOINTMENT 04/21/2021 Encounter Details Date Type Department Care Team Description 04/21/2021 Telephone Adult Medicine [address] [phone] Clark Oliveira MD APPOINTMENT Social History Tobacco [...] that he was prescribed in [facility] appt. His insurance requires the rx come from his pcp office: [facility] For ALL patients calling to schedule any [...] traveled recently to another state outside of [place], [place], [place], [place], [place], [place], [place]? NO o If yes, did you quarantine [...] had these symptoms?: PCP: Clark Oliveira Payor: [facility] / Plan: PPO $15 [place] [id number] / Product Type: PPO [id number] documented in this encounter Plan of Treatment Not on file documented as of this encounter Visit Diagnoses Not on filedocumented in this encounter Care Teams Poiser Balance Relationship Specialty Start Date End Date Clark Oliveira MD PCP - General Internal Medicine 05/16/13 04/22/21 Gayla Hagen MD PCP - General Family Practice 04/23/21 documented as of this encounter
--- OUTSIDE RECORDS SUMMARY | 2024-04-17 09:58 | XMS_ITS | Encounter Summary ---
Author Organization [facility] Address [address] [place] [address] Care Team Providers Care Hot Car Charger Name Role Phone Clark Oliveira MD Primary Care Provider Gayla Mac MD Primary Care Provider Gabo gonzales Reason for Visit * Reason Comments other Encounter Details Date Type Department Care Team Description 10/03/2016 Telephone Medicine/Pediatrics [address] [phone] Clark Oliveira MD other Social History Tobacco [...] M.A. - 10/05/2016 1:45 PM EDT Called [facility], they informed me they just received the [...] on filedocumented in this encounter Care Teams Hot Car Charger Relationship Specialty Start Date End Date Clark Oliveira MD PCP - General Internal Medicine 05/16/13 04/22/21 Gayla Hagen MD PCP - General Family Practice 04/23/21 documented as of this encounter
--- OUTSIDE RECORDS SUMMARY | 2024-04-17 09:58 | XMS_ITS | Encounter Summary ---
Author Organization [facility] Address [address] [place] [address] Care Team Providers Care Core Microarchitect Name Role Phone Clark Oliveira MD Primary Care Provider Unavail able Gayla Hagen MD Primary Care Provider Gabo gonzales Encounter Details Date Type Department Care Team Description 04/16/2020 Old Medical Records Medical Records [address] [place] [address] Abstract, Provider Social History Tobacco Use Types [...] on filedocumented in this encounter Care Teams Core Microarchitect Relationship Specialty Start Date End Date Clark Oliveira MD PCP - General Internal Medicine 05/16/13 04/22/21 Gayla Hagen MD PCP - General Family Practice 04/23/21 documented as of this encounter
--- OUTSIDE RECORDS SUMMARY | 2024-04-17 09:58 | XMS_ITS | Encounter Summary ---
Author Organization [facility] Address [address] [place] [address] Care Team Providers Care Beveller Operator Name Role Phone Community, Pcp Primary Care Provider UnavailElliot Bonner Primary Care Provider Cy Cbarera MD Primary Care Provider Unavailab Clark Murphy MD Primary Care Provider Unavail able Gayla Hagen MD Primary Care Provider Gabo gonzales Reason for Visit * Reason Comments other LETTER Encounter Details Date Type Department Care Team Description 03/01/2001 Telephone Adult Medicine [address] [phone] Elliot Chang [address] [place] [address] [phone] other (LETTER ) Social History Tobacco Use [...] 9:26 AM ESTCALL RECEIVED. Contact: SELF - [phone]-IKER JAUREGUI'S OFFICE BUT ASK FOR PT PT [...] on filedocumented in this encounter Care Teams Beveller Operator Relationship Specialty Start Date End Date Community, Pcp PCP - General 03/04/06 05/12/[address]Cang [address] [place], [place] [id number] PCP - General 02/27/01 03/03/06 Cy Cabrera MD [address] [place] [address] PCP - General Internal Medicine 05/13/13 05/15/13 Clark Oliveira MD [address] [place] [address] PCP - General Internal Medicine 05/16/13 04/22/21 Gayla Hagen MD [address] [place] [address] PCP - General Family Practice 04/23/21 documented as of this encounter
--- OUTSIDE RECORDS SUMMARY | 2024-04-17 09:58 | XMS_ITS | Encounter Summary ---
Author Organization [facility] Address [address] [place] [address] Care Team Providers Care Remote Encoding Operations Supervisor Name Role Phone Gayla Hagen MD Primary Care Provider Gabo gonzales Reason for Visit * Reason Onset Date Comments medication problems 04/26/2021 Encounter Details Date Type Department Care Team Description 04/26/2021 Telephone Adult Medicine [address] [address] Gayla Hagen MD medication problems Social History [...] on filedocumented in this encounter Care Teams Remote Encoding Operations Supervisor Relationship Specialty Start Date End Date Gayla Hagen MD PCP - General Family Practice 04/23/21 documented as of this encounter
--- OUTSIDE RECORDS SUMMARY | 2024-04-17 09:58 | XMS_ITS | Clinical Summary ---
Author Organization [facility] Address [address] [place] [address] Care Team Providers Care Plastic Dolls Mold Filler Name Role Phone Gayla Hagen MD Primary Care Provider Surgical History Surgery Date Site/Laterality Comments CHOLECYSTECTOMY [...] age to complete this topic Care Teams Plastic Dolls Mold Filler Relationship Specialty Start Date End Date Gayla Hagen MD [address] [place] [address] [place] [address] PCP - General 04/23/21
--- OUTSIDE RECORDS SUMMARY | 2024-04-17 09:58 | XMS_ITS | Encounter Summary ---
[facility] Organization [facility] Address [address] [place] [address] Care Team Providers Care Assistant Winemaker Name Role Phone Clark Oliveira MD Primary Care Provider Unavail able Gayla Hagen MD Primary Care Provider Gabo gonzales Encounter Details Date Type Department Care Team Description 08/02/2016 Refill Adult Medicine [address] [address] Clark Oliveira MD Social History Tobacco Use [...] on filedocumented in this encounter Care Teams Assistant Winemaker Relationship Specialty Start Date End Date Clark Oliveira MD PCP - General Internal Medicine 05/16/13 04/22/21 Gayla Hagen MD PCP - General Family Practice 04/23/21 documented as of this encounter
--- OUTSIDE RECORDS SUMMARY | 2024-04-17 09:58 | XMS_ITS | Encounter Summary ---
[facility] Address [address] [place] [address] Care Team Providers Care Cop Breaker Name Role Phone Gayla Hagen MD Primary Care Provider Gabo gonzales Encounter Details Date Type Department Care Team Description 08/22/2022 Telephone Medicine/Pediatrics - [address] [phone] Gayla Hagen MD Social History Tobacco Use [...] Breaker Relationship Specialty Start Date End Date Gayla Hagen MD PCP - General Family Practice 04/23/21 documented as of this encounter
--- OUTSIDE RECORDS SUMMARY | 2024-04-17 09:58 | XMS_ITS | Patient Health Record ---
Author Organization [facility] Address [address] [id number] Care Team Providers Care Truck Dispatcher Name Role Phone WAYNE SIN Unavailable [phone] SMILEY MACHADO Unavailable [phone] Allergies No Known Allergies Results Component Value Reference Range Notes Creatinine-[id number] Reviewed date:03/19/2024 10:20:42 AM Interpretation:Normal Performing Lab:[facility] [place], [address] [place] [address], Phone - [phone], Director - Juan Notes/Report: Creatinine 1.04 0.76-1.27 mg/dL eGFR 89 >59 mL/min/1.73 T pallidum Screening [place] -[id number] Reviewed date:03/23/2024 12:41:47 PM Interpretation:RPR 1:4 Performing Lab:[facility] [place], [address], [address], [place], Phone - [phone], Director - [facility] Notes/Report: T pallidum Antibodies Reactive Non Reactive RPR Reactive Non Reactive RPR, Quant 1:4 NonRea<1:1 titer HIV Ab/p24 Ag with Reflex-[id number] Reviewed date:03/19/2024 01:58:50 PM Interpretation:Negative Performing Lab:[facility] [place], [address], [address], [place], Phone - [phone], Director - [facility] Notes/Report: HIV Ab/p24 Ag Screen Non Reactive Non Reactive HIV-1/HIV-2 antibodies and HIV-1 p24 antigen were NOT detected. There is no laboratory evidence of HIV infection. HIV Negative Chlamydia/GC Amplification-[id number] Reviewed date:03/19/2024 07:31:07 PM Interpretation:Negative Performing Lab:[facility] [place], [address], [address], [place], Phone - [phone], Director - [facility] Notes/Report: Chlamydia trachomatis, SURESH Negative Negative Neisseria gonorrhoeae, SURESH Negative Negative Ct/GC SURESH, Pharyngeal-[id number] Reviewed date:03/19/2024 07:31:01 PM Interpretation:Negative Performing Lab:[facility] [place], [address], [address], [place], Phone - [phone], Director - [facility] Notes/Report: C. trachomatis, SURESH, Pharyn Negative Negative N. gonorrhoeae, SURESH, Pharyn Negative Negative HCV Antibody-[id number] Reviewed date:03/19/2024 01:59:14 PM Interpretation:Negative Performing Lab:[facility] [place], [address], [address], [place], Phone - [phone], Director - [facility] Notes/Report: Hep C Virus Ab Non Reactive Non Reactive HCV antibody alone does not differentiate between previously resolved infection and active infection. Equivocal and Reactive HCV antibody results should be followed up with an HCV RNA test to support the diagnosis of active HCV infection. T pallidum Screening [place] -[id number] Reviewed date:04/09/2024 07:56:21 AM Interpretation:RPR 1:2 Performing Lab:[facility], [address], [address], [place], Phone - [phone], Director - [facility] Notes/Report: T pallidum Antibodies Reactive Non Reactive RPR Reactive Non Reactive RPR, Quant 1:2 NonRea<1:1 titer Creatinine-[id number] Reviewed date:12/06/2023 11:45:29 AM Interpretation:Creatinine 1.0/CrCl 131 ml/min Performing Lab:[facility] [place], [address] [place] [address], Phone - [phone], Director - [facility] Notes/Report: Clinical Information:PHARYNGEAL SRC: ORAL Creatinine 1.00 0.76-1.27 mg/dL eGFR 93 >59 mL/min/1.73 T pallidum Screening [place] -[id number] Reviewed date:12/07/2023 09:46:23 AM Interpretation:RPR 1:2 Performing Lab:[facility] [place], [address] [facility], Phone - [phone], Director - Juan Notes/Report: Clinical Information:PHARYNGEAL SRC: ORAL Clinical Information:PHARYNGEAL SRC: ORAL Clinical Information:PHARYNGEAL SRC: ORAL T pallidum Antibodies Reactive Non Reactive RPR Reactive Non Reactive RPR, Quant 1:2 NonRea<1:1 titer HIV Ab/p24 Ag with Reflex-[id number] Reviewed date:12/06/2023 11:15:54 AM Interpretation:Negative Performing Lab:[facility] [place], [address], [address], [place], Phone - [phone], Director - [facility] Notes/Report: Clinical Information:PHARYNGEAL SRC: ORAL HIV Ab/p24 Ag Screen Non Reactive Non Reactive HIV-1/HIV-2 antibodies and HIV-1 p24 antigen were NOT detected. There is no laboratory evidence of HIV infection. HIV Negative Ct, Ng, Trich vag by SURESH-[id number] Reviewed date:12/07/2023 09:46:35 AM Interpretation:Negative Performing Lab:[facility] [place], [address], [address], [place], Phone - [phone], Director - [facility] Notes/Report: Clinical Information:PHARYNGEAL SRC: ORAL Chlamydia by SURESH Negative Negative Gonococcus by SURESH Negative Negative Trich vag by SURESH Negative Negative Ct/GC SURESH, Pharyngeal-[id number] Reviewed date:12/07/2023 09:44:15 AM Interpretation:Negative Performing Lab:[facility] [place], [address], [address], [place], Phone - [phone], Director - [facility] Notes/Report: Clinical Information:PHARYNGEAL SRC: ORAL C. trachomatis, SURESH, Pharyn Negative Negative N. gonorrhoeae, SURESH, Pharyn Negative Negative Lipid Panel-[id number] Reviewed date:12/06/2023 09:06:05 AM Interpretation:Normal Performing Lab:[facility] [place], [address] [facility], Phone - [phone], Director - Juan Notes/Report: Clinical Information:PHARYNGEAL SRC: ORAL Cholesterol, Total 155 100-199 mg/dL Triglycerides 83 0-149 mg/dL HDL Cholesterol 42 >39 mg/dL VLDL Cholesterol Ananth 16 5-40 mg/dL LDL Chol Calc ([facility]) 97 0-99 mg/dL HCV Antibody-[id number] Reviewed date:10/02/2023 11:46:27 AM Interpretation:Non-reactive Performing Lab:[facility] [place], [address], [place], Phone - [phone], Director - [facility] Notes/Report: Clinical Information:SRC:urine Hep C Virus Ab Non Reactive Non Reactive HCV antibody alone does not differentiate between previously resolved infection and active infection. Equivocal and Reactive HCV antibody results should be followed up with an HCV RNA test to support the diagnosis of active HCV infection. Ct/GC SURESH, Pharyngeal-[id number] Reviewed date:10/02/2023 11:46:18 AM Interpretation:Negative Performing Lab:[facility] [place], [address], [address], [place], Phone - [phone], Director - [facility] Notes/Report: Clinical Information:SRC:urine C. trachomatis, SURESH, Pharyn Negative Negative N. gonorrhoeae, SURESH, Pharyn Negative Negative Trich vag by SURESH-[id number] Reviewed date:10/02/2023 11:46:36 AM Interpretation:Negative Performing Lab:[facility] [place], [address], [address], [place], Phone - [phone], Director - [facility] Notes/Report: Clinical Information:SRC:urine Trich vag by SURESH Negative Negative Chlamydia/GC Amplification-1 [id number] Reviewed date:10/02/2023 11:41:45 AM Interpretation:Negative Performing Lab:[facility] [place], [address], [address], [place], Phone - [phone], Director - [facility] Notes/Report: Clinical Information:SRC:urine Chlamydia trachomatis, SURESH Negative Negative Neisseria gonorrhoeae, SURESH Negative Negative HIV Ab/p24 Ag with Reflex-[id number] Reviewed date:10/02/2023 11:46:10 AM Interpretation:Non-reactive Performing Lab:[facility] [place], [address], [address], [place], Phone - [phone], Director - [facility] Notes/Report: Clinical Information:SRC:urine HIV Ab/p24 Ag Screen Non Reactive Non Reactive HIV-1/HIV-2 antibodies and HIV-1 p24 antigen were NOT detected. There is no laboratory evidence of HIV infection. HIV Negative T pallidum Screening [place] -[id number] Reviewed date:10/03/2023 11:48:41 AM Interpretation:RPR 1:2, After Treatment Performing Lab:[facility] [place], [address] [facility], Phone - [phone], Director - [facility] Notes/Report: Clinical Information:SRC:urine Clinical Information:SRC:urine Clinical Information:SRC:urine T pallidum Antibodies Reactive Non Reactive RPR Reactive Non Reactive RPR, Quant 1:2 NonRea<1:1 titer Hepatitis B Surf Ab Quant-00 [id number] Reviewed date:09/29/2023 03:39:16 PM Interpretation:Not Immune Performing Lab:[facility] [place], [address], [address], [place], Phone - [phone], Director - [facility] Notes/Report: Clinical Information:SRC:urine Hepatitis B Surf Ab Quant <3.5 Immunity>10 mIU /mL Status of Immunity Anti-HBs Level Inconsistent with Immunity 0.0 - 10.0 Consistent with Immunity >10.0 HBsAg Screen-[id number] Reviewed date:10/02/2023 11:41:37 AM Interpretation:Negative Performing Lab:[facility] [place], [address], [address], [place], Phone - [phone], Director - [facility] Notes/Report: Clinical Information:SRC:urine HBsAg Screen Negative Negative Creatinine-[id number] Reviewed date:10/02/2023 11:46:00 AM Interpretation:Cr 0.87, eCrCl 148ml/min Performing Lab:[facility] [place], [address] [facility], Phone - [phone], Director - Juan Notes/Report: Clinical Information:SRC:urine Creatinine 0.87 0.76-1.27 mg/dL eGFR 107 >59 mL/min/1.73 Ct/GC SURESH, Pharyngeal-[id number] Reviewed date:07/03/2023 03:54:34 PM Interpretation:Negative Performing Lab:[facility] [place], [address], [address], [place], Phone - [phone], Director - [facility] Notes/Report: Clinical Information:SRC:oral N. gonorrhoeae, SURESH, Pharyn was developed and its performance characteristics determined by [facility]. It has not been cleared or approved [...] 03/18/2024 Encounters Encounter Location Date Provider Diagnosis [address] [id number] 06/27/2023 WAYNECHUCHO SIN Encounter for screen ing for infections with a predominantly sexual mode of transmission Z11.3 ; Syphilis, unspecified A53.9 and Counseling, unspecified Z71.[address] [id number] 09/28/2023 SMILEY MACHADO Encounter for screen ing for infections with a predominantly sexual mode of transmission Z11.3 ; Counseling, unspecified Z71.9 ; Other problems related to lifestyle Z72.89 ; Encounter for screening for human immunodeficiency virus [HIV] Z11.4 ; Other ad terminal makeup operator (current) drug therapy Z79.899 ; Encounter for screening for other viral diseases Z11.59 and Encounter for HIV pre-exposure prophylaxis Z29.[address] [id number] 12/05/2023 WAYNE GABAI Other custodial (current) drug therapy Z79.899 ; Contact with and (suspected) exposure to other viral communicable diseases Z20.828 ; Encounter for screening for human immunodeficiency virus [HIV] Z11.4 ; Encounter for HIV pre-exposure prophylaxis Z29.81 and Encounter for screening for infections with a predominantly sexual mode of transmission Z11.3 [facility] [address] [place], [place] [id number] 03/18/2024 WAYNE GABAI Encounter for screen ing for human immunodeficiency virus [HIV] Z11.4 ; Encounter for HIV pre-exposure prophylaxis Z29.81 ; Encounter for screening for infections with a predominantly sexual mode of transmission Z11.3 ; Other problems related to lifestyle Z72.89 ; Other ad terminal makeup operator (current) drug therapy Z79.899 and Encounter for screening for other viral diseases Z11.59 [facility] [address] [place] [id number] 04/05/2024 WAYNE GABAI Encounter for screen ing for infections with a predominantly sexual mode of transmission Z11.3 [facility] [address] [place] [address] [id number] 06/27/2023 WAYNE GABAI [facility] [address] [place] [address] [id number] 09/28/2023 SMILEYCHI MACHADO [facility] [address] [place] [address] [id number] 12/05/2023 WAYNE GABAI [facility] [address] [place] [address] [id number] 03/06/2024 WAYNE GABAI Contact with and (suspected) exposure to other viral communicable diseases Z20.828 [facility] [address] [place] [id number] 03/18/2024 WAYNE GABAI Assessments Encounter Date Diagnosis (ICD Code) Assessment Notes Treatment Notes Treatment Clinical Notes Section Notes 06/27/2023 Syphilis, unspecified (ICD-10 - A53.9) Clt interviewed by [facility], field gear grinder Syl over the phone prior to this [...] others Communication of test results New Patient: [id number] 30 Minutes 06/27/2023 Encounter for screening for infections with a predominantly sexual mode of transmission (ICD-10 - Z11.3) Spent ___ minutes doing the following: Chart Prep Obtaining/revie wing history Performing medically necessary exam Counseling/Coor dination of Care Documenting the visit Educating the patient Ordering medication/test /procedures Communication with other providers Interpretation of test performed by others Communication of test results New Patient: 43011 30 Minutes 09/28/2023 Encounter for screening for [...] low risk of morbidity/morta lity 12/05/2023 Other custodial (current) drug therapy (ICD-10 - Z79.899) Need [...] of PrEP medication. Will reach out to [facility] again since clt has completed all forms [...] STI screening recommendations and available testing through [employer]. Testing ordered as noted per patient risks [...] others Communication of test results New Patient: [id number] 30 Minutes 09/28/2023 Encounter for screening for [...] medication: The Ready, Set, PrEP program and [place] HIV Drug Assistance Program (HDAP) which makes PrEP available at no cost to those who qualify. [facility] to help patients pay [...] low risk of morbidity/morta lity 09/28/2023 Other ad terminal makeup operator (current) drug therapy (ICD-10 - Z79.899) [...] low risk of morbidity/morta lity 03/18/2024 Other ad terminal makeup operator (current) drug therapy (ICD-10 - Z79.899) [...] Provider Name:WAYNE SIN , 06/10/2024 04:15:00 PM, [address] [place] [address], [facility], [place], [place], [phone], Insurance Providers Payer Name Payer Address Payer Phone Subscriber Number Group Number Insured Name Patient Relationship to Insured Coverage Start Date Coverage End Date [facility] [address] [place], [place] [id number] Luc Mathew Self - patient is the [...]
--- OUTSIDE RECORDS SUMMARY | 2024-04-17 09:58 | XMS_ITS | Encounter Summary ---
[facility] Address [address] [place] [address] Care Team Providers Care Systems Consultant Name Role Phone Gayla Hagen MD Primary Care Provider Gabo gonzales Encounter Details Date Type Department Care Team Description 01/24/2023 Orders Only Medicine/Pediatrics - [address] [phone] Israel Hernandez PA-C [address] [place] [address] Elevated PSA (Primary Dx) Social History Tobacco [...] (PSA) documented in this encounter Care Teams Systems Consultant Relationship Specialty Start Date End Date Gayla Hagen MD PCP - General Family Practice 04/23/21 documented as of this encounter
--- OUTSIDE RECORDS SUMMARY | 2024-04-17 09:58 | XMS_ITS | Encounter Summary ---
Author Organization [facility] Address [address] [place] [address] Care Team Providers Care Assessment Counselor Name Role Phone Clark Oliveira MD Primary Care Provider Unavail able Gayla Hagen MD Primary Care Provider Gabo gonzales Encounter Details Date Type Department Care Team Description 02/19/2018 Transfer Records Medical Records [address] [place] [address] Abstract, Provider Social History Tobacco Use Types [...] on filedocumented in this encounter Care Teams Assessment Counselor Relationship Specialty Start Date End Date Clark Oliveira MD PCP - General Internal Medicine 05/16/13 04/22/21 Gayla Hagen MD PCP - General Family Practice 04/23/21 documented as of this encounter
--- OUTSIDE RECORDS SUMMARY | 2024-04-17 09:58 | XMS_ITS | Encounter Summary ---
Author Organization [facility] Address [address] [place] [address] Care Team Providers Care Agricultural Education Professor Name Role Phone Clark Oliveira MD Primary Care Provider Unavail able Gayla Hagen MD Primary Care Provider Gabo gonzales Encounter Details Date Type Department Care Team Description 08/11/2016 Rubber Flap Tuber Machine Operator Report Medical Records [address] [place] [address] Choco Jose Social History Tobacco Use Types [...] on filedocumented in this encounter Care Teams Agricultural Education Professor Relationship Specialty Start Date End Date Clark Oliveira MD PCP - General Internal Medicine 05/16/13 04/22/21 Gayla Hagen MD PCP - General Family Practice 04/23/21 documented as of this encounter
--- OUTSIDE RECORDS SUMMARY | 2024-04-17 09:58 | XMS_ITS | Encounter Summary ---
Author Organization [facility] Address [address] [place] [address] Care Team Providers Care Special Librarian Name Role Phone Clark Oliveira MD Primary Care Provider Unavail able Gayla Hagen MD Primary Care Provider Gabo gonzales Reason for Visit * Reason Onset Date Comments APPOINTMENT 05/15/2019 Change Private S lot Encounter Details Date Type Department Care Team Description 05/15/2019 Telephone Adult Medicine [address] [address] Clark Oliveira MD APPOINTMENT (Change Private Slot) [...] filedocumented in this encounter Care Teams Special Librarian Relationship Specialty Start Date End Date Clark Oliveira MD PCP - General Internal Medicine 05/16/13 04/22/21 Gayla Hagen MD PCP - General Family Practice 04/23/21 documented as of this encounter
--- OUTSIDE RECORDS SUMMARY | 2024-04-17 09:58 | XMS_ITS | Encounter Summary ---
Author Organization [facility] Address [address] [place] [address] Care Team Providers Care Fuse Maker Name Role Phone Gayla Hagen MD Primary Care Provider Gabo gonzales Encounter Details Date Type Department Care Team Description 04/11/2022 Telephone Gastroenterology - [place] [address] [place] [phone] Marty Montgomery MD [address] [place] [address] Social History Tobacco Use Types Packs/Day Years [...] EST Stefany Almanza JrLuc Date: 04/14/2022 Status: [facility] Appt Time: 12:00 PM Length: 30 Visit Type: PROCEDURE [] Provider: TOBY CENTENO Patient confired 04/11 DM documented in this encounter Plan of Treatment Not on file documented as of this encounter Visit Diagnoses Not on filedocumented in this encounter Care Teams Fuse Maker Relationship Specialty Start Date End Date Gayla Hagen MD PCP - General Family Practice 04/23/21 documented as of this encounter
--- OUTSIDE RECORDS SUMMARY | 2024-04-17 09:58 | XMS_ITS | Encounter Summary ---
Author Organization [facility] Address [address] [place] [address] Care Team Providers Care Pattern Clerk Name Role Phone Clark Oliveira MD Primary Care Provider Unavail able Gayla Hagen MD Primary Care Provider Gabo gonzales Encounter Details Date Type Department Care Team Description 12/15/2020 Dough Puncher Report Medical Records [address] [place] [address] Fabiana Knox PA-C Social History Tobacco Use [...] on filedocumented in this encounter Care Teams Pattern Clerk Relationship Specialty Start Date End Date Clark Oliveira MD PCP - General Internal Medicine 05/16/13 04/22/21 Gayla Hagen MD PCP - General Family Practice 04/23/21 documented as of this encounter
--- OUTSIDE RECORDS SUMMARY | 2024-04-17 09:58 | XMS_ITS | Clinical Summary ---
Author Organization [facility] Address [address] [place] [address] Care Team Providers Care Raw Stock Dyeing Machine Tender Name Role Phone Gayla Hagen MD Primary [...] 01/13, 12/13/2021, Additional history exists Care Teams Raw Stock Dyeing Machine Tender Relationship Specialty Start Date End Date Gayla Hagen MD PCP - General Family Practice 04/23/21
--- OUTSIDE RECORDS SUMMARY | 2024-04-17 09:58 | XMS_ITS ---
Author Organization [facility] Address [address] [id number] Care Team Providers Care Merchandising Execution Manager Name Role Phone SHIRAZHAILY Jaquez Unavailable [phone] Results Component Value Reference Range Notes T pallidum Screening Farina -[id number] Reviewed date:04/09/2024 07:56:21 AM Interpretation:RPR 1:2 Performing Lab:[facility], [address], [address], [place], Phone - [phone], Director - [facility] Notes/Report: T pallidum Antibodies Reactive Non Reactive RPR Reactive Non Reactive RPR, Quant 1:2 NonRea<1:1 titer REASON FOR VISIT rpr Medications Medication SIG [...] Male Encounters Encounter Location Date Provider Diagnosis [facility] [address] [facility] [address] [place], [place] [phone] 04/05/2024 HAILY ENGEL Encounter for screening for infections with a predominantly sexual mode of transmission Z11.3 Assessments Encounter Date Diagnosis (ICD Code) Assessment Notes Treatment Notes Treatment Clinical Notes Section Notes 04/05/2024 Encounter for screening for infections with a predominantly sexual mode of transmission (ICD-10 - Z11.3) Plan Of Treatment Next Appt Details Provider Name:HAILY Monroy JANUARY , 06/10/2024 04:15:00 PM, [address] [place] [address], [address], [place], [place], [phone], Progress Notes * Zana MATHEWOB:[birth year] (49 yo M)Acc No.[id number]:04/05/2024 LAB Patient:?RABIA HAASALALuc Provider:?Haily Engel NP :1975???Age:49 Y???Sex:Male Otilio e:04/05/2024 Address:[address] [place] [address] [id number] Subjective: * Chief Complaints: * ???Rpr * [...] NP Date:? 025 Generated for Marlin mancia/Sean/Diane on:?04/17/2024 09:58 AM EST
--- OUTSIDE RECORDS SUMMARY | 2024-04-17 09:58 | XMS_ITS | Encounter Summary ---
Author Organization [facility] Address [address] [place] [address] Care Team Providers Care Deckhand Tuna Boat Name Role Phone Clark Oliveira MD Primary Care Provider Unavail able Gayla Hagen MD Primary Care Provider Gabo gonzales Encounter Details Date Type Department Care Team Description 06/12/2018 Screen Door Maker Report Medical Records [address] [place] [address] Abstract, Provider Social History Tobacco Use Types [...] on filedocumented in this encounter Care Teams Deckhand Tuna Boat Relationship Specialty Start Date End Date Clark Oliveira MD PCP - General Internal Medicine 05/16/13 04/22/21 Gayla Hagen MD PCP - General Family Practice 04/23/21 documented as of this encounter
--- OUTSIDE RECORDS SUMMARY | 2024-04-17 09:58 | XMS_ITS | Encounter Summary ---
Author Organization [facility] Address [address] [place] [address] Care Team Providers Care Shell Trim Tool Setter Name Role Phone Clark Oliveira MD Primary Care Provider Unavail able Gayla Hagen MD Primary Care Provider Gabo gonzales Reason for Visit * Reason Onset Date Comments Faxed Refill 12/02/2019 Encounter Details Date Type Department Care Team Description 12/02/2019 Refill Adult Medicine [address] [address] Clark Oliveira MD Faxed Refill Social History [...] N/A Patients current insurance carrier is: Payor: [facility] / Plan: PPO $30 [id number] / Product Type: PPO [id number] documented in this encounter Plan of Treatment Not on file documented as of this encounter Visit Diagnoses Not on filedocumented in this encounter Care Teams Shell Trim Tool Setter Relationship Specialty Start Date End Date Clark Oliveira MD PCP - General Internal Medicine 05/16/13 04/22/21 Gayla Hagen MD PCP - General Family Practice 04/23/21 documented as of this encounter
--- OUTSIDE RECORDS SUMMARY | 2024-04-17 09:58 | XMS_ITS | Encounter Summary ---
Author Organization [facility] Address [address] [place] [address] Care Team Providers Care Retail Bakery Manager Name Role Phone Clark Oliveira MD Primary Care Provider Unavail able Gayla Hagen MD Primary Care Provider Gabo gonzales Encounter Details Date Type Department Care Team Description 02/03/2015 Orders Only Medical Records [address] [place] [address] Clark Oliveira MD Social History Tobacco Use [...] on filedocumented in this encounter Care Teams Retail Bakery Manager Relationship Specialty Start Date End Date Clark Oliveira MD PCP - General Internal Medicine 05/16/13 04/22/21 Gayla Hagen MD PCP - General Family Practice 04/23/21 documented as of this encounter
--- OUTSIDE RECORDS SUMMARY | 2024-04-17 09:58 | XMS_ITS | Encounter Summary ---
Author Organization [facility] Address [address] [place] [address] Care Team Providers Care Entry Level Drafter Name Role Phone Clark Oliveira MD Primary Care Provider Unavail able Gayla Hagen MD Primary Care Provider Gabo gonzales Encounter Details Date Type Department Care Team Description 12/13/2017 Manager Erp Report Medical Records [address] [place] [address] Xavier Sandoval Social History Tobacco Use Types [...] on filedocumented in this encounter Care Teams Entry Level Drafter Relationship Specialty Start Date End Date Clark Oliveira MD PCP - General Internal Medicine 05/16/13 04/22/21 Gayla Hagen MD PCP - General Family Practice 04/23/21 documented as of this encounter
--- OUTSIDE RECORDS SUMMARY | 2024-04-17 09:58 | XMS_ITS | Encounter Summary ---
Author Organization [facility] Address [address] [place] [address] Care Team Providers Care Bun Panner Name Role Phone Clark Oliveira MD Primary Care Provider Unavail able Gayla Hagen MD Primary Care Provider Gabo gonzales Encounter Details Date Type Department Care Team Description 06/22/2020 Portuguese Tutor Report Medical Records [address] [place] [address] Xavier Sandoval Social History Tobacco Use Types [...] on filedocumented in this encounter Care Teams Bun Panner Relationship Specialty Start Date End Date Clark Oliveira MD PCP - General Internal Medicine 05/16/13 04/22/21 Gayla Hagen MD PCP - General Family Practice 04/23/21 documented as of this encounter
--- OUTSIDE RECORDS SUMMARY | 2024-04-17 09:58 | XMS_ITS | Encounter Summary ---
Author Organization [facility] Address [address] [place] [address] Care Team Providers Care Nurse Instructor Name Role Phone Clark Oliveira MD Primary Care Provider Unavail able Gayla Hagen MD Primary Care Provider Gabo gonzales Encounter Details Date Type Department Care Team Description 12/13/2018 Escalator Mechanic Report Medical Records [address] [place] [address] Noemy Limon MD Social History Tobacco Use [...] on filedocumented in this encounter Care Teams Nurse Instructor Relationship Specialty Start Date End Date Clark Oliveira MD PCP - General Internal Medicine 05/16/13 04/22/21 Gayla Hagen MD PCP - General Family Practice 04/23/21 documented as of this encounter
--- OUTSIDE RECORDS SUMMARY | 2024-04-17 09:58 | XMS_ITS | Encounter Summary ---
Author Organization [facility] Address [address] [place] [address] Care Team Providers Care Childrens Club Attendant Name Role Phone Gayla Hagen MD Primary Care Provider Gabo gonzales Reason for Visit * Reason Onset Date Comments Prior Authorization 08/23/2022 Encounter Details Date Type Department Care Team Description 08/23/2022 Telephone Medicine/Pediatrics - [address] [phone] Gayla Hagen MD Prior Authorization Social History [...] ? Prior authorization case approval number # [id number] ? Approval faxed to [facility] Mala Meyer at [phone] * Telephone Encounter - Kathia Lindsey M.A. - 08/23/2022 11:42 AM EDT Barney code does not work for this pt. Must call [facility] to do this p.a. over the phone. Prior authorization was done over the phone with Serena at [facility] Pt does have dx of hypertension and prediabetes. Continuation of therapy Case # [id number] . * Telephone Encounter - Malika Burns - 08/23/2022 10:58 AM EDT Prior Authorization for Medication-do not complete and send this encounter unless you have the fax from the pharmacy. Is this a Cover My Meds request: Yes -- Barney Code [id number] Name of Medication sildenafil (VIAGRA) 100 MG tablet Dose of Medication 100 MG What is the RX # from the faxed refill? How does patient take this med? TAKE 1 TABLET 1 HOUR PRIOR TO INTERCOURSE NEEDED What Pharmacy did the fax come from: [facility] fax #: [phone] documented in this encounter Plan of Treatment Not on file documented as of this encounter Visit Diagnoses Not on filedocumented in this encounter Care Teams Childrens Club Attendant Relationship Specialty Start Date End Date Gayla Hagen MD PCP - General Family Practice 04/23/21 documented as of this encounter
--- OUTSIDE RECORDS SUMMARY | 2024-04-17 09:58 | XMS_ITS | Encounter Summary ---
Author Organization [facility] Address [address] [place] [address] Care Team Providers Care Teaching Artist Name Role Phone Clark Oliveira MD Primary Care Provider Unavail able Gayla Hagen MD Primary Care Provider Gabo gonzales Encounter Details Date Type Department Care Team Description 03/23/2017 Park Landscape Architect Report Medical Records [address] [place] [address] Carlyle Fine MD Social History Tobacco Use [...] on filedocumented in this encounter Care Teams Teaching Artist Relationship Specialty Start Date End Date Clark Oliveira MD PCP - General Internal Medicine 05/16/13 04/22/21 Gayla Hagen MD PCP - General Family Practice 04/23/21 documented as of this encounter
--- OUTSIDE RECORDS SUMMARY | 2024-04-17 09:58 | XMS_ITS | Encounter Summary ---
Author Organization [facility] Address [address] [place] [address] Care Team Providers Care Federal Mediation Commissioner Name Role Phone Gayla Hagen MD Primary Care Provider Gabo gonzales Reason for Visit * Reason Onset Date Comments Medication 04/07/2022 Encounter Details Date Type Department Care Team Description 04/07/2022 Refill Gastroenterology - [place] [address] [facility] [address] [place] [phone] Marty Montgomery MD [address] [facility] [address] [place] [address] Medication Social History Tobacco Use Types Packs/Day [...] on filedocumented in this encounter Care Teams Federal Mediation Commissioner Relationship Specialty Start Date End Date Gayla Hagen MD PCP - General Family Practice 04/23/21 documented as of this encounter
--- OUTSIDE RECORDS SUMMARY | 2024-04-17 09:58 | XMS_ITS | Encounter Summary ---
Author Organization [facility] Address [address] [place] [address] Care Team Providers Care Registered Pharmacy Technician Name Role Phone Gayla Hagen MD Primary Care Provider Gabo gonzales Encounter Details Date Type Department Care Team Description 06/22/2023 Pt. Non Urgent Medical Question INFECTIOUS DISEASE [facility] [address], [address] [place] [address] Kristina Patel MD [address] [place] [phone] Social History Tobacco Use Types Packs/Day Years [...] on filedocumented in this encounter Care Teams Registered Pharmacy Technician Relationship Specialty Start Date End Date Gayla Hagen MD PCP - General Family Practice 04/23/21 documented as of this encounter
--- OUTSIDE RECORDS SUMMARY | 2024-04-17 09:58 | XMS_ITS | Encounter Summary ---
Author Organization [facility] Address [address] [place] [address] Care Team Providers Care Sales And Marketing Assistant Name Role Phone Clark Oliveira MD Primary Care Provider Unavail able Gayla Hagen MD Primary Care Provider Gabo gonzales Encounter Details Date Type Department Care Team Description 07/23/2020 Practice Representative Report Medical Records [address] [place] [address] Xavier Sandoval Social History Tobacco Use Types [...] on filedocumented in this encounter Care Teams Sales And Marketing Assistant Relationship Specialty Start Date End Date Clark Oliveira MD PCP - General Internal Medicine 05/16/13 04/22/21 Gayla Hagen MD PCP - General Family Practice 04/23/21 documented as of this encounter
--- OUTSIDE RECORDS SUMMARY | 2024-04-17 09:58 | XMS_ITS | Encounter Summary ---
Author Organization [facility] Address [address] [place] [address] Care Team Providers Care Clinical Laboratory Technician Name Role Phone Gayla Hagen MD Primary Care Provider Gabo gonzales Reason for Visit * Reason Onset Date Comments Prior Authorization 05/24/2022 Encounter Details Date Type Department Care Team Description 05/24/2022 Telephone Adult Medicine [address] [address] Gayla Hagen MD Prior Authorization Social History [...] Miscellaneous Notes * Telephone Encounter - Kathia Lindesy M.A. - 08/25/2022 11:35 AM EDT Prior authorization for the sildenafil was approved ( 10 per month) Approved from 08/24/22 until 08/24/23 Prior authorization case approval number # [id number] Approval faxed to [facility] at [phone] * Telephone Encounter - Kathia Lindsey M.A. [...] My Meds request: Yes -- Barney Code [id number] Name of Medication sildenafil (VIAGRA) 100 MG tablet Dose of Medication 100MG What is the RX # from the faxed refill? ? How does patient take this med? TAKE 1 TABLET 1 HOUR PRIOR TO INTERCOURSE NEEDED What Pharmacy did the fax come from: [facility] Pharmacy fax #: [phone] Third Democrat Information from fax: What Prescription Plan does the patient have? BIN/PCN if applicable: Cardholder ID:[id number] Person Code: 01 Relationship Code: SELF Help desk phone: [phone] documented in this encounter Plan of Treatment Not on file documented as of this encounter Visit Diagnoses Not on filedocumented in this encounter Care Teams Clinical Laboratory Technician Relationship Specialty Start Date End Date Gayla Hagen MD PCP - General Family Practice 04/23/21 documented as of this encounter
--- OUTSIDE RECORDS SUMMARY | 2024-04-17 09:58 | XMS_ITS | Encounter Summary ---
Author Organization [facility] Address [address] [place] [address] Care Team Providers Care Geography Faculty Member Name Role Phone Clark Lim MD Primary Care Provider Gayla Mac MD Primary Care Provider Gabo gonzales Reason for Visit * Reason Onset Date Comments Call-returning From Provider 12/04/2018 RET URNING A CALL FROM DR LIM Encounter Details Date Type Department Care Team Description 12/04/2018 Telephone Adult Medicine - [address] [address] Clark Lim MD Call-returning From Provider (RETURNING [...] on filedocumented in this encounter Care Teams Geography Faculty Member Relationship Specialty Start Date End Date Clark Lim MD PCP - General Internal Medicine 05/16/13 04/22/21 Gayla Hagen MD PCP - General Family Practice 04/23/21 documented as of this encounter
--- OUTSIDE RECORDS SUMMARY | 2024-04-17 09:58 | XMS_ITS | Encounter Summary ---
Author Organization [facility] Address [address] [place] [address] Care Team Providers Care Laborer Tan House Name Role Phone Gayla Hagen MD Primary Care Provider Gabo gonzales Encounter Details Date Type Department Care Team Description 06/14/2022 Refill Medicine/Pediatrics - [address] [phone] Gayla Hagen MD Social History Tobacco Use [...] type documented in this encounter Care Teams Laborer Tan House Relationship Specialty Start Date End Date Gayla Hagen MD PCP - General Family Practice 04/23/21 documented as of this encounter
--- OUTSIDE RECORDS SUMMARY | 2024-04-17 09:58 | XMS_ITS ---
Author Organization [facility] Address [address] [facility] [address] [place], [place] [phone] Care Team Providers Care Electron Gun Assembler Name Role Phone HAILY ENGEL Unavailable [phone] Allergies No Known Allergies Results Component Value Reference Range Notes Creatinine-[id number] Reviewed date:03/19/2024 10:20:42 AM Interpretation:Normal Performing Lab:[facility], [address] [place] [address], Phone - [phone], Director - [facility] Notes/Report: Creatinine 1.04 0.76-1.27 mg/dL eGFR 89 >59 mL/min/1.73 T pallidum Screening Edwards -[id number] Reviewed date:03/23/2024 12:41:47 PM Interpretation:RPR 1:4 Performing Lab:[facility], [address] [employer], [address], [place], Phone - [phone], Director - [facility] Notes/Report: T pallidum Antibodies Reactive Non Reactive RPR Reactive Non Reactive RPR, Quant 1:4 NonRea<1:1 titer HIV Ab/p24 Ag with Reflex-[id number] Reviewed date:03/19/2024 01:58:50 PM Interpretation:Negative Performing Lab:[facility], [address] [employer], [address], [place], Phone - [phone], Director - [facility] Notes/Report: HIV Ab/p24 Ag Screen Non Reactive Non Reactive HIV-1/HIV-2 antibodies and HIV-1 p24 antigen were NOT detected. There is no laboratory evidence of HIV infection. HIV Negative Chlamydia/GC Amplification-1 [id number] Reviewed date:03/19/2024 07:31:07 PM Interpretation:Negative Performing Lab:[facility] [place], [address], [address], [place], Phone - [phone], Director - [facility] Notes/Report: Chlamydia trachomatis, SURESH Negative Negative Neisseria gonorrhoeae, SURESH Negative Negative Ct/GC SURESH, Pharyngeal-[id number] Reviewed date:03/19/2024 07:31:01 PM Interpretation:Negative Performing Lab:[facility] [place], [address], [address], [place], Phone - [phone], Director - [facility] Notes/Report: C. trachomatis, SURESH, Pharyn Negative Negative N. gonorrhoeae, SURESH, Pharyn Negative Negative HCV Antibody-[id number] Reviewed date:03/19/2024 01:59:14 PM Interpretation:Negative Performing Lab:[facility] [place], [address], [address], [place], Phone - [phone], Director - [facility] Notes/Report: Hep C Virus Ab Non Reactive [...] 03/18/2024 Encounters Encounter Location Date Provider Diagnosis [place] [facility] [place], [place] [phone] 03/18/2024 HAILY ENGEL Encounter for screen ing for human immunodeficiency virus [HIV] Z11.4 ; Encounter for HIV pre-exposure prophylaxis Z29.81 ; Encounter for screening for infections with a predominantly sexual mode of transmission Z11.3 ; Other problems related to lifestyle Z72.89 ; Other assisted (current) drug therapy Z79.899 and Encounter for [...] of PrEP medication. Will reach out to [facility] again since clt has completed all [...] low risk of morbidity/mortal ity 03/18/2024 Other assisted (current) drug therapy (ICD-10 - [...] of PrEP medication. Will reach out to [facility] again since clt has completed all [...] Provider Name:HAILY ENGEL , 06/10/2024 04:15:00 PM, [address] [place] [address], [address], [place], [place], [phone], Progress Notes * Zana MATHEWOB:[birth year] (49 yo M)Acc No.[id number]:03/18/2024 Progress Notes Patient:?Luc MATHEW Provider:?Haily Engel NP :1975???Age:49 Y???Sex:Male Otilio e:03/18/2024 Address:[address] [place], [place] [phone] Subjective: * Chief Complaints: * ???PrEP Follow-up [...] 4.?Other problems related to lifestyle - Z72.89???5.?Other lobsterman (current) drug therapy - Z79.899???6.?Encounter for screening [...] immunodeficiency virus [HIV]?LAB: HIV Ab/p24 Ag with Reflex-[id number] (Collection Date & Time - 03/18/2024 04:41 PM) 3.?Encounter for screening f or infections with a predominantly sexual mode of transmission?LAB: T pallidum Screening Edwards-[id number] (Collection Date & Time - 03/18/2024 04:41 PM) ?LAB: Chlamydia/GC Amplification-[id number] (Collection Date & Time - 03/18/2024 04:41 PM) ?LAB: Ct/GC SURESH, Pharyngeal-[id number] (Collection Date & Time - 03/18/2024 04:41 PM) Notes: Reviewed routine screening, safe sex and consistent barrier protection. Aware of window period for testing and testing options. Discussed symptoms that would warrant further evaluation and follow-up care Encouraged Hep B vaccine through [facility] or local pharmacy?? 4.?Other lobsterman (current) drug therapy?LAB: Creatinine-[id number] (Collection Date & Time - 03/18/2024 04:41 PM) 5.?Encounter for screening f or other viral diseases?LAB: HCV Antibody-[id number] (Collection Date & Time - 03/18/2024 04:41 PM) * Procedure Codes:? * Follow Up:?3 Months (Reason: PrEP F/U) * Billing Information: * Visit Code:? 21865 Existing - Low Complexity (IN USE). * Procedure Codes:? * Sign off status: Completed true * Provider:?Haily Engel NP Date:? 025 Generated for Darreni blanche/Sean/eTransmitting on:?04/17/2024 09:58 AM EST History and Physical Notes * HPI (History of Present Illness) Category Sub-Category Detail Notes Category Not es Visit Narrative Reason for the visit: PrEP F/U Last date of UPI: 03/16 Examination Category Sub-Category Detail Notes Category Not es General Examination GENERAL APPEARANCE: pleasant, in n o acute distress
--- OUTSIDE RECORDS SUMMARY | 2024-04-17 09:58 | XMS_ITS | Encounter Summary ---
Author Organization [facility] Address [address] [place] [address] Care Team Providers Care Stroboroma Operator Name Role Phone Clark Oliveira MD Primary Care Provider Unavail able Gayla Hagen MD Primary Care Provider Gabo gonzales Encounter Details Date Type Department Care Team Description 08/07/2013 DOT Physical Forms Medical Records [address] [place] [address] Abstract, Provider Social History Tobacco Use Types [...] on filedocumented in this encounter Care Teams Stroboroma Operator Relationship Specialty Start Date End Date Clark Oliveira MD PCP - General Internal Medicine 05/16/13 04/22/21 Gayla Hagen MD PCP - General Family Practice 04/23/21 documented as of this encounter
--- OUTSIDE RECORDS SUMMARY | 2024-04-17 09:58 | XMS_ITS | Encounter Summary ---
Author Organization [facility] Address [address] [place] [address] Care Team Providers Care Tools Administrator Name Role Phone Gayla Hagen MD Primary Care Provider Gabo gonzales Encounter Details Date Type Department Care Team Description 05/17/2021 Administrative Assistant Receptionist Report Medical Records [address] [place] [address] Fabiana Knox PA-C Social History Tobacco Use [...] on filedocumented in this encounter Care Teams Tools Administrator Relationship Specialty Start Date End Date Gayla Haegn MD PCP - General Family Practice 04/23/21 documented as of this encounter
--- OUTSIDE RECORDS SUMMARY | 2024-04-17 09:58 | XMS_ITS ---
Author Organization [facility] Address [address] [place] [phone] Care Team Providers Care Staffing Specialist Name Role Phone JANUARY WAYNE Mcdonald [phone] REASON FOR VISIT PrEP labs and follow up Medications Medication SIG (Take, Route, Fr equency, Duration) Notes Start Date End Date Status Descovy 200-25 MG 1 tablet Orally Once a day for 90 days 03/19/2024 Active Social History Sex Assigned At : Social History Observation Description Sex Assigned At Male Encounters Encounter Location Date Provider Diagnosis [address] [place], [place] [phone] 03/18/2024 WAYNE SIN Plan Of Treatment Medication Medication Name Sig Start Date Stop Date Notes Descovy 200-25 MG 1 tablet Orally Once a day for 90 days 0 03/19/2024 Next Appt Details Provider Name:WAYNE SIN , 06/10/2024 04:15:00 PM, [address] [place] [address], [address], [place], [place], [phone], Progress Notes * Zana MATHEWOB:[birth year] (49 yo M)Acc No.[id number]:03/18/2024 Patient:?Luc MATHEW :1975???Age:49 Y???Sex:Male Address:[address] [place] [address], [phone] * Refills? Start Descovy Tablet, 200-25 MG, [...] * true * Date:? Generated for Marlin mancia/Sean/eTransmitting on:?04/17/2024 09:57 AM EST
--- OUTSIDE RECORDS SUMMARY | 2024-04-17 09:58 | XMS_ITS | Encounter Summary ---
Author Organization [facility] Address [address] [place] [address] Care Team Providers Care Social Media Content Manager Name Role Phone Clark Oliveira MD Primary Care Provider Unavail able Gayla Hagen MD Primary Care Provider Gabo gonzales Encounter Details Date Type Department Care Team Description 03/02/2018 Arcade Technician Report Medical Records [address] [place] [address] Pa Monaco MD Social History Tobacco Use [...] on filedocumented in this encounter Care Teams Social Media Content Manager Relationship Specialty Start Date End Date Clark Oliveira MD PCP - General Internal Medicine 05/16/13 04/22/21 Gayla Hagen MD PCP - General Family Practice 04/23/21 documented as of this encounter
--- OUTSIDE RECORDS SUMMARY | 2024-04-17 09:58 | XMS_ITS | Encounter Summary ---
Author Organization [facility] Address [address] [place] [address] Care Team Providers Care Oiler Bander Name Role Phone Clark Oliveira MD Primary Care Provider Unavail able Gayla Hagen MD Primary Care Provider Gabo gonzales Encounter Details Date Type Department Care Team Description 01/30/2018 Machine Brusher Report Medical Records [address] [place] [address] Pa Monaco MD Social History Tobacco Use [...] on filedocumented in this encounter Care Teams Oiler Bander Relationship Specialty Start Date End Date Clark Oliveira MD PCP - General Internal Medicine 05/16/13 04/22/21 Gayla Hagen MD PCP - General Family Practice 04/23/21 documented as of this encounter
--- OUTSIDE RECORDS SUMMARY | 2024-04-17 09:59 | XMS_ITS | Encounter Summary ---
Author Organization [facility] Address [address] [place] [address] Care Team Providers Care Hand Washer Name Role Phone Gayla Hagen MD Primary Care Provider Gabo gonzales Encounter Details Date Type Department Care Team Description 06/15/2021 Window Shade Ring Sewer Report Medical Records [address] [place] [address] Fabiana Knox PA-C Social History Tobacco Use [...] on filedocumented in this encounter Care Teams Hand Washer Relationship Specialty Start Date End Date Gayla Hagen MD PCP - General Family Practice 04/23/21 documented as of this encounter
--- OUTSIDE RECORDS SUMMARY | 2024-04-17 09:59 | XMS_ITS | Encounter Summary ---
Author Organization [facility] Address [address] [place] [address] Care Team Providers Care Furnace Room Supervisor Name Role Phone Clark Oliveira MD Primary Care Provider Unavail able Gayla Hagen MD Primary Care Provider Gabo goznales Encounter Details Date Type Department Care Team Description 10/21/2020 Soap Worker Report Medical Records [address] [place] [address] Jenna Jay NP Social History Tobacco Use [...] on filedocumented in this encounter Care Teams Furnace Room Supervisor Relationship Specialty Start Date End Date Clark Oliveira MD PCP - General Internal Medicine 05/16/13 04/22/21 Gayla Hagen MD PCP - General Family Practice 04/23/21 documented as of this encounter
--- OUTSIDE RECORDS SUMMARY | 2024-04-17 09:59 | XMS_ITS | Encounter Summary ---
Author Organization [facility] Address [address] [place] [address] Care Team Providers Care Repair Armature Winder Helper Name Role Phone Gayla Hagen MD Primary Care Provider Gabo gonzales Reason for Visit * Reason Onset Date Comments Prior Authorization 03/03/2022 gastro Encounter Details Date Type Department Care Team Description 03/03/2022 Telephone Adult Medicine - [place] [address] [place] [address] Marty Montgomery MD [address] [facility] [address] [place] [address] Prior Authorization (gastro) Social History Tobacco Use [...] Kay Tran - 03/17/2022 3:00 PM EST [facility] auth [id number] Valid 04/14/22-07/13/22 [facility] * Telephone Encounter - Kay Tran - 03/03/2022 9:25 AM EST Auth pending with [facility] # [id number]. * Telephone Encounter - Kathy Joseph - 03/03/2022 7:10 AM EST Images from the original note were not included. Shelbie Rendon Diagnostic PA & External surgeon [place] pre-op pool Pre-auth needed Patient is scheduled for an colonoscopy on 04/14/22 Diagnosis screening Patients insurance: [facility] Appointment is with Marty Montgomery MD Code to process pre-auth for: [id number] Location of procedure: [facility] documented in this encounter Plan of Treatment Not on file documented as of this encounter Visit Diagnoses Not on filedocumented in this encounter Care Teams Repair Armature Winder Helper Relationship Specialty Start Date End Date Gayla Hagen MD PCP - General Family Practice 04/23/21 documented as of this encounter
== END 2024-04-17 09:06 | disposition home or self-care (01) ==
LOC: HO.US 09:05
DX: R79.89 Other specified abnormal findings of blood chemistry (principal)
CPT/HCPCS: 76700

== ENCOUNTER → 2024-04-17 09:07 | Outpatient (BNV) | payer OTHER, SELFPAY | PROVIDERS: Visit Provider Radiology Diagnostic Radiology | DX: K76.0 Fatty (change of) liver, not elsewhere classified (principal); R79.89 Other specified abnormal findings of blood chemistry | CPT/HCPCS: 76700 ==

== ENCOUNTER → 2024-05-09 15:03 | Outpatient (BNVA) | payer OTHER, SELFPAY | PROVIDERS: Visit Provider Physician Assistant Surgical ==

== ENCOUNTER 2024-05-15 07:41 | Outpatient (AMB) | payer OTHER, SELFPAY ==
--- OUTSIDE RECORDS SUMMARY | 2024-05-15 07:44 | XMS_ITS | Encounter Summary ---
Author Organization [facility] Address [address] [place] [address] Care Team Providers Care Help Desk Assistant Name Role Phone Clark Oliveira MD Primary Care Provider Unavail able Gayla Hagen MD Primary Care Provider Gabo gonzales Encounter Details Date Type Department Care Team Description 11/13/2019 Biofuels Research Scientist Report Medical Records [address] [place] [address] Sebastian [place] MD Social History Tobacco Use [...] on filedocumented in this encounter Care Teams Help Desk Assistant Relationship Specialty Start Date End Date Clark Oliveira MD PCP - General Internal Medicine 05/16/13 04/22/21 Gayla Hagen MD PCP - General Family Practice 04/23/21 documented as of this encounter
--- OUTSIDE RECORDS SUMMARY | 2024-05-15 07:44 | XMS_ITS | Encounter Summary ---
Author Organization [facility] Address [address] [place] [address] Care Team Providers Care Decorating Kiln Operator Name Role Phone Gayla Hagen MD Primary Care Provider Gabo gonzales Reason for Visit * Reason Onset Date Comments Medication 04/07/2022 Encounter Details Date Type Department Care Team Description 04/07/2022 Refill Gastroenterology - [place] [address] [facility] [address] [place] [id number] Marty Montgomery MD [address] [facility] [address] [place] [address] Medication Social History Tobacco Use Types Packs/Day [...] on filedocumented in this encounter Care Teams Decorating Kiln Operator Relationship Specialty Start Date End Date Gayla Hagen MD PCP - General Family Practice 04/23/21 documented as of this encounter
--- OUTSIDE RECORDS SUMMARY | 2024-05-15 07:44 | XMS_ITS ---
Author Organization [facility] Address [address] [facility] [address] [place], [place] [id number] Care Team Providers Care [place] Boatman Name Role Phone HAILY ENGEL Unavailable [phone] Allergies No Known Allergies Results Component Value Reference Range Notes Creatinine-[id number] Reviewed date:03/19/2024 10:20:42 AM Interpretation:Normal Performing Lab:[facility], [address] [place] [address], Phone - [phone], Director - [facility] Notes/Report: Creatinine 1.04 0.76-1.27 mg/dL eGFR 89 >59 mL/min/1.73 T pallidum Screening Mora -[id number] Reviewed date:03/23/2024 12:41:47 PM Interpretation:RPR 1:4 Performing Lab:[facility], [address] [employer] [address], [place], Phone - [phone], Director - [facility] Notes/Report: T pallidum Antibodies Reactive Non Reactive RPR Reactive Non Reactive RPR, Quant 1:4 NonRea<1:1 titer HIV Ab/p24 Ag with Reflex-[id number] Reviewed date:03/19/2024 01:58:50 PM Interpretation:Negative Performing Lab:[facility], [address], [address], [place], Phone - [phone], Director - [facility] Notes/Report: HIV Ab/p24 Ag Screen Non Reactive Non Reactive HIV-1/HIV-2 antibodies and HIV-1 p24 antigen were NOT detected. There is no laboratory evidence of HIV infection. HIV Negative Chlamydia/GC Amplification-[id number] Reviewed date:03/19/2024 07:31:07 PM Interpretation:Negative Performing Lab:[facility] [place], [address], [address], [place], Phone - [phone], Director - [facility] Notes/Report: Chlamydia trachomatis, SURESH Negative Negative Neisseria gonorrhoeae, SURESH Negative Negative Ct/GC SURESH, Pharyngeal-[id number] Reviewed date:03/19/2024 07:31:01 PM Interpretation:Negative Performing Lab:[facility] [place], [address], [address], [place], Phone - [phone], Director - [facility] Notes/Report: C. trachomatis, SURESH, Pharyn Negative Negative N. gonorrhoeae, SURESH, Pharyn Negative Negative HCV Antibody-[id number] Reviewed date:03/19/2024 01:59:14 PM Interpretation:Negative Performing Lab:[facility] [place], [address], [address], [place], Phone - [phone], Director - [facility] Notes/Report: Hep C Virus Ab Non Reactive [...] 03/18/2024 Encounters Encounter Location Date Provider Diagnosis [facility] [place], [place] [id number] 03/18/2024 HAILY ENGEL Encounter for screen ing for human immunodeficiency virus [HIV] Z11.4 ; Encounter for HIV pre-exposure prophylaxis Z29.81 ; Encounter for screening for infections with a predominantly sexual mode of transmission Z11.3 ; Other problems related to lifestyle Z72.89 ; Other chcf (current) drug therapy Z79.899 and Encounter for [...] of PrEP medication. Will reach out to [facility] again since clt has completed all forms [...] low risk of morbidity/mortal ity 03/18/2024 Other chcf (current) drug therapy (ICD-10 - Z79.899) Need [...] of PrEP medication. Will reach out to [facility] again since clt has completed all forms [...] Provider Name:HAILY ENGEL , 06/10/2024 04:15:00 PM, [address] [place] [address], [address], [place], [place], [phone], Progress Notes * Zana MATHEWOB:[birth year] (49 yo M)Acc No.[id number]:03/18/2024 Progress Notes Patient:?Luc MATHEW Provider:?Haily Engel NP :1975???Age:49 Y???Sex:Male Otilio e:03/18/2024 Address:[address] [place], [place] [id number] Subjective: * Chief Complaints: * ???PrEP Follow-up [...] 4.?Other problems related to lifestyle - Z72.89???5.?Other termite exterminator helper (current) drug therapy - Z79.899???6.?Encounter for screening [...] immunodeficiency virus [HIV]?LAB: HIV Ab/p24 Ag with Reflex-[id number] (Collection Date & Time - 03/18/2024 04:41 PM) 3.?Encounter for screening f or infections with a predominantly sexual mode of transmission?LAB: T pallidum Screening Mora-[id number] (Collection Date & Time - 03/18/2024 04:41 PM) ?LAB: Chlamydia/GC Amplification-[id number] (Collection Date & Time - 03/18/2024 04:41 PM) ?LAB: Ct/GC SURESH, Pharyngeal-[id number] (Collection Date & Time - 03/18/2024 04:41 PM) Notes: Reviewed routine screening, safe sex and consistent barrier protection. Aware of window period for testing and testing options. Discussed symptoms that would warrant further evaluation and follow-up care Encouraged Hep B vaccine through [facility] or local pharmacy?? 4.?Other termite exterminator helper (current) drug therapy?LAB: Creatinine-222267 (Collection Date & Time - 03/18/2024 04:41 PM) 5.?Encounter for screening f or other viral diseases?LAB: HCV Antibody-[id number] (Collection Date & Time - 03/18/2024 04:41 PM) * Procedure Codes:? * Follow Up:?3 Months (Reason: PrEP F/U) * Billing Information: * Visit Code:? 47715 Existing - Low Complexity (IN USE). * Procedure Codes:? * Sign off status: Completed true * Provider:?Haily Engel NP Date:? 025 Generated for Darreni blanche/Sean/eTransmitting on:?05/15/2024 07:44 AM EDT History and Physical Notes * HPI (History of Present Illness) Category Sub-Category Detail Notes Category Not es Visit Narrative Reason for the visit: PrEP F/U Last date of UPI: 03/16 Examination Category Sub-Category Detail Notes Category Not es General Examination GENERAL APPEARANCE: pleasant, in n o acute distress
--- OUTSIDE RECORDS SUMMARY | 2024-05-15 07:44 | XMS_ITS | Encounter Summary ---
Author Organization [facility] Address [address] [place] [address] Care Team Providers Care Bushing Press Operator Name Role Phone Clark Oliveira MD Primary Care Provider Unavail able Gayla Hagen MD Primary Care Provider Gabo gonzales Encounter Details Date Type Department Care Team Description 08/07/2013 DOT Physical Forms Medical Records [address] [place] [address] Abstract, Provider Social History Tobacco Use Types [...] on filedocumented in this encounter Care Teams Bushing Press Operator Relationship Specialty Start Date End Date Clark Oliveira MD PCP - General Internal Medicine 05/16/13 04/22/21 Gayla Hagen MD PCP - General Family Practice 04/23/21 documented as of this encounter
--- OUTSIDE RECORDS SUMMARY | 2024-05-15 07:44 | XMS_ITS | Encounter Summary ---
Author Organization [facility] Address [address] [place] [address] Care Team Providers Care Bridge Operator Slip Name Role Phone Clark Oliveira MD Primary Care Provider Unavail able Gayla Hagen MD Primary Care Provider Gabo gonzales Encounter Details Date Type Department Care Team Description 12/13/2018 Metal Pourer Report Medical Records [address] [place] [address] Noemy Limon MD Social History Tobacco Use [...] filedocumented in this encounter Care Teams Bridge Operator Slip Relationship Specialty Start Date End Date Clark Oliveira MD PCP - General Internal Medicine 05/16/13 04/22/21 Gayla Hagen MD PCP - General Family Practice 04/23/21 documented as of this encounter
--- OUTSIDE RECORDS SUMMARY | 2024-05-15 07:44 | XMS_ITS | Encounter Summary ---
Author [facility] Address [address] [place] [address] Care Team Providers Care Technical Mgr Name Role Phone Gayla Hagen MD Primary Care Provider Gabo gonzales Reason for Visit * Reason Onset Date Comments medication problems 08/23/2022 Encounter Details Date Type Department Care Team Description 08/23/2022 Telephone Adult Medicine [address] [address] Gayla Hagen MD medication problems Social History [...] on filedocumented in this encounter Care Teams Technical Mgr Relationship Specialty Start Date End Date Gayla Hagen MD PCP - General Family Practice 04/23/21 documented as of this encounter
--- OUTSIDE RECORDS SUMMARY | 2024-05-15 07:44 | XMS_ITS ---
Author Organization [facility] Address [address] [id number] Care Team Providers Care Bioinformatics Scientist Name Role Phone SHIRAZHAILY Jaquez Unavailable [phone] Results Component Value Reference Range Notes T pallidum Screening Gravel Switch -[id number] Reviewed date:04/09/2024 07:56:21 AM Interpretation:RPR 1:2 Performing Lab:[facility], [address], [address], [place], Phone - [phone], Director - [facility] Notes/Report: T pallidum Antibodies Reactive Non [...] Male Encounters Encounter Location Date Provider Diagnosis [facility] [address] [facility] [address] [place], [place] [phone] 04/05/2024 HAILY ENGEL Encounter for screening for infections with a predominantly sexual mode of transmission Z11.3 Assessments Encounter Date Diagnosis (ICD Code) Assessment Notes Treatment Notes Treatment Clinical Notes Section Notes 04/05/2024 Encounter for screening for infections with a predominantly sexual mode of transmission (ICD-10 - Z11.3) Plan Of Treatment Next Appt Details Provider Name:HAILY Monroy JANUARY , 06/10/2024 04:15:00 PM, [address] [place] [address], [address], [place], [place], [phone], Progress Notes * Zana MATHEWOB:[birth year] (49 yo M)Acc No.[id number]:04/05/2024 LAB Patient:?RABIA HAASALALuc Provider:?Haily Engel NP :1975???Age:49 Y???Sex:Male Otilio e:04/05/2024 Address:[address] [place] [address] [id number] Subjective: * Chief Complaints: * ???Rpr * [...] NP Date:? 025 Generated for Marlin mancia/Sean/Diane on:?05/15/2024 07:44 AM EDT
--- OUTSIDE RECORDS SUMMARY | 2024-05-15 07:44 | XMS_ITS | Encounter Summary ---
Author Organization [facility] Address [address] [place] [address] Care Team Providers Care Adjunct Professor Of English Name Role Phone Gayla Hagen MD Primary Care Provider Gabo gonzales Encounter Details Date Type Department Care Team Description 06/14/2022 Refill Medicine/Pediatrics - [address] [address] Gayla Hagen MD Social History Tobacco Use [...] type documented in this encounter Care Teams Adjunct Professor Of English Relationship Specialty Start Date End Date Gayla Hagen MD PCP - General Family Practice 04/23/21 documented as of this encounter
--- OUTSIDE RECORDS SUMMARY | 2024-05-15 07:44 | XMS_ITS | Encounter Summary ---
Author Organization [facility] Address [address] [place] [address] Care Team Providers Care Carpet Installer Name Role Phone Clark Oliveira MD Primary Care Provider Unavail able Gayla Hagen MD Primary Care Provider Gabo gonzales Encounter Details Date Type Department Care Team Description 03/02/2018 Manager Spring Report Medical Records [address] [place] [address] Pa Monaco MD Social History Tobacco Use [...] on filedocumented in this encounter Care Teams Carpet Installer Relationship Specialty Start Date End Date Clark Oliveira MD PCP - General Internal Medicine 05/16/13 04/22/21 Gayla Hagen MD PCP - General Family Practice 04/23/21 documented as of this encounter
--- OUTSIDE RECORDS SUMMARY | 2024-05-15 07:44 | XMS_ITS | Encounter Summary ---
Author Organization [facility] Address [address] [place] [address] Care Team Providers Care Photographic Double Name Role Phone Clark Oliveira MD Primary Care Provider Unavail able Gayla Hagen MD Primary Care Provider Gabo gonzales Reason for Visit * Reason Onset Date Comments Faxed Refill 12/02/2019 Encounter Details Date Type Department Care Team Description 12/02/2019 Refill Adult Medicine [address] [address] Clark Oliveira MD Faxed Refill Social History [...] N/A Patients current insurance carrier is: Payor: [facility] / Plan: PPO $30 [place] [id number] / Product Type: PPO [id number] documented in this encounter Plan of Treatment Not on file documented as of this encounter Visit Diagnoses Not on filedocumented in this encounter Care Teams Photographic Double Relationship Specialty Start Date End Date Clark Oliveira MD PCP - General Internal Medicine 05/16/13 04/22/21 Gayla Hagen MD PCP - General Family Practice 04/23/21 documented as of this encounter
--- OUTSIDE RECORDS SUMMARY | 2024-05-15 07:44 | XMS_ITS | Encounter Summary ---
Author Organization [facility] Address [address] [place] [address] Care Team Providers Care Size Stamper Name Role Phone Clark Oliveira MD Primary Care Provider Unavail able Gayla Hagen MD Primary Care Provider Gabo gonzales Encounter Details Date Type Department Care Team Description 06/22/2020 Instructional Services Librarian Report Medical Records [address] [place] [address] Xavier Sandoval Social History Tobacco Use Types [...] on filedocumented in this encounter Care Teams Size Stamper Relationship Specialty Start Date End Date Clark Oliveira MD PCP - General Internal Medicine 05/16/13 04/22/21 Gayla Hagen MD PCP - General Family Practice 04/23/21 documented as of this encounter
--- OUTSIDE RECORDS SUMMARY | 2024-05-15 07:44 | XMS_ITS | Encounter Summary ---
Author Organization [facility] Address [address] [place] [address] Care Team Providers Care Elementary School Art Teacher Name Role Phone Gayla Hagen MD Primary Care Provider Gabo gonzales Reason for Visit * Reason Onset Date Comments Medication 03/31/2022 Encounter Details Date Type Department Care Team Description 03/31/2022 Refill Gastroenterology - [place] [address] [facility] [address] [place] [address] Marty Montgomery MD [address] [facility] [address] [place] [address] Medication Social History Tobacco Use Types Packs/Day [...] in this encounter Care Teams Elementary School Art Teacher Relationship Specialty Start Date End Date Gayla Hagen MD PCP - General Family Practice 04/23/21 documented as of this encounter
--- OUTSIDE RECORDS SUMMARY | 2024-05-15 07:44 | XMS_ITS | Encounter Summary ---
Author Organization [facility] Address [address] [place] [address] Care Team Providers Care Natural Sciences Professor Name Role Phone Clark Lim MD Primary Care Provider Gayla Mac MD Primary Care Provider Gabo gonzales Reason for Visit * Reason Onset Date Comments Call-returning From Provider 12/04/2018 RET URNING A CALL FROM DR LIM Encounter Details Date Type Department Care Team Description 12/04/2018 Telephone Adult Medicine - [address] [address] Clark Lim MD Call-returning From Provider (RETURNING [...] on filedocumented in this encounter Care Teams Natural Sciences Professor Relationship Specialty Start Date End Date Clark Lim MD PCP - General Internal Medicine 05/16/13 04/22/21 Gayla Hagen MD PCP - General Family Practice 04/23/21 documented as of this encounter
--- OUTSIDE RECORDS SUMMARY | 2024-05-15 07:44 | XMS_ITS | Encounter Summary ---
Author Organization [facility] Address [address] [place] [address] Care Team Providers Care Test Design Engineer Name Role Phone Clark Oliveira MD Primary Care Provider Unavail able Gayla Hagen MD Primary Care Provider Gabo gonzales Encounter Details Date Type Department Care Team Description 08/11/2016 Plc Programmer Report Medical Records [address] [place] [address] Choco Jose Social History Tobacco Use Types [...] on filedocumented in this encounter Care Teams Test Design Engineer Relationship Specialty Start Date End Date Clark Oliveira MD PCP - General Internal Medicine 05/16/13 04/22/21 Gayla Hagen MD PCP - General Family Practice 04/23/21 documented as of this encounter
--- OUTSIDE RECORDS SUMMARY | 2024-05-15 07:44 | XMS_ITS | Clinical Summary ---
Author Organization [facility] Address [address] [place] [address] Care Team Providers Care Hydropress Operator Name Role Phone Gayla Hagen MD Primary Care Provider [phone] Surgical History Surgery Date Site/Laterality Comments CHOLECYSTECTOMY [...] age to complete this topic Care Teams Hydropress Operator Relationship Specialty Start Date End Date Gayla Hagen MD [address] [place] [address] [place] [address] PCP - General 04/23/21
--- OUTSIDE RECORDS SUMMARY | 2024-05-15 07:44 | XMS_ITS | Encounter Summary ---
Author Organization [facility] Address [address] [place] [address] Care Team Providers Care It Infrastructure Architect Name Role Phone Gayla Hagen MD Primary Care Provider Gabo gonzales Reason for Visit * Reason Onset Date Comments Prior Authorization 05/24/2022 Encounter Details Date Type Department Care Team Description 05/24/2022 Telephone Adult Medicine [address] [address] Gayla Hagen MD Prior Authorization Social History [...] 08/24/23 Prior authorization case approval number # [id number] Approval faxed to [facility] at [phone] * Telephone Encounter - Kathia Lindsey M.A. [...] My Meds request: Yes -- Barney Code [id number] Name of Medication sildenafil (VIAGRA) 100 MG tablet Dose of Medication 100MG What is the RX # from the faxed refill? ? How does patient take this med? TAKE 1 TABLET 1 HOUR PRIOR TO INTERCOURSE NEEDED What Pharmacy did the fax come from: [facility] Pharmacy fax #: [phone] [employer] Information from fax: What Prescription Plan does the patient have? BIN/PCN if applicable: Cardholder ID:[id number] Person Code: 01 Relationship Code: SELF Help desk phone: [phone] documented in this encounter Plan of Treatment Not on file documented as of this encounter Visit Diagnoses Not on filedocumented in this encounter Care Teams It Infrastructure Architect Relationship Specialty Start Date End Date Gayla Hagen MD PCP - General Family Practice 04/23/21 documented as of this encounter
--- OUTSIDE RECORDS SUMMARY | 2024-05-15 07:44 | XMS_ITS | Encounter Summary ---
Author Organization [facility] Address [address] [place] [address] Care Team Providers Care Bilingual Kindergarten Teacher Name Role Phone Clark Oliveira MD Primary Care Provider Unavail able Gayla Hagen MD Primary Care Provider Gabo gonzales Encounter Details Date Type Department Care Team Description 06/15/2018 Orders Only Medical Records [address] [place] [address] Clark Oliveira MD Social History Tobacco Use [...] filedocumented in this encounter Care Teams Bilingual Kindergarten Teacher Relationship Specialty Start Date End Date Clark Oliveira MD PCP - General Internal Medicine 05/16/13 04/22/21 Gayla Hagen MD PCP - General Family Practice 04/23/21 documented as of this encounter
--- OUTSIDE RECORDS SUMMARY | 2024-05-15 07:44 | XMS_ITS | Encounter Summary ---
Author Organization [facility] [employer] [facility] Address [address] [place] [address] Care Team Providers Care Hose Tubing Backer Name Role Phone Gayla Hagen MD Primary Care Provider Gabo gonzales Encounter Details Date Type Department Care Team Description 06/28/2023 Pt. Non Urgent Medical Question INFECTIOUS DISEASE [facility] [address], [address] [place] [address] Kristina Patel MD [address] [place] [address] [phone] Social History Tobacco Use Types Packs/Day Years [...] on filedocumented in this encounter Care Teams Hose Tubing Backer Relationship Specialty Start Date End Date Gayla Hagen MD PCP - General Family Practice 04/23/21 documented as of this encounter
--- OUTSIDE RECORDS SUMMARY | 2024-05-15 07:44 | XMS_ITS | Encounter Summary ---
Author Organization [facility] Address [address] [place] [address] Care Team Providers Care Supervisory It Specialist Name Role Phone Clark Oliveira MD Primary Care Provider Gayla Mac MD Primary Care Provider Gabo gonzales Reason for Visit * Reason Onset Date Comments REFERRAL 05/18/2018 Encounter Details Date Type Department Care Team Description 05/18/2018 Telephone Adult Medicine [address] [address] Clark Oliveira MD REFERRAL Social History Tobacco [...] Joseph - 05/18/2018 9:47 AM EDT Called [facility]- still pending * Telephone Encounter - Marisa [...] on filedocumented in this encounter Care Teams Supervisory It Specialist Relationship Specialty Start Date End Date Clark Oliveira MD PCP - General Internal Medicine 05/16/13 04/22/21 Gayla Hagen MD PCP - General Family Practice 04/23/21 documented as of this encounter
--- OUTSIDE RECORDS SUMMARY | 2024-05-15 07:44 | XMS_ITS | Encounter Summary ---
Author Organization [facility] Address [address] [place] [address] Care Team Providers Care Business Technology Analyst Name Role Phone Gayla Hagen MD Primary Care Provider Gabo gonzales Encounter Details Date Type Department Care Team Description 06/22/2023 Pt. Non Urgent Medical Question INFECTIOUS DISEASE [facility] [address], [address] [place] [address] Kristina Patel MD [address] [place] [address] [phone] Social History Tobacco Use Types Packs/Day Years [...] on filedocumented in this encounter Care Teams Business Technology Analyst Relationship Specialty Start Date End Date Gayla Hagen MD PCP - General Family Practice 04/23/21 documented as of this encounter
--- OUTSIDE RECORDS SUMMARY | 2024-05-15 07:44 | XMS_ITS | Encounter Summary ---
Author Organization [facility] Address [address] [place] [address] Care Team Providers Care Terrazzo Worker Apprentice Name Role Phone Clark Oliveira MD Primary Care Provider Unavail able Gayla Hagen MD Primary Care Provider Gabo gonzales Encounter Details Date Type Department Care Team Description 12/15/2018 Release of Information Medical Records [address] [place] [id number] Abstract, Provider Social History Tobacco Use Types [...] on filedocumented in this encounter Care Teams Terrazzo Worker Apprentice Relationship Specialty Start Date End Date Clark Oliveira MD PCP - General Internal Medicine 05/16/13 04/22/21 Gayla Hagen MD PCP - General Family Practice 04/23/21 documented as of this encounter
--- OUTSIDE RECORDS SUMMARY | 2024-05-15 07:44 | XMS_ITS | Encounter Summary ---
Author Organization [facility] Address [address] [place] [address] Care Team Providers Care Dye Can Operator Name Role Phone Clark Oliveira MD Primary Care Provider Unavail able Gayla Hagen MD Primary Care Provider Gabo gonzales Encounter Details Date Type Department Care Team Description 06/06/2013 Transfer Records Medical Records [address] [place] [address] Abstract, Provider Social History Tobacco Use Types [...] on filedocumented in this encounter Care Teams Dye Can Operator Relationship Specialty Start Date End Date Clark Oliveira MD PCP - General Internal Medicine 05/16/13 04/22/21 Gayla Hagen MD PCP - General Family Practice 04/23/21 documented as of this encounter
--- OUTSIDE RECORDS SUMMARY | 2024-05-15 07:44 | XMS_ITS | Encounter Summary ---
Author Organization [facility] Address [address] [place] [address] Care Team Providers Care Honeycomb Decapper Name Role Phone Clark Oliveira MD Primary Care Provider Unavail able Gayla Hagen MD Primary Care Provider Gabo gonzales Encounter Details Date Type Department Care Team Description 02/19/2018 Transfer Records Medical Records [address] [place] [address] Abstract, Provider Social History Tobacco Use Types [...]
--- OUTSIDE RECORDS SUMMARY | 2024-05-15 07:44 | XMS_ITS | Encounter Summary ---
Author Organization [employer] [facility] Address [address] [place] [address] Care Team Providers Care I&C Technician Name Role Phone Gayla Hagen MD Primary Care Provider Gabo gonzales Encounter Details Date Type Department Care Team Description 02/27/2023 Orders Only Medical Records [address] [place], [place] [id number] [place] [address] Social History Tobacco Use Types Packs/Day Years [...] encounter Results * OUTSIDE PLAIN FILM (02/25/2023) [facility] RADIOLOGY * OUTSIDE VASCULAR STUDY (02/25/2023) [facility] CARDIOLOGY documented in this encounter Visit Diagnoses Not on filedocumented in this encounter Care Teams I&C Technician Relationship Specialty Start Date End Date Gayla Hagen MD PCP - General Family Practice 04/23/21 documented as of this encounter
--- OUTSIDE RECORDS SUMMARY | 2024-05-15 07:44 | XMS_ITS | Encounter Summary ---
Author Organization [facility] Address [address] [place] [address] Care Team Providers Care Mechanical Shop Laborer Name Role Phone Gayla Hagen MD Primary Care Provider Gabo gonzales Encounter Details Date Type Department Care Team Description 01/24/2023 Orders Only Medicine/Pediatrics - [address] [phone] Israel Hernandez PA-C [address] [place] [address] Elevated PSA (Primary Dx) Social History Tobacco [...] (PSA) documented in this encounter Care Teams Mechanical Shop Laborer Relationship Specialty Start Date End Date Gayla Hagen MD PCP - General Family Practice 04/23/21 documented as of this encounter
--- OUTSIDE RECORDS SUMMARY | 2024-05-15 07:44 | XMS_ITS | Encounter Summary ---
Author Organization [facility] Address [address] [place] [address] Care Team Providers Care Semiconductor Development Technician Name Role Phone Gayla Hagen MD Primary Care Provider Gabo gonzales Reason for Referral * EXTERNAL (Routine) - Authorized/Booked Specialty Diagnoses / Procedures Referred By Contchidi t Referred To Contact Neurology Procedures REFERRAL TO NEUROLOGY Israel Hernandez PA-C [address] [place] [address] Karen Mondragon MD [address] [facility] [address] [place] [address] Referral ID Status Reason Start Date Expiration Date V isits Requested Visits Authorized [id number] Authorized/B ooked 03/08/2023 03/07/2024 1 1 Encounter Details Date Type Department Care Team Description 03/08/2023 Orders Only Medicine/Pediatrics - [address] [phone] Israel Hernandez PA-C [address] [place] [address] Social History Tobacco Use Types Packs/Day Years [...] on filedocumented in this encounter Care Teams Semiconductor Development Technician Relationship Specialty Start Date End Date Gayla Hagen MD PCP - General Family Practice 04/23/21 documented as of this encounter
--- OUTSIDE RECORDS SUMMARY | 2024-05-15 07:44 | XMS_ITS ---
Author Organization [facility] Address [address] [place] [id number] Care Team Providers Care Poultry Processing Supervisor Name Role Phone JANUARY WAYNE Mcdonald [phone] REASON FOR VISIT PrEP labs and follow up Medications Medication SIG (Take, Route, Fr equency, Duration) Notes Start Date End Date Status Descovy 200-25 MG 1 tablet Orally Once a day for 90 days 03/19/2024 Active Social History Sex Assigned At : Social History Observation Description Sex Assigned At Male Encounters Encounter Location Date Provider Diagnosis [address] [place] [id number] 03/18/2024 [facility] Plan Of Treatment Medication Medication Name Sig Start Date Stop Date Notes Descovy 200-25 MG 1 tablet Orally Once a day for 90 days 0 03/19/2024 Next Appt Details Provider Name:WAYNE SIN , 06/10/2024 04:15:00 PM, [address] [place] [address], [address], [place], [place], [phone], Progress Notes * Zana MATHEWOB:[birth year] (49 yo M)Acc No.[id number]:03/18/2024 Patient:?Luc MATHEW :1975???Age:49 Y???Sex:Male Address:[address] [place] [address], [id number] * Refills? Start Descovy Tablet, 200-25 MG, [...] true * Date:? Generated for Marlin mancia/Sean/eTransmitting on:?05/15/2024 07:43 AM EDT
--- OUTSIDE RECORDS SUMMARY | 2024-05-15 07:45 | XMS_ITS | Encounter Summary ---
Author Organization [facility] Address [address] [place] [address] Care Team Providers Care Contracts Specialist Name Role Phone Clark Oliveira MD Primary Care Provider Unavail able Gayla Hagen MD Primary Care Provider Gabo gonzales Encounter Details Date Type Department Care Team Description 02/03/2015 Orders Only Medical Records [address] [place] [address] Clark Oliveira MD Social History Tobacco Use [...] on filedocumented in this encounter Care Teams Contracts Specialist Relationship Specialty Start Date End Date Clark Oliveira MD PCP - General Internal Medicine 05/16/13 04/22/21 Gayla Hagen MD PCP - General Family Practice 04/23/21 documented as of this encounter
--- OUTSIDE RECORDS SUMMARY | 2024-05-15 07:45 | XMS_ITS | Patient Health Record ---
Author Organization [facility] Address [address] [id number] Care Team Providers Care Workforce Planning Analyst Name Role Phone WAYNE SIN Unavailable [phone] SMILEY MACHADO Unavailable [phone] Allergies No Known Allergies Results Component Value Reference Range Notes Creatinine-[id number] Reviewed date:03/19/2024 10:20:42 AM Interpretation:Normal Performing Lab:[facility], [address] [place] [address], Phone - [phone], Director - Juan Notes/Report: Creatinine 1.04 0.76-1.27 mg/dL eGFR 89 >59 mL/min/1.73 T pallidum Screening Elmore -[id number] Reviewed date:03/23/2024 12:41:47 PM Interpretation:RPR 1:4 Performing Lab:[facility] [place], [address], [address], [place], Phone - [phone], Director - [facility] Notes/Report: T pallidum Antibodies Reactive Non Reactive RPR Reactive Non Reactive RPR, Quant 1:4 NonRea<1:1 titer HIV Ab/p24 Ag with Reflex-[id number] Reviewed date:03/19/2024 01:58:50 PM Interpretation:Negative Performing Lab:[facility] [place], [address], [address], [place], Phone - [phone], Director - [facility] Notes/Report: HIV Ab/p24 Ag Screen Non Reactive Non Reactive HIV-1/HIV-2 antibodies and HIV-1 p24 antigen were NOT detected. There is no laboratory evidence of HIV infection. HIV Negative Chlamydia/GC Amplification-1 [id number] Reviewed date:03/19/2024 07:31:07 PM Interpretation:Negative Performing Lab:[facility] [place], [address], [address], [place], Phone - [phone], Director - [facility] Notes/Report: Chlamydia trachomatis, SURESH Negative Negative Neisseria gonorrhoeae, SURESH Negative Negative Ct/GC SURESH, Pharyngeal-[id number] Reviewed date:03/19/2024 07:31:01 PM Interpretation:Negative Performing Lab:[facility], [address], [address], [place], Phone - [phone], Director - [facility] Notes/Report: C. trachomatis, SURESH, Pharyn Negative Negative N. gonorrhoeae, SURESH, Pharyn Negative Negative HCV Antibody-[id number] Reviewed date:03/19/2024 01:59:14 PM Interpretation:Negative Performing Lab:[facility] [place], [address], [address], [place], Phone - [phone], Director - [facility] Notes/Report: Hep C Virus Ab Non Reactive Non Reactive HCV antibody alone does not differentiate between previously resolved infection and active infection. Equivocal and Reactive HCV antibody results should be followed up with an HCV RNA test to support the diagnosis of active HCV infection. T pallidum Screening [place] -[id number] Reviewed date:04/09/2024 07:56:21 AM Interpretation:RPR 1:2 Performing Lab:[facility] [place], [address], [address], [place], Phone - [phone], Director - [facility] Notes/Report: T pallidum Antibodies Reactive Non Reactive RPR Reactive Non Reactive RPR, Quant 1:2 NonRea<1:1 titer Creatinine-[id number] Reviewed date:12/06/2023 11:45:29 AM Interpretation:Creatinine 1.0/CrCl 131 ml/min Performing Lab:[facility], [address] [place] [address], Phone - [phone], Director - K[facility] Notes/Report: Clinical Information:PHARYNGEAL SRC: ORAL Creatinine 1.00 0.76-1.27 mg/dL eGFR 93 >59 mL/min/1.73 T pallidum Screening [place] -[id number] Reviewed date:12/07/2023 09:46:23 AM Interpretation:RPR 1:2 Performing Lab:[facility], [address] [facility], [place], Phone - [phone], Director - Juan Notes/Report: Clinical Information:PHARYNGEAL SRC: ORAL Clinical Information:PHARYNGEAL SRC: ORAL Clinical Information:PHARYNGEAL SRC: ORAL T pallidum Antibodies Reactive Non Reactive RPR Reactive Non Reactive RPR, Quant 1:2 NonRea<1:1 titer HIV Ab/p24 Ag with Reflex-08 [id number] Reviewed date:12/06/2023 11:15:54 AM Interpretation:Negative Performing Lab:[facility] [place], [address], [address], [place], Phone - [phone], Director - [facility] Notes/Report: Clinical Information:PHARYNGEAL SRC: ORAL HIV Ab/p24 Ag Screen Non Reactive Non Reactive HIV-1/HIV-2 antibodies and HIV-1 p24 antigen were NOT detected. There is no laboratory evidence of HIV infection. HIV Negative Ct, Ng, Trich vag by SURESH-[id number] Reviewed date:12/07/2023 09:46:35 AM Interpretation:Negative Performing Lab:[facility] [place], [address], [address], [place], Phone - [phone], Director - [facility] Notes/Report: Clinical Information:PHARYNGEAL SRC: ORAL Chlamydia by SURESH Negative Negative Gonococcus by SURESH Negative Negative Trich vag by SURESH Negative Negative Ct/GC SURESH, Pharyngeal-[id number] Reviewed date:12/07/2023 09:44:15 AM Interpretation:Negative Performing Lab:[facility] [place], [address], [address], [place], Phone - [phone], Director - [facility] Notes/Report: Clinical Information:PHARYNGEAL SRC: ORAL C. trachomatis, SURESH, Pharyn Negative Negative N. gonorrhoeae, SURESH, Pharyn Negative Negative Lipid Panel-[id number] Reviewed date:12/06/2023 09:06:05 AM Interpretation:Normal Performing Lab:[facility], [address] [facility], [place], Phone - [phone], Director - Juan Notes/Report: Clinical Information:PHARYNGEAL SRC: ORAL Cholesterol, Total 155 100-199 mg/dL Triglycerides 83 0-149 mg/dL HDL Cholesterol 42 >39 mg/dL VLDL Cholesterol Ananth 16 5-40 mg/dL LDL Chol Calc ([facility]) 97 0-99 mg/dL Ct/GC SURESH, Pharyngeal-[id number] Reviewed date:07/03/2023 03:54:34 PM Interpretation:Negative Performing Lab:[facility], [address], [place], Phone - [phone], Director - [facility] Notes/Report: Clinical Information:SRC:oral N. gonorrhoeae, SURESH, Pharyn was developed and its performance characteristics determined by [facility]. It has not been cleared or approved by the Food and Drug Administration. C. trachomatis, SURESH, Pharyn Negative Negative N. gonorrhoeae, SURESH, Pharyn Negative Negative Creatinine-[id number] Reviewed date:10/02/2023 11:46:00 AM Interpretation:Cr 0.87, eCrCl 148ml/min Performing Lab:[facility], [address] [place] [address], Phone - [phone], Director - Juan Notes/Report: Clinical Information:SRC:urine Creatinine 0.87 0.76-1.27 mg/dL eGFR 107 >59 mL/min/1.73 HBsAg Screen-[id number] Reviewed date:10/02/2023 11:41:37 AM Interpretation:Negative Performing Lab:[facility], [address], [place], Phone - [phone], Director - [facility] Notes/Report: Clinical Information:SRC:urine HBsAg Screen Negative Negative Hepatitis B Surf Ab Quant-00 6530 Reviewed date:09/29/2023 03:39:16 PM Interpretation:Not Immune Performing Lab:[facility], [address], [place], Phone - [phone], Director - [facility] Notes/Report: Clinical Information:SRC:urine Hepatitis B Surf Ab Quant <3.5 Immunity>10 mIU /mL Status of Immunity Anti-HBs Level Inconsistent with Immunity 0.0 - 10.0 Consistent with Immunity >10.0 T pallidum Screening [place] -[id number] Reviewed date:10/03/2023 11:48:41 AM Interpretation:RPR 1:2, After Treatment Performing Lab:[facility], [address] [place] [address], Phone - [phone], Director - Juan Notes/Report: Clinical Information:SRC:urine Clinical Information:SRC:urine Clinical Information:SRC:urine T pallidum Antibodies Reactive Non Reactive RPR Reactive Non Reactive RPR, Quant 1:2 NonRea<1:1 titer HIV Ab/p24 Ag with Reflex-08 [id number] Reviewed date:10/02/2023 11:46:10 AM Interpretation:Non-reactive Performing Lab:[facility] [place], [address], [address], [place], Phone - [phone], Director - [facility] Notes/Report: Clinical Information:SRC:urine HIV Ab/p24 Ag Screen Non Reactive Non Reactive HIV-1/HIV-2 antibodies and HIV-1 p24 antigen were NOT detected. There is no laboratory evidence of HIV infection. HIV Negative Chlamydia/GC Amplification-1 [id number] Reviewed date:10/02/2023 11:41:45 AM Interpretation:Negative Performing Lab:[facility] [place], [address], [address], [place], Phone - [phone], Director - [facility] Notes/Report: Clinical Information:SRC:urine Chlamydia trachomatis, SURESH Negative Negative Neisseria gonorrhoeae, SURESH Negative Negative Ct/GC SURESH, Pharyngeal-[id number] Reviewed date:10/02/2023 11:46:18 AM Interpretation:Negative Performing Lab:[facility] [place], [address], [address], [place], Phone - [phone], Director - [facility] Notes/Report: Clinical Information:SRC:urine C. trachomatis, SURESH, Pharyn Negative Negative N. gonorrhoeae, SURESH, Pharyn Negative Negative HCV Antibody-[id number] Reviewed date:10/02/2023 11:46:27 AM Interpretation:Non-reactive Performing Lab:[facility] [place], [address], [address], [place], Phone - [phone], Director - [facility] Notes/Report: Clinical Information:SRC:urine Hep C Virus Ab Non Reactive Non Reactive HCV antibody alone does not differentiate between previously resolved infection and active infection. Equivocal and Reactive HCV antibody results should be followed up with an HCV RNA test to support the diagnosis of active HCV infection. Trich vag by SURESH-[id number] Reviewed date:10/02/2023 11:46:36 AM Interpretation:Negative Performing Lab:[facility] [place], [address], [address], [place], Phone - [phone], Director - [facility] Notes/Report: Clinical Information:SRC:urine Trich vag by SURESH Negative Negative Reason For Referral No Information [...] 03/18/2024 Encounters Encounter Location Date Provider Diagnosis [address] [id number] 06/27/2023 WAYNE GABAGisele Encounter for screen ing for infections with a predominantly sexual mode of transmission Z11.3 ; Syphilis, unspecified A53.9 and Counseling, unspecified Z71.[address] [id number] 09/28/2023 SMILEY MACHADO Encounter for screen ing for infections with a predominantly sexual mode of transmission Z11.3 ; Counseling, unspecified Z71.9 ; Other problems related to lifestyle Z72.89 ; Encounter for screening for human immunodeficiency virus [HIV] Z11.4 ; Other remote computer terminal operator (current) drug therapy Z79.899 ; Encounter for screening for other viral diseases Z11.59 and Encounter for [facility]-exposure [facility] [id number] 12/05/[facility]23 WAYNE GABAI Other fpc (current) drug therapy Z79.899 ; Contact with and (suspected) exposure to other viral communicable diseases Z20.828 ; Encounter for screening for human immunodeficiency virus [HIV] Z11.4 ; Encounter for HIV pre-exposure prophylaxis Z29.81 and Encounter for screening for infections with a predominantly sexual mode of transmission Z11.3 [facility] [address] [place], [place] [id number] 03/18/2024 WAYNE GABAI Encounter for screen ing for human immunodeficiency virus [HIV] Z11.4 ; Encounter for HIV pre-exposure prophylaxis Z29.81 ; Encounter for screening for infections with a predominantly sexual mode of transmission Z11.3 ; Other problems related to lifestyle Z72.89 ; Other remote computer terminal operator (current) drug therapy Z79.899 and Encounter for screening for other viral diseases Z11.59 [facility] [address] [place] [id number] 04/05/2024 WAYNE GABAI Encounter for screen ing for infections with a predominantly sexual mode of transmission Z11.3 [facility] [address] [place] [id number] 06/27/2023 WAYNE GABAI [facility] [address] [place] [id number] 09/28/2023 SMILEYCHI MACHADO [facility] [address] [place] [id number] 12/05/2023 WAYNE GABAI [facility] [address] [place] [id number] 03/06/2024 WAYNE GABAI Contact with and (suspected) exposure to other viral communicable diseases Z20.828 [facility] [address] [place] [id number] 03/18/2024 WAYNE GABAI Assessments Encounter Date Diagnosis (ICD Code) Assessment Notes Treatment Notes Treatment Clinical Notes Section Notes 06/27/2023 Syphilis, unspecified (ICD-10 - A53.9) Clt interviewed by [facility], field outboard motor tester Syl over the phone prior to this [...] others Communication of test results New Patient: [id number] 30 Minutes 06/27/2023 Encounter for screening for infections with a predominantly sexual mode of transmission (ICD-10 - Z11.3) Spent ___ minutes doing the following: Chart Prep Obtaining/revie wing history Performing medically necessary exam Counseling/Coor dination of Care Documenting the visit Educating the patient Ordering medication/test /procedures Communication with other providers Interpretation of test performed by others Communication of test results New Patient: 85687 30 Minutes 09/28/2023 Encounter for screening for [...] STI screening recommendations and available testing through [facility]. Testing ordered as noted per patient risks [...] others Communication of test results New Patient: [id number] 30 Minutes 09/28/2023 Encounter for screening for [...] medication: The Ready, Set, PrEP program and [place] HIV Drug Assistance Program (HDAP) which makes PrEP available at no cost to those who qualify. [facility] offers a program to help patients pay [...] low risk of morbidity/morta lity 09/28/2023 Other remote computer terminal operator (current) drug therapy (ICD-10 - Z79.899) [...] low risk of morbidity/morta lity 03/18/2024 Other remote computer terminal operator (current) drug therapy (ICD-10 - Z79.899) [...] Provider Name:WAYNE SIN , 06/10/2024 04:15:00 PM, [address] [place] [address], [facility], [place], [place], [phone], Insurance Providers Payer Name Payer Address Payer Phone Subscriber Number Group Number Insured Name Patient Relationship to Insured Coverage Start Date Coverage End Date [facility] [address] [place], [place] [id number] Luc Mathew Self - patient is the [...]
--- OUTSIDE RECORDS SUMMARY | 2024-05-15 07:45 | XMS_ITS | Encounter Summary ---
Author Organization [facility] Address [address] [place] [address] Care Team Providers Care Art Sales Consultant Name Role Phone Gayla Hagen MD Primary Care Provider Gabo gonzales Reason for Visit * Reason Onset Date Comments medication problems 04/26/2021 Encounter Details Date Type Department Care Team Description 04/26/2021 Telephone Adult Medicine [address] [address] Gayla Hagen MD medication problems Social History [...] on filedocumented in this encounter Care Teams Art Sales Consultant Relationship Specialty Start Date End Date Gayla Hagen MD PCP - General Family Practice 04/23/21 documented as of this encounter
--- OUTSIDE RECORDS SUMMARY | 2024-05-15 07:45 | XMS_ITS | Encounter Summary ---
Author Organization [facility] Address [address] [place] [address] Care Team Providers Care Tumbling And Rolling Supervisor Name Role Phone Clark Oliveira MD Primary Care Provider Unavail able Gayla Hagen MD Primary Care Provider Gabo gonzales Encounter Details Date Type Department Care Team Description 10/21/2020 Reservoir Engineering Manager Report Medical Records [address] [place] [address] Jenna Jay NP Social History Tobacco Use [...] on filedocumented in this encounter Care Teams Tumbling And Rolling Supervisor Relationship Specialty Start Date End Date Clark Oliveira MD PCP - General Internal Medicine 05/16/13 04/22/21 Gayla Hagen MD PCP - General Family Practice 04/23/21 documented as of this encounter
--- OUTSIDE RECORDS SUMMARY | 2024-05-15 07:45 | XMS_ITS | Encounter Summary ---
Author Organization [facility] Address [address] [place] [address] Care Team Providers Care Electronics Processor Name Role Phone Clark Oliveira MD Primary Care Provider Unavail able Gayla Hagen MD Primary Care Provider Gabo gonzales Encounter Details Date Type Department Care Team Description 02/25/2016 Channel Lip Stiffener Insoles Report Medical Records [address] [place] [address] Xavier Sandoval Social History Tobacco Use Types [...] on filedocumented in this encounter Care Teams Electronics Processor Relationship Specialty Start Date End Date Clark Oliveira MD PCP - General Internal Medicine 05/16/13 04/22/21 Gayla Hagen MD PCP - General Family Practice 04/23/21 documented as of this encounter
--- OUTSIDE RECORDS SUMMARY | 2024-05-15 07:45 | XMS_ITS | Encounter Summary ---
Author Organization [facility] Address [address] [place] [address] Care Team Providers Care Service Station Attendant Name Role Phone Clark Oliveira MD Primary Care Provider Gayla Mac MD Primary Care Provider Gabo gonzales Reason for Visit * Reason Onset Date Comments APPOINTMENT 04/21/2021 Encounter Details Date Type Department Care Team Description 04/21/2021 Telephone Adult Medicine [address] [address] Clark Oliveira MD APPOINTMENT Social History Tobacco [...] medication that he was prescribed in [facility] appt. His insurance requires the rx come from his pcp office: [facility] calling to schedule any [...] traveled recently to another state outside of [place], [place], [place], [place], [place], [place], [place]? NO o If yes, did you quarantine [...] these symptoms?: PCP: Clark Oliveira Payor: [facility] / Plan: PPO $15 FERTILE [id number] / Product Type: PPO [id number] documented in this encounter Plan of Treatment Not on file documented as of this encounter Visit Diagnoses Not on filedocumented in this encounter Care Teams Service Station Attendant Relationship Specialty Start Date End Date Clark Oliveira MD PCP - General Internal Medicine 05/16/13 04/22/21 Gayla Hagen MD PCP - General Family Practice 04/23/21 documented as of this encounter
--- OUTSIDE RECORDS SUMMARY | 2024-05-15 07:45 | XMS_ITS | Encounter Summary ---
Author Organization [facility] Address [address] [place] [address] Care Team Providers Care Electric Golf Cart Repairer Name Role Phone Clark Oliveira MD Primary Care Provider Unavail able Gayla Hagen MD Primary Care Provider Gabo gonzales Encounter Details Date Type Department Care Team Description 04/26/2017 Pipeline Superintendent Report Medical Records [address] [place] [address] Abstract, Provider Social History Tobacco Use Types [...] on filedocumented in this encounter Care Teams Electric Golf Cart Repairer Relationship Specialty Start Date End Date Clark Oliveira MD PCP - General Internal Medicine 05/16/13 04/22/21 Gayla Hagen MD PCP - General Family Practice 04/23/21 documented as of this encounter
--- OUTSIDE RECORDS SUMMARY | 2024-05-15 07:45 | XMS_ITS | Encounter Summary ---
Author Organization [facility] Address [address] [place] [address] Care Team Providers Care Paper Finisher Name Role Phone Gayla Hagen MD Primary Care Provider Gabo gonzales Reason for Visit * Reason Onset Date Comments Prior Authorization 04/23/2021 Encounter Details Date Type Department Care Team Description 04/23/2021 Telephone Adult Medicine [address] [address] Gayla Hagen MD Prior Authorization Social History [...] until 04/21/22 Prior authorization approval number # [id number] Approval faxed to [facility] at [phone] * Telephone Encounter - Kathia Lindsey M.A. [...] ) Prior auth completed. Case number [id number] Dx code N52.9 Erectile dysfunction, unspecified erectile [...] on filedocumented in this encounter Care Teams Paper Finisher Relationship Specialty Start Date End Date Gayla Hagen MD PCP - General Family Practice 04/23/21 documented as of this encounter
--- OUTSIDE RECORDS SUMMARY | 2024-05-15 07:45 | XMS_ITS | Encounter Summary ---
Author Organization [facility] Address [address] [place] [address] Care Team Providers Care Emissions Testing And Repair Technician Name Role Phone Gayla Hagen MD Primary Care Provider Gabo gonzales Encounter Details Date Type Department Care Team Description 06/15/2021 Product Marketing Manager Report Medical Records [address] [place] [address] Fabiana Knox PA-C Social History Tobacco Use [...] on filedocumented in this encounter Care Teams Emissions Testing And Repair Technician Relationship Specialty Start Date End Date Gayla Hagen MD PCP - General Family Practice 04/23/21 documented as of this encounter
--- OUTSIDE RECORDS SUMMARY | 2024-05-15 07:45 | XMS_ITS | Encounter Summary ---
Author Organization [facility] Address [address] [place] [address] Care Team Providers Care Deflash And Wash Operator Name Role Phone Gayla Hagen MD Primary Care Provider Gabo gonzales Encounter Details Date Type Department Care Team Description 05/17/2021 Web Manager Report Medical Records [address] [place] [address] Fabiana Knox PA-C Social History Tobacco Use [...] on filedocumented in this encounter Care Teams Deflash And Wash Operator Relationship Specialty Start Date End Date Gayla Hagen MD PCP - General Family Practice 04/23/21 documented as of this encounter
--- OUTSIDE RECORDS SUMMARY | 2024-05-15 07:45 | XMS_ITS | Encounter Summary ---
Author Organization [facility] Address [address] [place] [address] Care Team Providers Care Property Economist Name Role Phone Clark Oliveira MD Primary Care Provider Gayla Mac MD Primary Care Provider Gabo gonzales Reason for Visit * Reason Comments other Encounter Details Date Type Department Care Team Description 10/03/2016 Telephone Medicine/Pediatrics [address] [phone] Clark Oliveira MD other Social History Tobacco [...] on filedocumented in this encounter Care Teams Property Economist Relationship Specialty Start Date End Date Clark Oliveira MD PCP - General Internal Medicine 05/16/13 04/22/21 Gayla Hagen MD PCP - General Family Practice 04/23/21 documented as of this encounter
--- OUTSIDE RECORDS SUMMARY | 2024-05-15 07:45 | XMS_ITS | Encounter Summary ---
[facility] Address [address] [place] [address] Care Team Providers Care Chainman Name Role Phone Gayla Hagen MD Primary Care Provider Gabo gonzales Reason for Visit * Reason Onset Date Comments Prior Authorization 03/03/2022 gastro Encounter Details Date Type Department Care Team Description 03/03/2022 Telephone Adult Medicine - [place] [address] [place] [address] Marty Montgomery MD [address] [facility] [address] [place] [address] Prior Authorization (gastro) Social History Tobacco Use [...] Kay Tran - 03/17/2022 3:00 PM EST [facility] auth [id number] Valid 04/14/22-07/13/22 [facility] * Telephone Encounter - Kay Tran - 03/03/2022 9:25 AM EST Auth pending with [facility] # [id number]. * Telephone Encounter - Kathy Joseph - 03/03/2022 7:10 AM EST Images from the original note were not included. Shelbie Rendon Diagnostic PA & External surgeon [place] pre-op pool Pre-auth needed Patient is scheduled for an colonoscopy on 04/14/22 Diagnosis screening Patients insurance: [facility] Appointment is with Marty Montgomery MD Code to process pre-auth for: [id number] Location of procedure: [facility] documented in this encounter Plan of Treatment Not on file documented as of this encounter Visit Diagnoses Not on filedocumented in this encounter Care Teams Chainman Relationship Specialty Start Date End Date Gayla Hagen MD PCP - General Family Practice 04/23/21 documented as of this encounter
--- NOTE | 2024-05-15 07:46 | MHC.OFFVISWM ---
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 *SEE COMMENTS* Allergies No Known Allergies Allergy (Verified 05/15/24 08:43) Medication List - Last Reconciled 05/15/24 by Dany Robison MD amlodipine 10 mg PO DAILY emtricitabine-tenofovir alafen 200-25 mg (Descovy) 1 tab PO DAILY gabapentin 600 mg PO .qhs 30 days lisinopril 10 mg PO DAILY naproxen 500 mg PO BID sildenafil 100 mg PO DIRECTED HPI Comments Details: Previous weight loss efforts: calorie counting, self diets wakes up: 3.40am, Sleeps: 10pm Breakfast: skips Lunch: 12pmfast food, yogurt, turkey Dinner: 5pm (beef, chicken, pork, potatoes, rice, pasta) Snacks: 10am (oatmeal), 7pm (ice cream) Exercise: has home Elliptical Beverages: Coffee: 30oz/day with cream and sugar PFSH Medical History (Updated 05/15/24 @ 08:51 by Dany Robison MD) Obstructive sleep apnea on CPAP BMI 30.0-30.9,adult Obesity Obstructive sleep apnea Numbness of right hand Surgical History History of carpal tunnel release Hx laparoscopic cholecystectomy H/O circumcision Family History Mother Arthritis Hypercholesteremia HTN (hypertension) Diabetes Maternal Grandmother HTN (hypertension) Diabetes Father Liver cancer Social History Housing: House Alcohol intake: current Alcohol intake frequency: a few times a week Patient Tobacco Use Status: Former Tobacco user e-Cigarette/Vaping Use: Currently Using service: No Current occupational status: employed Cognitive needs: No Hearing needs: No Vision needs: No Physical Exam Vital Signs: Last Vital Signs Temp 97.7 F 05/15/24 07:49 Pulse 96 05/15/24 07:49 BP 152/84 H 05/15/24 07:49 Pulse Ox 100 05/15/24 07:49 Oxygen Delivery Method Room Air 05/15/24 07:49 BMI result Body Mass Index 38.1 GI Inspection: Yes normal to inspection (mixed body habitus), Yes incision (well healed) and Yes obesity Palpation (GI): Soft to palpation Extrem Right lower extremity: normal to inspection Left lower extremity: normal to inspection Assessment & Plan Assessment & Plan (1) Obesity: Code(s): E66.9 - Obesity, unspecified Category: Medical Qualifiers: Obesity type: due to excess calories Obesity classification: adult class 1 (BMI 30 - 34.9) Serious obesity comorbidity presence: with serious comorbidity Body mass index: BMI 30.0-30.9 Qualified Code(s): E66.811 - Obesity, class 1; E66.09 - Other obesity due to excess calories; Z68.30 - Body mass index [BMI] 30.0-30.9, adult Plan: 1. Start the Zepbound when you get your body composition scale once a week. We discussed the potential side effects of Zepbound such as nausea, vomiting, abdominal pain, diarrhea and constipation and you will need to contact me if any of these symptoms occur or for any other new symptom you may experience 2. You will receive a link of our software red to generate an individualized nutritional and exercise plan specific for you. Please send me a screenshot of the plans you will generate Meal to include lean meat (beef, fish, pork, turkey, chicken), or palestinian yogurt, or egg whites, or beans with a salad with olive oil and fruits (berries, pears, apples, kiwi). Avoid salt, breads, potatoes, rice, pasta, desserts. ?3. If you choose shakes, each shake would be drunk slowly, like coffee in a period of 2 hours. ?4. If you choose bars, cut each bar in 4 pieces and eat each piece in 30min ?to make each bar last 2 hours. ?5. I emphasized the importance of measuring accurately the food portion and measure it when serving the food in plate ?6. The meal portions include a specific number of forks of meat and salad. You always eat the meat portion but you can replace up to half of salad/vegetables portion with rice, potatoes or pasta, or a fruit ?if you like. The less you do it the better weight loss will be. ?7. One full-size fork is what it can be scooped on the fork without falling aside and not what can be bit with the fork. Use regular forks like those you find in a typical restaurant. ?8.? Please buy the body composition scale we discussed and send me weight measurements as soon as possible and then once a week. Always include your diet and exercise plan. 9. The best choice would be to purchase a stationary bike, elliptical or treadmill at home that can track calories. Let me know if you do so I can give you an exercise plan. 9. The best exercise choice would be to use your treadmill at home that can track calories. You can create and exercise plan with the [employer] red. ?10.?It is important of avoiding and for at least 18 months postoperatively and has been discussed at the infosession. ?11. Goal is to lose at least 1.5-2lbs per week ?12. Goal to lose at least 10% of your weight, which is about 28lbs. Minimum weight goal: 260lbs 13. Please follow the diet plan exactly without any change. If you don't like something about the plan or you feel hungry you need to communicate with me so I can help you revise the plan. You should not change the plan yourself. Medications: New tirzepatide (weight loss) (Zepbound) for 4 weeks 2.5 mg (0.5 mL) subcut QWEEK 2 mL 0RF E66.811 - Obesity, class 1, E78.5 - Hyperlipidemia, unspecified, G47.33 - Obstructive sleep apnea (adult) (pediatric), I10 - Essential (primary) hypertension, R73.03 - Prediabetes
[2024-05-15 07:49] VITALS: BP 152/84; PULSE 96; TEMP 36.5; O2SAT 100; BMI 38.1
== END 2024-05-15 08:59 | disposition home or self-care (01) ==
LOC: HO.HBS 07:41
PROVIDERS: Visit Provider Surgery
DX: E66.812 Obesity, class 2 (principal); Z68.38 Body mass index [BMI] 38.0-38.9, adult
CPT/HCPCS: 99204

== ENCOUNTER → 2024-05-15 07:41 | Outpatient (BNVA) | payer OTHER, SELFPAY | PROVIDERS: Visit Provider Surgery ==

== ENCOUNTER 2024-05-23 14:17 | Outpatient (AMB) | payer OTHER, SELFPAY ==
[2024-05-23 14:20] VITALS: BP 154/88; PULSE 98; RESP 16; TEMP 37.2; O2SAT 97; BMI 38.2
--- NOTE | 2024-05-23 14:20 | MHC.PC.OV ---
Vital Signs 05/23/24 14:20 Height 6 ft 1 in Weight 289 lb 6.4 oz BMI 38.2 BP 154/88 H Blood Pressure Location Lt brachial Position Sitting Respiration 16 Pulse 98 Pulse Source Pulse Oximeter Temp 98.9 F Temp Source Oral Pulse Oximetry (%) 97 Oxygen Delivery Method Room Air Intake Visit Reasons: Cold symptoms [employer] Consultant Required: No Accompanied by: Self / Same As Patient Allergies No Known Allergies Allergy (Verified 05/23/24 15:00) Medication List - Last Reconciled 05/23/24 by MARK Reyez amlodipine 10 mg PO DAILY emtricitabine-tenofovir alafen 200-25 mg (Descovy) 1 tab PO DAILY gabapentin 600 mg PO .qhs 30 days lisinopril 10 mg PO DAILY naproxen 500 mg PO BID sildenafil 100 mg PO DIRECTED Tobacco use date assessed: 05/23/24 Dental Screening Dental Screen Date: 05/23/24 Did you have a dental visit in the last 12 months?: No Did you have a dental problem in the last 6 months where you did not have access to dental care?: No Was dental information given to patient?: No HPI Cold symptoms HPI Details The patient is a 49-year-old male who was presenting for a sick visit Patient reports that approximately 14 days ago, he has been having ongoing symptoms of headaches, tightness of chest and feeling hot and cold intermittently. Patient reports that he is tired and feeling sleepy during the day. Reports that he took a home COVID test that was negative. The patient reports nasal congestion, sinus pressure, and ringing in both ears. The patient reports that he does have sleep apnea and has not been able to sleep well. This could be contributing to the patient tiredness. The patient denies sore throat, denies wheezing denies abdominal pain. Patient reports he has tried almost every OTC for cold symptoms. He reports taking Advil, NyQuil,different cough syrup, Tylenol etcetera without any relief Patient reports that his boss saw him at work not looking great and sent him home yesterday [facility] Medical History (Updated 05/23/24 @ 22:13 by MARK Reyez) Obstructive sleep apnea on CPAP BMI 30.0-30.9,adult Obesity Obstructive sleep apnea Numbness of right hand Surgical History History of carpal tunnel release Hx laparoscopic cholecystectomy H/O circumcision Family History Mother Arthritis Hypercholesteremia HTN (hypertension) Diabetes Maternal Grandmother HTN (hypertension) Diabetes Father Liver cancer Social History Housing: House Alcohol intake: current Alcohol intake frequency: a few times a week Patient Tobacco Use Status: Former Tobacco user Tobacco use type: Cigarette e-Cigarette/Vaping Use: Currently Using service: No Current occupational status: employed Cognitive needs: No Hearing needs: No Vision needs: Yes (Glasses) Questionnaire PHQ-9 Over the last 2 weeks, how often have you been bothered by any of the following problems? 1. Little interest or pleasure in doing things: not at all 2. Feeling down, depressed, or hopeless: more than half the days 3. Trouble falling or staying asleep, or sleeping too much: nearly every day 4. Feeling tired or having little energy: nearly every day 5. Poor appetite or overeating: nearly every day 6. Feeling bad about yourself - or that you are a failure or have let yourself or your family down: not at all 7. Trouble concentrating on things, such as reading the newspaper or watching television: nearly every day 8. Moving or speaking so slowly that other people could have noticed. Or the opposite - being so fidgety or restless that you have been moving around a lot more than usual: not at all 9. Thoughts that you would be better off or of hurting yourself in some way: not at all Total score: 14 Depression Screening Interpretation: Positive Depression Screening Done: Yes Source: Developed by Drs. Shady Gutierrez, Dayna Mckeon, Shane Matias and colleagues, with an educational cristel from [employer]. Thrive Questionnaire Date Thrive assessed: 05/23/24 I am a: Patient What is your living situation today?: I have a steady place to live Within the past 12 months, did the food you bought not last and you didn't have the money to get more?: Often true Within the past 12 months, did you worry whether your food would run out before you got money to buy more?: Often true Do you have trouble paying for medicines?: No Do you have trouble getting transportation to medical appointments?: No Do you have trouble paying your heating and electricity bill?: Yes Do you have trouble taking care of your child, family member or friend?: No Do you have trouble with day-to-day activities such as bathing, preparing meals, shopping, managing finances, etc.?: Yes Are you currently unemployed and looking for a job?: No Are you interested in more education?: I choose not to answer this question Currently or been in a relationship where the following occur: No concerns reported THRIVE Score: 3 AUDIT C Alcohol Use Questionnaire (AUDIT-C) 1. How often do you have a drink containing alcohol?: 2-3 times a week 2. How many drinks containing alcohol do you have on a typical day when you are drinking?: 5 or 6 3. How often do you have six or more drinks on one occasion?: Never Total Score: 5 Score Reviewed/Action Taken: Yes DARIELA-7 AMB Questionnaire DARIELA-7 Date DARIELA - 7 assessed: 05/23/24 Feeling nervous, anxious, or on edge: 1 = Several days Not being able to stop or control worryin = Nearly every day Worrying too much about different things: 3 = Nearly every day Trouble relaxin = Several days Being so restless that it is hard to sit still: 1 = Several days Becoming easily annoyed or irritable: 0 = Not at all Feeling afraid as if something awful might happen: 0 = Not at all Total DARIELA-7 score (0-4 normal; 5-9 mild; 10-14 moderate; 15-21 severe): 9 Source: Developed by Drs. Shady Gutierrez, Dayna Mckeon, Shane Matias and colleagues, with an educational cristel from [employer]. Review of Systems Const Reports chills, Reports fatigue, Reports fever(s) and Reports headache(s) ENT Reports headache(s), Reports nasal congestion, Reports nasal discharge, Reports tinnitus, Reports sinus pressure and Denies sore throat Card Denies chest pain, Denies leg edema and Denies lightheadedness Resp Denies cough, Denies hemoptysis and Denies wheezing GI Denies abdominal pain, Denies melena, Denies constipation, Denies diarrhea and Denies vomiting Denies dysuria, Denies urinary frequency and Denies urinary urgency Musc Denies muscle cramps Neuro Reports headache(s) Endo Reports fatigue Aller/Immun Denies wheezing Physical exam (Primary Care) Vital Signs: Last Vital Signs Temp 98.9 F 05/23/24 14:20 Pulse 98 05/23/24 14:20 Resp 16 05/23/24 14:20 BP 154/88 H 05/23/24 14:20 Pulse Ox 97 05/23/24 14:20 Oxygen Delivery Method Room Air 05/23/24 14:20 BMI result Body Mass Index 38.2 Tobacco/Smoking Status: Tobacco use Status Tobacco use date assessed 05/23/24 05/23/24 14:35 Patient Tobacco Use Status Former Tobacco user 05/23/24 14:35 Tobacco use type Cigarette 05/23/24 14:35 e-Cigarette/Vaping Use Currently Using 05/23/24 14:35 PHQ-9: PHQ-9 Score PHQ-9: Total score 14 05/23/24 15:08 Depression Screening Interpretation: Positive Thrive Assessment: Date of Thrive Assessment Date Thrive assessed 05/23/24 05/23/24 14:35 Currently or been in a relationship where the following occur: No concerns reported Const General: healthy appearing, no acute distress, alert and awake Nutritional Appearance: well nourished HENPA Ears: Abnormal EAC present cerumen impaction bilateral General nose exam: Abnormal mucous membranes and turbinates present boggy and erythematous and Nasal discharge present purulent Face and sinus: Yes sinus tenderness Mouth: Normal oral and palatal mucosa present Throat: Yes posterior oropharynx normal Eyes Conjunctivae: conjunctivae normal Sclerae: sclerae normal Neck Neck: Yes no lymphadenopathy and Yes no JVD Thyroid: Thyroid normal Carotids: no bruits Resp Effort & Inspection: normal respiratory effort and not tachypneic Auscultation: no crackles, no rales, no rhonchi and no wheezes Cardio Rate: regular rate Rhythm: regular rhythm Heart sounds: no murmurs and normal S1 and S2 GI Palpation (GI): Soft to palpation and nontender Auscultation: normal bowel sounds Coding Level of Care Code Est Pt Level 3 (22126) Diagnoses Rhinosinusitis J32.9 Bilateral impacted cerumen H61.23 Laterality: bilateral Time Spent (min) 31 Assessment & Plan Assessment & Plan (1) Rhinosinusitis: Code(s): J32.9 - Chronic sinusitis, unspecified Category: Medical Plan: Augmentin 875-125 mg b.i.d. x7 days, prednisone tapered, fluticasone propionate 50 mcg/actuation 2 sprays intranasal b.i.d. p.r.n.. Suspect that the patient has an allergy problem. Patient reports that he only has a problem when he cuts his grass in the summertime. Encourage patient to use an antihistamine OTC like Zyrtec or Claritin as needed. Encourage adequate fluid intake (2) Cerumen impaction: Code(s): H61.20 - Impacted cerumen, unspecified ear Category: Medical Qualifiers: Laterality: bilateral Qualified Code(s): H61.23 - Impacted cerumen, bilateral Plan: Debrox ear drops recommended. Use as directed. Medications: New amoxicillin-pot clavulanate 875-125 mg 1 tab PO BID 7 days 14 tabs 0RF J32.9 - Chronic sinusitis, unspecified prednisone see taper instructions take 4 tabs x2 days, 3 tabs x 2 days, take 2 tabs x 2 days, then 1 tab x 2 days =20 tabs for 8 days 10 mg PO DIRECTED 20 tabs 0RF fluticasone propionate 50 mcg/actuation administer into each nostril 2 sprays intranasal BID PRN 16 grams 0RF allergy symptoms
--- OUTSIDE RECORDS SUMMARY | 2024-05-23 17:02 | XMS_ITS ---
Author Organization [facility] Address [address] [place] [phone] Care Team Providers Care Switch Engineer Name Role Phone SHIRAZGisele WAYNE Mcdonald [phone] REASON FOR VISIT PrEP labs and follow up Medications Medication SIG (Take, Route, Fr equency, Duration) Notes Start Date End Date Status Descovy 200-25 MG 1 tablet Orally Once a day for 90 days 03/19/2024 Active Social History Sex Assigned At : Social History Observation Description Sex Assigned At Male Encounters Encounter Location Date Provider Diagnosis [address] [place], [place] [phone] 03/18/2024 WAYNE SIN Plan Of Treatment Medication Medication Name Sig Start Date Stop Date Notes Descovy 200-25 MG 1 tablet Orally Once a day for 90 days 0 03/19/2024 Next Appt Details Provider Name:WAYNE SIN , 06/10/2024 04:15:00 PM, [address] [place] [address], [address], [place], [place], [phone], Progress Notes * Zana MATHEWOB:[birth year] (49 yo M)Acc No.[id number]:03/18/2024 Patient:?Luc MATHEW :1975???Age:49 Y???Sex:Male Address:[address] [place] [address], [id number] * Refills? Start Descovy Tablet, 200-25 MG, [...] true * Date:? Generated for Marlin mancia/Sean/eTransmitting on:?05/23/2024 05:02 PM EDT
--- OUTSIDE RECORDS SUMMARY | 2024-05-23 17:02 | XMS_ITS ---
Author Organization [facility] Address [address] [facility] [address] [place], [place] [id number] Care Team Providers Care Lab Aid Name Role Phone HAILY ENGEL Unavailable [phone] Allergies No Known Allergies Results Component Value Reference Range Notes Creatinine-[id number] Reviewed date:03/19/2024 10:20:42 AM Interpretation:Normal Performing Lab:[facility], [address] [place] [address], Phone - [phone], Director - [facility] Notes/Report: Creatinine 1.04 0.76-1.27 mg/dL eGFR 89 >59 mL/min/1.73 T pallidum Screening [place] -[id number] Reviewed date:03/23/2024 12:41:47 PM Interpretation:RPR 1:4 Performing Lab:[facility], [address], [address], [place], Phone - [phone], Director - [facility] Notes/Report: T pallidum Antibodies Reactive Non Reactive RPR Reactive Non Reactive RPR, Quant 1:4 NonRea<1:1 titer HIV Ab/p24 Ag with Reflex-[id number] Reviewed date:03/19/2024 01:58:50 PM Interpretation:Negative Performing Lab:[facility], [address] [facility], [address], [place], Phone - [phone], Director - [facility] Notes/Report: HIV Ab/p24 Ag Screen Non Reactive Non Reactive HIV-1/HIV-2 antibodies and HIV-1 p24 antigen were NOT detected. There is no laboratory evidence of HIV infection. HIV Negative Chlamydia/GC Amplification-[id number] Reviewed date:03/19/2024 07:31:07 PM Interpretation:Negative Performing Lab:[facility] [place], [address], [address], [place], Phone - [phone], Director - [facility] Notes/Report: Chlamydia trachomatis, SURESH Negative Negative Neisseria gonorrhoeae, SURESH Negative Negative Ct/GC SURESH, Pharyngeal-[id number] Reviewed date:03/19/2024 07:31:01 PM Interpretation:Negative Performing Lab:[facility] [place], [address], [address], [place], Phone - [phone], Director - [facility] Notes/Report: C. trachomatis, SURESH, Pharyn Negative Negative N. gonorrhoeae, SURESH, Pharyn Negative Negative HCV Antibody-[id number] Reviewed date:03/19/2024 01:59:14 PM Interpretation:Negative Performing Lab:[facility] [place], [address], [address], [place], Phone - [phone], Director - [facility] Notes/Report: Hep C Virus Ab Non [...] 03/18/2024 Encounters Encounter Location Date Provider Diagnosis [place] [facility] [place], [place] [phone] 03/18/2024 HAILY ENGEL Encounter for screen ing for human immunodeficiency virus [HIV] Z11.4 ; Encounter for HIV pre-exposure prophylaxis Z29.81 ; Encounter for screening for infections with a predominantly sexual mode of transmission Z11.3 ; Other problems related to lifestyle Z72.89 ; Other alf (current) drug therapy Z79.899 and Encounter for [...] of PrEP medication. 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 Will reach out to [facility] again since clt has completed [...] Provider Name:HAILY ENGEL , 06/10/2024 04:15:00 PM, [address] [place] [address], [address], [place], [place], [phone], Progress Notes * Zana MATHEWOB:[birth year] (49 yo M)Acc No.[id number]:03/18/2024 Progress Notes Patient:?Luc MATHEW Provider:?Haily Engel NP :1975???Age:49 Y???Sex:Male Otilio e:03/18/2024 Address:[address] [place], [place] [id number] Subjective: * Chief Complaints: * ???PrEP Follow-up [...] 4.?Other problems related to lifestyle - Z72.89???5.?Other alf (current) drug therapy - Z79.899???6.?Encounter for screening [...] immunodeficiency virus [HIV]?LAB: HIV Ab/p24 Ag with Reflex-[id number] (Collection Date & Time - 03/18/2024 04:41 PM) 3.?Encounter for screening f or infections with a predominantly sexual mode of transmission?LAB: T pallidum Screening [place]-[id number] (Collection Date & Time - 03/18/2024 04:41 PM) ?LAB: Chlamydia/GC Amplification-[id number] (Collection Date & Time - 03/18/2024 04:41 PM) ?LAB: Ct/GC SURESH, Pharyngeal-[id number] (Collection Date & Time - 03/18/2024 04:41 PM) Notes: Reviewed routine screening, safe sex and consistent barrier protection. Aware of window period for testing and testing options. Discussed symptoms that would warrant further evaluation and follow-up care Encouraged Hep B vaccine through [facility] or local pharmacy?? 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 * Follow Up:?3 Months (Reason: PrEP F/U) * Billing Information: * Visit Code:? 61829 Existing - Low Complexity (IN USE). * Procedure Codes:? * Sign off status: Completed true * Provider:?Haily Engel NP Date:? 025 Generated for Darreni blanche/Sean/eTransmitting on:?05/23/2024 05:01 PM EDT History and Physical Notes * HPI (History of Present Illness) Category Sub-Category Detail Notes Category Not es Visit Narrative Reason for the visit: PrEP F/U Last date of UPI: 03/16 Examination Category Sub-Category Detail Notes Category Not es General Examination GENERAL APPEARANCE: pleasant, in n o acute distress
--- OUTSIDE RECORDS SUMMARY | 2024-05-23 17:02 | XMS_ITS ---
Author Organization [facility] Address [address] [phone] Care Team Providers Care Flooring Installer Name Role Phone SHIRAZHAILY Jaquez Unavailable [phone] Results Component Value Reference Range Notes T pallidum Screening [place] -[id number] Reviewed date:04/09/2024 07:56:21 AM Interpretation:RPR 1:2 Performing Lab:[facility], [address], [address], [place], Phone - [phone], Director - [facility] Notes/Report: T pallidum Antibodies [...] Male Encounters Encounter Location Date Provider Diagnosis [facility] [address] [facility] [address] [place], [place] [phone] 04/05/2024 HAILY ENGEL Encounter for screening for infections with a predominantly sexual mode of transmission Z11.3 Assessments Encounter Date Diagnosis (ICD Code) Assessment Notes Treatment Notes Treatment Clinical Notes Section Notes 04/05/2024 Encounter for screening for infections with a predominantly sexual mode of transmission (ICD-10 - Z11.3) Plan Of Treatment Next Appt Details Provider Name:HAILY Monroy JANUARY , 06/10/2024 04:15:00 PM, [address] [place] [address], [address], [place], [place], [phone], Progress Notes * Zana MATHEWOB:[birth year] (49 yo M)Acc No.[id number]:04/05/2024 LAB Patient:?RABIA HAASALALuc Provider:?Haily Engel NP :1975???Age:49 Y???Sex:Male Otilio e:04/05/2024 Address:[address] [place] [address] [id number] Subjective: * Chief Complaints: * ???Rpr * [...] NP Date:? 025 Generated for Marlin mancia/Sean/Diane on:?05/23/2024 05:02 PM EDT
--- OUTSIDE RECORDS SUMMARY | 2024-05-23 17:02 | XMS_ITS | Patient Health Record ---
Author Organization [facility] Address [address] [id number] Care Team Providers Care Parking Enforcement Manager Name Role Phone WAYNE SIN Unavailable [phone] JEANNETTE, SMILEY Unavailable [phone] Allergies No Known Allergies Results Component Value Reference Range Notes T pallidum Screening Mason -[id number] Reviewed date:04/09/2024 07:56:21 AM Interpretation:RPR 1:2 Performing Lab:[facility] [place], [address], [address], [employer], Phone - [phone], [facility] - [facility] Notes/Report: T pallidum Antibodies Reactive Non Reactive RPR Reactive Non Reactive RPR, Quant 1:2 NonRea<1:1 titer HCV Antibody-[id number] Reviewed date:03/19/2024 01:59:14 PM Interpretation:Negative Performing Lab:[facility] [place], [address], [address], [employer], Phone - [phone], Director - [facility] Notes/Report: Hep C Virus Ab Non Reactive Non Reactive HCV antibody alone does not differentiate between previously resolved infection and active infection. Equivocal and Reactive HCV antibody results should be followed up with an HCV RNA test to support the diagnosis of active HCV infection. Ct/GC SURESH, Pharyngeal-[id number] Reviewed date:03/19/2024 07:31:01 PM Interpretation:Negative Performing Lab:[facility] [place] [place], [address], [address], [employer], Phone - [phone], Director - [facility] Notes/Report: C. trachomatis, SURESH, Pharyn Negative Negative N. gonorrhoeae, SURESH, Pharyn Negative Negative Chlamydia/GC Amplification-1 [id number] Reviewed date:03/19/2024 07:31:07 PM Interpretation:Negative Performing Lab:[facility] [place], [address], [address], [place], Phone - [phone], Director - [facility] Notes/Report: Chlamydia trachomatis, SURESH Negative Negative Neisseria gonorrhoeae, SURESH Negative Negative HIV Ab/p24 Ag with Reflex-08 [id number] Reviewed date:03/19/2024 01:58:50 PM Interpretation:Negative Performing Lab:[facility], [address], [address], [place], Phone - [phone], Director - [facility] Notes/Report: HIV Ab/p24 Ag Screen Non Reactive Non Reactive HIV-1/HIV-2 antibodies and HIV-1 p24 antigen were NOT detected. There is no laboratory evidence of HIV infection. HIV Negative T pallidum Screening Mason -[id number] Reviewed date:03/23/2024 12:41:47 PM Interpretation:RPR 1:4 Performing Lab:[facility], [address], [address], [place], Phone - [phone], Director - [facility] Notes/Report: T pallidum Antibodies Reactive Non Reactive RPR Reactive Non Reactive RPR, Quant 1:4 NonRea<1:1 titer Creatinine-[id number] Reviewed date:03/19/2024 10:20:42 AM Interpretation:Normal Performing Lab:[facility] [place], [address] [facility], Phone - [phone], Director - Juan Notes/Report: Creatinine 1.04 0.76-1.27 mg/dL eGFR 89 >59 mL/min/1.73 Lipid Panel-[id number] Reviewed date:12/06/2023 09:06:05 AM Interpretation:Normal Performing Lab:[facility] [place], [address] [facility], Phone - [phone], Director - Juan Notes/Report: Clinical Information:PHARYNGEAL SRC: ORAL Cholesterol, Total 155 100-199 mg/dL Triglycerides 83 0-149 mg/dL HDL Cholesterol 42 >39 mg/dL VLDL Cholesterol Ananth 16 5-40 mg/dL LDL Chol Calc ([facility]) 97 0-99 mg/dL Ct/GC SURESH, Pharyngeal-[id number] Reviewed date:12/07/2023 09:44:15 AM Interpretation:Negative Performing Lab:[facility], [address], [address], [employer], Phone - [phone], Director - [facility] Notes/Report: Clinical Information:PHARYNGEAL SRC: ORAL C. trachomatis, SURESH, Pharyn Negative Negative N. gonorrhoeae, SURESH, Pharyn Negative Negative Ct, Ng, Trich vag by SURESH-183 160 Reviewed date:12/07/2023 09:46:35 AM Interpretation:Negative Performing Lab:[facility] [place], [address], [address], [place], Phone - [phone], Director - [facility] Notes/Report: Clinical Information:PHARYNGEAL SRC: ORAL Chlamydia by SURESH Negative Negative Gonococcus by SURESH Negative Negative Trich vag by SURESH Negative Negative HIV Ab/p24 Ag with Reflex-08 [id number] Reviewed date:12/06/2023 11:15:54 AM Interpretation:Negative Performing Lab:[facility], [address], [address], [place], Phone - [phone], Director - [facility] Notes/Report: Clinical Information:PHARYNGEAL SRC: ORAL HIV Ab/p24 Ag Screen Non Reactive Non Reactive HIV-1/HIV-2 antibodies and HIV-1 p24 antigen were NOT detected. There is no laboratory evidence of HIV infection. HIV Negative T pallidum Screening Mason -[id number] Reviewed date:12/07/2023 09:46:23 AM Interpretation:RPR 1:2 Performing Lab:[facility] [place], [address] [place] [address], Phone - [phone], Director - Juan Notes/Report: Clinical Information:PHARYNGEAL SRC: ORAL Clinical Information:PHARYNGEAL SRC: ORAL Clinical Information:PHARYNGEAL SRC: ORAL T pallidum Antibodies Reactive Non Reactive RPR Reactive Non Reactive RPR, Quant 1:2 NonRea<1:1 titer Creatinine-[id number] Reviewed date:12/06/2023 11:45:29 AM Interpretation:Creatinine 1.0/CrCl 131 ml/min Performing Lab:[facility] [place], [address] [place] [address], Phone - [phone], - Juan Notes/Report: Clinical Information:PHARYNGEAL SRC: ORAL Creatinine 1.00 0.76-1.27 mg/dL eGFR 93 >59 mL/min/1.73 Trich vag by SURESH-[id number] Reviewed date:10/02/2023 11:46:36 AM Interpretation:Negative Performing Lab:[facility], [address], [address], [place], Phone - [phone], Director - [facility] Notes/Report: Clinical Information:SRC:urine Trich vag by SURESH Negative Negative Ct/GC SURESH, Pharyngeal-[id number] Reviewed date:07/03/2023 03:54:34 PM Interpretation:Negative Performing Lab:[facility], [address], [address], [employer], Phone - [phone], Director - [facility] Notes/Report: Clinical Information:SRC:oral N. gonorrhoeae, SURESH, Pharyn was developed and its performance characteristics determined by [facility]. It has not been cleared or approved by the Food and Drug Administration. C. trachomatis, SURESH, Pharyn Negative Negative N. gonorrhoeae, SURESH, Pharyn Negative Negative Creatinine-[id number] Reviewed date:10/02/2023 11:46:00 AM Interpretation:Cr 0.87, eCrCl 148ml/min Performing Lab:[facility] [place], [address] [place] [address], Phone - [phone], Director - [facility] Notes/Report: Clinical Information:SRC:urine Creatinine 0.87 0.76-1.27 mg/dL eGFR 107 >59 mL/min/1.73 HBsAg Screen-[id number] Reviewed date:10/02/2023 11:41:37 AM Interpretation:Negative Performing Lab:[facility], [address], [address], [place], Phone - [phone], Director - [facility] Notes/Report: Clinical Information:SRC:urine HBsAg Screen Negative Negative Hepatitis B Surf Ab Quant-00 6530 Reviewed date:09/29/2023 03:39:16 PM Interpretation:Not Immune Performing Lab:[facility], [address], [address], [place], Phone - [phone], Director - [facility] Notes/Report: Clinical Information:SRC:urine Hepatitis B Surf Ab Quant <3.5 Immunity>10 mIU /mL Status of Immunity Anti-HBs Level Inconsistent with Immunity 0.0 - 10.0 Consistent with Immunity >10.0 T pallidum Screening Mason -[id number] Reviewed date:10/03/2023 11:48:41 AM Interpretation:RPR 1:2, After Treatment Performing Lab:[facility] [place], [address] [place] [address], [place], Phone - [phone], Director - Juan Notes/Report: Clinical Information:SRC:urine Clinical Information:SRC:urine Clinical Information:SRC:urine T pallidum Antibodies Reactive Non Reactive RPR Reactive Non Reactive RPR, Quant 1:2 NonRea<1:1 titer HIV Ab/p24 Ag with Reflex-08 [id number] Reviewed date:10/02/2023 11:46:10 AM Interpretation:Non-reactive Performing Lab:[facility], [address], [address], [place], Phone - [phone], Director - [facility] Notes/Report: Clinical Information:SRC:urine HIV Ab/p24 Ag Screen Non Reactive Non Reactive HIV-1/HIV-2 antibodies and HIV-1 p24 antigen were NOT detected. There is no laboratory evidence of HIV infection. HIV Negative Chlamydia/GC Amplification-1 86302 Reviewed date:10/02/2023 11:41:45 AM Interpretation:Negative Performing Lab:[facility], [address], [address], [place], Phone - [phone], Director - [facility] Notes/Report: Clinical Information:SRC:urine Chlamydia trachomatis, SURESH Negative Negative Neisseria gonorrhoeae, SURESH Negative Negative Ct/GC SURESH, Pharyngeal-[id number] Reviewed date:10/02/2023 11:46:18 AM Interpretation:Negative Performing Lab:[facility] [place], [address], [address], [place], Phone - [phone], Director - [facility] Notes/Report: Clinical Information:SRC:urine C. trachomatis, SURESH, Pharyn Negative Negative N. gonorrhoeae, SURESH, Pharyn Negative Negative HCV Antibody-[id number] Reviewed date:10/02/2023 11:46:27 AM Interpretation:Non-reactive Performing Lab:[facility] [place], [address], [address], [employer], Phone - [phone], Director - [facility] Notes/Report: Clinical Information:SRC:urine Hep C Virus Ab [...] 03/18/2024 Encounters Encounter Location Date Provider Diagnosis [address] [id number] 06/27/2023 WAYNECHUCHO SIN Encounter for screen ing for infections with a predominantly sexual mode of transmission Z11.3 ; Syphilis, unspecified A53.9 and Counseling, unspecified Z71.[address] [id number] 09/28/2023 SMILEY MACHADO Encounter for screen ing for infections with a predominantly sexual mode of transmission Z11.3 ; Counseling, unspecified Z71.9 ; Other problems related to lifestyle Z72.89 ; Encounter for screening for human immunodeficiency virus [HIV] Z11.4 ; 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 ; Encounter for screening for other viral diseases Z11.59 and Encounter for HIV pre-exposure prophylaxis Z29.[address] [facility] [address] [place] [id number] 12/05/2023 WAYNE GABAI Other [facility] (current) drug therapy Z79.899 ; Contact with and (suspected) exposure to other viral communicable diseases Z20.828 ; Encounter for screening for human immunodeficiency virus [HIV] Z11.4 ; Encounter for HIV pre-exposure prophylaxis Z29.81 and Encounter for screening for infections with a predominantly sexual mode of transmission Z11.3 [facility] [address] [place], [place] [id number] 03/18/2024 WAYNE GABAI Encounter for screen ing for human immunodeficiency virus [HIV] Z11.4 ; Encounter for HIV pre-exposure prophylaxis Z29.81 ; Encounter for screening for infections with a predominantly sexual mode of transmission Z11.3 ; Other problems related to lifestyle Z72.89 ; 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 and Encounter for screening for other viral diseases Z11.59 [facility] [address] [place] [id number] 04/05/2024 WAYNE GABAI Encounter for screen ing for infections with a predominantly sexual mode of transmission Z11.3 [facility] [address] [place] [id number] 06/27/2023 WAYNE GABAI [facility] [address] [place] [id number] 09/28/2023 SMILEYCHI MACHADO [facility] [address] [place] [id number] 12/05/2023 WAYNE GABAI [facility] [address] [place] [id number] 03/06/2024 WAYNE GABAI Contact with and (suspected) exposure to other viral communicable diseases Z20.828 [facility] [address] [place] [address] [id number] 03/18/2024 WAYNE GABAI Assessments Encounter Date Diagnosis (ICD Code) Assessment Notes Treatment Notes Treatment Clinical Notes Section Notes 06/27/2023 Syphilis, unspecified (ICD-10 - A53.9) Clt interviewed by [facility], field silver chaser Syl over the phone prior to this [...] others Communication of test results New Patient: [id number] 30 Minutes 06/27/2023 Encounter for screening for infections with a predominantly sexual mode of transmission (ICD-10 - Z11.3) Spent ___ minutes doing the following: Chart Prep Obtaining/revie wing history Performing medically necessary exam Counseling/Coor dination of Care Documenting the visit Educating the patient Ordering medication/test /procedures Communication with other providers Interpretation of test performed by others Communication of test results New Patient: 61302 30 Minutes 09/28/2023 Encounter for screening for [...] low risk of morbidity/morta lity 12/05/2023 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 Testing ordered as noted per patient risks [...] others Communication of test results New Patient: 10389 30 Minutes 09/28/2023 Encounter for screening for [...] medication: The Ready, Set, PrEP program and [place] HIV Drug Assistance Program (HDAP) which makes PrEP available at no cost to those who qualify. 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 [place], [place] [id number] Luc Mathew Self - patient is the [...]
--- OUTSIDE RECORDS SUMMARY | 2024-05-23 17:02 | XMS_ITS | Clinical Summary ---
Author Organization [facility] ity Address [address] [place] [address] Care Team Providers Care School Operations Manager Name Role Phone Gayla Hagen MD Primary Care Provider [phone] Surgical History Surgery Date Site/Laterality Comments CHOLECYSTECTOMY [...] age to complete this topic Meningococcal B Vaccine Aged Out No l onger eligible based on patient's age to complete this topic RSV Immunization Patients Under 20 months Aged Out No longer eligible based on patient's age to complete this topic Varicella Vaccines Aged Out No longer eligible based on patient's age to complete this topic Care Teams School Operations Manager Relationship Specialty Start Date End Date Gayla Hagen MD [address] [place] [address] PCP - General 04/23/21
== END 2024-05-23 15:31 | disposition home or self-care (01) ==
LOC: HO.HMCH 14:17
DX: J32.9 Chronic sinusitis, unspecified (principal); H61.23 Impacted cerumen, bilateral

== ENCOUNTER 2024-06-14 12:42 | Outpatient (AMB) | payer OTHER, SELFPAY ==
--- NOTE | 2024-06-14 12:43 | A.OFFVIS_ITS ---
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 Allergies No Known Allergies Allergy (Verified 06/14/24 12:46) Medication List - Last Reconciled 06/14/24 by Rochelle Peck LPN amlodipine 10 mg PO DAILY amoxicillin-pot clavulanate 875-125 mg 1 tab PO BID 7 days emtricitabine-tenofovir alafen 200-25 mg (Descovy) 1 tab PO DAILY fluticasone propionate 50 mcg/actuation 2 sprays intranasal BID PRN gabapentin 600 mg PO .qhs 30 days lisinopril 10 mg PO DAILY naproxen 500 mg PO BID prednisone 10 mg PO DIRECTED sildenafil 100 mg PO DIRECTED HPI HPI Discuss Intracept Denial/Alternate Options: Details: History of Present Illness The patient is a 49-year-old male presenting with persistent axial low back pain due to lumbar degenerative changes. This pain has progressively worsened over the years, notably interfering with his daily responsibilities and physical capabilities. He reports incapacitating pain post activities like yard work and experiences days when ambulation is severely limited. Despite previous surgeries and pain management efforts including cortisone injections, his pain remains inadequately controlled. Efforts to obtain insurance approval for vertebral nerve ablation have been futile, impacting the patient's potential pain relief options. Current analgesic treatments offer limited benefit, and the patient continues efforts in weight management as part of his symptom management strategy. Pain Description - Onset: Several years ago, gradually worsening. - Quality: Described as burning and incapacitating at times. - Primary Location: Axial low back. - Radiation: Pain described over the lumbar region, exacerbating on certain movements. - Exacerbating Factors: Yard work, physical exertion. - Relieving Factors: Rest and possibly ablation procedures (pending approval). - Impact on Function: Limits activity, causing incapacitation on some days and affecting work performance. Physical Exam - Musculoskeletal- Significant limitation in lumbar extension; pain upon twisting and bending backwards; pressure and movement limitation noted. Pain Management - Affect: Pain significantly impacts functional ability and daily activities. - Analgesia: Medications taken regularly; effectiveness is insufficient, with no adverse effects explicitly reported. - Adverse Effects: None noted. - Activities of Daily Living: Severely interrupted by pain, particularly after physical exertion; unable to perform expected duties without limitation. - Aberrant Drug Related Behaviors: None reported or discussed. [facility] Medical History (Updated 06/18/24 @ 16:11 by Sherif Chan MD) Obstructive sleep apnea on CPAP BMI 30.0-30.9,adult Obesity Obstructive sleep apnea Numbness of right hand Surgical History History of carpal tunnel release Hx laparoscopic cholecystectomy H/O circumcision Family History Mother Arthritis Hypercholesteremia HTN (hypertension) Diabetes Maternal Grandmother HTN (hypertension) Diabetes Father Liver cancer Social History Housing: House Alcohol intake: current Alcohol intake frequency: a few times a week Patient Tobacco Use Status: Former Tobacco user Tobacco use type: Cigarette e-Cigarette/Vaping Use: Currently Using service: No Current occupational status: employed Cognitive needs: No Hearing needs: No Vision needs: Yes (Glasses) Physical Exam Vital Signs: Last Vital Signs Pulse 90 06/14/24 12:45 Resp 16 06/14/24 12:45 BP 127/66 06/14/24 12:45 Pulse Ox 98 06/14/24 12:45 Oxygen Delivery Method Room Air 06/14/24 12:45 BMI result Body Mass Index 38.0 Assessment & Plan Assessment & Plan (1) Vertebrogenic low back pain: Code(s): M54.51 - Vertebrogenic low back pain Category: Medical (2) Lumbar spondylosis: Code(s): M47.816 - Spondylosis without myelopathy or radiculopathy, lumbar region Category: Medical Plan Plan - Initiate diagnostic lumbar medial branch blocks for potential facetogenic pain source at L3, L4, and L5 levels secondary to lumbar spondylosis. - Consider lumbar medial branch denervation if diagnostic results prove beneficial. - Continue advocacy for insurance approval on vertebral nerve ablation for vertebrogenic component of back pain. - Continue monitoring and reassessment following interventions to evaluate efficacy and adjust treatment plans accordingly. Patient was informed and verbally consented to the use of an ambient scribe for clinic note documentation during this visit. Discussion Notes During the visit, I discussed the likely diagnosis of axial low back pain resulting from lumbar degenerative changes, focusing on both facet joint and discogenic components. We reviewed management options, including lumbar medial branch blocks and eventual denervation, given the denial of insurance for vertebral nerve ablation. The potential benefits of these procedures, alongside their risks and the need for diagnostic confirmation of pain sources, were explored. It was agreed to proceed with diagnostic blocks, with plans dependent on test success. An ongoing challenge remains in insurance approval for the ablation procedure crucial for comprehensive intervention. Patient Instructions - Follow up for scheduled diagnostic injection procedures. - Maintain current medication regimen and continue weight management efforts. - Monitor pain levels and report any significant changes or concerns promptly. - Return to office for review post-procedures to discuss further treatment options. Coding Level of Care Code Est Pt Level 4 (61763) Diagnoses Vertebrogenic low back pain M54.51 Lumbar spondylosis M47.816
[2024-06-14 12:45] VITALS: BP 127/66; PULSE 90; RESP 16; O2SAT 98; BMI 38.0
--- OUTSIDE RECORDS SUMMARY | 2024-06-14 13:06 | XMS_ITS | Clinical Summary ---
Author Organization [facility] ity Address [address] [place] [address] Care Team Providers Care Partridge Farmer Name Role Phone Gayla Hagen MD Primary Care Provider [phone] Surgical History Surgery Date Site/Laterality Comments CHOLECYSTECTOMY [...] age to complete this topic Care Teams Partridge Farmer Relationship Specialty Start Date End Date Gayla Hagen MD [address] [place] [id number] PCP - General 04/23/21
--- OUTSIDE RECORDS SUMMARY | 2024-06-14 13:06 | XMS_ITS ---
Author Organization [facility] Address [address] [place] [id number] Care Team Providers Care Garment Examiner Name Role Phone SHIRAZGisele WAYNE Mcdonald [phone] REASON FOR VISIT PrEP labs and follow up Medications Medication SIG (Take, Route, Fr equency, Duration) Notes Start Date End Date Status Descovy 200-25 MG 1 tablet Orally Once a day for 90 days 03/19/2024 Active Social History Sex Assigned At : Social History Observation Description Sex Assigned At Male Encounters Encounter Location Date Provider Diagnosis [address] [place] [phone] 03/18/2024 WAYNE SIN Plan Of Treatment Medication Medication Name Sig Start Date Stop Date Notes Descovy 200-25 MG 1 tablet Orally Once a day for 90 days 0 03/19/2024 Next Appt Details Provider Name:WAYNE SIN , 06/24/2024 12:45:00 PM, [address] [place] [address], [facility] [place], [place], [phone], Progress Notes * Zana MATHEWOB:[birth year] (49 yo M)Acc No.[id number]:03/18/2024 Patient:?Luc MATHEW :1975???Age:49 Y???Sex:Male Address:[address] [place] [address], [id number] * Refills? Start Descovy Tablet, 200-25 MG, [...] true * Date:? Generated for Marlin mancia/Sean/eTransmitting on:?06/14/2024 01:06 PM EDT
--- OUTSIDE RECORDS SUMMARY | 2024-06-14 13:06 | XMS_ITS | Patient Health Record ---
Author Organization [facility] Address [address] [id number] Care Team Providers Care Iv Rn Name Role Phone WAYNE SIN Unavailable [phone] JEANNETTE, SMILEY Unavailable [phone] Allergies No Known Allergies Results Component Value Reference Range Notes T pallidum Screening [place] -[id number] Reviewed date:04/09/2024 07:56:21 AM Interpretation:RPR 1:2 Performing Lab:[facility] [place], [address], [address], [employer], Phone - [phone], [facility] - [facility] Notes/Report: T pallidum Antibodies Reactive Non Reactive RPR Reactive Non Reactive RPR, Quant 1:2 NonRea<1:1 titer HCV Antibody-[id number] Reviewed date:03/19/2024 01:59:14 PM Interpretation:Negative Performing Lab:[facility] [place], [address], [address], [employer], Phone - [phone], Director - [facility] Notes/Report: Hep C Virus Ab Non Reactive Non Reactive HCV antibody alone does not differentiate between previously resolved infection and active infection. Equivocal and Reactive HCV antibody results should be followed up with an HCV RNA test to support the diagnosis of active HCV infection. Ct/GC SURESH, Pharyngeal-[id number] Reviewed date:03/19/2024 07:31:01 PM Interpretation:Negative Performing Lab:[facility] [place], [address], [address], [employer], Phone - [phone], Director - [facility] Notes/Report: C. trachomatis, SURESH, Pharyn Negative Negative N. gonorrhoeae, SURESH, Pharyn Negative Negative Chlamydia/GC Amplification-1 [id number] Reviewed date:03/19/2024 07:31:07 PM Interpretation:Negative Performing Lab:[facility] [place], [address], [address], [place], Phone - [phone], Director - [facility] Notes/Report: Chlamydia trachomatis, SURESH Negative Negative Neisseria gonorrhoeae, SURESH Negative Negative HIV Ab/p24 Ag with Reflex-08 3935 Reviewed date:03/19/2024 01:58:50 PM Interpretation:Negative Performing Lab:[facility] [place], [address], [address], [place], Phone - [phone], Director - [facility] Notes/Report: HIV Ab/p24 Ag Screen Non Reactive Non Reactive HIV-1/HIV-2 antibodies and HIV-1 p24 antigen were NOT detected. There is no laboratory evidence of HIV infection. HIV Negative T pallidum Screening [place] -[id number] Reviewed date:03/23/2024 12:41:47 PM Interpretation:RPR 1:4 Performing Lab:[facility] [place], [address], [address], [place], Phone - [phone], Director - [facility] Notes/Report: T pallidum Antibodies Reactive Non Reactive RPR Reactive Non Reactive RPR, Quant 1:4 NonRea<1:1 titer Creatinine-[id number] Reviewed date:03/19/2024 10:20:42 AM Interpretation:Normal Performing Lab:[facility] [place], [address] [facility], Phone - [phone], Director - [place] Notes/Report: Creatinine 1.04 0.76-1.27 mg/dL eGFR 89 >59 mL/min/1.73 Lipid Panel-[id number] Reviewed date:12/06/2023 09:06:05 AM Interpretation:Normal Performing Lab:[facility] [place], [address] [facility], Phone - [phone], Director - [place] Notes/Report: Clinical Information:PHARYNGEAL SRC: ORAL Cholesterol, Total 155 100-199 mg/dL Triglycerides 83 0-149 mg/dL HDL Cholesterol 42 >39 mg/dL VLDL Cholesterol Ananth 16 5-40 mg/dL LDL Chol Calc ([facility]) 97 0-99 mg/dL Ct/GC SURESH, Pharyngeal-[id number] Reviewed date:12/07/2023 09:44:15 AM Interpretation:Negative Performing Lab:[facility] [place], [address], [address], [employer], Phone - [phone], Director - [facility] Notes/Report: Clinical Information:PHARYNGEAL SRC: ORAL C. trachomatis, SURESH, Pharyn Negative Negative N. gonorrhoeae, SURESH, Pharyn Negative Negative Ct, Ng, Trich vag by SURESH-183 160 Reviewed date:12/07/2023 09:46:35 AM Interpretation:Negative Performing Lab:[facility] [place], [address], [address], [place], Phone - [phone], Director - [facility] Notes/Report: Clinical Information:PHARYNGEAL SRC: ORAL Chlamydia by SURESH Negative Negative Gonococcus by SURESH Negative Negative Trich vag by SURESH Negative Negative HIV Ab/p24 Ag with Reflex-08 [id number] Reviewed date:12/06/2023 11:15:54 AM Interpretation:Negative Performing Lab:[facility], [address], [address], [place], Phone - [phone], Director - [facility] Notes/Report: Clinical Information:PHARYNGEAL SRC: ORAL HIV Ab/p24 Ag Screen Non Reactive Non Reactive HIV-1/HIV-2 antibodies and HIV-1 p24 antigen were NOT detected. There is no laboratory evidence of HIV infection. HIV Negative T pallidum Screening [place] -[id number] Reviewed date:12/07/2023 09:46:23 AM Interpretation:RPR 1:2 Performing Lab:[facility] [place], [address] [place] [address], Phone - [phone], Director - Juan Notes/Report: Clinical Information:PHARYNGEAL SRC: ORAL Clinical Information:PHARYNGEAL SRC: ORAL Clinical Information:PHARYNGEAL SRC: ORAL T pallidum Antibodies Reactive Non Reactive RPR Reactive Non Reactive RPR, Quant 1:2 NonRea<1:1 titer Creatinine-[id number] Reviewed date:12/06/2023 11:45:29 AM Interpretation:Creatinine 1.0/CrCl 131 ml/min Performing Lab:[facility] [place], [address] [place] [address], Phone - [phone], - Juan Notes/Report: Clinical Information:PHARYNGEAL SRC: ORAL Creatinine 1.00 0.76-1.27 mg/dL eGFR 93 >59 mL/min/1.73 HCV Antibody-[id number] Reviewed date:10/02/2023 11:46:27 AM Interpretation:Non-reactive Performing Lab:[facility] [place], [address], [address], [place], Phone - [phone], Director - [facility] Notes/Report: Clinical Information:SRC:urine Hep C Virus Ab Non Reactive Non Reactive HCV antibody alone does not differentiate between previously resolved infection and active infection. Equivocal and Reactive HCV antibody results should be followed up with an HCV RNA test to support the diagnosis of active HCV infection. Ct/GC SURESH, Pharyngeal-[id number] Reviewed date:10/02/2023 11:46:18 AM Interpretation:Negative Performing Lab:[facility] [place], [address], [address], [place], Phone - [phone], Director - [facility] Notes/Report: Clinical Information:SRC:urine C. trachomatis, SURESH, Pharyn Negative Negative N. gonorrhoeae, SURESH, Pharyn Negative Negative Trich vag by SURESH-[id number] Reviewed date:10/02/2023 11:46:36 AM Interpretation:Negative Performing Lab:[facility] [place], [address], [address], [place], Phone - [phone], Director - [facility] Notes/Report: Clinical Information:SRC:urine Trich vag by SURESH Negative Negative Chlamydia/GC Amplification-1 21684 Reviewed date:10/02/2023 11:41:45 AM Interpretation:Negative Performing Lab:[facility] [place], [address], [address], [employer], Phone - [phone], Director - [facility] Notes/Report: Clinical Information:SRC:urine Chlamydia trachomatis, SURESH Negative Negative Neisseria gonorrhoeae, SURESH Negative Negative HIV Ab/p24 Ag with Reflex-08 3935 Reviewed date:10/02/2023 11:46:10 AM Interpretation:Non-reactive Performing Lab:[facility] [place], [address], [address], [place], Phone - [phone], Director - [facility] Notes/Report: Clinical Information:SRC:urine HIV Ab/p24 Ag Screen Non Reactive Non Reactive HIV-1/HIV-2 antibodies and HIV-1 p24 antigen were NOT detected. There is no laboratory evidence of HIV infection. HIV Negative T pallidum Screening [place] -[id number] Reviewed date:10/03/2023 11:48:41 AM Interpretation:RPR 1:2, After Treatment Performing Lab:[facility] [place], [address] [facility], Phone - [phone], Director - [place] Notes/Report: Clinical Information:SRC:urine Clinical Information:SRC:urine Clinical Information:SRC:urine T pallidum Antibodies Reactive Non Reactive RPR Reactive Non Reactive RPR, Quant 1:2 NonRea<1:1 titer Hepatitis B Surf Ab Quant-00 6530 Reviewed date:09/29/2023 03:39:16 PM Interpretation:Not Immune Performing Lab:[facility] [place], [address], [address], [employer], Phone - [phone], Director - [facility] Notes/Report: Clinical Information:SRC:urine Hepatitis B Surf Ab Quant <3.5 Immunity>10 mIU /mL Status of Immunity Anti-HBs Level Inconsistent with Immunity 0.0 - 10.0 Consistent with Immunity >10.0 HBsAg Screen-[id number] Reviewed date:10/02/2023 11:41:37 AM Interpretation:Negative Performing Lab:[facility] [place], [address], [address], [employer], Phone - [phone], Director - [facility] Notes/Report: Clinical Information:SRC:urine HBsAg Screen Negative Negative Creatinine-560687 Reviewed date:10/02/2023 11:46:00 AM Interpretation:Cr 0.87, eCrCl 148ml/min Performing Lab:[facility] [place], [address] [facility], Phone - [phone], Director - Juan Notes/Report: Clinical Information:SRC:urine Creatinine 0.87 0.76-1.27 mg/dL eGFR 107 >59 mL/min/1.73 Ct/GC SURESH, Pharyngeal-[id number] Reviewed date:07/03/2023 03:54:34 PM Interpretation:Negative Performing Lab:[facility] [place], [address], [address], [employer], Phone - [phone], Director - [facility] Notes/Report: Clinical Information:SRC:oral N. gonorrhoeae, SURESH, Pharyn was developed and its performance characteristics determined by [employer]. It has not been cleared or approved [...] Encounters Encounter Location Date Provider Diagnosis [address] [id number] 06/27/2023 WAYNECHUCHO SIN Encounter for screen ing for infections with a predominantly sexual mode of transmission Z11.3 ; Syphilis, unspecified A53.9 and Counseling, unspecified Z71.[address] [id number] 09/28/2023 SMILEY MACHADO Encounter for screen ing for infections with a predominantly sexual mode of transmission Z11.3 ; Counseling, unspecified Z71.9 ; Other problems related to lifestyle Z72.89 ; Encounter for screening for human immunodeficiency virus [HIV] Z11.4 ; 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 ; Encounter for screening for other viral diseases Z11.59 and Encounter for HIV pre-exposure prophylaxis Z29.[address] [id number] 12/05/2023 WAYNE GABAI Other [facility] (current) drug therapy Z79.899 ; Contact with and (suspected) exposure to other viral communicable diseases Z20.828 ; Encounter for screening for human immunodeficiency virus [HIV] Z11.4 ; Encounter for HIV pre-exposure prophylaxis Z29.81 and Encounter for screening for infections with a predominantly sexual mode of transmission Z11.3 [facility] [address] [place], [place] [id number] 03/18/2024 WAYNE GABAI Encounter for screen ing for human immunodeficiency virus [HIV] Z11.4 ; Encounter for HIV pre-exposure prophylaxis Z29.81 ; Encounter for screening for infections with a predominantly sexual mode of transmission Z11.3 ; Other problems related to lifestyle Z72.89 ; Other [facility] (current) drug therapy Z79.899 and Encounter for screening for other viral diseases Z11.59 [facility] [address] [place] [id number] 04/05/2024 WAYNE GABAI Encounter for screen ing for infections with a predominantly sexual mode of transmission Z11.3 [facility] [address] [place] [id number] 06/27/2023 WAYNE GABAI [facility] [address] [place] [id number] 09/28/2023 SMILEYCHI MACHADO [facility] [address] [place] [id number] 12/05/2023 WAYNE GABAI [facility] [address] [place] [id number] 03/06/2024 WAYNE GABAI Contact with and (suspected) exposure to other viral communicable diseases Z20.828 [facility] [address] [place] [id number] 03/18/2024 WAYNE GABAI Assessments Encounter Date Diagnosis (ICD Code) Assessment Notes Treatment Notes Treatment Clinical Notes Section Notes 06/27/2023 Syphilis, unspecified (ICD-10 - A53.9) Clt interviewed by [facility], field nitrocellulose maker Syl over the phone prior to this [...] others Communication of test results New Patient: 37297 30 Minutes 06/27/2023 Encounter for screening for infections with a predominantly sexual mode of transmission (ICD-10 - Z11.3) Spent ___ minutes doing the following: Chart Prep Obtaining/revie wing history Performing medically necessary exam Counseling/Coor dination of Care Documenting the visit Educating the patient Ordering medication/test /procedures Communication with other providers Interpretation of test performed by others Communication of test results New Patient: 03107 30 Minutes 09/28/2023 Encounter for screening for [...] low risk of morbidity/morta lity 12/05/2023 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 Testing ordered as noted per patient risks [...] others Communication of test results New Patient: 90250 30 Minutes 09/28/2023 Encounter for screening for [...] at no cost to those who qualify. [email or web address] offers a program to help patients [...] low risk of morbidity/morta lity 09/28/2023 Other [facility] (current) drug therapy (ICD-10 - [...] low risk of morbidity/morta lity 03/18/2024 Other [facility] (current) drug therapy (ICD-10 [...] Provider Name:WAYNE SIN , 06/24/2024 12:45:00 PM, [address] [place] [address], [facility], [place], [place], [id number], Insurance Providers Payer Name Payer Address Payer Phone Subscriber Number Group Number Insured Name Patient Relationship to Insured Coverage Start Date Coverage End Date [facility] [address] [place], [place] [id number] Luc Mathew Self - patient is the [...]
--- OUTSIDE RECORDS SUMMARY | 2024-06-14 13:07 | XMS_ITS ---
Author Organization [facility] Health Address [address] [phone] Care Team Providers Care Contractor Field Hauling Name Role Phone SHIRAZHAILY Jaquez Unavailable [phone] Results Component Value Reference Range Notes T pallidum Screening [place] -[id number] Reviewed date:04/09/2024 07:56:21 AM Interpretation:RPR 1:2 Performing Lab:[facility] [place], [address], [address], [place], Phone - [phone], Director - [facility] Notes/Report: T pallidum Antibodies Reactive Non Reactive [...] Male Encounters Encounter Location Date Provider Diagnosis [facility] [address] [facility] [address] [place], [place] [id number] 04/05/2024 HAILY ENGEL Encounter for screening for infections with a predominantly sexual mode of transmission Z11.3 Assessments Encounter Date Diagnosis (ICD Code) Assessment Notes Treatment Notes Treatment Clinical Notes Section Notes 04/05/2024 Encounter for screening for infections with a predominantly sexual mode of transmission (ICD-10 - Z11.3) Plan Of Treatment Next Appt Details Provider Name:HAILY Monroy JANUARY , 06/24/2024 12:45:00 PM, [address] [place] [address], [address], [place], [place], [phone], Progress Notes * Zana MATHEWOB:[birth year] (49 yo M)Acc No.[id number]:04/05/2024 LAB Patient:?RABIA HAASALALuc Provider:?Haily Engel NP :1975???Age:49 Y???Sex:Male Otilio e:04/05/2024 Address:[address] [place] [address] [phone] Subjective: * Chief Complaints: * ???Rpr * [...] NP Date:? 025 Generated for Marlin mancia/Sean/Diane on:?06/14/2024 01:06 PM EDT
--- OUTSIDE RECORDS SUMMARY | 2024-06-14 13:07 | XMS_ITS ---
Author Organization [facility] Address [address] [place] [phone] Care Team Providers Care Farm Equipment Engineer Name Role Phone HAILY ENGEL [phone] REASON FOR VISIT PrEP F/U Social History Sex Assigned At : Social History Observation Description Sex Assigned At Male Encounters Encounter Location Date Provider Diagnosis [address] [place] [phone] 06/10/2024 HAILY ENGEL Plan Of Treatment Next Appt Details Provider Name:HAILY ENGEL , 06/24/2024 12:45:00 PM, [address] [place] [address], [address], [place], [place], [phone], Progress Notes * Zana MATHEWOB:[birth year] (49 yo M)Acc No.[id number]:06/10/2024 Progress Notes Patient:?Luc MATHEW Provider:?Haily Engel NP :1975???Age:49 Y???Sex:Male Otilio e:06/10/2024 Address:[address] [place] [id number] Subjective: * Chief Complaints: * ???1. PrEP F/U. * Medical History:? Objective: * Vitals:? Assessment: Plan: * Treatment: * Billing Information: * Visit Code:? * Procedure Codes:? * Electronic signature of CARMEN ENGEL NP on 06/14/2024 at 01:06 PM EDT Sign off status: Pending * Provider:?Haily Engel NP Date:? 025 Generated for Marlin mancia/Sean/Diane on:?06/14/2024 01:06 PM EDT
== END 2024-06-14 13:35 | disposition home or self-care (01) ==
LOC: HO.PMC 12:42
PROVIDERS: Visit Provider Internal Medicine
DX: M54.51 Vertebrogenic low back pain (principal); M47.816 Spondylosis without myelopathy or radiculopathy, lumbar region
CPT/HCPCS: 99214

== ENCOUNTER → 2024-06-14 12:42 | Outpatient (BNVA) | payer OTHER, SELFPAY | PROVIDERS: Visit Provider Internal Medicine ==

== ENCOUNTER 2024-06-26 11:35 | Outpatient (AMB) | payer OTHER, SELFPAY ==
--- NOTE | 2024-06-26 11:37 | MHC.PC.OV ---
Vital Signs 06/26/24 11:38 Height 6 ft 1 in Weight 278 lb 4 oz BMI 36.7 BP 110/64 Blood Pressure Location Lt brachial Position Sitting Pulse 80 Pulse Source Pulse Oximeter Temp 97.1 F Temp Source Temporal Artery Scan Pulse Oximetry (%) 97 Oxygen Delivery Method Room Air Intake Visit Reasons: f/u weight loss, resched Intake Note: Patient is here to follow up on Weight loss. 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: No Radio Division Captain: Not Required per policy Accompanied by: Self / Same As Patient Allergies No Known Allergies Allergy (Verified 06/26/24 12:02) Medication List - Last Reconciled 06/26/24 by Alexandra Aguilar PA-C amlodipine 10 mg PO DAILY amoxicillin-pot clavulanate 875-125 mg 1 tab PO BID 7 days emtricitabine-tenofovir alafen 200-25 mg (Descovy) 1 tab PO DAILY fluticasone propionate 50 mcg/actuation 2 sprays intranasal BID gabapentin 600 mg PO .qhs 30 days lisinopril 10 mg PO DAILY naproxen 500 mg PO BID prednisone 10 mg PO DIRECTED sildenafil 100 mg PO DIRECTED Tobacco use date assessed: 06/26/24 Dental Screening Dental Screen Date: 05/23/24 HPI f/u weight loss, resched HPI Details 49-year-old male with past medical history of hypertension, lumbar degenerative disc disease, lead nephrolithiasis, hyperlipidemia, fatty liver disease, obesity, obstructive sleep apnea last seen 05/2024 by nurse practitioner coming in for follow up.? In review of the notes, patient was seen by pain management 06/2024 plan to initiate diagnostic lumbar medial branch blocks and follow up scheduled. Presenting with ear complaints and review of weight loss management. Developed sinusitis a few weeks ago with subsequent left ear blockage. Ear was completely blocked during a prior visit, requiring intervention. Reports substantial weight loss as part of a structured nutrition and exercise regimen, with recent significant weight reduction of 18 pounds. Experiencing challenges with insurance for a proposed procedure. Hypertension is currently well-managed, and engagement with behavioral health has been initiated to aid ongoing lifestyle changes. [facility] Medical History (Updated 06/19/24 @ 22:03 by Dany Robison MD) Obstructive sleep apnea on CPAP BMI 30.0-30.9,adult Obesity Obstructive sleep apnea Numbness of right hand Surgical History History of carpal tunnel release Hx laparoscopic cholecystectomy H/O circumcision Family History Mother Arthritis Hypercholesteremia HTN (hypertension) Diabetes Maternal Grandmother HTN (hypertension) Diabetes Father Liver cancer Social History Housing: House Alcohol intake: current Alcohol intake frequency: a few times a week Patient Tobacco Use Status: Former Tobacco user Tobacco use type: Cigarette e-Cigarette/Vaping Use: Currently Using Second Hand Smoke Exposure: Yes service: No Current occupational status: employed Cognitive needs: No Hearing needs: No Vision needs: Yes (Glasses) Questionnaire PHQ-9 Over the last 2 weeks, how often have you been bothered by any of the following problems? 1. Little interest or pleasure in doing things: not at all 2. Feeling down, depressed, or hopeless: not at all 3. Trouble falling or staying asleep, or sleeping too much: several days 4. Feeling tired or having little energy: several days 5. Poor appetite or overeating: not at all 6. Feeling bad about yourself - or that you are a failure or have let yourself or your family down: not at all 7. Trouble concentrating on things, such as reading the newspaper or watching television: not at all 8. Moving or speaking so slowly that other people could have noticed. Or the opposite - being so fidgety or restless that you have been moving around a lot more than usual: not at all 9. Thoughts that you would be better off or of hurting yourself in some way: not at all Total score: 2 Source: Developed by Drs. Shady Gutierrez, Dayna Mckeon, Shane Matias and colleagues, with an educational cristel from [employer]. Thrive Questionnaire Date Thrive assessed: 06/24/24 I am a: Patient What is your living situation today?: I have a steady place to live Within the past 12 months, did the food you bought not last and you didn't have the money to get more?: Sometimes True Within the past 12 months, did you worry whether your food would run out before you got money to buy more?: Sometimes True Do you have trouble paying for medicines?: I choose not to answer this question Do you have trouble getting transportation to medical appointments?: No Do you have trouble paying your heating and electricity bill?: No Do you have trouble taking care of your child, family member or friend?: No Do you have trouble with day-to-day activities such as bathing, preparing meals, shopping, managing finances, etc.?: No Are you currently unemployed and looking for a job?: No Are you interested in more education?: No Please select the resources that you would like help with: None Currently or been in a relationship where the following occur: No concerns reported THRIVE Score: 2 AUDIT C Alcohol Use Questionnaire (AUDIT-C) 1. How often do you have a drink containing alcohol?: 2-3 times a week Total Score: 3 DARIELA-7 AMB Questionnaire DARIELA-7 Date DARIELA - 7 assessed: 05/23/24 Feeling nervous, anxious, or on edge: 0 = Not at all Not being able to stop or control worryin = Several days Worrying too much about different things: 1 = Several days Trouble relaxin = Several days Being so restless that it is hard to sit still: 0 = Not at all Becoming easily annoyed or irritable: 0 = Not at all Feeling afraid as if something awful might happen: 0 = Not at all Total DARIELA-7 score (0-4 normal; 5-9 mild; 10-14 moderate; 15-21 severe): 3 Source: Developed by Drs. Shady Gutierrez, Dayna Mckeon, Shane Matias and colleagues, with an educational cristel from [employer]. Review of Systems Const Denies body aches, Denies chills, Denies fever(s), Denies headache(s) and Denies poor appetite Eyes Reports no additional complaints ENT Denies dizziness and Denies headache(s) Card Denies chest pain, Denies lightheadedness and Denies dyspnea Resp Denies dyspnea Reports no additional complaints Musc Denies abnormal gait and Reports back pain Skin/Breast Reports system reviewed and no additional complaints, except as documented Neuro Denies abnormal gait, Denies dizziness and Denies headache(s) Psych Reports no additional complaints Physical exam (Primary Care) Vital Signs: Last Vital Signs Temp 97.1 F 06/26/24 11:38 Pulse 80 06/26/24 11:38 BP 110/64 06/26/24 11:38 Pulse Ox 97 06/26/24 11:38 Oxygen Delivery Method Room Air 06/26/24 11:38 BMI result Body Mass Index 36.7 Tobacco/Smoking Status: Tobacco use Status Tobacco use date assessed 06/26/24 06/26/24 11:42 Patient Tobacco Use Status Former Tobacco user 06/26/24 11:42 Tobacco use type Cigarette 06/26/24 11:42 e-Cigarette/Vaping Use Currently Using 06/26/24 11:42 PHQ-9: PHQ-9 Score PHQ-9: Total score 2 06/26/24 11:42 Thrive Assessment: Date of Thrive Assessment Date Thrive assessed 06/24/24 06/26/24 11:42 Currently or been in a relationship where the following occur: No concerns reported Const General: cooperative, healthy appearing, comfortable and no acute distress Orientation/consciousness: patient oriented x3 HENMT Head: Yes normocephalic Ears: hearing grossly normal bilaterally and Abnormal EAC present cerumen impaction bilateral General nose exam: Normal external nose present Eyes General: appearance normal, both eyes and all related structures Conjunctivae: conjunctivae normal Neck Neck: Yes full ROM and Yes no lymphadenopathy Resp Effort & Inspection: normal respiratory effort Auscultation: clear to auscultation bilaterally, no crackles, no rales, no rhonchi and no wheezes Cardio Rate: regular rate Rhythm: regular rhythm Skin General skin exam: no rashes or lesions noted Neuro General: patient oriented x3 Gait exam (Neuro): Normal gait present Extrem General: Yes normal to inspection, Yes full ROM and No edema Psych Affect: normal affect Attitude: cooperative Insight: Good insight present (Psych) Judgement: Good judgement present (Psych) Office Procedures Cerumen Removal From which ear canal was the cerumen removed: bilateral Removal: cerumen loop/spoon Notes: patient tolerated procedure well and no complications [id number] Wax Removal by Spoon/Curette Coding Level of Care Code Est Pt Level 3 (47647) Diagnoses BMI 38.0-38.9,adult Z68.38 Back pain M54.9 HTN (hypertension) I10 Bilateral impacted cerumen H61.23 Laterality: bilateral CPT Codes Office Procedure - CPT: 74581-Gec Wax Removal by Spoon/Curette ([id number]) Assessment & Plan Assessment & Plan (1) BMI 38.0-38.9,adult: Code(s): Z68.38 - Body mass index [BMI] 38.0-38.9, adult Category: Medical Plan: Healthy diet and regular exercise is encouraged. Patient has noted 18 lb weight loss since last visit. Continue to follow with Dr. Robison (2) Back pain: Code(s): M54.9 - Dorsalgia, unspecified Category: Medical Plan: Patient currently work with Dr. Chan through pain management and working on finding a procedure that will work with his insurance to alleviate his back pain. (3) HTN (hypertension): Code(s): I10 - Essential (primary) hypertension Category: Medical Plan: Continue on current blood pressure medication. Avoid salt intake and encourage healthy diet and regular exercise. (4) Cerumen impaction: Code(s): H61.20 - Impacted cerumen, unspecified ear Category: Medical Qualifiers: Laterality: bilateral Qualified Code(s): H61.23 - Impacted cerumen, bilateral Plan: Cerumen was successfully removed from the right ear using lighted curette. Cerumen was attempted to be removed from the left ear significant amount of cerumen was removed however hard waxes left. Recommend patient using Debrox drops 3-4 days before next appointment and repeat ear cleaning. Right TM was visualized as intact with well aerated middle ear spaces. Left TM was unable to be visualized due to cerumen impaction. Bilateral ear canals were atraumatic and patient tolerated the procedure well without complication. Plan This note was constructed using voice recognition software. While every effort has been made to ensure accuracy and carpet cleaning technician, still areas may have been included sometimes these areas may affect the content or meeting of the given symptoms. Total time spent caring for the patient today was 20 minutes. This includes time spent before the visit reviewing the chart, time spent during the visit, and time spent after the visit and documentation. Patient was informed and verbally consented to the use of an ambient scribe for clinic note documentation during this visit. Medications: New carbamide peroxide 6.5% (Debrox) 5 drps otic (ear) left DAILY 4 days 15 mL 0RF
[2024-06-26 11:38] VITALS: BP 110/64; PULSE 80; TEMP 36.2; O2SAT 97; BMI 36.7
--- OUTSIDE RECORDS SUMMARY | 2024-06-26 12:29 | XMS_ITS | Patient Health Record ---
Author Organization [facility] Address [address] [id number] Care Team Providers Care Hand Ironer Name Role Phone WAYNE SIN Unavailable [phone] JEANNETTECASIELA Unavailable [phone] Allergies No Known Allergies Results Component Value Reference Range Notes T pallidum Screening [place] -[id number] Reviewed date:06/25/2024 01:25:52 PM Interpretation:RPR 1:1 Performing Lab:[facility], [address], [address], [place], Phone - [phone], [facility] Notes/Report: T pallidum Antibodies Reactive Non Reactive RPR Reactive Non Reactive RPR, Quant 1:1 NonRea<1:1 titer HIV Ab/p24 Ag with Reflex-[id number] Reviewed date:06/25/2024 01:21:17 PM Interpretation:Negative Performing Lab:[facility], [address], [address], [place], Phone - [phone], Director - [facility] Notes/Report: HIV Ab/p24 Ag Screen Non Reactive Non Reactive HIV-1/HIV-2 antibodies and HIV-1 p24 antigen were NOT detected. There is no laboratory evidence of HIV infection. HIV Negative HCV Antibody RFX to Quant PC [id number] Reviewed date:06/25/2024 01:21:23 PM Interpretation:Negative Performing Lab:[facility] [place], [address], [address], [place], Phone - [phone], Director - [facility] Notes/Report: HCV Ab Non Reactive Non Reactive Interpretation: Not infected with HCV unless early or acute infection is suspected (which may be delayed in an immunocompromised individual), or other evidence exists to indicate HCV infection. Chlamydia/GC Amplification-1 [id number] Reviewed date:06/26/2024 08:56:21 AM Interpretation:Negative Performing Lab:[facility], [address], [address], [place], Phone - [phone], Director - [facility] Notes/Report: Chlamydia trachomatis, SURESH Negative Negative Neisseria gonorrhoeae, SURESH Negative Negative Ct/GC SURESH, Pharyngeal-[id number] Reviewed date:06/26/2024 08:56:27 AM Interpretation:Negative Performing Lab:[facility], [address], [address], [place], Phone - [phone], Director [facility] Notes/Report: C. trachomatis, SURESH, Pharyn Negative Negative N. gonorrhoeae, SURESH, Pharyn Negative Negative Ct/GC SURESH, Pharyngeal-[id number] Reviewed date:07/03/2023 03:54:34 PM Interpretation:Negative Performing Lab:[facility], [address], [address], [place], Phone - [phone], Director - [facility] Notes/Report: Clinical Information:SRC:oral N. gonorrhoeae, SURESH, Pharyn was developed and its performance characteristics determined by [employer]. It has not been cleared or approved by the Food and Drug Administration. C. trachomatis, SURESH, Pharyn Negative Negative N. gonorrhoeae, SURESH, Pharyn Negative Negative HCV Antibody-[id number] Reviewed date:03/19/2024 01:59:14 PM Interpretation:Negative Performing Lab:[facility], [address], [address], [place], Phone - [phone], Director - [facility] Notes/Report: Hep C Virus Ab Non Reactive Non Reactive HCV antibody alone does not differentiate between previously resolved infection and active infection. Equivocal and Reactive HCV antibody results should be followed up with an HCV RNA test to support the diagnosis of active HCV infection. Ct/GC SURESH, Pharyngeal-[id number] Reviewed date:03/19/2024 07:31:01 PM Interpretation:Negative Performing Lab:[facility] [place], [address], [address], [place], Phone - [phone], Director - [facility] Notes/Report: C. trachomatis, SURESH, Pharyn Negative Negative N. gonorrhoeae, SURESH, Pharyn Negative Negative Chlamydia/GC Amplification-1 [id number] Reviewed date:03/19/2024 07:31:07 PM Interpretation:Negative Performing Lab:[facility], [address], [address], [place], Phone - [phone], Director - [facility] Notes/Report: Chlamydia trachomatis, SURESH Negative Negative Neisseria gonorrhoeae, SURESH Negative Negative HIV Ab/p24 Ag with Reflex-08 [id number] Reviewed date:03/19/2024 01:58:50 PM Interpretation:Negative Performing Lab:[facility], [address], [address], [place], Phone - [phone], Director - [facility] Notes/Report: HIV Ab/p24 Ag Screen Non Reactive Non Reactive HIV-1/HIV-2 antibodies and HIV-1 p24 antigen were NOT detected. There is no laboratory evidence of HIV infection. HIV Negative T pallidum Screening [place] -[id number] Reviewed date:03/23/2024 12:41:47 PM Interpretation:RPR 1:4 Performing Lab:[facility], [address], [place], Phone - [phone], [facility] - [facility] Notes/Report: T pallidum Antibodies Reactive Non Reactive RPR Reactive Non Reactive RPR, Quant 1:4 NonRea<1:1 titer Creatinine-[id number] Reviewed date:03/19/2024 10:20:42 AM Interpretation:Normal Performing Lab:[facility], [address] [place] [address], Phone - [phone], [facility] [place] [facility] Notes/Report: Creatinine 1.04 0.76-1.27 mg/dL eGFR 89 >59 mL/min/1.73 HCV Antibody-[id number] Reviewed date:10/02/2023 11:46:27 AM Interpretation:Non-reactive Performing Lab:[facility], [address], [address], [place], Phone - [phone], Director - [facility] Notes/Report: Clinical Information:SRC:urine Hep C Virus Ab Non Reactive Non Reactive HCV antibody alone does not differentiate between previously resolved infection and active infection. Equivocal and Reactive HCV antibody results should be followed up with an HCV RNA test to support the diagnosis of active HCV infection. Ct/GC SURESH, Pharyngeal-[id number] Reviewed date:10/02/2023 11:46:18 AM Interpretation:Negative Performing Lab:[facility] [place], [address], [address], [place], Phone - [phone], Director - [facility] Notes/Report: Clinical Information:SRC:urine C. trachomatis, SURESH, Pharyn Negative Negative N. gonorrhoeae, SURESH, Pharyn Negative Negative Trich vag by SURESH-[id number] Reviewed date:10/02/2023 11:46:36 AM Interpretation:Negative Performing Lab:[facility] [place], [address], [place], Phone - [phone], Director - [facility] Notes/Report: Clinical Information:SRC:urine Trich vag by SURESH Negative Negative Chlamydia/GC Amplification-1 [id number] Reviewed date:10/02/2023 11:41:45 AM Interpretation:Negative Performing Lab:[facility] [place], [address], [address], [place], Phone - [phone], Director - [facility] Notes/Report: Clinical Information:SRC:urine Chlamydia trachomatis, SURESH Negative Negative Neisseria gonorrhoeae, SURESH Negative Negative HIV Ab/p24 Ag with Reflex-08 [id number] Reviewed date:10/02/2023 11:46:10 AM Interpretation:Non-reactive Performing Lab:[facility] [place], [address], [address], [place], Phone - [phone], Director - [facility] Notes/Report: Clinical Information:SRC:urine HIV Ab/p24 Ag Screen Non Reactive Non Reactive HIV-1/HIV-2 antibodies and HIV-1 p24 antigen were NOT detected. There is no laboratory evidence of HIV infection. HIV Negative T pallidum Screening [place] -[id number] Reviewed date:10/03/2023 11:48:41 AM Interpretation:RPR 1:2, After Treatment Performing Lab:[facility], [address] [place] [address], Phone - [phone], Director - [facility] Notes/Report: Clinical Information:SRC:urine Clinical Information:SRC:urine Clinical Information:SRC:urine T pallidum Antibodies Reactive Non Reactive RPR Reactive Non Reactive RPR, Quant 1:2 NonRea<1:1 titer Hepatitis B Surf Ab Quant-00 [id number] Reviewed date:09/29/2023 03:39:16 PM Interpretation:Not Immune Performing Lab:[facility] [place], [address], [address], [place], Phone - [phone], [facility] Notes/Report: Clinical Information:SRC:urine Hepatitis B Surf Ab Quant <3.5 Immunity>10 mIU /mL Status of Immunity Anti-HBs Level Inconsistent with Immunity 0.0 - 10.0 Consistent with Immunity >10.0 HBsAg Screen-[id number] Reviewed date:10/02/2023 11:41:37 AM Interpretation:Negative Performing Lab:[facility] [place], [address], [address], [place], Phone - [phone], Director - [facility] Notes/Report: Clinical Information:SRC:urine HBsAg Screen Negative Negative Creatinine-[id number] Reviewed date:10/02/2023 11:46:00 AM Interpretation:Cr 0.87, eCrCl 148ml/min Performing Lab:[facility] [place], [address] [place] [address], Phone - [phone], Director - Juan Notes/Report: Clinical Information:SRC:urine Creatinine 0.87 0.76-1.27 mg/dL eGFR 107 >59 mL/min/1.73 T pallidum Screening [place] -[id number] Reviewed date:04/09/2024 07:56:21 AM Interpretation:RPR 1:2 Performing Lab:[facility] [place], [address], [address], [place], Phone - [phone], [facility] Notes/Report: T pallidum Antibodies Reactive Non Reactive RPR Reactive Non Reactive RPR, Quant 1:2 NonRea<1:1 titer Lipid Panel-[id number] Reviewed date:12/06/2023 09:06:05 AM Interpretation:Normal Performing Lab:[facility] [place], [address] [facility], Phone - [phone], Director - Juan Notes/Report: Clinical Information:PHARYNGEAL SRC: ORAL Cholesterol, Total 155 100-199 mg/dL Triglycerides 83 0-149 mg/dL HDL Cholesterol 42 >39 mg/dL VLDL Cholesterol Ananth 16 5-40 mg/dL LDL Chol Calc ([facility]) 97 0-99 mg/dL Ct/GC SURESH, Pharyngeal-[id number] Reviewed date:12/07/2023 09:44:15 AM Interpretation:Negative Performing Lab:[facility] [place], [address], [address], [place], Phone - [phone], Director - [facility] Notes/Report: Clinical Information:PHARYNGEAL SRC: ORAL C. trachomatis, SURESH, Pharyn Negative Negative N. gonorrhoeae, SURESH, Pharyn Negative Negative Ct, Ng, Trich vag by SURESH-183 [id number] Reviewed date:12/07/2023 09:46:35 AM Interpretation:Negative Performing Lab:[facility] [place], [address], [address], [place], Phone - [phone], Director - [facility] Notes/Report: Clinical Information:PHARYNGEAL SRC: ORAL Chlamydia by SURESH Negative Negative Gonococcus by SURESH Negative Negative Trich vag by SURESH Negative Negative HIV Ab/p24 Ag with Reflex-08 [id number] Reviewed date:12/06/2023 11:15:54 AM Interpretation:Negative Performing Lab:[facility], [address], [place], Phone - [phone], Director - [facility] Notes/Report: Clinical Information:PHARYNGEAL SRC: ORAL HIV Ab/p24 Ag Screen Non Reactive Non Reactive HIV-1/HIV-2 antibodies and HIV-1 p24 antigen were NOT detected. There is no laboratory evidence of HIV infection. HIV Negative T pallidum Screening [place] -[id number] Reviewed date:12/07/2023 09:46:23 AM Interpretation:RPR 1:2 Performing Lab:[facility] [place], [address] [facility], Phone - [phone], Director - [facility] Notes/Report: Clinical Information:PHARYNGEAL SRC: ORAL Clinical Information:PHARYNGEAL SRC: ORAL Clinical Information:PHARYNGEAL SRC: ORAL T pallidum Antibodies Reactive Non Reactive RPR Reactive Non Reactive RPR, Quant 1:2 NonRea<1:1 titer Creatinine-[id number] Reviewed date:12/06/2023 11:45:29 AM Interpretation:Creatinine 1.0/CrCl 131 ml/min Performing Lab:[facility] [place], [address] [facility], Phone - [phone], Director - Juan Notes/Report: Clinical Information:PHARYNGEAL SRC: ORAL Creatinine 1.00 0.76-1.27 mg/dL eGFR 93 >59 mL/min/1.73 Reason For Referral No Information Medications Medication SIG (Take, Route, Frequency, Duration) Notes Start Date End Date Status Descovy 200-25 MG 1 tablet Orally Once a day for 90 days 03/19/2024 Active Doxycycline Monohydrate 100 MG 2 tablet Orally Taken as soon as possible after sex, ideally within 24 hours and no later than 72 hours after sex. No more than 200 mg should be taken within a 24-hour period. for 15 days 12/05/2023 Active Gabapentin Active amLODIPine Benzoate Active Naproxen Active Social History Sex Assigned At : Social History Observation Description Sex Assigned At Male Vital Signs Blood pressure diastolic 72 mm Hg 06/24/2024 Height 73 in 06/24/2024 Blood pressure systolic 112 mm Hg 06/24/2024 Weight 272.2 lbs 06/24/2024 BMI 35.91 kg/m2 06/24/2024 Encounters Encounter Location Date Provider Diagnosis [address] [id number] 06/27/2023 WAYNE GABAI Encounter for screen ing for infections with a predominantly sexual mode of transmission Z11.3 ; Syphilis, unspecified A53.9 and Counseling, unspecified Z71.[address] [id number] 09/28/2023 SMILEY MACHADO Encounter for screen ing for infections with a predominantly sexual mode of transmission Z11.3 ; Counseling, unspecified Z71.9 ; Other problems related to lifestyle Z72.89 ; Encounter for screening for human immunodeficiency virus [HIV] Z11.4 ; Other gear cutter (current) drug therapy Z79.899 ; Encounter for screening for other viral diseases Z11.59 and Encounter for HIV pre-exposure prophylaxis Z29.[address] [id number] 12/05/2023 WAYNE GABAI Other gear cutter (current) drug therapy Z79.899 ; Contact with and (suspected) exposure to other viral communicable diseases Z20.828 ; Encounter for screening for human immunodeficiency virus [HIV] Z11.4 ; Encounter for HIV pre-exposure prophylaxis Z29.81 and Encounter for screening for infections with a predominantly sexual mode of transmission Z11.3 [facility] [address] [place], [place] [id number] 03/18/2024 WAYNE GABAI Encounter for screen ing for human immunodeficiency virus [HIV] Z11.4 ; Encounter for HIV pre-exposure prophylaxis Z29.81 ; Encounter for screening for infections with a predominantly sexual mode of transmission Z11.3 ; Other problems related to lifestyle Z72.89 ; Other gear cutter (current) drug therapy Z79.899 and Encounter for screening for other viral diseases Z11.59 [facility] [address] [place], [place] [id number] 04/05/2024 WAYNE GABAI Encounter for screen ing for infections with a predominantly sexual mode of transmission Z11.3 [facility] [address] [place], [place] [id number] 06/24/2024 WAYNE GABAI Encounter for screen ing for human immunodeficiency virus [HIV] Z11.4 ; Encounter for HIV pre-exposure prophylaxis Z29.81 ; Encounter for screening for infections with a predominantly sexual mode of transmission Z11.3 ; Other problems related to lifestyle Z72.89 and Encounter for screening for other viral diseases Z11.59 [facility] [address] [place], [place] [id number] 06/24/2024 WAYNE GABAI [facility] [address] [place], [place] [id number] 06/27/2023 WAYNE GABAI [facility] [address] [id number] 09/28/2023 SMILEY MACHADO [facility] [address] [place], [place] [id number] 12/05/2023 WAYNE GABAI [facility] [address] [id number] 03/06/2024 WAYNE GABAI Contact with and (suspected) exposure to other viral communicable diseases Z20.828 [facility] [address] [place], [place] [id number] 03/18/2024 WAYNE GABAI Assessments Encounter Date Diagnosis (ICD Code) Assessment Notes Treatment Notes Treatment Clinical Notes Section Notes 06/27/2023 Syphilis, unspecified (ICD-10 - A53.9) Clt interviewed by GILLIAN, field clinical nutrition manager Syl over the phone prior to this [...] others Communication of test results New Patient: [id number] 30 Minutes 06/27/2023 Encounter for screening for infections with a predominantly sexual mode of transmission (ICD-10 - Z11.3) Spent ___ minutes doing the following: Chart Prep Obtaining/revie wing history Performing medically necessary exam Counseling/Coor dination of Care Documenting the visit Educating the patient Ordering medication/test /procedures Communication with other providers Interpretation of test performed by others Communication of test results New Patient: [id number] 30 Minutes 09/28/2023 Encounter for screening for [...] low risk of morbidity/morta lity 12/05/2023 Other gear cutter (current) drug therapy (ICD-10 - Z79.899) Need [...] sexual mode of transmission (ICD-10 - Z11.3) 06/24/2024 Encounter for screening for human immunodeficiency virus [HIV] (ICD-10 - Z11.4) Need 2 out of 3 Sections from A-C Section A) Problems (only need one from below) One stable chronic illness Section B) Data (at least one of the following categories in this section) Category 1: (Choose 2 of the following): Order unique tests Review test results (each unique test counts as one) Category 2: Assessment requiring an independent historian Section C) Risk Document low risk of morbidity/morta lity 06/24/2024 Encounter for HIV pre-exposure prophylaxis (ICD-10 - [...] well as protect you from other STDs. Need 2 out of 3 Sections from A-C Section A) Problems (only need one from below) One stable chronic illness Section B) Data (at least one of the following categories in this section) Category 1: (Choose 2 of the following): Order unique tests Review test results (each unique test counts as one) Category 2: Assessment requiring an independent historian Section C) Risk Document low risk of morbidity/morta lity 12/05/2023 Contact with and (suspected) exposure to [...] of PrEP medication. Will reach out to [facility] again since clt has completed all forms [...] STI screening recommendations and available testing through [facility]. Testing ordered as noted per patient risks [...] others Communication of test results New Patient: 08328 30 Minutes 09/28/2023 Encounter for screening for [...] Risk Document low risk of morbidity/morta lity 06/24/2024 Encounter for screening for infections with a predominantly sexual mode of transmission (ICD-10 - Z11.3) Need 2 out of 3 Sections from A-C Section A) Problems (only need one from below) One stable chronic illness Section B) Data (at least one of the following categories in this section) Category 1: (Choose 2 of the following): Order unique tests Review test results (each unique test counts as one) Category 2: Assessment requiring an independent historian Section C) Risk Document low risk of morbidity/morta lity 06/24/2024 Other problems related to lifestyle (ICD-10 - Z72.89) Doxy-PEP has been shown in studies to [...] hours after antacids, calcium, or iron-containing products. Need 2 out of 3 Sections from A-C Section A) Problems (only need one from below) One stable chronic illness Section B) Data (at least one of [...] at no cost to those who qualify. [employer] offers a program to help patients pay [...] low risk of morbidity/morta lity 09/28/2023 Other gear cutter (current) drug therapy (ICD-10 - Z79.899) Need [...] low risk of morbidity/morta lity 03/18/2024 Other nursing home (current) drug therapy (ICD-10 - Z79.899) Need [...] Risk Document low risk of morbidity/morta lity 06/24/2024 Encounter for screening for other viral diseases (ICD-10 - Z11.59) Need 2 out of 3 Sections from A-C Section A) Problems (only need one from below) One stable chronic illness Section B) Data (at least one of [...] Next Appt Details Provider Name:WAYNE SIN , 09/24/2024 01:15:00 PM, [address] [place] [address], [facility], [place], [place], [phone], Insurance Providers Payer Name Payer Address Payer Phone Subscriber Number Group Number Insured Name Patient Relationship to Insured Coverage Start Date Coverage End Date [facility] [address] [place], [place] [id number] Luc Mathew Self - patient is the [...]
--- OUTSIDE RECORDS SUMMARY | 2024-06-26 12:30 | XMS_ITS ---
Author Organization [facility] Address [address] [phone] Care Team Providers Care Truck Driver Instructor Name Role Phone HAILY ENGEL Unavailable [phone] Allergies No Known Allergies Results Component Value Reference Range Notes T pallidum Screening Lamar -[id number] Reviewed date:06/25/2024 01:25:52 PM Interpretation:RPR 1:1 Performing Lab:[facility], [address], [address], [employer], Phone - [phone], Director - [facility] Notes/Report: T pallidum Antibodies Reactive Non Reactive RPR Reactive Non Reactive RPR, Quant 1:1 NonRea<1:1 titer HIV Ab/p24 Ag with Reflex-[id number] Reviewed date:06/25/2024 01:21:17 PM Interpretation:Negative Performing Lab:[facility], [address], [address], [employer], Phone - [phone], Director - [facility] Notes/Report: HIV Ab/p24 Ag Screen Non Reactive Non Reactive HIV-1/HIV-2 antibodies and HIV-1 p24 antigen were NOT detected. There is no laboratory evidence of HIV infection. HIV Negative HCV Antibody RFX to Quant PC [id number] Reviewed date:06/25/2024 01:21:23 PM Interpretation:Negative Performing Lab:[facility], [address], [address], [employer], Phone - [phone], Director - [place] Notes/Report: HCV Ab Non Reactive Non Reactive Interpretation: Not infected with HCV unless early or acute infection is suspected (which may be delayed in an immunocompromised individual), or other evidence exists to indicate HCV infection. Chlamydia/GC Amplification-1 [id number] Reviewed date:06/26/2024 08:56:21 AM Interpretation:Negative Performing Lab:[facility] [place], [address], [address], [place], Phone - [phone], Director - [facility] Notes/Report: Chlamydia trachomatis, SURESH Negative Negative Neisseria gonorrhoeae, SURESH Negative Negative Ct/GC SURESH, Pharyngeal-[id number] Reviewed date:06/26/2024 08:56:27 AM Interpretation:Negative Performing Lab:[facility] [place], [address], [address], [place], Phone - [phone], Director - [facility] Notes/Report: C. trachomatis, SURESH, Pharyn Negative Negative N. gonorrhoeae, SURESH, Pharyn Negative Negative REASON FOR VISIT PrEP Follow-up Visit Medications [...] At Male Vital Signs Blood pressure systolic 112 mm Hg 06/25/19 25 Blood pressure diastolic 72 mm Hg 025 Height 73 in 06/24/2024 Weight 272.2 lbs 06/24/2024 BMI 35.91 kg/m2 06/24/2024 Encounters Encounter Location Date Provider Diagnosis [address] [place], [place] [phone] 06/24/2024 HAILY ENGEL Encounter for screen ing for [...] Treatment Notes Treatment Clinical Notes Section Notes 06/24/2024 Encounter for screening for human immunodeficiency [...] Section C) Risk Document low risk of morbidity/mort ality 06/24/2024 Encounter for HIV pre-exposure prophylaxis (ICD-10 [...] Section C) Risk Document low risk of morbidity/mort ality 06/24/2024 Encounter for screening for infections with [...] Section C) Risk Document low risk of morbidity/mort ality 06/24/2024 Other problems related to lifestyle (ICD-10 [...] or 2 hours after antacids, calcium, or iron-containin g products. Need 2 out of 3 Sections [...] Section C) Risk Document low risk of morbidity/mort ality 06/24/2024 Encounter for screening for other viral [...] Section C) Risk Document low risk of morbidity/mort ality Plan Of Treatment Medication Medication Name Sig Start Date Stop Date Notes Descovy 200-25 MG 1 tablet Orally Once a day for 90 days 03/19/2024 Doxycycline Monohydrate 100 MG 2 tablet Orally Taken as soon as possible after sex, ideally within 24 hours and no later than 72 hours after sex. No more than 200 mg should be taken within a 24-hour period. for 15 days 12/05/2023 Treatment Notes Assessment Notes Encounter for HIV [...] well as protect you from other STDs. Other problems related to lifestyle Doxy-PEP has been shown in studies to [...] hours after antacids, calcium, or iron-containing products. Next Appt Details Follow Up: 3 Months, Reason: PrEP F/U Provider Name:HAILY ENGEL , 09/24/2024 01:15:00 PM, [address] [place] [address], [facility] [place], [phone], Progress Notes * Luc MATHEW ADOB:1975 (49 yo M)Acc No.[id number]:06/24/2024 Progress Notes Patient:?Luc MATHEW Provider:?Haily Engel NP :1975???Age:49 Y???Sex:Male Otilio e:06/24/2024 Address:[address] [place], [place] [id number] Subjective: * Chief Complaints: * ???PrEP Follow-up Visit * HPI: ???Visit Narrative:?Clt presenting for routine PrEP visit. Bala finally got approved by insurance, denies issue with side effects or daily compliance of meds since switching from [employer]. New AMAB partners since last tested. Using DoxyPEP as needed, tolerating well. Denies symptoms of acute HIV infection, liver disease or lactic acidosis. ?Reason for the visit:?PrEP F/U.?Current form of control:?condoms?.?Presenting Symptoms:?no sx.?Last date of UPI:?06/15.? * ROS:?Hepatology:?Jaundice?Denies.?Dark Urine?Denies.?Light Colored Stools?Denies.?Upper Abdominal Pain?Denies.?General/Constitutional:?Denies?Chills.?Denies?Fatigue.?Denies?Fever.?Denies?Headache.?Denies?Light headedness.?Denies?Night sweats.?Denies?Weight loss.?Allergy/Immunology:?Denies?Enlarged Lymph Nodes.?Gastrointestinal:?Denies?Decreased appetite.?Denies?Diarrhea.?Denies?Nausea.?Denies?Stomach problems.?Denies?Vomiting.?Denies?Weight loss.?Musculoskeletal:?Denies?Muscle aches.?Denies?Painful joints.?Denies?Weakness.?Skin:?Denies?Rash.?Neurologic:?Denies?Dizziness.?Psychiatric:?Denies?Malaise.? * Medical History:? * Surgical History:?gall bladd er removal 2018double carpal tunnel release 2019circumcison 2020 * Hospitalization/Major Diagno stic Procedure:?Denies Past Hospitalization * Social History:?Food Access:?Food Access?The Client's current [...] active??Yes ?Sexually active with:?Men ?Number of male partners?3 ?Your sexual activities include:?anal intercourse, oral intercourse insertive ?Reviewed types of EC??No ?Do you use condoms??Yes ?Condoms are used:?occasionally condom use w/ non-casual partners ?Number of partners in past 3 months:?3 ?Number of partners in past year:?prefers not to answer ?What is the client's primary method to [...] was provided.?6 ?Counseling Was Provided By:?naoriv * Medications:?TakingGabapenti n amLODIPine Benzoate Descovy 200-25 MG Tablet 1 tablet Orally Once a day Doxycycline Monohydrate 100 MG Tablet 2 tablet Orally Taken as soon as possible after sex, ideally within 24 hours and no later than 72 hours after sex. No more than 200 mg should be taken within a 24-hour period. Naproxen Medication List reviewed and reconciled with the patientTaking Gabapentin Taking amLODIPine Benzoate Taking Descovy 200-25 MG Tablet 1 tablet Orally Once a day Taking Doxycycline Monohydrate 100 MG Tablet 2 tablet Orally Taken as soon as possible after sex, ideally within 24 hours and no later than 72 hours after sex. No more than 200 mg should be taken within a 24-hour period. Taking Naproxen Medication List reviewed and reconciled with the patient * Allergies:?N.K.D.A.no[Allerg ies Verified] Objective: * Vitals:?BP:112/72mm Hg, Ht: 73 in, Wt:272.2lbs, BMI:35.91Index, Ht-cm: 185.42, Wt-k.47. * Examination: ???General Examination: ?GENERAL APPEARANCE:?pleasant, in no acute distress.? Assessment: * Assessment: 1.?Encounter for HIV pre-exp osure prophylaxis - Z29.81 (Primary)???2.?Encounter for screening for human immunodeficiency virus [HIV] - Z11.4???3.?Encounter for screening for infections with a predominantly sexual mode of transmission - Z11.3?? 4.?Other problems related to lifestyle - Z72.89???5.?Encounter for screening for other viral diseases - [...] immunodeficiency virus [HIV]?LAB: HIV Ab/p24 Ag with Reflex-[id number] (Collection Date & Time - 06/24/2024 01:36 PM) 3.?Encounter for screening f or infections with a predominantly sexual mode of transmission?LAB: T pallidum Screening Lamar-[id number] (Collection Date & Time - 06/24/2024 01:36 PM) ?LAB: Chlamydia/GC Amplification-[id number] (Collection Date & Time - 06/24/2024 01:36 PM) ?LAB: Ct/GC SURESH, Pharyngeal-[id number] (Collection Date & Time - 06/24/2024 01:36 PM) 4.?Other problems related to lifestyle? Continue Doxycycline Monohydrate Tablet, 100 MG, 2 tablet, Orally, Taken as soon as possible after sex, ideally within 24 hours and no later than 72 hours after sex. No more than 200 mg should be taken within a 24-hour period., 15 days, 30, Refills 1.?? Notes: Doxy-PEP has been shown in studies to [...] hours after antacids, calcium, or iron-containing products. ?? 5.?Encounter for screening f or other viral diseases?LAB: HCV Antibody RFX to Quant PCR-[id number] (Collection Date & Time - 06/24/2024 01:36 PM) * Procedure Codes:? * Follow Up:?3 Months (Reason: PrEP F/U) * Billing Information: * Visit Code:? 49097 Existing - Low Complexity (IN USE). * Procedure Codes:? * Sign off status: Completed true * Provider:?Haily Engel NP Date:? 025 Generated for Marlin mancia/Sean/Brendasmitting on:?06/26/2024 12:30 PM EDT History and Physical Notes * HPI (History of Present Illness) Category Sub-Category Detail Notes Category Not es Visit Narrative Reason for the visit: PrEP F/U Current form of control: condoms Presenting Symptoms: no sx Last date of UPI: 06/15 Examination Category Sub-Category Detail Notes Category Not es General Examination GENERAL APPEARANCE: pleasant, in n o acute distress
--- OUTSIDE RECORDS SUMMARY | 2024-06-26 12:30 | XMS_ITS ---
Author Organization [facility] Address [address] [place] [phone] Care Team Providers Care Forensic Structural Engineer Name Role Phone HAILY ENGEL [phone] REASON FOR VISIT PrEP F/U Social History Sex Assigned At : Social History Observation Description Sex Assigned At Male Encounters Encounter Location Date Provider Diagnosis [address] [place], [place] [phone] 06/10/2024 HAILY ENGEL Plan Of Treatment Next Appt Details Provider Name:HAILY ENGEL , 09/24/2024 01:15:00 PM, [address] [place] [address], [address], [place], [place], [phone], Progress Notes * Luc MATHEW ADOB:1975 (49 yo M)Acc No.[id number]:06/10/2024 Progress Notes Patient:?Luc MATHEW Provider:?Haily Engel NP :1975???Age:49 Y???Sex:Male Otilio e:06/10/2024 Address:[address] [place] [id number] Subjective: * Chief Complaints: * ???1. PrEP F/U. * Medical History:? Objective: * Vitals:? Assessment: Plan: * Treatment: * Billing Information: * Visit Code:? * Procedure Codes:? * Electronic signature of CARMEN ENGEL NP on 06/26/2024 at 12:29 PM EDT Sign off status: Pending * Provider:?Haily Engel NP Date:? 025 Generated for Marlin mancia/Sean/Diane on:?06/26/2024 12:29 PM EDT
--- OUTSIDE RECORDS SUMMARY | 2024-06-26 12:30 | XMS_ITS ---
Author Organization [facility] Address [address] [place] [id number] Care Team Providers Care Television Repairer Name Role Phone SHIRAZGisele WAYNE Mcdonald [phone] REASON FOR VISIT PrEP results and follow up Social History Sex Assigned At : Social History Observation Description Sex Assigned At Male Encounters Encounter Location Date Provider Diagnosis [address] [place] [phone] 06/24/2024 WAYNE SIN Plan Of Treatment Next Appt Details Provider Name:WAYNE SIN , 09/24/2024 01:15:00 PM, [address] [place] [address], [facility], [place], [place], [phone], Progress Notes * Luc MATHEW ADOB:1975 (49 yo M)Acc No.[id number]:06/24/2024 Patient:?Luc MATHEW :1975???Age:49 Y???Sex:Male Address:[address] [place] [address], [id number] * * Date:?
== END 2024-06-26 12:47 | disposition home or self-care (01) ==
LOC: HO.HMCH 11:35
DX: M54.9 Dorsalgia, unspecified (principal); Z68.38 Body mass index [BMI] 38.0-38.9, adult; I10 Essential (primary) hypertension; H61.23 Impacted cerumen, bilateral

== ENCOUNTER → 2024-06-26 11:35 | Outpatient (BNVA) | payer OTHER, SELFPAY | DX: H61.23 Impacted cerumen, bilateral (principal); M54.9 Dorsalgia, unspecified; I10 Essential (primary) hypertension | CPT/HCPCS: 69210; 96127 ==

== ENCOUNTER 2024-07-10 09:16 | Outpatient (AMB) | payer OTHER, SELFPAY ==
--- NOTE | 2024-07-10 09:24 | MHC.PC.OV ---
Vital Signs 07/10/24 09:25 Height 6 ft 1 in Weight 268 lb 6 oz BMI 35.4 BP 130/68 Blood Pressure Location Lt brachial Position Sitting Pulse 74 Pulse Source Pulse Oximeter Temp 97.1 F Temp Source Temporal Artery Scan Pulse Oximetry (%) 98 Oxygen Delivery Method Room Air Intake Visit Reasons: ear cleaning Intake Note: Patient is here to follow up on Ear cleaning. 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 Operator Required: No Family Dentist: Not Required per policy Accompanied by: Self / Same As Patient Allergies No Known Allergies Allergy (Verified 07/10/24 09:25) Medication List - Last Reconciled 07/10/24 by Alexandra Aguilar PA-C amlodipine 10 mg PO DAILY carbamide peroxide 6.5% (Debrox) 5 drps otic (ear) left DAILY 4 days emtricitabine-tenofovir alafen 200-25 mg (Descovy) 1 tab PO DAILY fluticasone propionate 50 mcg/actuation 2 sprays intranasal BID gabapentin 600 mg PO .qhs 30 days lisinopril 10 mg PO DAILY naproxen 500 mg PO BID prednisone 10 mg PO DIRECTED sildenafil 100 mg PO DIRECTED Tobacco use date assessed: 07/10/24 Dental Screening Dental Screen Date: 05/23/24 HPI ear cleaning HPI Details 49-year-old male coming to the office for the 1st time. At his last visit cerumen was successfully removed from the right ear but could not be successfully removed from the left ear patient has been using Debrox drops at home. He is also complaining of back pain and has been seeing the aircraft painter apprentice and is awaiting information on his prior Auth for a procedure through their office. [facility] Medical History Obstructive sleep apnea on CPAP BMI 30.0-30.9,adult Obesity Obstructive sleep apnea Numbness of right hand Surgical History History of carpal tunnel release Hx laparoscopic cholecystectomy H/O circumcision Family History Mother Arthritis Hypercholesteremia HTN (hypertension) Diabetes Maternal Grandmother HTN (hypertension) Diabetes Father Liver cancer Social History Housing: House Alcohol intake: current Alcohol intake frequency: a few times a week Patient Tobacco Use Status: Former Tobacco user Tobacco use type: Cigarette e-Cigarette/Vaping Use: Currently Using Second Hand Smoke Exposure: Yes service: No Current occupational status: employed Cognitive needs: No Hearing needs: No Vision needs: Yes (Glasses) Questionnaire Thrive Questionnaire Date Thrive assessed: 06/24/24 I am a: Patient What is your living situation today?: I have a steady place to live Within the past 12 months, did the food you bought not last and you didn't have the money to get more?: Sometimes True Within the past 12 months, did you worry whether your food would run out before you got money to buy more?: Sometimes True Do you have trouble paying for medicines?: I choose not to answer this question Do you have trouble getting transportation to medical appointments?: No Do you have trouble paying your heating and electricity bill?: No Do you have trouble taking care of your child, family member or friend?: No Do you have trouble with day-to-day activities such as bathing, preparing meals, shopping, managing finances, etc.?: No Are you currently unemployed and looking for a job?: No Are you interested in more education?: No Please select the resources that you would like help with: None Currently or been in a relationship where the following occur: No concerns reported THRIVE Score: 2 DARIELA-7 AMB Questionnaire DARIELA-7 Date DARIELA - 7 assessed: 05/23/24 Source: Developed by Drs. Shady Gutierrez, Dayna Mckeon, Shane Matias and colleagues, with an educational cristel from [employer]. Review of Systems ENT Details: Ear clogged feeling and decreased hearing Physical exam (Primary Care) Vital Signs: Last Vital Signs Temp 97.1 F 07/10/24 09:25 Pulse 74 07/10/24 09:25 BP 130/68 07/10/24 09:25 Pulse Ox 98 07/10/24 09:25 Oxygen Delivery Method Room Air 07/10/24 09:25 BMI result Body Mass Index 35.4 Tobacco/Smoking Status: Tobacco use Status Tobacco use date assessed 07/10/24 07/10/24 09:32 Patient Tobacco Use Status Former Tobacco user 07/10/24 09:32 Tobacco use type Cigarette 07/10/24 09:32 e-Cigarette/Vaping Use Currently Using 07/10/24 09:32 Thrive Assessment: Date of Thrive Assessment Date Thrive assessed 06/24/24 07/10/24 09:32 Currently or been in a relationship where the following occur: No concerns reported Const General: cooperative, healthy appearing, comfortable and no acute distress Orientation/consciousness: patient oriented x3 HENMT Head: Yes normocephalic Ears: hearing grossly normal bilaterally, TM normal on the right, EAC's normal (Right) and Abnormal EAC present cerumen impaction on the left General nose exam: Normal external nose present Resp Effort & Inspection: normal respiratory effort Cardio Rate: regular rate Neuro General: patient oriented x3 Gait exam (Neuro): Normal gait present Psych Affect: normal affect Attitude: cooperative Insight: Good insight present (Psych) Judgement: Good judgement present (Psych) Office Procedures Cerumen Removal From which ear canal was the cerumen removed: left Removal: irrigation and cerumen loop/spoon Notes: patient tolerated procedure well, no complications and ear canal clear 12031-Wzf Irrigation/Lavage Coding Level of Care Code Est Pt Level 3 (06194) Diagnoses Bilateral impacted cerumen H61.23 Laterality: bilateral Lumbar spondylosis M47.816 CPT Codes Office Procedure - CPT: 66625-Zna Irrigation/Lavage ([id number]) Assessment & Plan Assessment & Plan (1) Cerumen impaction: Code(s): H61.20 - Impacted cerumen, unspecified ear Category: Medical Qualifiers: Laterality: bilateral Qualified Code(s): H61.23 - Impacted cerumen, bilateral Plan: Cerumen was successfully removed from the left ear using lighted curette and irrigation. Patient tolerated the procedure well and left TM was visualized as intact with well aerated middle ear spaces and without perforation or retraction. Ear canal is mildly erythematous likely due to the presence of wax plan to give Dermotic ear drops to help with inflammation. (2) Lumbar spondylosis: Code(s): M47.816 - Spondylosis without myelopathy or radiculopathy, lumbar region Category: Medical Plan: Continue to follow with pain management advised patient to reach out to the office to check on status of prior authorization. Prescription was sent for naproxen at patient request. Plan This note was constructed using voice recognition software. While every effort has been made to ensure accuracy and him analyst, still areas may have been included sometimes these areas may affect the content or meeting of the given symptoms. Total time spent caring for the patient today was 20 minutes. This includes time spent before the visit reviewing the chart, time spent during the visit, and time spent after the visit and documentation. Medications: New fluocinolone acetonide oil 0.01% (DermOtic Oil) 5 drps otic (ear) left BID 7 days 20 mL 0RF naproxen 500 mg PO BID 60 tabs 0RF
[2024-07-10 09:25] VITALS: BP 130/68; PULSE 74; TEMP 36.2; O2SAT 98; BMI 35.4
--- OUTSIDE RECORDS SUMMARY | 2024-07-10 09:55 | XMS_ITS | Patient Health Record ---
Author Organization [facility] Address [address] [id number] Care Team Providers Care Youth Manager Name Role Phone WAYNE SIN Unavailable [phone] JEANNETTE, SMILEY Unavailable [phone] Allergies No Known Allergies Results Component Value Reference Range Notes Ct/GC SURESH, Pharyngeal-[id number] Reviewed date:06/26/2024 08:56:27 AM Interpretation:Negative Performing Lab:[facility] [place], [address], [address], [place], Phone - [phone], Director - [place] Notes/Report: C. trachomatis, SURESH, Pharyn Negative Negative N. gonorrhoeae, SURESH, Pharyn Negative Negative Chlamydia/GC Amplification-1 [id number] Reviewed date:06/26/2024 08:56:21 AM Interpretation:Negative Performing Lab:[facility] [place], [address], [address], [place], Phone - [phone], Director - [place] Notes/Report: Chlamydia trachomatis, SURESH Negative Negative Neisseria gonorrhoeae, SURESH Negative Negative HCV Antibody RFX to Quant PC [id number] Reviewed date:06/25/2024 01:21:23 PM Interpretation:Negative Performing Lab:[facility] [place], [address], [address], [place], Phone - [phone], Director - [place] Notes/Report: HCV Ab Non Reactive Non Reactive Interpretation: Not infected with HCV unless early or acute infection is suspected (which may be delayed in an immunocompromised individual), or other evidence exists to indicate HCV infection. HIV Ab/p24 Ag with Reflex-08 [id number] Reviewed date:06/25/2024 01:21:17 PM Interpretation:Negative Performing Lab:[facility] [place], [address], [address], [place], Phone - [phone], Director - [facility] Notes/Report: HIV Ab/p24 Ag Screen Non Reactive Non Reactive HIV-1/HIV-2 antibodies and HIV-1 p24 antigen were NOT detected. There is no laboratory evidence of HIV infection. HIV Negative T pallidum Screening [place] -[id number] Reviewed date:06/25/2024 01:25:52 PM Interpretation:RPR 1:1 Performing Lab:[facility] [place], [address], [address], [place], Phone - [phone], Director - [facility] Notes/Report: T pallidum Antibodies Reactive Non Reactive RPR Reactive Non Reactive RPR, Quant 1:1 NonRea<1:1 titer T pallidum Screening [place] -[id number] Reviewed date:04/09/2024 07:56:21 AM Interpretation:RPR 1:2 Performing Lab:[facility] [place], [address], [place], Phone - [phone], Director - [facility] Notes/Report: T pallidum Antibodies Reactive Non Reactive RPR Reactive Non Reactive RPR, Quant 1:2 NonRea<1:1 titer Lipid Panel-[id number] Reviewed date:12/06/2023 09:06:05 AM Interpretation:Normal Performing Lab:[facility], [address] [place] [address], [place], Phone - [phone], Director - Juan Notes/Report: Clinical Information:PHARYNGEAL SRC: ORAL Cholesterol, Total 155 100-199 mg/dL Triglycerides 83 0-149 mg/dL HDL Cholesterol 42 >39 mg/dL VLDL Cholesterol Ananth 16 5-40 mg/dL LDL Chol Calc ([facility]) 97 0-99 mg/dL Ct/GC SURESH, Pharyngeal-[id number] Reviewed date:12/07/2023 09:44:15 AM Interpretation:Negative Performing Lab:[facility] [place], [address], [address], [place], Phone - [phone], Director - [facility] Notes/Report: Clinical Information:PHARYNGEAL SRC: ORAL C. trachomatis, SURESH, Pharyn Negative Negative N. gonorrhoeae, SURESH, Pharyn Negative Negative Ct, Ng, Trich vag by SURESH-183 160 Reviewed date:12/07/2023 09:46:35 AM Interpretation:Negative Performing Lab:[facility] [place], [address], [address], [place], Phone - [phone], Director - [facility] Notes/Report: Clinical Information:PHARYNGEAL SRC: ORAL Chlamydia by SURESH Negative Negative Gonococcus by SURESH Negative Negative Trich vag by SURESH Negative Negative HIV Ab/p24 Ag with Reflex-08 [id number] Reviewed date:12/06/2023 11:15:54 AM Interpretation:Negative Performing Lab:[facility] [place], [address], [address], [place], Phone - [phone], Director - [facility] Notes/Report: Clinical Information:PHARYNGEAL SRC: ORAL HIV Ab/p24 Ag Screen Non Reactive Non Reactive HIV-1/HIV-2 antibodies and HIV-1 p24 antigen were NOT detected. There is no laboratory evidence of HIV infection. HIV Negative T pallidum Screening [place] -[id number] Reviewed date:12/07/2023 09:46:23 AM Interpretation:RPR 1:2 Performing Lab:[facility] [place], [address] [facility], Phone - [phone], Director - [place] Notes/Report: Clinical Information:PHARYNGEAL SRC: ORAL Clinical Information:PHARYNGEAL SRC: ORAL Clinical Information:PHARYNGEAL SRC: ORAL T pallidum Antibodies Reactive Non Reactive RPR Reactive Non Reactive RPR, Quant 1:2 NonRea<1:1 titer Creatinine-[id number] Reviewed date:12/06/2023 11:45:29 AM Interpretation:Creatinine 1.0/CrCl 131 ml/min Performing Lab:[facility] [place], [address] [facility], Phone - [phone], Director - [facility] Notes/Report: Clinical Information:PHARYNGEAL SRC: ORAL Creatinine 1.00 0.76-1.27 mg/dL eGFR 93 >59 mL/min/1.73 HCV Antibody-[id number] Reviewed date:10/02/2023 11:46:27 AM Interpretation:Non-reactive Performing Lab:[facility] [place], [address], [address], [place], Phone - [phone], Director - [facility] Notes/Report: Clinical Information:SRC:urine Hep C Virus Ab Non Reactive Non Reactive HCV antibody alone does not differentiate between previously resolved infection and active infection. Equivocal and Reactive HCV antibody results should be followed up with an HCV RNA test to support the diagnosis of active HCV infection. Ct/GC SURESH, Pharyngeal-[id number] Reviewed date:10/02/2023 11:46:18 AM Interpretation:Negative Performing Lab:[facility] [place], [address], [place], Phone - [phone], Director - [facility] Notes/Report: Clinical Information:SRC:urine C. trachomatis, SURESH, Pharyn Negative Negative N. gonorrhoeae, SURESH, Pharyn Negative Negative Trich vag by SURESH-[id number] Reviewed date:10/02/2023 11:46:36 AM Interpretation:Negative Performing Lab:[facility] [place], [address], [place], Phone - [phone], Director - [facility] Notes/Report: Clinical Information:SRC:urine Trich vag by SURESH Negative Negative Chlamydia/GC Amplification-1 [id number] Reviewed date:10/02/2023 11:41:45 AM Interpretation:Negative Performing Lab:[facility] [place], [address], [place], Phone - [phone], Director - [facility] Notes/Report: Clinical Information:SRC:urine Chlamydia trachomatis, SURESH Negative Negative Neisseria gonorrhoeae, SURESH Negative Negative HIV Ab/p24 Ag with Reflex-08 [id number] Reviewed date:10/02/2023 11:46:10 AM Interpretation:Non-reactive Performing Lab:[facility] [place], [address], [place], Phone - [phone], Director - [facility] Notes/Report: Clinical Information:SRC:urine HIV Ab/p24 Ag Screen Non Reactive Non Reactive HIV-1/HIV-2 antibodies and HIV-1 p24 antigen were NOT detected. There is no laboratory evidence of HIV infection. HIV Negative T pallidum Screening [place] -[id number] Reviewed date:10/03/2023 11:48:41 AM Interpretation:RPR 1:2, After Treatment Performing Lab:[facility] [place], [address] [place] [address], Phone - [phone], Director - Juan Notes/Report: Clinical Information:SRC:urine Clinical Information:SRC:urine Clinical Information:SRC:urine T pallidum Antibodies Reactive Non Reactive RPR Reactive Non Reactive RPR, Quant 1:2 NonRea<1:1 titer Hepatitis B Surf Ab Quant-00 [id number] Reviewed date:09/29/2023 03:39:16 PM Interpretation:Not Immune Performing Lab:[facility] [place], [address], [address], [place], Phone - [phone], Director - [facility] Notes/Report: Clinical Information:SRC:urine Hepatitis B Surf Ab Quant <3.5 Immunity>10 mIU /mL Status of Immunity Anti-HBs Level Inconsistent with Immunity 0.0 - 10.0 Consistent with Immunity >10.0 HBsAg Screen-[id number] Reviewed date:10/02/2023 11:41:37 AM Interpretation:Negative Performing Lab:[facility] [place], [address], [address], [place], Phone - [phone], Director - [facility] Notes/Report: Clinical Information:SRC:urine HBsAg Screen Negative Negative Creatinine-[id number] Reviewed date:10/02/2023 11:46:00 AM Interpretation:Cr 0.87, eCrCl 148ml/min Performing Lab:[facility] [place], [address] [place] [address], Phone - [phone], [facility]/Report: Clinical Information:SRC:urine Creatinine 0.87 0.76-1.27 mg/dL eGFR 107 >59 mL/min/1.73 HCV Antibody-[id number] Reviewed date:03/19/2024 01:59:14 PM Interpretation:Negative Performing Lab:[facility] [place], [address], [address], [place], Phone - [phone], Director - [facility] Notes/Report: Hep C Virus Ab Non Reactive Non Reactive HCV antibody alone does not differentiate between previously resolved infection and active infection. Equivocal and Reactive HCV antibody results should be followed up with an HCV RNA test to support the diagnosis of active HCV infection. Ct/GC SURESH, Pharyngeal-[id number] Reviewed date:03/19/2024 07:31:01 PM Interpretation:Negative Performing Lab:[facility] [place], [address], [address], [place], Phone - [phone], Director - [facility] Notes/Report: C. trachomatis, SURESH, Pharyn Negative Negative N. gonorrhoeae, SURESH, Pharyn Negative Negative Chlamydia/GC Amplification-1 28823 Reviewed date:03/19/2024 07:31:07 PM Interpretation:Negative Performing Lab:[facility] [place], [address], [address], [place], Phone - [phone], Director - [facility] Notes/Report: Chlamydia trachomatis, SURESH Negative Negative Neisseria gonorrhoeae, SURESH Negative Negative HIV Ab/p24 Ag with Reflex-08 3935 Reviewed date:03/19/2024 01:58:50 PM Interpretation:Negative Performing Lab:[facility] [place], [address], [address], [place], Phone - [phone], Director - [facility] Notes/Report: HIV Ab/p24 Ag Screen Non Reactive Non Reactive HIV-1/HIV-2 antibodies and HIV-1 p24 antigen were NOT detected. There is no laboratory evidence of HIV infection. HIV Negative T pallidum Screening [place] -[id number] Reviewed date:03/23/2024 12:41:47 PM Interpretation:RPR 1:4 Performing Lab:[facility] [place], [address], [address], [place], Phone - [phone], Director - [facility] Notes/Report: T pallidum Antibodies Reactive Non Reactive RPR Reactive Non Reactive RPR, Quant 1:4 NonRea<1:1 titer Creatinine-[id number] Reviewed date:03/19/2024 10:20:42 AM Interpretation:Normal Performing Lab:[facility] [place], [address] [place] [address], Phone - [phone], Director - [place] Notes/Report: Creatinine 1.04 0.76-1.27 mg/dL eGFR 89 >59 mL/min/1.73 Reason For Referral No Information [...] 06/24/2024 Encounters Encounter Location Date Provider Diagnosis [address] [id number] 09/28/2023 SMILEY MACHADO Encounter for screen ing for infections with a predominantly sexual mode of transmission Z11.3 ; Counseling, unspecified Z71.9 ; Other problems related to lifestyle Z72.89 ; Encounter for screening for human immunodeficiency virus [HIV] Z11.4 ; Other chcf (current) drug therapy Z79.899 ; Encounter for screening for other viral diseases Z11.59 and Encounter for HIV pre-exposure prophylaxis Z29.[address] [id number] 12/05/2023 WAYNE GABAI Other [facility]erman tutor (current) drug therapy Z79.899 ; Contact with and (suspected) exposure to other viral communicable diseases Z20.828 ; Encounter for screening for human immunodeficiency virus [HIV] Z11.4 ; Encounter for HIV pre-exposure prophylaxis Z29.81 and Encounter for screening for infections with a predominantly sexual mode of transmission Z11.[address] [id number] 03/18/2024 WAYNE GABAI Encounter for screen ing for human immunodeficiency virus [HIV] Z11.4 ; Encounter for HIV pre-exposure prophylaxis Z29.81 ; Encounter for screening for infections with a predominantly sexual mode of transmission Z11.3 ; Other problems related to lifestyle Z72.89 ; Other german tutor (current) drug therapy Z79.899 and Encounter for screening for other viral diseases Z11.[address] [id number] 04/05/2024 WAYNE GABAI Encounter for screen ing for infections with a predominantly sexual mode of transmission Z11.[address] [id number] 06/24/2024 WAYNE GABAI Encounter for screen ing for human immunodeficiency virus [HIV] Z11.4 ; Encounter for HIV pre-exposure prophylaxis Z29.81 ; Encounter for screening for infections with a predominantly sexual mode of transmission Z11.3 ; Other problems related to lifestyle Z72.89 and Encounter for screening for other viral diseases Z11.59 [facility] [address] [id number] 09/28/2023 SMILEY LOPEZY [facility] [address] [place], [place] [id number] 12/05/2023 WAYNE GABAI [facility] [address] [place] [id number] 03/06/2024 WAYNE GABAI Contact with and (suspected) exposure to other viral communicable diseases Z20.828 [facility] [address] [place], [place] [id number] 03/18/2024 WAYNE GABAI [facility] [address] [place] [id number] 06/24/2024 WAYNE GABAI Assessments Encounter Date Diagnosis (ICD Code) Assessment Notes Treatment Notes Treatment Clinical Notes Section Notes 09/28/2023 Encounter for screening for infections with [...] low risk of morbidity/morta lity 12/05/2023 Other german tutor (current) drug therapy (ICD-10 - Z79.899) Need [...] of PrEP medication. Will reach out to [facility] again since clt has completed [...] morbidity/morta lity 09/28/2023 Encounter for screening for human immunodeficiency [...] medication: The Ready, Set, PrEP program and [place] HIV Drug Assistance Program (HDAP) which makes PrEP available at no cost to those who qualify. [employer] offers a program to help patients pay [...] low risk of morbidity/morta lity 03/18/2024 Other german tutor (current) drug therapy (ICD-10 - Z79.899) Need [...] Of Treatment Next Appt Details Provider Name:WAYNE Monroy JANUARY , 09/24/2024 01:15:00 PM, [address] [place] [address], [facility], [place], [place], [id number], Insurance Providers Payer Name Payer Address Payer Phone Subscriber Number Group Number Insured Name Patient Relationship to Insured Coverage Start Date Coverage End Date [facility] 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
== END 2024-07-10 09:52 | disposition home or self-care (01) ==
LOC: HO.HMCH 09:16
DX: H61.23 Impacted cerumen, bilateral (principal); M47.816 Spondylosis without myelopathy or radiculopathy, lumbar region

== ENCOUNTER → 2024-07-10 09:16 | Outpatient (BNVA) | payer OTHER, SELFPAY | DX: H61.23 Impacted cerumen, bilateral (principal); M47.816 Spondylosis without myelopathy or radiculopathy, lumbar region | CPT/HCPCS: 69210 ==

== ENCOUNTER 2024-08-07 08:11 | Outpatient (REF) | payer OTHER, SELFPAY ==
--- NOTE | ~2024-08-07 | XR_ITS ---
EXAMINATION: XR CHEST 2 VIEWS HISTORY: E66.811 - Obesity, class 1 COMPARISON: There are no prior studies available for comparison. FINDINGS: PA and lateral views of the chest are submitted. There is a subcentimeter nodular density in the right upper lung zone which could represent a vessel seen en face. The left lung is clear. There is no pleural effusion, pneumothorax, or pulmonary vascular congestion. The heart is normal in size. There is degenerative disc disease of the spine. XR/XR chest 2V IMPRESSION: Subcentimeter nodular density in the right upper lung zone. Further evaluation with chest CT is recommended. Findings were sent to Dr. Esteban by secure text message on 08/07/2024 at 9:48 AM. Electronically signed by: Shady Blackwell MD 08/07/2024 09:49 AM EDT
--- NOTE | ~2024-08-07 | US_ITS ---
EXAMINATION: US ABDOMEN COMPLETE WITH LIVER ELASTOGRAPHY HISTORY: E66.811 - Obesity, class 1 TECHNIQUE: Real-time grayscale ultrasound imaging of the abdomen was performed and images were reviewed. COMPARISON: Comparison is made with the prior examination dated 04/17/2024. FINDINGS: Liver: The right lobe of the liver measures 19.5 cm in size. The left lobe of the liver measures 9.9 cm in size. The liver demonstrates increased echotexture, consistent with steatosis. No focal mass or intrahepatic biliary ductal dilatation is identified. There is normal hepatopedal flow in the portal vein. Ultrasound elastography of the liver was performed with 10 separate measurements of the liver parenchyma with the patient in the supine position. Measurements were obtained approximately 2 cm below Yessica's capsule and perpendicular to the capsule. The median shear wave velocity is 2.11 m/s. The interquartile range/median (IQR/median) is 0.15. Gallbladder and biliary tree: The gallbladder is surgically absent. The common bile duct is normal in caliber measuring 6 mm. Kidneys: The right kidney measures 10.9 cm in length. The left kidney measures 12.1 cm in length. There is a 1.8 x 1.2 x 1.3 cm cyst at the lower pole of the right kidney. The kidneys are otherwise unremarkable, without evidence of solid masses, hydronephrosis, or calculi. Pancreas: The pancreatic head, neck, and body are unremarkable. The pancreatic tail is obscured by bowel gas. Spleen: The spleen is enlarged, measuring 12.7 cm in length. Abdominal aorta and inferior vena cava: The visualized portions of the abdominal aorta and inferior vena cava are normal in caliber. There is no free fluid in the abdomen. US/US abdomen comp w elastography IMPRESSION: Hepatosplenomegaly and hepatic steatosis. The median shear wave velocity in the liver is 2.11 m/s, corresponding to a median liver stiffness of 13.50 kPa. The IQR/median value is 0.15. This is indicative of a poor quality data set, and the estimated liver stiffness may be unreliable. Findings are indicative of a high elastography value indicating advanced chronic liver disease. REFERENCE: Society of Radiologists in Ultrasound Liver Stiffness Thresholds (2020): LIVER STIFFNESS THRESHOLDS: *Shear wave velocity less than 1.3 m/s (Liver Stiffness equal or less than 5 kPa): High probability of being normal. *Shear wave velocity less than 1.7 m/s (Liver Stiffness less than 9 kPa): In the absence of other known clinical signs, rules out compensated advanced chronic liver disease. *Shear wave velocity between 1.7-2.1 m/s (Liver Stiffness 9-13 kPa): Suggestive of compensated advanced chronic liver disease but need further test for confirmation. *Shear wave velocity between 2.1-2.4 m/s (Liver Stiffness 13-17 kPa): Rules in compensated advanced chronic liver disease. *Shear wave velocity greater than 2.4 m/s (Liver Stiffness over 17 kPa): Suggestive of clinically significant portal hypertension. QUALITY OF DATA SET: *IQR/Median value equal or less than 0.15 implies a quality data set. *IQR/Median value over 0.15 implies a poor quality data set. SIGNIFICANT CHANGE FROM PRIOR EXAM: Significant change if liver stiffness measurement is 10% or greater from prior exam. OTHER CONSIDERATIONS: The stage of liver fibrosis may be overestimated in the setting of acute hepatitis, liver inflammation, elevated liver function tests, hepatic vascular congestion, obstructive cholestasis, non-fasting state, and infiltrative diseases such as amyloidosis and lymphoma. In some patients with NAFLD, the liver stiffness thresholds for compensated advanced chronic liver disease may be lower. In causes other than viral hepatitis and NAFLD, liver stiffness thresholds are not well established. Electronically signed by: Shady Blackwell MD 08/07/2024 09:14 AM EDT
--- OUTSIDE RECORDS SUMMARY | 2024-08-07 08:22 | XMS_ITS | Clinical Summary ---
Author Organization [facility] [employer] [facility] ity Address [address] [place] [address] Care Team Providers Care Wheelchair Driver Name Role Phone Gayla Hagen MD Primary Care Provider [phone] Surgical History Surgery Date Site/Laterality Comments CHOLECYSTECTOMY [...] age to complete this topic Care Teams Wheelchair Driver Relationship Specialty Start Date End Date Gayla Hagen MD [address] [place] [id number] PCP - General 04/23/21
== END 2024-08-07 08:12 | disposition home or self-care (01) ==
LOC: HO.US 08:11
PROVIDERS: Visit Provider Surgery
DX: R16.2 Hepatomegaly with splenomegaly, not elsewhere classified (principal); K76.0 Fatty (change of) liver, not elsewhere classified; E66.811 Obesity, class 1; Z68.38 Body mass index [BMI] 38.0-38.9, adult; I10 Essential (primary) hypertension; E78.5 Hyperlipidemia, unspecified; R73.03 Prediabetes
CPT/HCPCS: 71046; 76700; 76981

== ENCOUNTER → 2024-08-07 08:16 | Outpatient (BNV) | payer OTHER, SELFPAY | PROVIDERS: Visit Provider Radiology Diagnostic Radiology | DX: R16.2 Hepatomegaly with splenomegaly, not elsewhere classified (principal); R91.1 Solitary pulmonary nodule | CPT/HCPCS: 71046; 76700 ==

== ENCOUNTER 2024-10-10 10:00 | Outpatient (AMB) | payer OTHER, SELFPAY ==
--- NOTE | 2024-10-10 10:08 | A.OFFPC_ITS ---
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 Accompanied by: Self / Same As Patient Allergies No Known Allergies Allergy (Verified 10/10/24 10:45) Medication List - Last Reconciled 10/10/24 by Alexandra Aguilar PA-C emtricitabine-tenofovir alafen 200-25 mg (Descovy) 1 tab PO DAILY fluticasone propionate 50 mcg/actuation 2 sprays intranasal BID gabapentin 600 mg PO .qhs 30 days naproxen 500 mg PO BID sildenafil 100 mg PO DIRECTED Tobacco use date assessed: 10/10/24 Dental Screening Dental Screen Date: 10/10/24 Did you have a dental visit in the last 12 months?: No Did you have a dental problem in the last 6 months where you did not have access to dental care?: No Was dental information given to patient?: Yes HPI f/u weight loss 2 HPI0 Details 49-year-old male with past medical histo ry of hypertension, lumbar degenerative disc disease, nephrolithiasis, hyperlipidemia, fatty liver disease, obesity, obstructive sleep apnea last seen 06/2024 coming in for follow up. Presenting with concerns about a genital lesion and recent weight loss. The patient has experienced a weight loss of 16 pounds over three months, achieved through lifestyle modifications without surgical intervention. An ultrasound revealed mild fatty liver disease, but other findings were normal. The patient reports a hard skin growth on the penis, which is nontender and peels off, recurring over time. The lesion has been present for a couple of months and does not cause pain or discharge unless picked at excessively. The patient has a history of syphilis, previously treated with penicillin, but recent tests showed a reactive result, raising concerns about reactivation. [facility] Medical History Obstructive sleep apnea on CPAP BMI 30.0-30.9,adult Obesity Obstructive sleep apnea Numbness of right hand Surgical History History of carpal tunnel release Hx laparoscopic cholecystectomy H/O circumcision Family History Mother Arthritis Hypercholesteremia HTN (hypertension) Diabetes Maternal Grandmother HTN (hypertension) Diabetes Father Liver cancer Social History Housing: House Alcohol intake: current Alcohol intake frequency: a few times a week Patient Tobacco Use Status: Former Tobacco user Tobacco use type: Cigarette e-Cigarette/Vaping Use: Currently Using Second Hand Smoke Exposure: Yes service: No Current occupational status: employed Cognitive needs: No Hearing needs: No Vision needs: Yes (Glasses) Questionnaire PHQ-9 Over the last 2 weeks, how often have you been bothered by any of the following problems? 1. Little interest or pleasure in doing things: not at all 2. Feeling down, depressed, or hopeless: not at all 3. Trouble falling or staying asleep, or sleeping too much: several days 4. Feeling tired or having little energy: several days 5. Poor appetite or overeating: not at all 6. Feeling bad about yourself - or that you are a failure or have let yourself or your family down: not at all 7. Trouble concentrating on things, such as reading the newspaper or watching television: not at all 8. Moving or speaking so slowly that other people could have noticed. Or the opposite - being so fidgety or restless that you have been moving around a lot more than usual: not at all 9. Thoughts that you would be better off or of hurting yourself in some way: not at all Total score: 2 Source: Developed by Drs. Shady Gutierrez, Dayna Mckeon, Shane Matias and colleagues, with an educational cristel from [employer]. Thrive Questionnaire Date Thrive assessed: 06/24/24 I am a: Patient What is your living situation today?: I have a steady place to live Within the past 12 months, did the food you bought not last and you didn't have the money to get more?: Sometimes True Within the past 12 months, did you worry whether your food would run out before you got money to buy more?: Sometimes True Do you have trouble paying for medicines?: I choose not to answer this question Do you have trouble getting transportation to medical appointments?: No Do you have trouble paying your heating and electricity bill?: No Do you have trouble taking care of your child, family member or friend?: No Do you have trouble with day-to-day activities such as bathing, preparing meals, shopping, managing finances, etc.?: No Are you currently unemployed and looking for a job?: No Are you interested in more education?: No Please select the resources that you would like help with: None Currently or been in a relationship where the following occur: No concerns reported THRIVE Score: 2 AUDIT C Alcohol Use Questionnaire (AUDIT-C) 1. How often do you have a drink containing alcohol?: 2-3 times a week Total Score: 3 DARIELA-7 AMB Questionnaire DARIELA-7 Date DARIELA - 7 assessed: 05/23/24 Feeling nervous, anxious, or on edge: 2 = More than half the days Not being able to stop or control worryin = More than half the days Worrying too much about different things: 2 = More than half the days Trouble relaxin = Several days Being so restless that it is hard to sit still: 0 = Not at all Becoming easily annoyed or irritable: 0 = Not at all Feeling afraid as if something awful might happen: 2 = More than half the days Total DARIELA-7 score (0-4 normal; 5-9 mild; 10-14 moderate; 15-21 severe): 9 Source: Developed by Drs. Shady Gutierrez, Dayna Mckeon, Shane Matias and colleagues, with an educational cristel from [employer]. DARIELA-7 Assessment Billing DARIELA-7 Assessment Tool: DARIELA-7 Assessment 37393 Review of Systems Const Denies body aches, Denies chills, Denies fever(s), Denies headache(s) and Denies poor appetite Eyes Reports no additional complaints ENT Denies dizziness and Denies headache(s) Card Denies chest pain, Denies syncope, Denies edema, Denies lightheadedness and Denies dyspnea Resp Denies dyspnea GI Denies nausea and Denies vomiting Reports as per HPI Musc Reports no additional complaints and Denies abnormal gait Skin/Breast Reports system reviewed and no additional complaints, except as documented Neuro Denies abnormal gait, Denies dizziness, Denies syncope and Denies headache(s) Psych Reports no additional complaints Physical exam (Primary Care) Vital Signs: Last Vital Signs Temp 97.1 F 10/10/24 10:09 Pulse 89 10/10/24 10:09 BP 126/88 10/10/24 11:23 Pulse Ox 98 10/10/24 10:09 Oxygen Delivery Method Room Air 10/10/24 10:09 BMI result Body Mass Index 33.3 Tobacco/Smoking Status: Tobacco use Status Tobacco use date assessed 10/10/24 10/10/24 10:18 Patient Tobacco Use Status Former Tobacco user 10/10/24 10:18 Tobacco use type Cigarette 10/10/24 10:18 e-Cigarette/Vaping Use Currently Using 10/10/24 10:18 PHQ-9: PHQ-9 Score PHQ-9: Total score 2 10/10/24 10:45 Thrive Assessment: Date of Thrive Assessment Date Thrive assessed 06/24/24 10/10/24 10:18 Currently or been in a relationship where the following occur: No concerns reported Const General: cooperative, healthy appearing, comfortable and no acute distress Orientation/consciousness: patient oriented x3 HENMT Head: Yes normocephalic Ears: hearing grossly normal bilaterally General nose exam: Normal external nose present Eyes General: appearance normal, both eyes and all related structures Conjunctivae: conjunctivae normal Neck Neck: Yes full ROM and Yes no lymphadenopathy Resp Effort & Inspection: normal respiratory effort Auscultation: clear to auscultation bilaterally, no crackles, no rales, no rhonchi and no wheezes Cardio Rate: regular rate Rhythm: regular rhythm Other: Medicaid Specialist Dr. Whittaker was present for genital exam Male genitals images: 2 1. Small bump without erythema, crusting and non fluid-filled Skin General skin exam: no rashes or lesions noted Neuro General: patient oriented x3 Gait exam (Neuro): Normal gait present Extrem General: Yes normal to inspection, Yes full ROM and No edema Psych Affect: normal affect Attitude: cooperative Insight: Good insight present (Psych) Judgement: Good judgement present (Psych) Coding Level of Care Code Est Pt Level 3 (46147) Diagnoses BMI 38.0-38.9,adult Z68.38 Back pain M54.9 HTN (hypertension) I10 Genital lesion, male N50.89 Additional Codes DARIELA-7 Assessment Billing - DARIELA-7 Assessment Tool: DARIELA-7 Assessment 80221 ([id number]) Assessment & Plan Assessment & Plan (1) BMI 38.0-38.9,adult: Code(s): Z68.38 - Body mass index [BMI] 38.0-38.9, adult Category: Medical Plan: Healthy diet and regular exercise is encouraged. Patient has noted 16 lb weight loss since last visit. Continue to follow with Dr. Robison (2) Back pain: Code(s): M54.9 - Dorsalgia, unspecified Category: Medical Plan: His back pain has been improving since the weight loss. He continues to use naproxen as needed. (3) HTN (hypertension): Code(s): I10 - Essential (primary) hypertension Category: Medical Plan: Continue on current blood pressure medication. Avoid salt intake and encourage healthy diet and regular exercise. (4) Genital lesion, male: Comment: possible wart Code(s): N50.89 - Other specified disorders of the male genital organs Category: Medical Plan: Discussed with Dr. Whittaker concern for possible genital wart and referral was placed to Urology today. I also plan to reach out to his provider at [facility] to inform her see if she has any earlier openings for possible exam. In the meantime advised patient to use barrier protection with intercourse in the event this is contagious. Plan This note was constructed using voice recognition software. While every effort has been made to ensure accuracy and deck engineer, still areas may have been included sometimes these areas may affect the content or meeting of the given symptoms. Total time spent caring for the patient today was 20 minutes. This includes time spent before the visit reviewing the chart, time spent during the visit, and time spent after the visit and documentation. Patient was informed and verbally consented to the use of an ambient scribe for clinic note documentation during this visit. Orders: Referrals 2 Urology Referral N50.89 - Other specified disorders of the male genital organs Medications: New 2 sildenafil administer 30 minutes to 4 hours before activity 100 mg PO DAILY PRN 20 tabs 0RF sexual activity Refilled 2 naproxen 500 mg PO BID 60 tabs 0RF
[2024-10-10 10:09] VITALS: BP 152/82; PULSE 89; TEMP 36.2; O2SAT 98; BMI 33.3
--- OUTSIDE RECORDS SUMMARY | 2024-10-10 11:11 | XMS_ITS | Clinical Summary ---
Author Organization [employer] [facility] ity Address [address] [place] [address] Care Team Providers Care Merchandise Flow Team Member Name Role Phone Gayla Hagen MD Primary Care Provider [phone] Surgical History Surgery Date Site/Laterality Comments CHOLECYSTECTOMY [...] Panel) 01/22/2022 Colorectal Cancer Screening: Colonoscopy 01/22/2022 Hepatitis C Screening 01/22/2022 Social Influencers of Health Screening 01/22/2022 COVID-19 Vaccine ( season) 2024 11/09/2023, 02/15/2021, 06/16/2020, Additional history exists Depression Screening 02/14/2024 Hypertension/CHF/CAD Annual BMP Blood Test 06/13/2024 06/14/2023 Influenza Vaccine (#1) 2024 , 01/23/2023, 12/13/2021, Additional history exists DTaP,Tdap,and Td Vaccines (3 - Td or Tdap) 01/07/2031 01/07/2021, 08/07/2013 Pneumococcal Vaccine: Pediatrics (0 to 5 Years) and At-Risk Patients (6 to 49 Years) Aged Out 04/09/2015 No longer eligible based on patient's age to complete this topic HIV Screening Completed 06/14/2023 HIB Vaccines Aged Out No longer eligi [...] age to complete this topic Care Teams Merchandise Flow Team Member Relationship Specialty Start Date End Date Gayla Hagen MD [address] [facility] [place] [address] PCP - General 04/23/21
--- OUTSIDE RECORDS SUMMARY | 2024-10-10 11:11 | XMS_ITS | Patient Health Record ---
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 trachomatis, SURESH, Pharyn Negative Negative N. gonorrhoeae, SURESH, Pharyn Negative Negative Chlamydia/GC Amplification-1 [id number] Reviewed date:09/25/2024 07:40:09 PM Interpretation:Negative Performing Lab:[facility] [place], [address], [address], [place], Phone - [phone], Director - [place] Notes/Report: Clinical Information:SRC: URINE Chlamydia trachomatis, SURESH Negative Negative Neisseria gonorrhoeae, SURESH Negative Negative HIV Ab/p24 Ag with Reflex-08 [id number] Reviewed date:09/25/2024 12:54:32 PM Interpretation:Negative Performing Lab:[facility] [place], [address], [address], [place], Phone - [phone], Director - [place] Notes/Report: Clinical Information:SRC: URINE HIV Ab/p24 Ag Screen Non Reactive Non Reactive HIV-1/HIV-2 antibodies and HIV-1 p24 antigen were NOT detected. There is no laboratory evidence of HIV infection. HIV Negative T pallidum Screening [place] -[id number] Reviewed date:09/25/2024 12:54:22 PM Interpretation:RPR 1:1 Performing Lab:[facility], [address], [address], [place], Phone - [phone], Director - [facility] Notes/Report: Clinical Information:SRC: URINE Clinical Information:SRC: URINE Clinical Information:SRC: URINE T pallidum Antibodies Reactive Non Reactive A RPR Reactive Non Reactive A RPR, Quant 1:1 NonRea<1:1 titer H Chlamydia/GC Amplification-1 [id number] Reviewed date:08/09/2024 04:26:42 PM Interpretation:Negative Performing Lab:[facility] [place], [address], [address], [place], Phone - [phone], Director - [facility] Notes/Report: Clinical Information:SRC: URINE Chlamydia trachomatis, SURESH Negative Negative Neisseria gonorrhoeae, SURESH Negative Negative Creatinine-[id number] Reviewed date:12/06/2023 11:45:29 AM Interpretation:Creatinine 1.0/CrCl 131 ml/min Performing Lab:[facility] [place], [address] [facility], Phone - [phone], Director - [facility] Notes/Report: Clinical Information:PHARYNGEAL SRC: ORAL Creatinine 1.00 0.76-1.27 mg/dL eGFR 93 >59 mL/min/1.73 T pallidum Screening [place] -[id number] Reviewed date:12/07/2023 09:46:23 AM Interpretation:RPR 1:2 Performing Lab:[facility] [place], [address] [place] [address], Phone - [phone], Director - [facility] Notes/Report: Clinical Information:PHARYNGEAL SRC: ORAL Clinical Information:PHARYNGEAL SRC: ORAL Clinical Information:PHARYNGEAL SRC: ORAL T pallidum Antibodies Reactive Non Reactive A RPR Reactive Non Reactive A RPR, Quant 1:2 NonRea<1:1 titer H HIV Ab/p24 Ag with Reflex-08 [id number] Reviewed date:12/06/2023 11:15:54 AM Interpretation:Negative Performing Lab:[facility], [address], [address], [place], Phone - [phone], Director - [facility] Notes/Report: Clinical Information:PHARYNGEAL SRC: ORAL HIV Ab/p24 Ag Screen Non Reactive Non Reactive HIV-1/HIV-2 antibodies and HIV-1 p24 antigen were NOT detected. There is no laboratory evidence of HIV infection. HIV Negative Ct, Ng, Trich vag by SUREHS-[id number] Reviewed date:12/07/2023 09:46:35 AM Interpretation:Negative Performing Lab:[facility] [place], [address], [address], [place], Phone - [phone], Director - [facility] Notes/Report: Clinical Information:PHARYNGEAL SRC: ORAL Chlamydia by SURESH Negative Negative Gonococcus by SURESH Negative Negative Trich vag by SURESH Negative Negative Ct/GC SURESH, Pharyngeal-[id number] Reviewed date:12/07/2023 09:44:15 AM Interpretation:Negative Performing Lab:[facility] [place], [address], [address], [place], Phone - [phone], Director - [facility] Notes/Report: Clinical Information:PHARYNGEAL SRC: ORAL C. trachomatis, SURESH, Pharyn Negative Negative N. gonorrhoeae, SURESH, Pharyn Negative Negative Lipid Panel-[id number] Reviewed date:12/06/2023 09:06:05 AM Interpretation:Normal Performing Lab:[facility] [place], [address] [place] [address], Phone - [phone], Director - [place] Notes/Report: Clinical Information:PHARYNGEAL SRC: ORAL Cholesterol, Total 155 100-199 mg/dL Triglycerides 83 0-149 mg/dL HDL Cholesterol 42 >39 mg/dL VLDL Cholesterol Ananth 16 5-40 mg/dL LDL Chol Calc ([facility]) 97 0-99 mg/dL Chlamydia/GC Amplification-1 [id number] Reviewed date:07/24/2024 04:57:18 PM Interpretation:GC positive Performing Lab:[facility] [place], [address], [address], [place], Phone - [phone], Director - [facility] Notes/Report: Clinical Information:SRC: URINE Chlamydia trachomatis, SURESH Negative Negative Neisseria gonorrhoeae, SURESH Positive Negative A Urinalysis Reviewed date:08/28/2024 10:15:48 AM Interpretation:Leuks positive Performing Lab: Notes/Report: Leuks positive Leukocytes 15 Nitrates - Uro 0.2 Protein 15 pH 6.0 Blood - Spec [place] 1.020 Ketones - Bilirubin 1 Glucose - Chlamydia/GC Amplification-1 [id number] Reviewed date:08/30/2024 12:06:50 PM Interpretation:Gonorrhea Positive Performing Lab:[facility] [place], [address], [address], [place], Phone - [phone], Director - [facility] Notes/Report: Clinical Information:SRC: URINE Chlamydia trachomatis, SURESH Negative Negative Neisseria gonorrhoeae, SURESH Positive Negative A Ct/GC SURESH, Pharyngeal-[id number] Reviewed date:09/04/2024 12:44:29 PM Interpretation:Negative Performing Lab:[facility] [place], [address], [place], Phone - [phone], Director - [facility] Notes/Report: Clinical Information:SRC: URINE C. trachomatis, SURESH, Pharyn Negative Negative N. gonorrhoeae, SURESH, Pharyn Negative Negative Chlamydia/GC Amplification-1 [id number] Reviewed date:09/24/2024 12:03:50 PM Interpretation:negative Performing Lab:[facility] [place], [address], [address], [place], Phone - [phone], Director - [facility] Notes/Report: Chlamydia trachomatis, SURESH Negative Negative Neisseria gonorrhoeae, SURESH Negative Negative T pallidum Screening [place] -[id number] Reviewed date:04/09/2024 07:56:21 AM Interpretation:RPR 1:2 Performing Lab:[facility] [place], [address], [address], [place], Phone - [phone], Director - [facility] Notes/Report: T pallidum Antibodies Reactive Non Reactive A RPR Reactive Non Reactive A RPR, Quant 1:2 NonRea<1:1 titer H T pallidum Screening [place] -[id number] Reviewed date:06/25/2024 01:25:52 PM Interpretation:RPR 1:1 Performing Lab:[facility], [address], [address], [place], Phone - [phone], Director - [facility] Notes/Report: T pallidum Antibodies Reactive Non Reactive A RPR Reactive Non Reactive A RPR, Quant 1:1 NonRea<1:1 titer H HIV Ab/p24 Ag with Reflex-08 [id number] Reviewed date:06/25/2024 01:21:17 PM Interpretation:Negative Performing Lab:[facility], [address], [address], [place], Phone - [phone], [facility] Notes/Report: HIV Ab/p24 Ag Screen Non Reactive Non Reactive HIV-1/HIV-2 antibodies and HIV-1 p24 antigen were NOT detected. There is no laboratory evidence of HIV infection. HIV Negative HCV Antibody RFX to Quant PC [id number] Reviewed date:06/25/2024 01:21:23 PM Interpretation:Negative Performing Lab:[facility], [address], [address], [place], Phone - [phone], [facility] Notes/Report: HCV Ab Non Reactive Non Reactive Interpretation: Not infected with HCV unless early or acute infection is suspected (which may be delayed in an immunocompromised individual), or other evidence exists to indicate HCV infection. Ct/GC SURESH, Pharyngeal-[id number] Reviewed date:06/26/2024 08:56:27 AM Interpretation:Negative Performing Lab:[facility], [address], [address], [place], Phone - [phone], [facility] Notes/Report: C. trachomatis, SURESH, Pharyn Negative Negative N. gonorrhoeae, SURESH, Pharyn Negative Negative HCV Antibody-[id number] Reviewed date:03/19/2024 01:59:14 PM Interpretation:Negative Performing Lab:Row[address], [address], [place], Phone - [phone], [facility] Notes/Report: Hep C Virus Ab Non Reactive Non Reactive HCV antibody alone does not differentiate between previously resolved infection and active infection. Equivocal and Reactive HCV antibody results should be followed up with an HCV RNA test to support the diagnosis of active HCV infection. Ct/GC SURESH, Pharyngeal-[id number] Reviewed date:03/19/2024 07:31:01 PM Interpretation:Negative Performing Lab:Rowan A[address], [address], [place], Phone - [phone], [facility] Notes/Report: C. trachomatis, SURESH, Pharyn Negative Negative N. gonorrhoeae, SURESH, Pharyn Negative Negative Chlamydia/GC Amplification-1 [id number] Reviewed date:03/19/2024 07:31:07 PM Interpretation:Negative Performing Lab:[facility] [address], [address], [place], Phone - [phone], Director - [facility] Notes/Report: Chlamydia trachomatis, SURESH Negative Negative Neisseria gonorrhoeae, SURESH Negative Negative HIV Ab/p24 Ag with Reflex-08 [id number] Reviewed date:03/19/2024 01:58:50 PM Interpretation:Negative Performing Lab:[facility], [address], [address], [place], Phone - [phone], Director - [facility] Notes/Report: HIV Ab/p24 Ag Screen Non Reactive Non Reactive HIV-1/HIV-2 antibodies and HIV-1 p24 antigen were NOT detected. There is no laboratory evidence of HIV infection. HIV Negative T pallidum Screening [place] -[id number] Reviewed date:03/23/2024 12:41:47 PM Interpretation:RPR 1:4 Performing Lab:[facility], [address], [address], [place], Phone - [phone], Director - [facility] Notes/Report: T pallidum Antibodies Reactive Non Reactive A RPR Reactive Non Reactive A RPR, Quant 1:4 NonRea<1:1 titer H Creatinine-[id number] Reviewed date:03/19/2024 10:20:42 AM Interpretation:Normal Performing Lab:[facility], [address] [place] [address], Phone - [phone], Director - [facility] Notes/Report: Creatinine 1.04 0.76-1.27 mg/dL eGFR 89 >59 mL/min/1.73 Chlamydia/GC Amplification-1 [id number] Reviewed date:06/26/2024 08:56:21 AM Interpretation:Negative Performing Lab:[facility], [address], [address], [place], Phone - [phone], Director - [facility] Notes/Report: Chlamydia trachomatis, SURESH Negative Negative Neisseria gonorrhoeae, SURESH Negative Negative Reason For Referral No Information Medications Medication SIG (Take, Route, Frequency, Duration) Notes Start Date End Date Status Doxycycline Monohydrate 100 MG Tablet 2 tablet Orally Taken as soon as possible after sex, ideally within 24 hours and no later than 72 hours after sex. No more than 200 mg should be taken within a 24-hour period.; Duration: 15 days 12/05/2023 Active Descovy 200-25 MG Tablet 1 tablet Orally Once a day; Duration: 90 days 03/19/2024 Active Gabapentin Not-Takin g/PRN Naproxen Not-Taking /PRN amLODIPine Benzoate Not-Taking/PRN Social History Sex Assigned At : Social History Observation Description Sex Assigned At Male Social History HIV Risk Assessment Social Info Question Answer Notes Additional Questions Is an HIV Risk Assessment being c onducted? Yes Have you been tested for HIV before? Yes If yes, when and where? [facility] Did you have a blood transfusion prior to 1985? No Do you have an unlicensed body piercing or tattoo? Yes Reproductive Life Plan: Social Info Question Answer Notes Reproductive Life Plan: Do you want to h ave children? No, I don't want to have children How sure are you that you will be able to use your control method without any problems? Very sure People's plans change. Is it possible you or your partner could ever decide to become ? No Human Trafficking: Social Info Question Answer Notes Human Trafficking Experienced: No PrEP for HIV: Social Info Question Answer Notes PrEP for HIV Is the client intere sted in beginning/continuing PrEP for HIV? Yes PrEP continuation Do you currently have any HIV+ partners? No In the past 6 months, have you had any HIV+ partners? No Are you a commercial sex worker? No Sexual History: Social Info Question Answer Notes Sexual History: Sexual History Reviewed: Partner s, Practices, Protection/Past STIs, Prevention of Currently sexually active? Yes Sexually active with: Men Number of male partners 1 Your sexual activities include: anal intercourse, oral intercourse Reviewed types of EC? No Do you use condoms? Yes Condoms are used: occasionally In what situations, or with whom, do you not use condoms? Describe in notes. no condom use w/ consist ent partner(s) Date of last unprotected intercourse: 08/26/2024 Number of partners in past 3 months: 3 Number of partners in past year: 12 What is the client's primary method to prevent at the end of their visit? Condoms - Male Does your partner(s) currently have any STIs? No Completed Gardasil vaccination series? No Counseling Provided: Social Info Question Answer Notes Counseling Provided Please indicate the length of time, in minutes, that counseling was provided. 7 Counseling Was Provided By: omaymora Drugs/Alcohol: Social Info Question Answer Notes Drug/Alcohol Use Do you or have you used drugs? No Do you or have you used alcohol? Yes, currently weekly use Food Access: Social Info Question Answer Notes Food Access The Client's current access to food is Secure Food Access Relationships: Social Info Question Answer Notes Relationships Has the client exper ienced any of the following: Client has never experienced harmful relationships Housing Social Info Question Answer Notes Housing The client's current living situation is: stable housing Tobacco Use: Social Info Question Answer Notes Tobacco Use: Do you/have you used tobacco? 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 ; Contact with and (suspected) exposure to other viral communicable diseases Z20.828 ; Encounter for screening for human immunodeficiency virus [HIV] Z11.4 ; Encounter for HIV pre-exposure prophylaxis Z29.81 and Encounter for screening for infections with a predominantly sexual mode of transmission Z11.3 [facility] [address] [place], [place] [id number] 03/18/2024 WAYNE GABAI Encounter for screen ing for human immunodeficiency virus [HIV] Z11.4 ; Encounter for HIV pre-exposure prophylaxis Z29.81 ; Encounter for screening for infections with a predominantly sexual mode of transmission Z11.3 ; Other problems related to lifestyle Z72.89 ; 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 and Encounter for screening for other viral diseases Z11.59 [facility] [address] [place], [place] [id number] 04/05/2024 WAYNE GABAI Encounter for screen ing for infections with a predominantly sexual mode of transmission Z11.3 [facility] [address] [place], [place] [id number] 06/24/2024 WAYNE GABAI Encounter for screen ing for human immunodeficiency virus [HIV] Z11.4 ; Encounter for HIV pre-exposure prophylaxis Z29.81 ; Encounter for screening for infections with a predominantly sexual mode of transmission Z11.3 ; Other problems related to lifestyle Z72.89 and Encounter for screening for other viral diseases Z11.[address] [id number] 07/17/2024 WAYNE GABAI Encounter for screen ing for infections with a predominantly sexual mode of transmission Z11.3 ; Counseling, unspecified Z71.9 ; Other problems related to lifestyle Z72.89 and Nonspecific urethritis N34.[address] [id number] 07/24/2024 SMILEY MACHADO Gonorrhea A54.[address] [id number] 08/07/2024 WAYNE GABAI Encounter for screen ing for infections with a predominantly sexual mode of transmission Z11.3 ; Counseling, unspecified Z71.9 and Other problems related to lifestyle Z72.[address] [id number] 08/28/2024 SMILEY MACHADO Encounter for screen ing for infections with a predominantly sexual mode of transmission Z11.3 ; Nonspecific urethritis N34.1 ; Counseling, unspecified Z71.9 ; Other problems related to lifestyle Z72.89 and Urinary frequency R35.[address] [id number] 09/11/2024 SMILEY MACHADO Counseling, unspecif ied Z71.9 ; Encounter for screening for infections with a predominantly sexual mode of transmission Z11.3 ; Other problems related to lifestyle Z72.89 and Contact with or exposure to STI Z20.[address] [id number] 09/24/2024 WAYNE GABAI Encounter for screen ing for human immunodeficiency virus [HIV] Z11.4 ; Encounter for HIV pre-exposure prophylaxis Z29.81 ; Encounter for screening for infections with a predominantly sexual mode of transmission Z11.3 and Other problems related to lifestyle Z72.[address] [id number] 12/05/2023 WAYNE GABAI [address] [id number] 03/06/2024 WAYNE GABAI Contact with and (suspected) exposure to other viral communicable diseases Z20.828 [facility] [address] [place], [place] [id number] 03/18/2024 WAYNE GABAI [facility] [address] [place], [place] [id number] 06/24/2024 WAYNE GABAI [facility] [address] [place], [place] [id number] 07/19/2024 WAYNE GABAI [facility] [address] [id number] 08/30/2024 SMILEY MACHADO [facility] [address] [id number] 09/11/2024 SMILEYCHI MACHADO [facility] [address] [place], [place] [id number] 09/24/2024 WAYNE GABAI Assessments Encounter Date Diagnosis (ICD Code) Assessment Notes Treatment Notes Treatment Clinical Notes Section Notes 12/05/2023 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 Instructed to return in 2 weeks for LALA and 3 months for retest. Partner notification and treatment discussed and offered. Advised to abstain from sex for 7 days after treatment of self and any partners. DPH form completed and submitted. 100% barrier method recommended for prevention of future STIs. May stop doxy treatment as CT negative Spent 15 minutes doing the following: Chart Prep Obtaining/revie wing history Performing medically necessary exam Counseling/Coor dination of Care Documenting the visit Educating the patient Ordering medication/test /procedures Established Patient: 82632 10 Minutes 08/07/2024 Encounter for screening for infections with a predominantly sexual mode of transmission (ICD-10 - Z11.3) Reviewed routine screening, safe sex and consistent barrier protection. Aware of window period for testing and testing options. Discussed symptoms that would warrant further evaluation and follow-up care Spent ___ minutes doing the following: Chart Prep Obtaining/revie wing history Performing medically necessary exam Counseling/Coor dination of Care Documenting the visit Educating the patient Ordering medication/test /procedures Communication of test results Established Patient: 11038 10 Minute 08/28/2024 Nonspecific urethritis (ICD-10 - N34.1) Reviewed current symptoms, hx and UA results. Reviewed options of waiting for test results prior to treatment or option for presumptive tx for GC given recent hx of GC and leuks in UA with current symptoms. Clt prefers presumptive tx today. Clt aware that tx plan may need to be amended based on test results. No sexual activity until dx and treatment plan confirmed. Clt tolerated treatment well. Need 2 out of 3 Sections from A-C Section A) Problems (only need one from below) One acute or uncomplicated illness/injury Section B) Data (at least one of the following categories in this section) Category 1: (Choose 2 of the following): Order unique tests Section C) Risk Document low risk of morbidity/morta lity 08/28/2024 Encounter for screening for infections with a predominantly sexual mode of transmission (ICD-10 - Z11.3) Discussed STI risks, screenings that are available through [facility] and safe sex. Clt aware of lab processing times and how to view results on portal and how positive results will be communicated Need 2 out of 3 Sections from A-C Section A) Problems (only need one from below) One acute or uncomplicated illness/injury Section B) Data (at least one of the following categories in this section) Category 1: (Choose 2 of the following): Order unique tests Section C) Risk Document low risk of morbidity/morta lity 09/11/2024 Counseling, unspecified (ICD-10 - Z71.9) Spent 15 minutes doing the following: Chart Prep Obtaining/revie wing history Performing medically necessary exam Counseling/Coor dination of Care Documenting the visit Educating the patient Ordering medication/test /procedures Established Patient: 70341 10 Minutes 09/24/2024 Encounter for screening for human immunodeficiency virus [HIV] (ICD-10 - Z11.4) Spent ___ minutes doing the following: Chart Prep Obtaining/revie wing history Performing medically necessary exam Counseling/Coor dination of Care Documenting the visit Educating the patient Ordering medication/test /procedures Communication of test results Established Patient: 76045 20 Minutes 09/24/2024 Encounter for HIV pre-exposure prophylaxis (ICD-10 - Z29.81) The client has been counseled on PrEP Medication as PrEP for HIV-1. The client has been advised that PrEP Medication should be used as part of a complete prevention strategy, and that consistent daily use of PrEP Medication is needed for the best protection. Routine follow-up appointments are needed while taking PrEP Medication, and you and your partner(s) should receive regular HIV testing. Spent ___ minutes doing the following: Chart Prep Obtaining/revie wing history Performing medically necessary exam Counseling/Coor dination of Care Documenting the visit Educating the patient Ordering medication/test /procedures Communication of test results Established Patient: 54983 20 Minutes 08/28/2024 Counseling, unspecified (ICD-10 - Z71.9) Need 2 out of 3 Sections from A-C Section A) Problems (only need one from below) One acute or uncomplicated illness/injury Section B) Data (at least one of the following categories in this section) Category 1: (Choose 2 of the following): Order unique tests Section C) Risk Document low risk of morbidity/morta lity 09/11/2024 Encounter for screening for infections with a predominantly sexual mode of transmission (ICD-10 - Z11.3) Discussed STI risks, screenings that are available through [facility] and safe sex. Clt aware of lab processing times and how to view results on portal and how positive results will be communicated LALA today. Will call with any positive results. Plan for PrEP fu in September and can do rescreening in 3 months. Will cancel Sept rescreening visit Spent 15 minutes doing the following: Chart Prep Obtaining/revie wing history Performing medically necessary exam Counseling/Coor dination of Care Documenting the visit Educating the patient Ordering medication/test /procedures Established Patient: 05486 10 Minutes 09/11/2024 Other problems related to lifestyle (ICD-10 - Z72.89) Spent 15 minutes doing the following: Chart Prep Obtaining/revie wing history Performing medically necessary exam Counseling/Coor dination of Care Documenting the visit Educating the patient Ordering medication/test /procedures Established Patient: [id number] 10 Minutes 08/07/2024 Counseling, unspecified (ICD-10 - Z71.9) Spent ___ minutes doing the following: Chart Prep Obtaining/revie wing history Performing medically necessary exam Counseling/Coor dination of Care Documenting the visit Educating the patient Ordering medication/test /procedures Communication of test results Established Patient: [id number] 10 Minute 07/17/2024 Other problems related to lifestyle (ICD-10 - [...] Risk Document low risk of morbidity/morta lity 07/17/2024 Nonspecific urethritis (ICD-10 - N34.1) Reviewed current symptoms, screenings and presumptive tx options. Clt has opted to do presumptive tx. Based on current symptoms, rx given. No sexual activity x 7 days and partner testing/tx discussed. Testing sent to confirm dx. Will call to follow up once labs reviewed. Clt aware to RTC if all labs negative and symptoms persist after completion of meds. Need 2 out of 3 Sections from [...] Risk Document low risk of morbidity/morta lity 08/28/2024 Other problems related to lifestyle (ICD-10 - Z72.89) Need 2 out of 3 Sections from A-C Section A) Problems (only need one from below) One acute or uncomplicated illness/injury Section B) Data (at least one of the following categories in this section) Category 1: (Choose 2 of the following): Order unique tests Section C) Risk Document low risk of morbidity/morta lity 08/07/2024 Other problems related to lifestyle (ICD-10 - Z72.89) Spent ___ minutes doing the following: Chart Prep Obtaining/revie wing history Performing medically necessary exam Counseling/Coor dination of Care Documenting the visit Educating the patient Ordering medication/test /procedures Communication of test results Established Patient: [id number] 10 Minute 09/11/2024 Contact with or exposure to STI (ICD-10 - Z20.2) Refill for doxy-PEP sent to be used as needed Spent 15 minutes doing the following: Chart Prep Obtaining/revie wing history Performing medically necessary exam Counseling/Coor dination of Care Documenting the visit Educating the patient Ordering medication/test /procedures Established Patient: 00650 10 Minutes 09/24/2024 Encounter for screening for infections with a predominantly sexual mode of transmission (ICD-10 - Z11.3) Reviewed routine screening, safe sex and consistent barrier protection. Aware of window period for testing and testing options. Discussed symptoms that would warrant further evaluation and follow-up care Spent ___ minutes doing the following: Chart Prep Obtaining/revie wing history Performing medically necessary exam Counseling/Coor dination of Care Documenting the visit Educating the patient Ordering medication/test /procedures Communication of test results Established Patient: 06580 20 Minutes 09/24/2024 Other problems related to lifestyle (ICD-10 - Z72.89) Spent ___ minutes doing the following: Chart Prep Obtaining/revie wing history Performing medically necessary exam Counseling/Coor dination of Care Documenting the visit Educating the patient Ordering medication/test /procedures Communication of test results Established Patient: 93945 20 Minutes 08/28/2024 Urinary frequency (ICD-10 - R35.0) Need 2 out of 3 Sections from [...] medication: The Ready, Set, PrEP program and [place] HIV Drug Assistance Program (HDAP) which makes PrEP available at no cost to those who qualify. 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
[2024-10-10 11:23] VITALS: BP 126/88
== END 2024-10-10 11:45 | disposition home or self-care (01) ==
LOC: HO.HMCH 10:01
DX: Z68.38 Body mass index [BMI] 38.0-38.9, adult (principal); M54.9 Dorsalgia, unspecified; I10 Essential (primary) hypertension; N50.89 Other specified disorders of the male genital organs

== ENCOUNTER → 2024-10-10 10:00 | Outpatient (BNVA) | payer OTHER, SELFPAY | DX: I10 Essential (primary) hypertension (principal); M51.369 Other intervertebral disc degeneration, lumbar region without mention of lumbar back pain or lower extremity pain; E78.5 Hyperlipidemia, unspecified; G47.33 Obstructive sleep apnea (adult) (pediatric); N50.89 Other specified disorders of the male genital organs; M54.9 Dorsalgia, unspecified; E66.9 Obesity, unspecified; Z68.33 Body mass index [BMI] 33.0-33.9, adult | CPT/HCPCS: 96127 ==

== ENCOUNTER 2024-11-14 08:26 | Outpatient (REF) | payer OTHER, SELFPAY ==
--- OUTSIDE RECORDS SUMMARY | 2024-10-28 07:15 | XMS_ITS ---
Author Organization [facility] Address [address] [place] [phone] Care Team Providers Care Facility Practice Specialist Name Role Phone JANUARY WAYNE Unavailable [phone] REASON FOR VISIT Retesting Social History Sex Assigned At : Social History Observation Description Sex Assigned At Male Encounters Encounter Location Date Provider Diagnosis [place] [address] [place] [phone] 10/28/2024 WAYNE ENGEL Plan Of Treatment Next Appt Details Provider Name:WAYNE ENGEL , 12/23/2024 01:15:00 PM, [address] [place] [address], [address], [place], [place], [phone], Progress Notes * Luc MATHEW ADOB:1975 (49 yo M)Acc No.[id number]:10/28/2024 Progress Notes Patient: Nicole Luc Hall Provider: Aj Engel NP :1975 A ge:49 Y S ex:Male Date:10/28/2024 Address:[address] [place] [id number] Subjective: * Chief Complaints: * R etesting * Electronic signature of CARMEN ENGEL NP on 11/14/2024 at 08:44 AM EDT Sign off status: Pending * Provider: Aj Engel NP Date: 0 10/28/2024 Generated for Printi ng/Faxing/eTransmitting on: 1 08:44 AM EDT
--- NOTE | ~2024-11-14 | FL_ITS ---
EXAMINATION: XR FLUOROSCOPY WITH IMAGES CLINICAL INFORMATION: Lumbar pain management COMPARISON: None available. TECHNIQUE: Fluoroscopy provided to: Dr. Chan Fluoroscopy time: 0.1 minutes DAP: 0.0131 mGycm2 Images: 2 FINDINGS: 2 fluoroscopic spot images of the lumbar spine obtained during pain management procedure. Please refer to the full procedural report for details. FL/FL guidance in treatment room IMPRESSION: Fluoroscopic guidance. Electronically signed by: Júnior Marino MD 11/14/2024 02:23 PM EDT
--- OUTSIDE RECORDS SUMMARY | 2024-11-14 08:44 | XMS_ITS | Clinical Summary ---
Author Organization [facility] Address [address] [place] [address] Care Team Providers Care Tug Boat Engineer Name Role Phone Gayla Hagen MD Primary Care Provider [phone] Surgical History Surgery Date Site/Laterality Comments CHOLECYSTECTOMY [...] Health Maintenance Due Date Last Done Comments Colorectal Cancer Screening: Colonoscopy 1975 Hepatitis A Vaccines (1 of 2 - Risk 2-dose series) 02/16/1995 Hepatitis B Vaccines (1 of 3 - 19+ 3-dose series) 02/16/1995 Cholesterol Screening (Lipid Panel) 01/22/2022 Hepatitis C Screening 01/22/2022 Social Influencers of Health Screening 01/22/2022 Depression Screening 02/14/2024 Hypertension/CHF/CAD Annual BMP Blood Test 06/13/2024 06/14/2023 COVID-19 Vaccine ( season) 2024 11/09/2023, 02/15/2021, 06/16/2020, Additional history exists Influenza Vaccine (#1) 2024 , 01/23/2023, 12/13/2021, Additional history exists DTaP,Tdap,and Td Vaccines (3 - Td or Tdap) 01/07/2031 01/07/2021, 08/07/2013 RSV Immunization Adult Patients (1 - 1-dose 75+ series) 02/16/2051 Pneumococcal Vaccine: Pediatrics (0 to 5 Years) [...] age to complete this topic Care Teams Tug Boat Engineer Relationship Specialty Start Date End Date Gayla Hagen MD [address] [facility] [place] [address] PCP - General 04/23/21
--- OUTSIDE RECORDS SUMMARY | 2024-11-14 08:44 | XMS_ITS | Patient Health Record ---
Author Organization [facility] Address [address] [id number] Care Team Providers Care Wire Stretcher Name Role Phone WAYNE SIN Unavailable [phone] SMILEY MACHADO Unavailable [phone] Allergies No Known Allergies Results Component Value Reference Range Flag Notes Creatinine-[id number] Reviewed date:12/06/2023 11:45:29 AM Interpretation:Creatinine 1.0/CrCl 131 ml/min Performing Lab:[facility] [place], [address] [facility], Phone - [phone], Director - Juan Notes/Report: Clinical Information:PHARYNGEAL SRC: ORAL Creatinine 1.00 0.76-1.27 mg/dL eGFR 93 >59 mL/min/1.73 T pallidum Screening Edwards -[id number] Reviewed date:12/07/2023 09:46:23 AM Interpretation:RPR 1:2 Performing Lab:[facility] [place], [address] [facility], Phone - [phone], Director - Juan Notes/Report: Clinical Information:PHARYNGEAL SRC: ORAL Clinical Information:PHARYNGEAL SRC: ORAL Clinical Information:PHARYNGEAL SRC: ORAL T pallidum Antibodies Reactive Non Reactive A RPR Reactive Non Reactive A RPR, Quant 1:2 NonRea<1:1 titer H HIV Ab/p24 Ag with Reflex-08 [id number] Reviewed date:12/06/2023 11:15:54 AM Interpretation:Negative Performing Lab:[facility] [address], [address], [place], Phone - [phone], [facility] Notes/Report: Clinical Information:PHARYNGEAL SRC: ORAL HIV Ab/p24 Ag Screen Non Reactive Non Reactive HIV-1/HIV-2 antibodies and HIV-1 p24 antigen were NOT detected. There is no laboratory evidence of HIV infection. HIV Negative Ct, Ng, Trich vag by SURESH-183 160 Reviewed date:12/07/2023 09:46:35 AM Interpretation:Negative Performing Lab:[facility] [place], [address], [address], [place], Phone - [phone], Director - [facility] Notes/Report: Clinical Information:PHARYNGEAL SRC: ORAL Chlamydia by SURESH Negative Negative Gonococcus by SURESH Negative Negative Trich vag by SURESH Negative Negative Ct/GC SURESH, Pharyngeal-[id number] Reviewed date:12/07/2023 09:44:15 AM Interpretation:Negative Performing Lab:[facility] [place], [address], [address], [place], Phone - [phone], Director - [facility] Notes/Report: Clinical Information:PHARYNGEAL SRC: ORAL C. trachomatis, SURESH, Pharyn Negative Negative N. gonorrhoeae, SURESH, Pharyn Negative Negative Lipid Panel-[id number] Reviewed date:12/06/2023 09:06:05 AM Interpretation:Normal Performing Lab:[facility] [place], [address] [facility], Phone - [phone], Director - Juan Notes/Report: Clinical Information:PHARYNGEAL SRC: ORAL Cholesterol, Total 155 100-199 mg/dL Triglycerides 83 0-149 mg/dL HDL Cholesterol 42 >39 mg/dL VLDL Cholesterol Ananth 16 5-40 mg/dL LDL Chol Calc ([facility]) 97 0-99 mg/dL Creatinine-[id number] Reviewed date:03/19/2024 10:20:42 AM Interpretation:Normal Performing Lab:[facility] [place], [address] [facility], [place], Phone - [phone], Director - Juan Notes/Report: Creatinine 1.04 0.76-1.27 mg/dL eGFR 89 >59 mL/min/1.73 T pallidum Screening Edwards -[id number] Reviewed date:03/23/2024 12:41:47 PM Interpretation:RPR 1:4 Performing Lab:[facility] [place], [address], [address], [place], Phone - [phone], Director - [facility] Notes/Report: T pallidum Antibodies Reactive Non Reactive A RPR Reactive Non Reactive A RPR, Quant 1:4 NonRea<1:1 titer H HIV Ab/p24 Ag with Reflex-08 [id number] Reviewed date:03/19/2024 01:58:50 PM Interpretation:Negative Performing Lab:[facility] [place], [address], [address], [place], Phone - [phone], [facility] Notes/Report: HIV Ab/p24 Ag Screen Non Reactive Non Reactive HIV-1/HIV-2 antibodies and HIV-1 p24 antigen were NOT detected. There is no laboratory evidence of HIV infection. HIV Negative Chlamydia/GC Amplification-1 [id number] Reviewed date:03/19/2024 07:31:07 PM Interpretation:Negative Performing Lab:[facility] [place], [address], [address], [place], Phone - [phone], Director - [facility] Notes/Report: Chlamydia trachomatis, SURESH Negative Negative Neisseria gonorrhoeae, SURESH Negative Negative Ct/GC SURESH, Pharyngeal-[id number] Reviewed date:03/19/2024 07:31:01 PM Interpretation:Negative Performing Lab:[facility] [place], [address], [address], [place], Phone - [phone], Director - [facility] Notes/Report: C. trachomatis, SURESH, Pharyn Negative Negative N. gonorrhoeae, SURESH, Pharyn Negative Negative HCV Antibody-[id number] Reviewed date:03/19/2024 01:59:14 PM Interpretation:Negative Performing Lab:[facility] [place], [address], [address], [place], Phone - [phone], Director - [facility] Notes/Report: Hep C Virus Ab Non Reactive Non Reactive HCV antibody alone does not differentiate between previously resolved infection and active infection. Equivocal and Reactive HCV antibody results should be followed up with an HCV RNA test to support the diagnosis of active HCV infection. T pallidum Screening Edwards -[id number] Reviewed date:04/09/2024 07:56:21 AM Interpretation:RPR 1:2 Performing Lab:[facility] [place], [address], [address], [place], Phone - [phone], Director - [facility] Notes/Report: T pallidum Antibodies Reactive Non Reactive A RPR Reactive Non Reactive A RPR, Quant 1:2 NonRea<1:1 titer H T pallidum Screening Edwards -[id number] Reviewed date:06/25/2024 01:25:52 PM Interpretation:RPR 1:1 Performing Lab:[facility], [address], [address], [place], Phone - [phone], Director - [facility] Notes/Report: T pallidum Antibodies Reactive Non Reactive A RPR Reactive Non Reactive A RPR, Quant 1:1 NonRea<1:1 titer H HIV Ab/p24 Ag with Reflex-08 3935 Reviewed date:06/25/2024 01:21:17 PM Interpretation:Negative Performing Lab:[facility], [address], [address], [place], Phone - [phone], Director - [facility] Notes/Report: HIV Ab/p24 Ag Screen Non Reactive Non Reactive HIV-1/HIV-2 antibodies and HIV-1 p24 antigen were NOT detected. There is no laboratory evidence of HIV infection. HIV Negative HCV Antibody RFX to Quant PC R-[id number] Reviewed date:06/25/2024 01:21:23 PM Interpretation:Negative Performing Lab:[facility], [address], [address], [place], Phone - [phone], Director - [facility] Notes/Report: HCV Ab Non Reactive Non Reactive Interpretation: Not infected with HCV unless early or acute infection is suspected (which may be delayed in an immunocompromised individual), or other evidence exists to indicate HCV infection. Chlamydia/GC Amplification-1 [id number] Reviewed date:06/26/2024 08:56:21 AM Interpretation:Negative Performing Lab:[facility], [address], [address], [place], Phone - [phone], Director [facility] Notes/Report: Chlamydia trachomatis, SURESH Negative Negative Neisseria gonorrhoeae, SURESH Negative Negative Ct/GC SURESH, Pharyngeal-[id number] Reviewed date:06/26/2024 08:56:27 AM Interpretation:Negative Performing Lab:[facility] [place], [address], [address], [place], Phone - [phone], [facility] Notes/Report: C. trachomatis, SURESH, Pharyn Negative Negative N. gonorrhoeae, SURESH, Pharyn Negative Negative Chlamydia/GC Amplification-1 68658 Reviewed date:07/24/2024 04:57:18 PM Interpretation:GC positive Performing Lab:[facility] [place], [address], [address], [place], Phone - [phone], Director - [facility] Notes/Report: Clinical Information:SRC: URINE Chlamydia trachomatis, SURESH Negative Negative Neisseria gonorrhoeae, SURESH Positive Negative A Chlamydia/GC Amplification-1 16441 Reviewed date:08/09/2024 04:26:42 PM Interpretation:Negative Performing Lab:[facility] [place], [address], [address], [place], Phone - [phone], Director - [facility] Notes/Report: Clinical Information:SRC: URINE Chlamydia trachomatis, SURESH Negative Negative Neisseria gonorrhoeae, SURESH Negative Negative Urinalysis Reviewed date:08/28/2024 10:15:48 AM Interpretation:Leuks positive Performing Lab: Notes/Report: Leuks positive Leukocytes 15 Nitrates - Uro 0.2 Protein 15 pH 6.0 Blood - Spec [place] 1.020 Ketones - Bilirubin 1 Glucose - Chlamydia/GC Amplification-1 07222 Reviewed date:08/30/2024 12:06:50 PM Interpretation:Gonorrhea Positive Performing Lab:[facility] [place], [address], [address], [place], Phone - [phone], Director - [facility] Notes/Report: Clinical Information:SRC: URINE Chlamydia trachomatis, SURESH Negative Negative Neisseria gonorrhoeae, SURESH Positive Negative A Ct/GC SURESH, Pharyngeal-[id number] Reviewed date:09/04/2024 12:44:29 PM Interpretation:Negative Performing Lab:[facility] [place], [address], [address], [place], Phone - [phone], Director - [facility] Notes/Report: Clinical Information:SRC: URINE C. trachomatis, SURESH, Pharyn Negative Negative N. gonorrhoeae, SURESH, Pharyn Negative Negative Chlamydia/GC Amplification-1 [id number] Reviewed date:09/24/2024 12:03:50 PM Interpretation:negative Performing Lab:[facility] [place], [address], [address], [place], Phone - [phone], [facility] Notes/Report: Chlamydia trachomatis, SURESH Negative Negative Neisseria gonorrhoeae, SURESH Negative Negative T pallidum Screening Edwards -[id number] Reviewed date:09/25/2024 12:54:22 PM Interpretation:RPR 1:1 Performing Lab:[facility], [address], [address], [place], Phone - [phone], Director - [facility] Notes/Report: Clinical Information:SRC: URINE Clinical Information:SRC: URINE Clinical Information:SRC: URINE T pallidum Antibodies Reactive Non Reactive A RPR Reactive Non Reactive A RPR, Quant 1:1 NonRea<1:1 titer H HIV Ab/p24 Ag with Reflex-08 3935 Reviewed date:09/25/2024 12:54:32 PM Interpretation:Negative Performing Lab:[facility], [address], [address], [place], Phone - [phone], Director - [facility] Notes/Report: Clinical Information:SRC: URINE HIV Ab/p24 Ag Screen Non Reactive Non Reactive HIV-1/HIV-2 antibodies and HIV-1 p24 antigen were NOT detected. There is no laboratory evidence of HIV infection. HIV Negative Chlamydia/GC Amplification-1 45060 Reviewed date:09/25/2024 07:40:09 PM Interpretation:Negative Performing Lab:[facility], [address], [address], [place], Phone - [phone], Director - [facility] Notes/Report: Clinical Information:SRC: URINE Chlamydia trachomatis, SURESH Negative Negative Neisseria gonorrhoeae, SURESH Negative Negative Ct/GC SURESH, Pharyngeal-920645 Reviewed date:09/25/2024 07:39:58 PM Interpretation:Negative Performing Lab:[facility] [place], [address], [address], [place], Phone - [phone], Director - [facility] Notes/Report: Clinical Information:SRC: URINE C. trachomatis, SURESH, [...] before? Yes If yes, when and where? 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 ; Contact with and (suspected) exposure to other viral communicable diseases Z20.828 ; Encounter for screening for human immunodeficiency virus [HIV] Z11.4 ; Encounter for HIV pre-exposure prophylaxis Z29.81 and Encounter for screening for infections with a predominantly sexual mode of transmission Z11.3 [facility] [address] [place], [place] [id number] 03/18/2024 WAYNE GABAI Encounter for screen ing for human immunodeficiency virus [HIV] Z11.4 ; Encounter for HIV pre-exposure prophylaxis Z29.81 ; Encounter for screening for infections with a predominantly sexual mode of transmission Z11.3 ; Other problems related to lifestyle Z72.89 ; 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 and Encounter for screening for other viral diseases Z11.59 [facility] [address] [place], [place] [id number] 04/05/2024 WAYNE GABAI Encounter for screen ing for infections with a predominantly sexual mode of transmission Z11.3 [facility] [address] [place], [place] [id number] 06/24/2024 WAYNE GABAI Encounter for screen ing for human immunodeficiency virus [HIV] Z11.4 ; Encounter for HIV pre-exposure prophylaxis Z29.81 ; Encounter for screening for infections with a predominantly sexual mode of transmission Z11.3 ; Other problems related to lifestyle Z72.89 and Encounter for screening for other viral diseases Z11.[address] [id number] 07/17/2024 WAYNE GABAI Encounter for screen ing for infections with a predominantly sexual mode of transmission Z11.3 ; Counseling, unspecified Z71.9 ; Other problems related to lifestyle Z72.89 and Nonspecific urethritis N34.[address] [id number] 07/24/2024 SMILEY MACHADO Gonorrhea A54.[address] [id number] 08/07/2024 WAYNE GABAI Encounter for screen ing for infections with a predominantly sexual mode of transmission Z11.3 ; Counseling, unspecified Z71.9 and Other problems related to lifestyle Z72.[address] [id number] 08/28/2024 SMILEY MACHADO Encounter for screen ing for infections with a predominantly sexual mode of transmission Z11.3 ; Nonspecific urethritis N34.1 ; Counseling, unspecified Z71.9 ; Other problems related to lifestyle Z72.89 and Urinary frequency R35.[address] [id number] 09/11/2024 SMILEY MACHADO Counseling, unspecif ied Z71.9 ; Encounter for screening for infections with a predominantly sexual mode of transmission Z11.3 ; Other problems related to lifestyle Z72.89 and Contact with or exposure to STI Z20.[address] [id number] 09/24/2024 WAYNE GABAI Encounter for screen ing for human immunodeficiency virus [HIV] Z11.4 ; Encounter for HIV pre-exposure prophylaxis Z29.81 ; Encounter for screening for infections with a predominantly sexual mode of transmission Z11.3 and Other problems related to lifestyle Z72.[address] [id number] 12/05/2023 WAYNE GABAI [address] [id number] 03/06/2024 WAYNE GABAI Contact with and (suspected) exposure to other viral communicable diseases Z20.828 [facility] [address] [place], [place] [id number] 03/18/2024 WAYNE GABAI [facility] [address] [place], [place] [id number] 06/24/2024 WAYNE GABAI [facility] [address] [place], [place] [id number] 07/19/2024 WAYNE GABAI [facility] [address] [id number] 08/30/2024 SMILEY MACHADO [facility] [address] [id number] 09/11/2024 SMILEYCHI MACHADO [facility] [address] [place], [place] [id number] 09/24/2024 WAYNE GABAI Assessments Encounter Date Diagnosis (ICD Code) Assessment Notes Treatment Notes Treatment Clinical Notes Section Notes 12/05/2023 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 [...] the patient Ordering medication/test /procedures Established Patient: 50459 10 Minutes 08/07/2024 Encounter for screening for [...] /procedures Communication of test results Established Patient: 60746 10 Minute 08/28/2024 Nonspecific urethritis (ICD-10 - [...] the patient Ordering medication/test /procedures Established Patient: 55779 10 Minutes 09/24/2024 Encounter for screening for human immunodeficiency virus [HIV] (ICD-10 - Z11.4) Spent ___ minutes doing the following: Chart Prep Obtaining/revie wing history Performing medically necessary exam Counseling/Coor dination of Care Documenting the visit Educating the patient Ordering medication/test /procedures Communication of test results Established Patient: 04087 20 Minutes 09/24/2024 Encounter for HIV pre-exposure [...] /procedures Communication of test results Established Patient: 74817 20 Minutes 08/28/2024 Counseling, unspecified (ICD-10 - [...] the patient Ordering medication/test /procedures Established Patient: 94426 10 Minutes 09/11/2024 Other problems related to lifestyle (ICD-10 - Z72.89) Spent 15 minutes doing the following: Chart Prep Obtaining/revie wing history Performing medically necessary exam Counseling/Coor dination of Care Documenting the visit Educating the patient Ordering medication/test /procedures Established Patient: 06350 10 Minutes 08/07/2024 Counseling, unspecified (ICD-10 - Z71.9) Spent ___ minutes doing the following: Chart Prep Obtaining/revie wing history Performing medically necessary exam Counseling/Coor dination of Care Documenting the visit Educating the patient Ordering medication/test /procedures Communication of test results Established Patient: 45476 10 Minute 07/17/2024 Other problems related to [...] of PrEP medication. Will reach out to [facility] again since clt has completed [...] /procedures Communication of test results Established Patient: 36066 10 Minute 09/11/2024 Contact with or exposure to STI (ICD-10 - Z20.2) Refill for doxy-PEP sent to be used as needed Spent 15 minutes doing the following: Chart Prep Obtaining/revie wing history Performing medically necessary exam Counseling/Coor dination of Care Documenting the visit Educating the patient Ordering medication/test /procedures Established Patient: 75928 10 Minutes 09/24/2024 Encounter for screening for [...] /procedures Communication of test results Established Patient: 09278 20 Minutes 09/24/2024 Other problems related to lifestyle (ICD-10 - Z72.89) Spent ___ minutes doing the following: Chart Prep Obtaining/revie wing history Performing medically necessary exam Counseling/Coor dination of Care Documenting the visit Educating the patient Ordering medication/test /procedures Communication of test results Established Patient: 86545 20 Minutes 08/28/2024 Urinary frequency (ICD-10 - [...] medication: The Ready, Set, PrEP program and [place] HIV Drug Assistance Program (HDAP) which makes PrEP available at no cost to those who qualify. [employer] offers a program to help patients pay [...] Provider Name:WAYNE SIN , 12/23/2024 01:15:00 PM, [address] [place] [address], [facility], [place], [place], [id number], Insurance Providers Payer Name Payer Address Payer Phone Subscriber Number Group Number Insured Name Patient Relationship to Insured Coverage Start Date Coverage End Date [facility] [address] [place], [place] [id number] Luc Mathew Self - patient is the [...]
== END 2024-11-14 08:27 | disposition home or self-care (01) ==
LOC: CF 08:26
PROVIDERS: Visit Provider Internal Medicine
DX: M47.816 Spondylosis without myelopathy or radiculopathy, lumbar region (principal)
CPT/HCPCS: 64493; 64494

== ENCOUNTER 2024-11-14 12:44 | Outpatient (AMB) | payer OTHER, SELFPAY ==
--- NOTE | 2024-11-14 12:48 | A.OFFVIS_ITS ---
Vital Signs 11/14/24 12:49 Height 6 ft 1 in Weight 252 lb BMI 33.2 BP 140/82 H Blood Pressure Location Lt brachial Position Sitting Respiration 16 Pulse 84 Pulse Source Pulse Oximeter Pulse Oximetry (%) 100 Oxygen Delivery Method Room Air Intake Visit Reasons: Alfredo Dx L3-L4-L5 MBB Allergies No Known Allergies Allergy (Verified 10/10/24 10:45) HPI HPI Alfredo Dx L3-L4-L5 MBB: Details: Patient presents for scheduled procedure. Denies any recent cough, cold, infection, fever or other significant changes in medical history since last office visit[facility] History Obstructive sleep apnea on CPAP BMI 30.0-30.9,adult Obesity Obstructive sleep apnea Numbness of right hand Surgical History History of carpal tunnel release Hx laparoscopic cholecystectomy H/O circumcision Family History Mother Arthritis Hypercholesteremia HTN (hypertension) Diabetes Maternal Grandmother HTN (hypertension) Diabetes Father Liver cancer Social History Housing: House Alcohol intake: current Alcohol intake frequency: a few times a week Patient Tobacco Use Status: Former Tobacco user Tobacco use type: Cigarette e-Cigarette/Vaping Use: Currently Using Second Hand Smoke Exposure: Yes service: No Current occupational status: employed Cognitive needs: No Hearing needs: No Vision needs: Yes (Glasses) Physical Exam Vital Signs: Last Vital Signs Pulse 84 11/14/24 12:49 Resp 16 11/14/24 12:49 BP 140/82 H 11/14/24 12:49 Pulse Ox 100 11/14/24 12:49 Oxygen Delivery Method Room Air 11/14/24 12:49 BMI result Body Mass Index 33.2 Office Procedures Details: Lumbar Medial Branch Block, bilateral L3, L4 medial branches and L5 Dorsal Ramus (2 levels, 3 nerves) After obtaining written consent, pre-procedure blood pressure and pulse were recorded and are in the nursing record for review. The patient was placed in a prone position. The respective lumbosacral area was prepped with chloraprep and draped in sterile fashion. The skin over the target medial branch nerves was anesthetized with 0.5% lidocaine. A 22 gauge 3.5 inch needle was inserted into the target medial branch nerve under fluoroscopic guidance. No paresthesias were elicited with needle placement and aspiration was negative for blood and CSF. Next, 0.2cc of omnipaque 180 was injected to verify positioning in AP and oblique imaging. Next 0.5 ml 0.5% ropivicaine was injected (0.5cc total per level). The identical procedure was performed at the remaining levels. The skin was cleansed and a sterile bandage was applied. Following the procedure the patient's vital signs were stable. The patient tolerated the procedure well and no complications were encountered. Following the procedure the patient's vital signs were stable. The patient was discharged home in good condition with post-procedural instructions. Time Out: Immediately prior to the procedure, the following was verbally confirmed that there is a signed consent form and that the correct patient, planned procedure, site and side are consistent with documentation and that necessary equipment and/or blood products are available prior to the start of the case. Complications: none EBL: <5 cc 58212 - with Fluoroscopy (L3-L4) 18893 - second level with Fluoroscopy (L3-L4-L5) Procedure code (CPT) selection complete Assessment & Plan Assessment & Plan (1) Lumbar spondylosis: Code(s): M47.816 - Spondylosis without myelopathy or radiculopathy, lumbar region Category: Medical Plan Patient is status post bilateral L3, L4 medial branches and L5 dorsal ramus diagnostic blocks. Patient tolerated procedure well and was discharged home in stable condition with discharge instructions. All questions were answered. We will follow-up via telephone or in clinic to assess response to therapy. A follow-up appointment was made during today's visit. Orders: Orders AMB Medial Branch Block - Lumbar/Sacral Today Sherif Chan MD M47.816 - Spondylosis without myelopathy or radiculopathy, lumbar region FL guidance in treatment room Today Mariah Zuleta APRN, [employer]COME [employer]PARER M47.816 - Spondylosis without myelopathy or radiculopathy, lumbar region Coding Level of Care Code Procedure Only Diagnoses Lumbar spondylosis M47.816 CPT Codes Medial Branch Block Lumbar/Sacral1 - Branch Block Lumb/Sac 1: 62956 - with Fluoroscopy (L3-L4) ([id number]) Medial Branch Block Lumbar/Sacral1 - Branch Block Lumb/Sac 2: 12877 - second level with Fluoroscopy (L3-L4-L5) ([id number])
[2024-11-14 12:49] VITALS: BP 140/82; PULSE 84; RESP 16; O2SAT 100; BMI 33.2
== END 2024-11-14 13:10 | disposition home or self-care (01) ==
LOC: HO.PMCPRC 12:44
PROVIDERS: Visit Provider Internal Medicine
DX: M47.816 Spondylosis without myelopathy or radiculopathy, lumbar region (principal)
CPT/HCPCS: 64494

== ENCOUNTER 2024-11-20 08:59 | Outpatient (AMB) | payer OTHER, SELFPAY ==
--- NOTE | 2024-11-20 09:04 | A.OFFVIS_ITS ---
Vital Signs 11/20/24 09:05 Height 6 ft 1 in Weight 255 lb BMI 33.6 BP 110/68 Blood Pressure Location Lt brachial Position Sitting Respiration 16 Pulse 80 Pulse Source Pulse Oximeter Pulse Oximetry (%) 98 Oxygen Delivery Method Room Air Intake Visit Reasons: S/P Alfredo Dx L3-L4-L5 MBB Encyclopedia Research Worker Required: No Allergies No Known Allergies Allergy (Verified 11/20/24 09:07) Medication List - Last Reconciled 11/20/24 by Rochelle Peck LPN emtricitabine-tenofovir alafen 200-25 mg (Descovy) 1 tab PO DAILY gabapentin 600 mg PO .qhs 30 days naproxen 500 mg PO BID sildenafil 100 mg PO DAILY PRN HPI HPI S/P Alfredo Dx L3-L4-L5 MBB: Details: History of Present Illness The patient is a 49-year-old male presenting with vertebrogenic low back pain. He underwent diagnostic medial branch blocks which provided minimal relief, estimated at 10%. The patient has a history of mixed Modic type changes at L3-4 and L4-5 with loss of intervertebral disc height, as shown on lumbar spine MRI. The patient has previously undergone transforaminal injections to his lumbar nerve roots and bilateral diagnostic lumbar medial branch blocks, both of which provided no relief. These interventions have excluded radicular and facet- mediated components as sources of his low back pain. The patient has completed PT, has been actively engaged in a home exercise program, including stretching and strengthening routines, and has lost over 50 pounds in weight. Despite these efforts, there has been no improvement in his low back pain. Pain Description - Onset: Persistent pain despite interventions - Quality: No significant relief from medial branch blocks - Location: Low back, associated with vertebrogenic changes - Exacerbating factors: Axial loading and forward flexion - Relieving factors: None identified Physical Exam - Lumbar Range of Motion- Forward flexion/anterior loading reproduces squeezing discomfort; lumbar extension induces tightness. Results - MRI: Mixed Modic type changes at L3-4 and L4-5 with loss of intervertebral disc height. Pain Management - Affect: Pain persists despite weight loss and exercise - Analgesia: Minimal relief from medial branch blocks, estimated at 10% - Activities of Daily Living: Pain impacts daily activities, no significant improvement despite interventions PFSH Medical History Obstructive sleep apnea on CPAP BMI 30.0-30.9,adult Obesity Obstructive sleep apnea Numbness of right hand Surgical History History of carpal tunnel release Hx laparoscopic cholecystectomy H/O circumcision Family History Mother Arthritis Hypercholesteremia HTN (hypertension) Diabetes Maternal Grandmother HTN (hypertension) Diabetes Father Liver cancer Social History Housing: House Alcohol intake: current Alcohol intake frequency: a few times a week Patient Tobacco Use Status: Former Tobacco user Tobacco use type: Cigarette e-Cigarette/Vaping Use: Currently Using Second Hand Smoke Exposure: Yes service: No Current occupational status: employed Cognitive needs: No Hearing needs: No Vision needs: Yes (Glasses) Physical Exam Vital Signs: Last Vital Signs Pulse 80 11/20/24 09:05 Resp 16 11/20/24 09:05 BP 110/68 11/20/24 09:05 Pulse Ox 98 11/20/24 09:05 Oxygen Delivery Method Room Air 11/20/24 09:05 BMI result Body Mass Index 33.6 Assessment & Plan Assessment & Plan (1) Vertebrogenic low back pain: Code(s): M54.51 - Vertebrogenic low back pain Category: Medical Plan Plan Patient was informed and verbally consented to the use of an ambient scribe for clinic note documentation during this visit. 1. Vertebrogenic Low Back Pain - Plan to resubmit authorization request for basivertebral nerve ablation at L3, L4, L5, and S1 due to vertebrogenic endplate changes. - Await authorization and schedule for the Intracept procedure. - Continue home exercise program and weight management. Discussion Notes I discussed with the patient that the minimal relief from the medial branch blocks suggests that the pain is not facet-mediated. We reviewed the plan to resubmit the authorization request for basivertebral nerve ablation, as this is likely the source of his vertebrogenic low back pain. The patient is aware of the need to continue his home exercise program and weight management efforts. Patient Instructions - Continue with your home exercise program and weight management. - Await further instructions regarding the scheduling of the Intracept procedure. Coding Level of Care Code Est Pt Level 3 (63059) Diagnoses Vertebrogenic low back pain M54.51
[2024-11-20 09:05] VITALS: BP 110/68; PULSE 80; RESP 16; O2SAT 98; BMI 33.6
== END 2024-11-20 09:47 | disposition home or self-care (01) ==
LOC: HO.PMC 09:00
PROVIDERS: Visit Provider Internal Medicine
DX: M54.51 Vertebrogenic low back pain (principal)
CPT/HCPCS: 99213

== ENCOUNTER 2024-12-30 10:49 | Outpatient (AMB) | payer OTHER, SELFPAY ==
--- NOTE | 2024-12-30 10:51 | MHC.OFFVIS ---
Intake Visit Reasons: Genital warts Intake Note: New Patient Is Present for Genital Warts Urology Med: None Antibiotic Allergy: None Blood Thinner: None Occupational Therapist'S Assistant Required: No Accompanied by: Self / Same As Patient Allergies No Known Allergies Allergy (Verified 12/30/24 11:30) Medication List - Last Reconciled 12/30/24 by JENN Sands emtricitabine-tenofovir alafen 200-25 mg (Descovy) 1 tab PO DAILY gabapentin 600 mg PO .qhs 30 days naproxen 500 mg PO BID sildenafil 100 mg PO DAILY PRN HPI Comments Details: Luc is a very pleasant 49-year-old male patient of Dr. Aguilar. He has a past medical history of obstructive sleep apnea on CPAP, hypertension, lumbar degenerative disc disease, nephrolithiasis, hyperlipidemia, fatty liver disease, and obesity. He presents to the office today as a new patient for genital warts. In discussion with the patient today he reports a longstanding history of genital warts and has previously performed self cryotherapy and felt this was helpful in removal of genital warts however most recently experienced outbreak of genital warts and is looking to undergo further treatment options. In assessment of the patient today the penis is circumcised there is a 2-3 mm raised flesh-colored cauliflower like lesion on the ridge/remaining foreskin of the penis. They are also other very small lesions along the ridge of the penis these appear more flat. He does report he is sexually active and wears protection. He reports having followed up with [facility] and underwent STD testing that he typically undergoes every 3 months and was told everything was within normal limits. He otherwise denies any bothersome urinary issues. He denies urinary urgency, urinary frequency, incontinence, nocturia, hematuria, dysuria, foul smelling urine, changes to urinary stream, flank pain, fever, and or chills. He is happy with his current voiding parameters. We did discussed at length potential causes of genital warts as well as further treatment options and risks and benefits of these treatment options. All questions were answered to the best of my ability. In office urinalysis results reviewed with the patient today. He discusses upcoming trip to [place] for the holidays. He otherwise offers no other issues or concerns at this time. [facility] Medical History Obstructive sleep apnea on CPAP BMI 30.0-30.9,adult Obesity Obstructive sleep apnea Numbness of right hand Surgical History History of carpal tunnel release Hx laparoscopic cholecystectomy H/O circumcision Family History Mother Arthritis Hypercholesteremia HTN (hypertension) Diabetes Maternal Grandmother HTN (hypertension) Diabetes Father Liver cancer Social History Housing: House Alcohol intake: current Alcohol intake frequency: a few times a week Patient Tobacco Use Status: Former Tobacco user Tobacco use type: Cigarette e-Cigarette/Vaping Use: Currently Using Second Hand Smoke Exposure: Yes service: No Current occupational status: employed Cognitive needs: No Hearing needs: No Vision needs: Yes (Glasses) Review of Systems Const All systems reviewed & are unremarkable except as noted in HPI and below Physical Exam Const General: cooperative, comfortable, no acute distress, well developed, alert and awake Orientation/consciousness: patient oriented x3 HEENT Head: Yes normal to inspection, Yes normocephalic and Yes atraumatic Ears: hearing grossly normal bilaterally Eyes General: appearance normal, both eyes and all related structures Neck Neck: Yes normal visual inspection and Yes trachea midline Chest Chest palpation & inspection: normal inspection of the chest Resp Effort & Inspection: normal respiratory effort and able to speak in complete sentences Cardio Rate: regular rate GI Inspection: Yes normal to inspection Other: as per HPI General: Yes no CVA tenderness Back/Spine/Pelvis Back: no CVA tenderness Skin General skin exam: no rashes or lesions noted Neuro General: patient oriented x3 Extrem General: Yes normal to inspection Psych Appearance: grossly normal and well kempt Mental Status: mental status grossly normal Speech and movement: Normal speech and movement present and Clear speech present Affect: normal affect Attitude: cooperative Thought process: Normal thought process present Thought content: Normal thought content present Results AMB Urinalysis, Automated UA Leukoctes 0 Renetta/uL Last Edit by RANDALL Coto on 12/30/24 11:19 UA Nitrite Negative Last Edit by RANDALL Coto on 12/30/24 11:19 UA Urobilinogen 0.2 mg/dL Last Edit by Jeanne Mccollum, RMA on 12/30/24 11:19 UA Protein 0 mg/dL Last Edit by Jeanne Mccollum, RMA on 12/30/24 11:19 UA pH 6.5 Last Edit by Jeanne Interianoro, RMA on 12/30/24 11:19 UA Blood 10 Mario/uL Last Edit by Jeanne Mccollum, RMA on 12/30/24 11:19 UA Specific [place] 1.010 Last Edit by Jeannecarloz Mccollum, RMA on 12/30/24 11:19 UA Ketone Negative Last Edit by Jeannecarloz Mccollum, RMA on 12/30/24 11:19 UA Bilirubin 0 mg/dL Last Edit by Jeannecarloz Mccollum, RMA on 12/30/24 11:19 UA Glucose 0 mg/dL Last Edit by Jeanne Interianoro, RMA on 12/30/24 11:19 Results Reviewed Results Reviewed: Laboratory Last Values Urine pH (Auto) 6.5 12/30/24 11:05 Specific [place] (Auto) 1.010 12/30/24 11:05 Urine Protein (Auto) 0 mg/dL 12/30/24 11:05 Glucose (UA)(Auto) 0 mg/dL 12/30/24 11:05 Urine Ketones (Auto) Negative 12/30/24 11:05 Urine Blood (Auto) 10 Mario/uL 12/30/24 11:05 Urine Nitrite (Auto) Negative 12/30/24 11:05 Urine Bilirubin (Auto) 0 mg/dL 12/30/24 11:05 Urine Urobilinogen (Auto) 0.2 mg/dL 12/30/24 11:05 Leukocyte Esterase (Auto) 0 Renetta/uL 12/30/24 11:05 Assessment & Plan Assessment & Plan (1) Genital lesion, male: Comment: possible wart Code(s): N50.89 - Other specified disorders of the male genital organs Category: Medical (2) Microhematuria: Code(s): R31.29 - Other microscopic hematuria Category: Medical Plan: Risks, benefits and alternatives to therapy were discussed. These include but are not limited to infection, bleeding, damage to local organs and tissues, need for further interventions. ? Anesthetic risks regarding cardiac arrhythmia, blood clots, and potential mortality were discussed. The patient understands the typical recovery time and the outpatient nature of the procedure. After consideration of these risks the patient gives full informed consent and they wish to move ahead with the procedure. Plan In office urinalysis results reviewed with the patient today; as noted above; will send for urine cytology. We did discuss genital warts and proper care of area We discussed further treatment options and risks and benefits of these treatment options. He denies any bothersome urinary issues or concerns. He reports be happy with current voiding parameters. Will schedule for removal of genital warts with CO2 laser. Follow-up per doctor's orders; or sooner with any issues, concerns, and or questions. Orders: Orders AMB Urinalysis Automated Today Z13.9 - Encounter for screening, unspecified Urine Cytology Today R31.29 - Other microscopic hematuria Patient Instructions: The patient had an opportunity to ask questions regarding the treatment plan. All questions were answered. Physical exam, labs, and imaging were discussed and reviewed in detail. As well as risks, benefits, and discussion of treatment choices. No major barriers to understanding were identified. The patient expressed understanding and agreement with the above treatment plan. The patient was made aware they should contact our office by phone for worsening of their current condition, the appearance of new symptoms, or with any questions or concerns. Compliance is encouraged with any medications and follow up testing that is ordered. It is a privilege to be allowed the opportunity to participate in? your urological care.? Again, if you have any questions or concerns If you have any questions or concerns please do not hesitate to contact me. The office is [phone]. This note is constructed using voice recognition software. While every effort has been made to ensure accuracy communications executive errors may have been included. Yours sincerely, JENN Sands Coding Level of Care Code New Pt Level 4 (32024) Diagnoses Genital lesion, male N50.89 Microhematuria R31.29
== END 2024-12-30 11:31 | disposition home or self-care (01) ==
LOC: HO.HUSH 10:50
PROVIDERS: Visit Provider Nurse Practitioner Family
DX: N50.89 Other specified disorders of the male genital organs (principal); R31.29 Other microscopic hematuria; Z13.9 Encounter for screening, unspecified
CPT/HCPCS: 99204

== ENCOUNTER 2024-12-30 10:49 | Outpatient (REF) | payer OTHER, SELFPAY | END 2024-12-30 10:50 | disposition home or self-care (01) | LOC: HO.LAB 10:49 | PROVIDERS: Visit Provider Nurse Practitioner Family | DX: N50.89 Other specified disorders of the male genital organs (principal); R31.29 Other microscopic hematuria; Z13.89 Encounter for screening for other disorder | CPT/HCPCS: 81003; 88112 ==